=== PATIENT | male | born 1960 | race Two or more races ===

== ENCOUNTER 2020-08-24 01:48 | Inpatient (IN) | payer MEDICAID ==
[~2020-08-24] VITALS: Ht 182.9 cm; Wt 73.6 kg
--- NOTE | 2020-08-24 01:50 | NUR ---
ED Nurse Note: Pt brought in from [facility] for ALOC. Per EMS, pt has recent change in behavior (constant shouting) which is different from pt's normal behavior. Pt poor historian, aao x 1-2, yelling and shouting with slurred speech. Pt has bruising on right foot with bandage from facility. Pt bedbound, restless and agitated. IV line initiated, blood work and urine drawn and sent to lab. awaiting further orders. ERMD at bedside. Will continue to monitor.
[2020-08-24 01:55] VITALS: BP 152/70
--- NOTE | 2020-08-24 02:08 | Emergency Room Report ---
History of Present Illness General Chief Complaint: Altered Level of Consciousness Source: Medical Record, EMS Present Illness HPI This is a 60-year-old male with a history of CVA in June. He also history of diabetes hypertension. He presents with chief complaint of altered mental status. Per fci, he appears be more confused and continues to be yelling. No focal deficit. No fever chills but no cough or congestion. Patient denies any problem but keeps yelling. Appear to be confused. Allergies: Coded Allergies: No Known Allergies (Unverified , 08/24/20) COVID-19 Screening Contact w/high risk pt: No Experienced COVID-19 symptoms?: No COVID-19 Testing performed [employer]: Yes - 07/08/20 COVID-19 Screening: Negative COVID-19 COVID-19 Testing Source: [facility] Patient History Past Medical History: see triage record, old chart reviewed, DM, HTN, CAD, CVA/ TIA Past Surgical History: other Pertinent Family History: none Social History: Denies: smoking Immunizations: other Reviewed Nursing Documentation: PMH: Agreed; PSxH: Agreed Nursing Documentation-PMH Past Medical History: No History, Except For Hx Diabetes: Yes Hx Neurological Problems: Yes - epilepsy Hx Cerebrovascular Accident: Yes Review of Systems Eye: Denies: eye pain, blurred vision ENT: Denies: ear pain, nose congestion, throat swelling Respiratory: Denies: cough, shortness of breath Cardiovascular: Denies: chest pain, palpitations Gastrointestinal: Denies: abdominal pain, diarrhea, nausea, vomiting Musculoskeletal: Denies: back pain, joint pain Skin: Denies: rash Neurological: Denies: headache, numbness Endocrine: Denies: increased thirst, increased urine Hematologic/Lymphatic: Denies: easy bruising All Other Systems: negative except mentioned in HPI Physical Exam Vital Signs Date Time Temp Pulse Resp B/P (MAP) Pulse Ox O2 Delivery O2 Flow Rate FiO2 08/24/20 01:49 98.2 88 18 152/70 (97) 96 Room Air Vitals with high blood pressure Sp02 EP Interpretation: reviewed, normal General Appearance: no apparent distress, alert, Chronically Ill Head: normocephalic, atraumatic Eyes: bilateral eye PERRL, bilateral eye EOMI ENT: hearing grossly normal, normal pharynx Neck: full range of motion, supple, no meningismus Respiratory: chest non-tender, lungs clear, normal breath sounds Cardiovascular #1: regular rate, rhythm, no murmur Gastrointestinal: normal bowel sounds, non tender, no mass, no organomegaly, no bruit, non-distended Musculoskeletal: back normal, normal range of motion, other - Left foot: He has ulceration to first and second toes with erythema to the dorsum of the foot. Psychiatric: other - Agitated Medical Decision Making Diagnostic Impression: Primary Impression: Acute encephalopathy Additional Impressions: Cellulitis of left foot Rhabdomyolysis Qualified Codes: M62.82 - Rhabdomyolysis ER Course Patient presents with altered mental status. No obvious infection except maybe for cellulitis of the left foot. No evidence of any COVID. No TIA or CVA. Antibiotics and sedation given. Will admit for further work-up. I contacted Dr. Childress for admission. EKG Diagnostic Results Rate: normal Rhythm: NSR ST Segments: no acute changes Rhythm Strip Diag. Results EP Interpretation: yes Rate: 65 Rhythm: NSR, no PVC's, no ectopy Other X-Ray Diagnostic Results Other X-Ray Diagnostic Results : X-Ray ordered: Xrays left foot # of Views/Limited Vs Complete: 3 View Indication: Pain EP Interpretation: Yes Interpretation: no dislocation, no soft tissue swelling, no fractures Impression: No acute disease Electronically Signed by: Aniket Leblanc MD CT/MRI/US Diagnostic Results CT/MRI/US Diagnostic Results : Imaging Test Ordered: CT head Impression Negative per radiologist Last Vital Signs Date Time Temp Pulse Resp B/P (MAP) Pulse Ox O2 Delivery O2 Flow Rate FiO2 08/24/20 01:49 98.2 88 18 152/70 (97) 96 Room Air Status: improved Disposition: ADMITTED INPATIENT Condition: Serious Aniket Leblanc MD Aug 24, 2020 02:08
[2020-08-24] MEDS ORDERED: LORazepam Inj 2mg/ml 1ml IV ONE (02:15)
[2020-08-24 02:17] LABS: APPEARANCE,URINE CLEAR; BILIRUBIN, URINE NEGATIVE (NEGATIVE); GLUCOSE, URINE (UA) NEGATIVE (NEGATIVE); KETONES,URINE 2+ (NEGATIVE); LEUKOCYTE ESTERASE ,URINE 1+ (NEGATIVE); NITRITE,URINE NEGATIVE (NEGATIVE); PH,URINE 6 (4.5-8.0); PROTEIN,URINE 1+ (NEGATIVE); UROBILINOGEN,URINE 4 MG/DL (0.0-1.0)
--- NOTE | 2020-08-24 02:19 | NUR ---
ED Nurse Note: Covid swab collected and sent to lab
--- NOTE | 2020-08-24 02:19 | NUR ---
ED Nurse Note: ERMD aware that dental laboratory technician is unable to get an EKG, per ERMD ok to wait until patient is calmer to be able to take EKG.
[2020-08-24 02:27] LABS: BASOPHILS % (AUTO) 2.1 % (0.0-2.0); HEMATOCRIT 38.5 % (42.0-52.0); HEMOGLOBIN 13.9 G/DL (14.2-18.0); LYMPHOCYTES % (AUTO) 11.6 % (20.0-45.0); MEAN CORPUSCULAR VOLUME 84 FL (80-99); MONOCYTES % (AUTO) 9.9 % (1.0-10.0); NEUTROPHILS % (AUTO) 75.5 % (45.0-75.0); PLATELET COUNT 306 K/UL (150-450); RED BLOOD COUNT 4.58 M/UL (4.70-6.10); RED CELL DISTRIBUTION WIDTH 13.2 % (11.6-14.8); WHITE BLOOD COUNT 12.4 K/UL (4.8-10.8)
[2020-08-24 02:29] LABS: ANION GAP 7 mmol/L (5-15); BLOOD UREA NITROGEN 20 mg/dL (7-18); CALCIUM 9.4 MG/DL (8.5-10.1); CARBON DIOXIDE 29 MMOL/L (21-32); CHLORIDE 102 MMOL/L (98-107); CREATININE 0.7 MG/DL (0.55-1.30); POTASSIUM 3.6 MMOL/L (3.5-5.1); SODIUM 138 MMOL/L (136-145)
[2020-08-24 02:29] LABS: COLOR,URINE YELLOW
[2020-08-24 02:43] LABS: ALANINE AMINOTRANSFERASE 297 U/L (12-78); ALBUMIN 3.3 G/DL (3.4-5.0); ALBUMIN/GLOBULIN RATIO 0.9 (1.0-2.7); ALKALINE PHOSPHATASE 89 U/L (46-116); ASPARTATE AMINO TRANSFERASE 250 U/L (15-37); BILIRUBIN,TOTAL 1.4 MG/DL (0.2-1.0); CKMB 12.9 NG/ML (0.0-3.6); CREATINE KINASE 1097 U/L (26-308)
[2020-08-24 02:46] LABS: BILIRUBIN,DIRECT 0.5 MG/DL (0.0-0.3)
[2020-08-24] MEDS ORDERED: INSULIN LI100 UNIT/1 SQ (03:48)
[2020-08-24] MEDS ORDERED: BACTRIM DS TAB1 EAC1 ORAL ×2 (03:48→05:12)
[2020-08-24] MEDS ORDERED: ASPIRIN81 MG ORAL (03:48)
[2020-08-24] MEDS ORDERED: MORPHINE SULFAT10 MG RC (03:48)
[2020-08-24] MEDS ORDERED: KLONOPIN1 MG ORAL (03:48)
[2020-08-24] MEDS ORDERED: DULCOLAX10 MG RC ×2 (03:48→05:12)
[2020-08-24] MEDS ORDERED: DEPAKOTE250 MG PO (03:48)
[2020-08-24] MEDS ORDERED: METFORMIN HCL500 M1 ORAL (03:48)
[2020-08-24] MEDS ORDERED: ATIVAN0.5 MG ORAL (03:48)
[2020-08-24] MEDS ORDERED: DOCUSATE SODIU100 MG ORAL (03:48)
[2020-08-24] MEDS ORDERED: MORPHINE SULFAT20 MG RC (03:48)
[2020-08-24] MEDS ORDERED: LEVSIN-SL0.125 MG SL (03:48)
[2020-08-24] MEDS ORDERED: LIPITOR40 MG ORAL (03:48)
[2020-08-24] MEDS ORDERED: ZOFRAN4 M3 ORAL (03:48)
[2020-08-24] MEDS ORDERED: ATIVAN1 MG ORAL (03:48)
--- NOTE | 2020-08-24 03:56 | Diagnostic Imaging Report ---
EXAM: CT Head Without Intravenous Contrast CLINICAL HISTORY: AMS TECHNIQUE: Axial computed tomography images of the head/brain without intravenous contrast. CTDI is 53.40 mGy and DLP is 1312.00 mGy-cm. One or more of the following dose reduction techniques were used: automated exposure control, adjustment of the mA and/or kV according to patient size, use of iterative reconstruction technique. COMPARISON: No relevant prior studies available. FINDINGS: Brain: There is chronic small vessel ischemic disease. 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 There are old lacunar infarcts in the right centrum semi-ovale. There is age-related cerebral volume loss. No hemorrhage. Ventricles: Unremarkable. No ventriculomegaly. Bones/joints: Unremarkable. No acute fracture. Soft tissues: Unremarkable. Sinuses: Unremarkable as visualized. No acute sinusitis. Mastoid air cells: Unremarkable as visualized. No mastoid effusion. IMPRESSION: 1. 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 2. Old lacunar infarcts in the right centrum semi-ovale. 3. Age-related cerebral volume loss. Chronic small vessel ischemic disease.
--- NOTE | 2020-08-24 04:02 | NUR ---
ED Nurse Note: Report given to KALANI Storm.
[2020-08-24] MEDS ORDERED: cefTRIAXone 1 GM in D5W 55 ML IVPB ONE (04:15)
[2020-08-24] MEDS ORDERED: Haloperidol 5mg/ml Inj IM ONE (04:15)
--- NOTE | 2020-08-24 04:40 | NUR ---
TRANSFER TO FLOOR: Patient transferred to med surg as ordered, per ERMD. Report given to KALANI Storm. Patient transported via gurney in stable condition accompanied by ophthalmic medical technician.
--- NOTE | 2020-08-24 05:00 | NUR ---
NURSE NOTES: Patient arrived on unit from ED at 0440 via gurney. patient is restless, combative and agitated. Noted with multiple scabs and scratch on bilateral upper and lower extremities including buttocks and torso. Noted with eschar on left big toe and dry scaly redness on left malleolus. Patient is very resistive to care and becomes agitated and combative. Noted left sided weakness due to stroke. Yellow gown provided for patient. High fall risk. Bed alarm on, bed in low position. Charge nurse, NURSING HOME AIDE and other RN colleagues made aware of high fall risk status. Will contact Dr. Childress for orders.
[2020-08-24] MEDS ORDERED: ATIVAN1 MG SL (05:12)
[2020-08-24] MEDS ORDERED: ACETAMINOPHEN500 M3 ORAL (05:12)
[2020-08-24] MEDS ORDERED: ACETAMINOPHEN120 MG RECTAL (05:12)
[2020-08-24] MEDS ORDERED: MORPHINE S10 MG/5 ML SL ×2 (05:12)
[2020-08-24 05:30] VITALS: BP 156/99
--- NOTE | 2020-08-24 06:00 | NUR ---
NURSE NOTES: Admission orders received from Dr. Childress. Dr. Childress made aware of patient's behavior. Also made aware of patient's POLST on file that is not signed by MD. Dr. Childress placed patient in full code for now. Charge nurse made aware. Social service will be consulted. Will carry out orders.
[2020-08-24] MEDS ORDERED: LORazepam 1mg tab SL PRN (06:15)
[2020-08-24] MEDS ORDERED: LORazepam 0.5mg tab ORAL PRN (06:15)
[2020-08-24] MEDS ORDERED: Morphine Sulfate 10mg/5ml Oral Soln ud ORAL PRN ×2 (06:15)
[2020-08-24] MEDS ORDERED: Hyoscyamine 0.125mg tab ORAL PRN (06:15)
[2020-08-24] MEDS ORDERED: Acetaminophen 500mg (ES) tab ORAL PRN (06:15)
[2020-08-24] MEDS: NovoLOG Insulin Flexpen SUBQ SCH ×4 (06:27→21:00)
[2020-08-24] MEDS ORDERED: Acetaminophen 650 MG SUPP RECTAL PRN (06:30)
[2020-08-24] MEDS ORDERED: Varibar Nectar 240ml MC PRN (07:15)
[2020-08-24] MEDS ORDERED: Varibar Thin Liquid powder 148gm MC PRN (07:15)
[2020-08-24] MEDS ORDERED: Varibar Honey 250ml MC PRN (07:15)
[2020-08-24] MEDS ORDERED: Varibar Pudding 230ml MC PRN (07:15)
--- NOTE | 2020-08-24 07:36 | NUR ---
NURSE HAND-OFF: Important Events on Shift:[new admit. Dr. Childress in the unit, patient refused to be assessed] Patient Status: [restless in bed] Diet: [Regular nectar thick liquid] Pending Orders: [] Pending Results/Labs:[] Pending MD notification:[] Latest Vital Signs: Temperature 97.2 , Pulse 110 , B/P 156 /99 , Respiratory Rate 22 , O2 SAT 97 , Room Air, O2 Flow Rate . Vital Sign Comment: [] Latest [place] Fall Score: 95 Fall Risk: High Risk Safety Measures: Call light Within Reach, Bed Alarm Zone 2, Side Rails Side Rails x3, Bed position Low and Locked. Fall Precautions: Yellow Socks Yellow Gown Door Sign Patient Fall Education Report given to [Felisha Negrete RN]. Addendum: 08/24/20 at 0737 by MORRIS KRUSE RN RN Endorsed that patient is a very high fall risk; bed alarm on.
--- NOTE | 2020-08-24 07:46 | NUR ---
NURSE NOTES: During shift exchange MD Gruber called and said, ER made a mistake admitting this patient under MD Childress; MD Gruber wants me to call and let MD Childress know and change the admitting for this patient under MD Childress.
--- NOTE | 2020-08-24 07:47 | NUR ---
NURSE NOTES: I called and spoke to MD Childress regarding MD Gruber is gonna be the admitting MD. MD Childress said, change the admiting MD under MD Gruber. Order carried out and called admissions regarding the change. I am gonna fax the order to admission.
--- NOTE | 2020-08-24 07:54 | NUR ---
NURSE NOTES: Patient awake, alert x2, confused, impulsive, non compliant, trying to get out of bed, doesn't allow to be touched and care provided; on room air, no sing of distress, no sing of shortness of breath; no sing of chest pain; IV LAC flushes well; patient had scratches and scars all over the body; side rails up x2, bed at lowest position, breaks engaged, bed alarm on. will keep monitoring. Patient is risk for fall, sign at the door, yellow gawn, yellow sock and risk band. staffs aware that patient risk for fall.
[2020-08-24] MEDS: Haloperidol 5mg/ml Inj IM PRN ×3 (08:05→12:54)
--- NOTE | 2020-08-24 08:18 | NUR ---
NURSE NOTES: I pulled Haldo 5 mg to administer this patient; however patient received 10 mg Haldo at ER around 0423; medication Haldo waist and witnessed by charge nurse, Carter;
--- NOTE | 2020-08-24 08:20 | NUR ---
NURSE NOTES: I called to MD Gruber to get an order for bilateral soft restrain, patient agitated, impulsive, trying to jump of bed, waiting call back from MD Gruber.
--- NOTE | 2020-08-24 08:30 | History and Physical Report ---
DATE OF ADMISSION: 08/24/2020 HISTORY OF PRESENT ILLNESS: Altered mental status. HISTORY OF PRESENT ILLNESS: The patient is a 60-year-old male. He has a prior history of stroke, diabetes, and hypertension, who was transferred with complaints of altered mental status. According to staff, he became more agitated and aggressive. The patient is a poor historian and is confused. He is unable to provide any history. On evaluation in the emergency room, a head CT showed only old infarcts. Labs were significant for elevated AST of 215 and ALT of 297. White count was 12. Urine was clear. The patient was given Haldol in the emergency room and is now admitted for further evaluation for altered mental status. PAST MEDICAL HISTORY: As above. PAST SURGICAL HISTORY: Unknown. CURRENT MEDICATIONS: Reconciled and reviewed. ALLERGIES: None. FAMILY HISTORY: Unknown. SOCIAL HISTORY: There is no known history of tobacco, ethanol, or drugs. REVIEW OF SYSTEMS: From the patient is unobtainable as he is confused. PHYSICAL EXAMINATION: VITAL SIGNS: Temperature 97.2, pulse 110, respirations 22, and blood pressure 156/99. GENERAL: The patient is a chronically ill-appearing thin male, in no apparent distress. He is uncooperative with exam. HEENT: Head is normocephalic and atraumatic. HEART: Regular rate and rhythm. LUNGS: Clear. ABDOMEN: Soft. EXTREMITIES: Without clubbing or cyanosis. The patient has left-sided weakness. He has a dark eschar on his right toe. LABORATORY DATA: White count was 12, hemoglobin 13, platelet count of 306,000. Troponin was negative. CK was 1000. AST 250, ALT was 297. Sodium 138, potassium 3.6, creatinine was 0.7. Urine was clear. ASSESSMENT: This is a 60-year-old male with history of stroke, hypertension, diabetes, admitted with complaints of altered mental status, etiology of which is unclear. PLAN: Check abdominal ultrasound. Monitor liver function tests. Check hepatitis panel. Gentle hydration. Anxiolytics. DVT and stress ulcer prophylaxis. Check vascular studies. Beny Childress M.D. DR: Fatimah JOB#: [id number] CC:
[2020-08-24] MEDS ORDERED: Bactrim-DS 1 tab ORAL SCH (09:00)
[2020-08-24] MEDS: metFORMIN 500mg tab ORAL SCH (09:24)
[2020-08-24] MEDS: Docusate 100mg cap ORAL SCH (09:24)
[2020-08-24] MEDS: Aspirin Baby 81mg ORAL SCH (09:24)
[2020-08-24] MEDS: D5NS 1,000 ML IV SCH ×2 (09:27→21:00)
[2020-08-24] MEDS: Acetaminophen 500mg (ES) tab ORAL SCH ×2 (09:27→17:04)
[2020-08-24] MEDS: Heparin 5000 units/ml inj SUBQ SCH ×2 (09:28→21:14)
[2020-08-24] MEDS ORDERED: DiphenhydrAMINE 50mg/ml Inj IVP PRN (10:45)
--- NOTE | 2020-08-24 10:53 | NUR ---
CONTACT REPRESENTATIVE NOTE SW received a consult to review POLST signed by pt w/o MD signature. PT is from [facility]. The POLST w/ DNR and comfort measure was signed by pt on 07/29/2020. There is no emergency contact/AD per intermediate. SW attempted to meet w/ pt to verify. Pt closed his eyes, twisting and moving his body but did not respond to this SW. Pt does not appear to be alert and oriented at this time. MD will decide to respect pt's previous wish. Bioethics recommended as needed.
--- NOTE | 2020-08-24 11:07 | NUR ---
CASE MANAGEMENT: REVIEW 60 YEAR OLD MALE BIBA FROM [facility] CC: ALOC SI: ACUTE ENCEPHALOPATHY . CELLULITIS LEFT TOE T 98.2 HR 102 RR 18 BP 152/70 SAT 96% ROOM AIR WBC 12.4 H/H 13.9/38.5 TOTAL CREATINE KINASE 1097 IS: NS IVF BOLUS X1 ATIVAN IV X1 ROCEPHIN IV X1 HALDOL IM X1 PATIENT ADMITTED TO MED/SURG UNIT 08/24/2020 DCP: PATIENT IS FROM [facility]
--- NOTE | 2020-08-24 12:23 | Consultation ---
History of Present Illness General Date patient seen: Aug 24, 2020 Reason for Hospitalization: Altered Level of Consciousness Present Illness HPI This is a 60-year-old male multi-medical comorbidities who is a care facility patient after prior CVA who presented with altered level of consciousness was significant were agitated and restless. Abnormal labs identified minute further care management. On admission surgery called to evaluate given patient's skin concerns malnutrition and abnormal labs. Patient seen, patient evaluated, chart reviewed. Limited history from patient and EMR reviewed. No nausea vomiting fever chills. Imaging reviewed. Allergies: Coded Allergies: No Known Allergies (Unverified , 08/24/20) COVID-19 Screening Contact w/high risk pt: No Experienced COVID-19 symptoms?: No Medication History Scheduled Acetaminophen* (Acetaminophen Extra Strength*), 1,000 MG ORAL BID, (Reported) Aspirin* (Aspirin*), 81 MG ORAL DAILY, (Reported) Atorvastatin Calcium* (Lipitor*), 40 MG ORAL BEDTIME, (Reported) Clonazepam* (Klonopin*), 1 MG ORAL BID, (Reported) Divalproex Sodium* (Depakote*), 250 MG PO Q12HR, (Reported) Docusate Sodium* (Docusate Sodium*), 100 MG ORAL DAILY, (Reported) Metformin Hcl* (Metformin Hcl*), 500 MG ORAL DAILY, (Reported) Trimethoprim/Sulfamethoxazole 160/800* (Bactrim Ds Tablet*), 1 TAB ORAL TWICE A DAY, (Reported) Scheduled PRN Acetaminophen* (Tylenol*), 650 MG RECTAL Q4H PRN for Temp >100.5, (Reported) Bisacodyl (Dulcolax), 10 MG RC DAILY PRN for Constipation, (Reported) Hyoscyamine Sulfate* (Levsin-Sl*), 0.125 MG SL FOUR TIMES A DAY PRN for secretions, (Reported) Lorazepam* (Ativan*), 0.5 MG ORAL Q8HR PRN for Restlessness, (Reported) Lorazepam* (Ativan*), 1 MG SL Q8HR PRN for For Anxiety, (Reported) Morphine 10mg/5ml Oral Soln* (Morphine 10mg/5ml Oral Soln*), 10 MG SL Q4HR PRN for Moderate Pain (Pain Scale 4-6), (Reported) Morphine 10mg/5ml Oral Soln* (Morphine 10mg/5ml Oral Soln*), 20 MG SL Q4HR PRN for Severe Pain (Pain Scale 7-10), (Reported) Morphine 10mg/5ml Oral Soln* (Morphine 10mg/5ml Oral Soln*), 5 MG SL for Mild Pain (Pain Scale 1-3), (Reported) Ondansetron* (Zofran*), 4 MG ORAL Q8H PRN for Nausea & Vomiting, (Reported) Miscellaneous Medications Insulin Lispro (Insulin Lispro), 100 UNIT SQ, (Reported) Patient History Limited by: medical condition History Provided By: Medical Record, PMD Healthcare decision maker Resuscitation status Advanced Directive on File Past Medical/Surgical History Past Medical/Surgical History: (1) Cellulitis of left toe (2) Acute encephalopathy (3) Rhabdomyolysis (4) Cellulitis of left foot Review of Systems Review of Symptoms General ROS: no weight loss or fever Psychological ROS: no depression or mood changes, no memory loss Ophthalmic ROS: no visual changes or eye irritation ENT ROS: no nasal congestion, hearing loss, dizziness Allergy and Immunology ROS: no allergic symptoms or urticaria Hematological and Lymphatic ROS: no swollen glands, unusual bleeding or bruising Endocrine ROS: no polyuria, polydipsia, weight changes, temperature intolerance Respiratory ROS: no cough, shortness of breath, or wheezing Cardiovascular ROS: no chest pain or dyspnea on exertion Gastrointestinal ROS: denies abdominal pain, bright red blood in stool. Musculoskeletal ROS: no myalgias or arthralgias Neurological ROS: no TIA or stroke symptoms Dermatological ROS: no new or changing skin lesions, rashes or pruritis limited given medical condition Physical Exam Physical Exam General appearance: alert, agitated, no distress, appears stated age Head: Normocephalic, without obvious abnormality, atraumatic Eyes: conjunctivae/corneas clear. PERRL, EOM's intact. Fundi benign Throat: Lips, mucosa, and tongue normal. Teeth and gums normal Neck: supple, symmetrical, trachea midline, no adenopathy, thyroid: not enlarged, symmetric, no tenderness/mass/nodules, no carotid bruit and no JVD Lungs: clear to auscultation bilaterally Heart: regular rate and rhythm, S1, S2 normal, no murmur, click, rub or gallop Abdomen: soft, non-tender. Bowel sounds normal. No masses, no organomegaly Extremities: extremities normal, atraumatic, see below Pulses: 2+ and symmetric Skin: Skin see below Neurologic: Grossly normal Last 24 Hour Vital Signs Date Time Temp Pulse Resp B/P (MAP) Pulse Ox O2 Delivery O2 Flow Rate FiO2 08/24/20 09:57 97.2 08/24/20 09:00 Room Air 08/24/20 05:30 97.2 110 22 156/99 (118) 97 08/24/20 05:00 Room Air 08/24/20 04:40 98.1 88 17 137/89 99 Room Air 08/24/20 02:43 79 16 142/75 97 08/24/20 02:13 88 18 152/70 96 08/24/20 01:55 88 18 Room Air 08/24/20 01:55 98.2 102 18 152/70 96 Room Air 08/24/20 01:49 98.2 88 18 152/70 (97) 96 Room Air Intake and Output 08/23/20 08/24/20 19:00 07:00 Intake Total 1000 ml Output Total 200 ml Balance 800 ml Intake IV Total 1000 ml Output Urine Total 200 ml Laboratory Tests Test 08/24/20 01:50 08/24/20 02:00 08/24/20 08:50 White Blood Count 12.4 K/UL (4.8-10.8) H Red Blood Count 4.58 M/UL (4.70-6.10) L Hemoglobin 13.9 G/DL (14.2-18.0) L Hematocrit 38.5 % (42.0-52.0) L Mean Corpuscular Volume 84 FL (80-99) Mean Corpuscular Hemoglobin 30.4 PG (27.0-31.0) Mean Corpuscular Hemoglobin Concent 36.2 G/DL (32.0-36.0) H Red Cell Distribution Width 13.2 % (11.6-14.8) Platelet Count 306 K/UL (150-450) Mean Platelet Volume 6.2 FL (6.5-10.1) L Neutrophils (%) (Auto) 75.5 % (45.0-75.0) H Lymphocytes (%) (Auto) 11.6 % (20.0-45.0) L Monocytes (%) (Auto) 9.9 % (1.0-10.0) Eosinophils (%) (Auto) 1.0 % (0.0-3.0) Basophils (%) (Auto) 2.1 % (0.0-2.0) H Sodium Level 138 MMOL/L (136-145) Potassium Level 3.6 MMOL/L (3.5-5.1) Chloride Level 102 MMOL/L (98-107) Carbon Dioxide Level 29 MMOL/L (21-32) Anion Gap 7 mmol/L (5-15) Blood Urea Nitrogen 20 mg/dL (7-18) H Creatinine 0.7 MG/DL (0.55-1.30) Estimat Glomerular Filtration Rate > 60 mL/min (>60) Glucose Level 103 MG/DL (74-106) Lactic Acid Level 1.50 mmol/L (0.4-2.0) Calcium Level 9.4 MG/DL (8.5-10.1) Total Bilirubin 1.4 MG/DL (0.2-1.0) H Direct Bilirubin 0.5 MG/DL (0.0-0.3) H Aspartate Amino Transf (AST/SGOT) 250 U/L (15-37) H Alanine Aminotransferase (ALT/SGPT) 297 U/L (12-78) H Alkaline Phosphatase 89 U/L (46-116) Total Creatine Kinase 1097 U/L (26-308) H Creatine Kinase MB 12.9 NG/ML (0.0-3.6) H Creatine Kinase MB Relative Index 1.1 Troponin I 0.000 ng/mL (0.000-0.056) Total Protein 6.8 G/DL (6.4-8.2) Albumin 3.3 G/DL (3.4-5.0) L Globulin 3.5 g/dL Albumin/Globulin Ratio 0.9 (1.0-2.7) L Urine Color Yellow Urine Appearance Clear Urine pH 6 (4.5-8.0) Urine Specific [place] 1.020 (1.005-1.035) Urine Protein 1+ (NEGATIVE) H Urine Glucose (UA) Negative (NEGATIVE) Urine Ketones 2+ (NEGATIVE) H Urine Blood Negative (NEGATIVE) Urine Nitrite Negative (NEGATIVE) Urine Bilirubin Negative (NEGATIVE) Urine Urobilinogen 4 MG/DL (0.0-1.0) H Urine Leukocyte Esterase 1+ (NEGATIVE) H Urine RBC 0-2 /HPF (0 - 0) H Urine WBC 0-2 /HPF (0 - 0) Urine Squamous Epithelial Cells None /LPF (NONE/OCC) Urine Bacteria None /HPF (NONE) Ammonia 41 umol/L (11-32) H Valproic Acid (Depakene) Level 13 MCG/ML (50-100) L Microbiology Date/Time Source Procedure Growth Status 08/24/20 02:16 Nasopharynx SARS-CoV-2 RdRp Gene Assay - Final Complete Height (Feet): 6 Height (Inches): 0.00 Weight (Pounds): 151 Medications Current Medications Medications (Trade) Dose Ordered Sig/Jesu Route PRN Reason Start Time Stop Time Status Last Admin Dose Admin Acetaminophen (Tylenol) 650 mg Q4H PRN RECTAL Temp >100.5 08/24/20 06:30 09/23/20 06:29 Acetaminophen (Tylenol) 1,000 mg BID ORAL 08/24/20 09:00 09/23/20 08:59 08/24/20 09:27 Aspirin (ASA) 81 mg DAILY ORAL 08/24/20 09:00 10/08/20 08:59 08/24/20 09:24 Atorvastatin Calcium (Lipitor) 40 mg BEDTIME ORAL 08/24/20 21:00 11/22/20 20:59 Barium Sulfate (Varibar Honey) 250 ml NOW PRN MC RAD 08/24/20 07:15 08/27/20 07:03 Barium Sulfate (Varibar Vowinckel) 240 ml NOW PRN MC RAD 08/24/20 07:15 08/27/20 07:03 Barium Sulfate (Varibar Pudding) 230 ml NOW PRN MC RAD 08/24/20 07:15 08/27/20 07:03 Barium Sulfate (Varibar Thin Liquid powder) 148 gm NOW PRN MC RAD 08/24/20 07:15 08/27/20 07:03 Bisacodyl (Dulcolax) 10 mg DAILY PRN RECTAL Constipation 08/24/20 06:15 11/22/20 06:14 Clonazepam (KlonoPIN) 1 mg BID ORAL 08/24/20 09:00 08/31/20 08:59 08/24/20 09:24 Dextrose (Dextrose 50%) 25 ml Q30M PRN IV Hypoglycemia 08/24/20 06:30 11/22/20 06:29 Dextrose (Dextrose 50%) 50 ml Q30M PRN IV Hypoglycemia 08/24/20 06:30 11/22/20 06:29 Dextrose/Sodium Chloride 1,000 ml @ 75 mls/hr [id number] IV 08/24/20 07:00 09/23/20 06:59 08/24/20 09:27 Diphenhydramine HCl (Benadryl) 25 mg BIDPRN PRN IVP Itching 08/24/20 10:45 09/23/20 10:44 Divalproex Sodium (Depakote) 250 mg Q12HR ORAL 08/24/20 09:00 09/23/20 08:59 08/24/20 09:24 Docusate Sodium (Colace) 100 mg DAILY ORAL 08/24/20 09:00 09/23/20 08:59 08/24/20 09:24 Haloperidol Lactate (Haldol) 5 mg Q6H PRN IM Agitation 08/24/20 07:00 10/08/20 06:59 08/24/20 08:05 Heparin Sodium (Porcine) (Heparin 5000 units/ml) 5,000 units EVERY 12 HOURS SUBQ 08/24/20 09:00 10/08/20 08:59 08/24/20 09:28 Hydrocortisone (Hydrocortisone) 1 applic Q12HR TOPIC 08/24/20 21:00 11/22/20 20:59 Hyoscyamine Sulfate (Levsin) 0.125 mg Q4H PRN ORAL secretions 08/24/20 06:15 09/23/20 06:14 Insulin Aspart (NovoLOG) BEFORE MEALS AND HS SUBQ 08/24/20 06:30 11/22/20 06:29 Lorazepam (Ativan) 0.5 mg Q8H PRN ORAL Restlessness 08/24/20 06:15 08/31/20 06:14 Lorazepam (Ativan) 1 mg Q8H PRN SL For Anxiety 08/24/20 06:15 08/31/20 06:14 Metformin HCl (Glucophage) 500 mg DAILY ORAL 08/24/20 09:00 09/23/20 08:59 08/24/20 09:24 Morphine Sulfate (Morphine 10mg/ 5ml Oral Soln) 5 mg Q4H PRN ORAL Mild Pain (Pain Scale 1-3) 08/24/20 06:15 08/31/20 06:14 Morphine Sulfate (Morphine 10mg/ 5ml Oral Soln) 10 mg Q4H PRN ORAL Moderate Pain (Pain Scale 4-6) 08/24/20 06:15 08/31/20 06:14 Morphine Sulfate (Morphine 10mg/ 5ml Oral Soln) 20 mg Q4H PRN ORAL Severe Pain (Pain Scale 7-10) 08/24/20 06:15 08/31/20 06:14 Quetiapine Fumarate (SEROqueL) 50 mg Q12HR ORAL 08/24/20 09:00 10/08/20 08:59 08/24/20 09:24 Vancomycin HCl (Vanco pharmacy to dose) 1 ea DAILY PRN MISC Per rx protocol 08/24/20 10:45 09/23/20 10:44 Vancomycin HCl 750 mg/Sodium Chloride 250 ml @ 166.667 mls/hr Q12HR@0100,1300 IVPB 08/24/20 13:00 08/29/20 12:59 Assessment/Plan Problem List: (1) Rhabdomyolysis ICD Codes: M62.82 - Rhabdomyolysis SNOMED: 541213122 Qualifiers: Qualified Codes: M62.82 - Rhabdomyolysis (2) Cellulitis of left foot ICD Codes: L03.116 - Cellulitis of left lower limb SNOMED: 365145136 (3) Cellulitis of left toe ICD Codes: L03.032 - Cellulitis of left toe SNOMED: 76947530 (4) Acute encephalopathy Assessment & Plan: Brain: There is chronic small vessel ischemic disease. 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 There are old lacunar infarcts in the right centrum semi-ovale. There is age-related cerebral volume loss. No hemorrhage. Ventricles: Unremarkable. No ventriculomegaly. Bones/joints: Unremarkable. No acute fracture. Soft tissues: Unremarkable. Sinuses: Unremarkable as visualized. No acute sinusitis. Mastoid air cells: Unremarkable as visualized. No mastoid effusion. IMPRESSION: 1. 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 2. Old lacunar infarcts in the right centrum semi-ovale. 3. Age-related cerebral volume loss. Chronic small vessel ischemic disease. ICD Codes: G93.40 - Encephalopathy, unspecified SNOMED: 22838474, 093706069 (5) Abnormal LFTs Assessment & Plan: 60-year-old male altered mental status agitated came in for evaluation identified to have a WBC of 12 and abnormal LFTs. Admitted further care and management. Abdominal exam is fairly benign soft nontender nondistended. Pending abdominal ultrasound Trend labs We will follow with recommendations as imaging and labs are available. ICD Codes: R94.5 - Abnormal results of liver function studies SNOMED: 647122266 (6) Leukocytosis Assessment & Plan: Patient with leukocytosis on admission. Abnormal LFTs. Ana ology of leukocytosis unknown. Micro noted. On antibiotics. Imaging ordered. Will follow with recommendations as imaging information is available. No abscess or or visible sign of infection identified. Small eschar on toe and had mild erythema of foot but not very clinically significant. ICD Codes: D72.829 - Elevated white blood cell count, unspecified SNOMED: 131306335, [id number] Clay Gonzalez Aug 24, 2020 12:23
--- NOTE | 2020-08-24 12:27 | Diagnostic Imaging Report ---
Indication: Altered mental status Technique: One view of the chest Comparison: none Findings: The heart is upper limits of normal in size. The lungs and pleural spaces are clear. Impression: No acute process
--- NOTE | 2020-08-24 12:50 | NUR ---
NURSE NOTES:WOUND ASSESSMENT PATIENT ASLEEP IN BED. AROUSABLE BUT RESISTENT TO REPOSITIONING. LEFT LOW LEG -ABRASION 2.0X1.3X0.2CM RIGHT LATERAL LOW LEG-ABRASION 3.2X1.0X0.2CM RECOMMEND-APPLY XEROFORM GAUZE AND COVER WITH OPTIFOAM DRESSING. REPLACE EVERY 3 DAYS AND PRN LEFT GREAT TOE - HARD DRY BLACK ESCHAR. 3.5X3.3X0.2CM LEFT ANTERIOR FOOT-DRY BLACK ESCHAR 0.8X1.0X0.2CM LEFT 2ND TOE-DRY BLACK ESCHAR 1.4X0.4X0.1CM LEFT 2ND DISTAL TOE -DRY BLACK ESCHAR 0.4X0.4X0.1CM LEFT 4TH TOE- DARK BROWN ESCHAR 0.5X0.7X0.1XCM NOTED REDNESS AND SKIN WARM TO TOUCH TRAVELING FROM LEFT TOES TO MID DORSAL FOOT. RECOMMEND-MD WOUND CONSULT.
--- NOTE | 2020-08-24 14:51 | NUR ---
RADIOLOGY DEPT., LEFT FOOT X-RAYS COMPLETED.-PRodolfoDYE
[2020-08-24] MEDS: LORazepam 1mg tab ORAL SCH (15:29)
--- NOTE | 2020-08-24 15:45 | History and Physical Report ---
DATE OF ADMISSION: 08/24/2020 HISTORY OF PRESENT ILLNESS: This is an elderly 60-year-old male who came to the emergency room for having recurrent nonhealing ulcer and cellulitis on the left toe and acute encephalopathy, rhabdomyolysis, and possible rule out osteomyelitis. The patient is in a care home. PAST MEDICAL HISTORY: Significant for depression, diabetes, hypertension, hyperlipidemia. MEDICATIONS: He is taking aspirin, Lipitor, Tylenol, Colace, Depakote, Haldol, insulin sliding scale, metformin, and Seroquel. PHYSICAL EXAMINATION: GENERAL: The patient is currently sleeping, discussed with charge nurse. VITAL SIGNS: Blood pressure 156/99, pulse 110, respirations 22, temperature 97.2. HEENT: Eyes are closed. NECK: Supple. CHEST: Bilaterally clear. CARDIOVASCULAR: Regular rhythm. No tachycardia. ABDOMEN: Soft. Positive bowel sounds. Nontender. EXTREMITIES: Right leg has erythema and cellulitis and ulcer on the right big toe, nonhealing, and possible mild infection. GENITOURINARY: Deferred. LABORATORY DATA: White counts are 13,000, hemoglobin 14, hematocrit 42, platelets are 306. Chemistry panel, BUN 20, creatinine 0.7. Bilirubin is 1.4. LFTs are high, AST 250, ALT 297. CK is 1097. Albumin is 3.3. His urine has 4+ urobilinogen, 1+ leukocyte esterase, and 2+ ketones. Toxicology, valproic acid 13.1. IMAGING: CT of head, old infarct in right posterior and temporoparietal region, old lacunar infarct, cerebral volume loss. ASSESSMENT: 1. Altered mental status. 2. Cellulitis of the right leg. 3. History of the patient deteriorating. The patient was on hospice and family took him off and came to the hospital. The patient is currently nonverbal, sitting in the bed, occasionally agitated. PLAN: We will currently add vancomycin, dose per pharmacy. Consider ID consult as well as consider surgery consult. Continue Bactrim. Continue home medications. Shimon Gruber M.D. DR: Nilda JOB#: [id number] CC:
--- NOTE | 2020-08-24 16:08 | Diagnostic Imaging Report ---
Indication: Foot pain Technique: 3 views left foot Comparison: none Findings: No acute fractures. No dislocations. The joint spaces are preserved. There is a small calcaneal spur Impression: No acute process
--- NOTE | 2020-08-24 16:48 | NUR ---
SPEECH PATHOLOGY NOTE: BEDSIDE SWALLOW EVALUATION RECEIVED FROM . CHART REVIEWED, RN JAVI INTERVIEWED, EVAL COMPLETED. PER CHART REVIEW, PATIENT WAS ON A REGULAR TEXTURE DIET WITH NECTAR THICK LIQUIDS IN THE SNF PRIOR TO ADMISSION. PATIENT WAS RECEIVED SITTING UPRIGHT IN BED, IN SOFT RESTRAINTS. ALL DAY HE HAS BEEN AGITATED, COMBATIVE, CONFUSED AND REFUSING MOST OF P.O. OFFERED. DURING THIS EVALUATION HE WAS AMENABLE TO ST INTERVENTION BUT KEPT HIS EYES CLOSED DURING THE ENTIRE VISIT. DYSPHAGIA RISK FACTORS FOR THIS 60 Y.O. MALE: S/P CVA (JUNE 2020): L/PARIETAL INFARCT AND SMALL ACUTE INFARCTS IN OCCIPITAL AND FRONTAL LOBES, DECREASED MENTATION, CONTINUOUS AGITATION/DISTRACTION WITH INABILITY TO FOCUS ON P.O. TASKS, IMPULSIVITY, DYSARTHRIA. PER POLST: DNR/COMFORT FOCUSED TX ONLY INITIAL IMPRESSION: PATIENT WAS ADMITTED WITH DX OF ENCEPHALOPATHY/CELLULITIS. HE WAS NOT ABLE TO FOLLOW COMMANDS FOR AN ORAL MOTOR EXAM. DENTITION CONSISTED OF TOOTH FRAGMENTS 2/2 METH ABUSE. LINGUAL/LABIAL/MANDIBULAR MUSCULATURE PRESENTED INCOORDINATED/DYSARTHRIC AND LIMITED IN ROM. P.O. TRIALS INCLUDED THIN, NECTAR THICK LIQUIDS, HONEY THICK LIQUIDS, PUREE, AND SOFT SOLIDS PRESENTED IN 5ML AMOUNTS VIA SPOON. THE ORAL PHASE OF THE SWALLOW WAS CHARACTERIZED BY DIFFICULTY SECURING BOLUS FROM SPOON, DECREASED COORDINATION OF ORAL MOTOR MOVEMENTS, POOR MASTICATION, POOR ORAL TRANSIT, SUSPECTED SENSORIMOTOR DEFICITS DUE TO STASIS OF PUREE AND SOFT SOLIDS ON LINGUAL SURFACE AND IN ANTERIOR SULCUS POST SWALLOW, DELAYED INITIATION OF PHARYNGEAL PHASE OF SWALLOW, COUGH RESPONSE TO THIN LIQUIDS. POST SWALLOW OF NECTAR THICK, HONEY THICK, AND PUREE PATIENT PRESENTED WITH CLEAR UPPER AIRWAY SOUNDS. NO OVERT S/S OF ASPIRATION. STASIS OF PUREE ON LINGUAL SURFACE CLEARED WITH LIQUID WASH OF NECTAR THICK LIQUID. IT IS DOUBTFUL THAT THIS PATIENT COULD SUCCESSFULLY PARTICIPATE IN AN INSTRUMENTAL SWALLOW EVALUATION DUE TO MENTATION/AGITATION LIMITATIONS. TO MAXIMIZE SWALLOW SAFETY AND MINIMIZE RISK OF ASPIRATION THE FOLLOWING IS RECOMMENDED: RECOMMENDATIONS: 1. DOWNGRADE CURRENT TEXTURE TO PUREE WITH NECTAR THICK LIQUIDS, NO STRAWS 2. MEALTIME PROTOCOL POSTED AT BEDSIDE 3. CRUSH CRUSHABLE MEDS/PRESENT IN PUREE 4. TOTAL ASSIST WITH MEALS 5. MINIMIZE DISTRACTIONS DURING MEALS 6. ST TO FOLLOW FOR DYSPHAGIA TX/MANAGEMENT 3-5X WK X 2 WKS THANK YOU FOR THIS REFERRAL.
--- NOTE | 2020-08-24 17:34 | Cardiology Report ---
APPROVED REPORT EKG Measurement Heart [id number] ID [id number] <Conclusion> Sinus rhythm with occasional premature ventricular complexes and premature atrial complexes Otherwise normal ECG
--- NOTE | 2020-08-24 19:20 | NUR ---
NURSE NOTES: Received report from Felisha URIARTE. Pt. is in bed, awake, alert with confusion evident. breathing even and unlabored. Denies any pain at this time. With dora. soft wrist restraints, with good circulation and intact skin on site. With siderails up and locked.With bed in it's lowest position, with alarm on and locked. Call light is within reach. Will continue with plan of care.
--- NOTE | 2020-08-24 19:31 | NUR ---
HAND-OFF: Report given to KALANI Rubio. Endorsed to the incoming nurse that pateint is risk for fall; bilateral sort wristrains in place; bed at lowest position, bed alarm on;
[2020-08-24 20:00] VITALS: BP 142/82
[2020-08-24] MEDS: Hydrocortisone 1% Cr TOPIC SCH (21:00)
[2020-08-24] MEDS: Atorvastatin 20mg tab ORAL SCH (21:05)
[2020-08-25] VITALS (7 sets, daily range): BP systolic 96–150; BP diastolic 66–88
--- NOTE | 2020-08-25 01:00 | Consultation ---
DATE OF CONSULTATION: 08/25/2020 CONSULTING PHYSICIAN: Nima Degroot MD. HISTORY OF PRESENT ILLNESS: This is a 60-year-old male with a history of substance use disorder as well as multiple CVAs who has been admitted to the hospital from [facility]. I am familiar with this patient. Patient also has been on hospice. His hospice was discontinued per the family's request. Patient is not eating and has low appetite. He has difficulty with swallowing and has poor insight, poor judgment, not able to be engaged, confused, disoriented, and screaming. PAST PSYCHIATRIC HISTORY: Significant for psychotic disorder, depression. PAST MEDICAL HISTORY: Significant for CVA. ALLERGIES: No known drug allergies. SUBSTANCE ABUSE HISTORY: Significant for methamphetamines per the halfway report. MENTAL STATUS EXAMINATION: Patient is alert, oriented x0. Mood is agitated. Affect is blunted, congruent with mood. Thought process is concrete. Thought content, no suicidal or homicidal ideation. Cognition is impaired. Insight and judgment is impaired. ASSESSMENT: Orestes I Psychotic disorder, not otherwise specified. Orestes II Deferred. Orestes III CVA. Orestes IV Low. Orestes V 20. PLAN: 1. We will start the patient on Seroquel. 2. Ativan. 3. Discontinue all other psychotropic medication. 4. Patient lacks capacity to make decision. Nima Degroot M.D. DR: EDMUNDO JOB#: [id number] CC:
--- NOTE | 2020-08-25 02:42 | NUR ---
NURSE NOTES: All due meds given to pt. Encouraged to increase fluid intake. With continuous dora. soft wrist restraints, pt. kept trying to pull out contraptions and going out of bed, aggressive and combative. provided assistance and redirect at all times. Offered fluids constantly. Slept @ short intervals. With constant screaming and restless at most times. Released restraints on each sides and skin assessed for any skin breakdown. Kept clean and dry at all times. On continues ivatb of Vanco, without adverse reaction noted. Will continue to monitor.
[2020-08-25] MEDS: Haloperidol 5mg/ml Inj IM PRN ×3 (03:00→21:25)
[2020-08-25] MEDS: LORazepam 1mg tab ORAL SCH ×4 (06:00→17:16)
[2020-08-25] MEDS: NovoLOG Insulin Flexpen SUBQ SCH ×4 (06:36→21:00)
[2020-08-25 06:55] LABS: BASOPHILS % (AUTO) 1.5 % (0.0-2.0); EOSINOPHILS % (AUTO) 2.1 % (0.0-3.0); HEMATOCRIT 36.8 % (42.0-52.0); HEMOGLOBIN 12.7 G/DL (14.2-18.0); LYMPHOCYTES % (AUTO) 17.6 % (20.0-45.0); MEAN CORPUSCULAR VOLUME 86 FL (80-99); NEUTROPHILS % (AUTO) 70.8 % (45.0-75.0); PLATELET COUNT 291 K/UL (150-450); RED BLOOD COUNT 4.26 M/UL (4.70-6.10); RED CELL DISTRIBUTION WIDTH 13.5 % (11.6-14.8)
[2020-08-25 07:00] LABS: ALANINE AMINOTRANSFERASE 288 U/L (12-78); ALBUMIN 2.6 G/DL (3.4-5.0); ALBUMIN/GLOBULIN RATIO 0.7 (1.0-2.7); ALKALINE PHOSPHATASE 80 U/L (46-116); ANION GAP 10 mmol/L (5-15); ASPARTATE AMINO TRANSFERASE 218 U/L (15-37); BILIRUBIN,TOTAL 0.8 MG/DL (0.2-1.0); BLOOD UREA NITROGEN 13 mg/dL (7-18); CALCIUM 8.3 MG/DL (8.5-10.1); CARBON DIOXIDE 25 MMOL/L (21-32); CHLORIDE 107 MMOL/L (98-107); CREATININE 0.6 MG/DL (0.55-1.30); POTASSIUM 3.5 MMOL/L (3.5-5.1); SODIUM 142 MMOL/L (136-145)
--- NOTE | 2020-08-25 07:25 | NUR ---
NURSE HAND-OFF: Important Events on Shift:restraints, fluids Patient Status: alert Diet: [Pureed Moist [place] Thick Pending Orders: [] Pending Results/Labs:[]esr,ptt,pt,lipase,c- reactive protein, cbc,cmp,lactic acid Pending MD notification:[] Latest Vital Signs: Temperature 98.6 , Pulse 95 , B/P 124 /69 , Respiratory Rate 20 , O2 SAT 95 , Room Air, O2 Flow Rate . Vital Sign Comment: [] Latest [place] Fall Score: 95 Fall Risk: High Risk Safety Measures: Call light Within Reach, Bed Alarm Zone 2, Side Rails Side Rails x2, Bed position Low and Locked. Fall Precautions: Yellow Socks Yellow Gown Door Sign Patient Fall Education Report given to kenia URIARTE.[].
[2020-08-25 07:35] LABS: INR 1.1 (0.9-1.1)
--- NOTE | 2020-08-25 07:41 | NUR ---
NURSE NOTES: Patient sleepy, on room air, no sing of distress and shortness of breath; no sing of chest pain; IV Left Upper Arm D5NS 75cc running; Bilateral soft wristrain in place, skin assessed, skin warm to touch, good circulation; side rials up x2, breaks engaged, bed alarm on; Left Toe cellulites noted; patient rashes and scaps on upper and lower bodies; will keep monitoring.
--- NOTE | 2020-08-25 08:53 | Diagnostic Imaging Report ---
Indication: Bilateral lower extremity pain Technique: Grayscale and duplex images of the bilateral lower extremity arteries Comparison: none Findings: Bilaterally, grayscale and duplex images demonstrate atherosclerotic plaquing. Bilaterally, triphasic waveforms with sharp systolic peaks are seen from the common femoral to the popliteal artery levels. On the right, dorsalis pedis artery waveforms is borderline triphasic. Proximal posterior and anterior tibial artery waveforms are triphasic, and the distal posterior tibial artery waveform is triphasic. On the left, the posterior tibial artery waveform is monophasic with increased diastolic flow. The peroneal artery waveforms is monophasic with increased diastolic flow. The dorsalis pedis artery waveforms is monophasic with increased diastolic flow. Systolic peaks remain sharp in the tibial vessels. 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 No evidence of suprageniculate stenosis Minimal if any trifurcation disease on the right. No evidence of suprageniculate stenosis
[2020-08-25] MEDS: Aspirin Baby 81mg ORAL SCH (09:23)
[2020-08-25] MEDS: metFORMIN 500mg tab ORAL SCH (09:23)
[2020-08-25] MEDS: D5NS 1,000 ML IV SCH ×2 (09:24→12:00)
[2020-08-25] MEDS: Docusate 100mg cap ORAL SCH (09:24)
[2020-08-25] MEDS: Acetaminophen 500mg (ES) tab ORAL SCH ×2 (09:24→17:16)
[2020-08-25] MEDS: Hydrocortisone 1% Cr TOPIC SCH ×2 (09:24→21:00)
[2020-08-25] MEDS: Heparin 5000 units/ml inj SUBQ SCH ×2 (09:25→21:00)
--- NOTE | 2020-08-25 11:39 | General Progress Note ---
Subjective Date patient seen: Aug 25, 2020 Time patient seen: 11:30 Constitutional: Reports: malaise, weakness Allergies: Coded Allergies: No Known Allergies (Unverified , 08/24/20) Objective Last 24 Hour Vital Signs Date Time Temp Pulse Resp B/P (MAP) Pulse Ox O2 Delivery O2 Flow Rate FiO2 08/25/20 09:54 98.1 08/25/20 08:00 98.1 86 20 150/88 (108) 99 08/25/20 04:00 98.6 95 20 124/69 (87) 95 08/25/20 00:00 98.9 97 21 102/70 (81) 95 08/24/20 21:00 Room Air 08/24/20 20:00 98.3 96 20 142/82 (102) 95 08/24/20 17:34 97.2 Intake and Output 08/24/20 08/25/20 19:00 07:00 Intake Total 933.334 ml 1358.334 ml Output Total 0 ml Balance 933.334 ml 1358.334 ml Intake IV Total 933.334 ml 1008.334 ml Other 350 ml Output Urine Total 0 ml # Voids 3 Laboratory Tests 08/24/20 21:30: POC Whole Blood Glucose 120H 08/25/20 05:40: White Blood Count 9.0, Red Blood Count 4.26L, Hemoglobin 12.7L, Hematocrit 36.8L , Mean Corpuscular Volume 86, Mean Corpuscular Hemoglobin 29.7, Mean Corpuscular Hemoglobin Concent 34.4, Red Cell Distribution Width 13.5, Platelet Count 291, Mean Platelet Volume 5.7L, Neutrophils (%) (Auto) 70.8, Lymphocytes (%) (Auto) 17.6L, Monocytes (%) (Auto) 8.0, Eosinophils (%) (Auto) 2.1, Basophils (%) (Auto) 1.5, Erythrocyte Sedimentation Rate 83H, Prothrombin Time 12.4H, Prothromb Time International Ratio 1.1, Activated Partial Thromboplast Time 34H, Sodium Level 142, Potassium Level 3.5, Chloride Level 107, Carbon Dioxide Level 25, Anion Gap 10, Blood Urea Nitrogen 13, Creatinine 0.6, Estimat Glomerular Filtration Rate > 60, Glucose Level 118H, Lactic Acid Level 1.60, Calcium Level 8.3L, Total Bilirubin 0.8, Aspartate Amino Transf (AST/SGOT) 218H, Alanine Aminotransferase (ALT/SGPT) 288H, Alkaline Phosphatase 80, C-Reactive Protein, Quantitative 15.5H, Total Protein 6.5, Albumin 2.6L, Globulin 3.9, Albu min/Globulin Ratio 0.7L, Lipase 40L 08/25/20 05:55: POC Whole Blood Glucose 145H Height (Feet): 6 Height (Inches): 0.00 Weight (Pounds): 151 General Appearance: cachetic Neck: supple Cardiovascular: normal rate Respiratory/Chest: lungs clear Abdomen: soft Extremities: slow capillary refill, other - wound rt foot with erthema Assessment/Plan Status Narrative 1 cellulitis of rt foot 2 non healing ulcer 3 sever malnutrition 4 weakness cont ivf, iv abx, dietary consult surgery eval wound care Miki Gruber MD Aug 25, 2020 11:39
--- NOTE | 2020-08-25 11:44 | Surgery Progress Note ---
Surgery Progress Note Subjective Additional Comments no acute events labs noted comfortable no n/v/f/c wbc resolved lft improved Objective Last 24 Hour Vital Signs Date Time Temp Pulse Resp B/P (MAP) Pulse Ox O2 Delivery O2 Flow Rate FiO2 08/25/20 09:54 98.1 08/25/20 08:00 98.1 86 20 150/88 (108) 99 08/25/20 04:00 98.6 95 20 124/69 (87) 95 08/25/20 00:00 98.9 97 21 102/70 (81) 95 08/24/20 21:00 Room Air 08/24/20 20:00 98.3 96 20 142/82 (102) 95 08/24/20 17:34 97.2 I&O Intake and Output 08/24/20 08/25/20 18:59 06:59 Intake Total 933.334 ml 1358.334 ml Output Total 0 ml Balance 933.334 ml 1358.334 ml Intake IV Total 933.334 ml 1008.334 ml Other 350 ml Output Urine Total 0 ml # Voids 3 Dressing: other Wound: other Cardiovascular: RSR Respiratory: decreased breath sounds Abdomen: soft, non-tender, present bowel sounds Extremities: no tenderness, no cyanosis Laboratory Tests Test 08/24/20 21:30 08/25/20 05:40 08/25/20 05:55 POC Whole Blood Glucose 120 MG/DL (74-106) H 145 MG/DL (74-106) H White Blood Count 9.0 K/UL (4.8-10.8) Red Blood Count 4.26 M/UL (4.70-6.10) L Hemoglobin 12.7 G/DL (14.2-18.0) L Hematocrit 36.8 % (42.0-52.0) L Mean Corpuscular Volume 86 FL (80-99) Mean Corpuscular Hemoglobin 29.7 PG (27.0-31.0) Mean Corpuscular Hemoglobin Concent 34.4 G/DL (32.0-36.0) Red Cell Distribution Width 13.5 % (11.6-14.8) Platelet Count 291 K/UL (150-450) Mean Platelet Volume 5.7 FL (6.5-10.1) L Neutrophils (%) (Auto) 70.8 % (45.0-75.0) Lymphocytes (%) (Auto) 17.6 % (20.0-45.0) L Monocytes (%) (Auto) 8.0 % (1.0-10.0) Eosinophils (%) (Auto) 2.1 % (0.0-3.0) Basophils (%) (Auto) 1.5 % (0.0-2.0) Erythrocyte Sedimentation Rate 83 MM/HR (0-20) H Prothrombin Time 12.4 SEC (9.30-11.50) H Prothromb Time International Ratio 1.1 (0.9-1.1) Activated Partial Thromboplast Time 34 SEC (23-33) H Sodium Level 142 MMOL/L (136-145) Potassium Level 3.5 MMOL/L (3.5-5.1) Chloride Level 107 MMOL/L (98-107) Carbon Dioxide Level 25 MMOL/L (21-32) Anion Gap 10 mmol/L (5-15) Blood Urea Nitrogen 13 mg/dL (7-18) Creatinine 0.6 MG/DL (0.55-1.30) Estimat Glomerular Filtration Rate > 60 mL/min (>60) Glucose Level 118 MG/DL (74-106) H Lactic Acid Level 1.60 mmol/L (0.4-2.0) Calcium Level 8.3 MG/DL (8.5-10.1) L Total Bilirubin 0.8 MG/DL (0.2-1.0) Aspartate Amino Transf (AST/SGOT) 218 U/L (15-37) H Alanine Aminotransferase (ALT/SGPT) 288 U/L (12-78) H Alkaline Phosphatase 80 U/L (46-116) C-Reactive Protein, Quantitative 15.5 mg/dL (0.00-0.90) H Total Protein 6.5 G/DL (6.4-8.2) Albumin 2.6 G/DL (3.4-5.0) L Globulin 3.9 g/dL Albumin/Globulin Ratio 0.7 (1.0-2.7) L Lipase 40 U/L (73-393) L Plan Problems: (1) Rhabdomyolysis (2) Cellulitis of left foot Assessment & Plan: Bilaterally, grayscale and duplex images demonstrate atherosclerotic plaquing. Bilaterally, triphasic waveforms with sharp systolic peaks are seen from the common femoral to the popliteal artery levels. On the right, dorsalis pedis artery waveforms is borderline triphasic. Proximal posterior and anterior tibial artery waveforms are triphasic, and the distal posterior tibial artery waveform is triphasic. On the left, the posterior tibial artery waveform is monophasic with increased diastolic flow. The peroneal artery waveforms is monophasic with increased diastolic flow. The dorsalis pedis artery waveforms is monophasic with increased diastolic flow. Systolic peaks remain sharp in the tibial vessels. 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 No evidence of suprageniculate stenosis Minimal if any trifurcation disease on the right. No evidence of suprageniculate stenosis (3) Cellulitis of left toe (4) Acute encephalopathy Assessment & Plan: Brain: There is chronic small vessel ischemic disease. 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 There are old lacunar infarcts in the right centrum semi-ovale. There is age-related cerebral volume loss. No hemorrhage. Ventricles: Unremarkable. No ventriculomegaly. Bones/joints: Unremarkable. No acute fracture. Soft tissues: Unremarkable. Sinuses: Unremarkable as visualized. No acute sinusitis. Mastoid air cells: Unremarkable as visualized. No mastoid effusion. IMPRESSION: 1. 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 2. Old lacunar infarcts in the right centrum semi-ovale. 3. Age-related cerebral volume loss. Chronic small vessel ischemic disease. (5) Abnormal LFTs Assessment & Plan: 60-year-old male altered mental status agitated came in for evaluation identified to have a WBC of 12 and abnormal LFTs. Admitted further care and management. Abdominal exam is fairly benign soft nontender nondistended. Pending abdominal ultrasound Trend labs We will follow with recommendations as imaging and labs are available. (6) Leukocytosis Assessment & Plan: Patient with leukocytosis on admission. Abnormal LFTs. Etiology of leukocytosis unknown. Micro noted. On antibiotics. Imaging ordered. Will follow with recommendations as imaging information is available. No abscess or or visible sign of infection identified. Small eschar on toe and had mild erythema of foot but not very clinically significant. Clay Gonzalez Aug 25, 2020 11:44
--- NOTE | 2020-08-25 12:51 | NUR ---
RADIOLOGY DEPT., CHEST AND ABDOMEN X-RAY COMPLETED.-P.DYE
--- NOTE | 2020-08-25 16:02 | Diagnostic Imaging Report ---
Indication: Left foot pain Technique: 3 views left foot Comparison: none Findings: No acute fractures. No dislocations. The joint spaces are preserved. Impression: Negative
--- NOTE | 2020-08-25 16:51 | Diagnostic Imaging Report ---
Indication: Cough Technique: One view of the chest Comparison: 08/24/2020 Findings: Lungs and pleural spaces are clear. The heart size is upper limits of normal with a left ventricular hypertrophy configuration. No significant interim change. Impression: No acute process
--- NOTE | 2020-08-25 17:05 | Diagnostic Imaging Report ---
Indication: Abdominal pain Technique: Supine view of the abdomen Comparison: none Findings: Colon is gas filled, prominent but not frankly dilated. No masses or unusual calcifications. No small bowel distention Impression: No acute process
[2020-08-25] MEDS ORDERED: ACETAMINOPHEN650 MG RECTAL (17:28)
[2020-08-25] MEDS ORDERED: ATIVAN1 MG SL (17:28)
--- NOTE | 2020-08-25 17:38 | NUR ---
NURSE NOTES: Calory count started on this patient staring from Lunch for 72 hours; clinical nursing assistant Henrry is aware, calory count envelop kept at patient's bed side;
--- NOTE | 2020-08-25 18:02 | NUR ---
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 98.4 HR 56 RR 20 B/P 103/61 RA 98% IS: IVF D5NS @ 75ML/HR VANCO IV MED/SURG STATUS
--- NOTE | 2020-08-25 19:35 | NUR ---
HAND-OFF: Report given to KALANI Ogden. Bilateral softrestrain in place; IV fluid running; endorsed to the incoming nurse that patient is risk for fall;
--- NOTE | 2020-08-25 19:36 | NUR ---
NURSE NOTES: Received pt on the bed awake,A&Ox1-2, confused, aggressive, and verbal. Pt has no sob fever, pain and cough at the moment. Iv is intact and asymptomatic. Bilateral soft restrain on. Bed is in the lowest position,locked, and alarm on. call light within reach. We will keep monitoring the pt.
[2020-08-25] MEDS: Atorvastatin 20mg tab ORAL SCH (21:24)
[2020-08-26] MEDS: LORazepam 1mg tab ORAL SCH ×5 (00:12→18:20)
--- NOTE | 2020-08-26 00:27 | Psych Consult Progress Note ---
Psychiatry Progress Note Psychiatry Progress Note Medications Current Medications Medications (Trade) Dose Ordered Sig/Jesu Route PRN Reason Start Time Stop Time Status Last Admin Dose Admin Acetaminophen (Tylenol) 650 mg Q4H PRN RECTAL Temp >100.5 08/24/20 06:30 09/23/20 06:29 Acetaminophen (Tylenol) 1,000 mg BID ORAL 08/24/20 09:00 09/23/20 08:59 08/25/20 17:16 Aspirin (ASA) 81 mg DAILY ORAL 08/24/20 09:00 10/08/20 08:59 08/25/20 09:23 Atorvastatin Calcium (Lipitor) 40 mg BEDTIME ORAL 08/24/20 21:00 11/22/20 20:59 08/25/20 21:24 Barium Sulfate (Varibar Honey) 250 ml NOW PRN MC RAD 08/24/20 07:15 08/27/20 07:03 Barium Sulfate (Varibar Cleghorn) 240 ml NOW PRN MC RAD 08/24/20 07:15 08/27/20 07:03 Barium Sulfate (Varibar Pudding) 230 ml NOW PRN MC RAD 08/24/20 07:15 08/27/20 07:03 Barium Sulfate (Varibar Thin Liquid powder) 148 gm NOW PRN MC RAD 08/24/20 07:15 08/27/20 07:03 Bisacodyl (Dulcolax) 10 mg DAILY PRN RECTAL Constipation 08/24/20 06:15 11/22/20 06:14 Dextrose (Dextrose 50%) 25 ml Q30M PRN IV Hypoglycemia 08/24/20 06:30 11/22/20 06:29 Dextrose (Dextrose 50%) 50 ml Q30M PRN IV Hypoglycemia 08/24/20 06:30 11/22/20 06:29 Dextrose/Sodium Chloride 1,000 ml @ 75 mls/hr [id number] IV 08/24/20 07:00 09/23/20 06:59 08/25/20 12:00 Diphenhydramine HCl (Benadryl) 25 mg BIDPRN PRN ORAL Itching 08/24/20 15:15 09/23/20 15:14 Docusate Sodium (Colace) 100 mg DAILY ORAL 08/24/20 09:00 09/23/20 08:59 08/25/20 09:24 Haloperidol Lactate (Haldol) 5 mg Q6H PRN IM Agitation 08/24/20 07:00 10/08/20 06:59 08/25/20 21:25 Heparin Sodium (Porcine) (Heparin 5000 units/ml) 5,000 units EVERY 12 HOURS SUBQ 08/24/20 09:00 10/08/20 08:59 08/25/20 21:00 Hydrocortisone (Hydrocortisone) 1 applic Q12HR TOPIC 08/24/20 21:00 11/22/20 20:59 08/25/20 21:00 Hyoscyamine Sulfate (Levsin) 0.125 mg Q4H PRN ORAL secretions 08/24/20 06:15 09/23/20 06:14 Insulin Aspart (NovoLOG) BEFORE MEALS AND HS SUBQ 08/24/20 06:30 11/22/20 06:29 08/25/20 12:30 Lorazepam (Ativan) 1 mg Q6HR ORAL 08/24/20 15:20 08/31/20 15:19 08/26/20 00:12 Metformin HCl (Glucophage) 500 mg DAILY ORAL 08/24/20 09:00 09/23/20 08:59 08/25/20 09:23 Morphine Sulfate (Morphine 10mg/ 5ml Oral Soln) 5 mg Q4H PRN ORAL Mild Pain (Pain Scale 1-3) 08/24/20 06:15 08/31/20 06:14 Morphine Sulfate (Morphine 10mg/ 5ml Oral Soln) 10 mg Q4H PRN ORAL Moderate Pain (Pain Scale 4-6) 08/24/20 06:15 08/31/20 06:14 Morphine Sulfate (Morphine 10mg/ 5ml Oral Soln) 20 mg Q4H PRN ORAL Severe Pain (Pain Scale 7-10) 08/24/20 06:15 08/31/20 06:14 Quetiapine Fumarate (SEROqueL) 50 mg EVERY 8 HOURS ORAL 08/24/20 15:15 10/08/20 15:14 08/25/20 21:25 Vancomycin HCl (Vanco pharmacy to dose) 1 ea DAILY PRN MISC Per rx protocol 08/24/20 10:45 09/23/20 10:44 Vancomycin HCl 750 mg/Sodium Chloride 250 ml @ 166.667 mls/hr Q12HR@0100,1300 IVPB 08/24/20 13:00 08/29/20 12:59 08/26/20 00:13 Neurological/Psychiatric: Reports: anxiety, depressed, emotional problems Allergies: Coded Allergies: No Known Allergies (Unverified , 08/24/20) Objective Data Height (Feet): 6 Height (Inches): 0.00 Weight (Pounds): 151 General Appearance: cachetic Additional Comments: alert, oriented x0. Mood is agitated. Affect is blunted, congruent with mood. Thought process is concrete. Thought content, no suicidal or homicidal ideation. Cognition is impaired. Insight and judgment is impaired. Assessment/Plan Assessment/Plan: ASSESSMENT: Edmond I Psychotic disorder, not otherwise specified. Edmond II Deferred. Edmond III CVA. Edmond IV Low. Edmond V 20. PLAN: 1. We will start the patient on Seroquel. 2. Ativan. 3. Discontinue all other psychotropic medication. 4. Patient lacks capacity to make decision. Nima Degroot MD Aug 26, 2020 00:27
[2020-08-26] MEDS: NovoLOG Insulin Flexpen SUBQ SCH ×4 (06:15→20:49)
--- NOTE | 2020-08-26 06:55 | NUR ---
NURSE HAND-OFF: Important Events on Shift: pt is aggressive Patient Status: stable Diet: Pending Orders: Pending Results/Labs: Pending MD notification: Latest Vital Signs: Temperature 98.5 , Pulse 62 , B/P 102 /68 , Respiratory Rate 18 , O2 SAT 96 , Room Air, O2 Flow Rate . Vital Sign Comment: Latest Mayberry Fall Score: 95 Fall Risk: High Risk Safety Measures: Call light Within Reach, Bed Alarm Zone 2, Side Rails Side Rails x2, Bed position Low and Locked. Fall Precautions: Yellow Socks Yellow Gown Door Sign Patient Fall Education
--- NOTE | 2020-08-26 07:16 | NUR ---
HAND-OFF: Report given to ERNESTO/KALANI Schreiber.
--- NOTE | 2020-08-26 07:57 | NUR ---
NURSE NOTES: Received report from KALANI Owens. patient is resting comfortably in bed, sleeping. pupils reactive to light, lungs sound clear bilaterally, abdominal sounds present on all four quadrants. Pedal pulses present. Patient on bilateral hand restraints, skin around restraints is intact. Patient will be monitored for safety.
[2020-08-26 08:00] VITALS: BP 145/82
--- NOTE | 2020-08-26 08:00 | NUR ---
NURSE NOTES: PT IS VERY RESTLESS, TURNING AND MOVING LEGS. BEDSIDE RAILS X3 RAISED BUT PT IS ABLE TO DANGLE LEGS OFF RAILS OR OFF THE BED. BED IN LOWEST POSITION WITH BED ALARM ON. PT UNABLE TO FOLLOW COMMANDS. PT ALERT TO NAME ONLY. PT HAS BILATERAL SOFT WRIST RESTRAINTS FOR SAFETY. BILATERAL RADIAL PULSES PALPABLE, SKIN INTACT. PT HAS LEFT HAND PITTING EDEMA 1+, PRESENT FROM CHANGE OF SHIFT. PT IN HIGH-LOPEZ'S POSITION FOR ASPIRATION PRECAUTIONS. PT HAS VERY GOOD APPETITE WHEN FEEDING BREAKFAST AND TAKE MEDICATIONS CRUSHED WITH APPLESAUCE. IN NO APPARENT DISTRESS AT THIS TIME. WILL CONTINUE TO MONITOR.
[2020-08-26] MEDS: Heparin 5000 units/ml inj SUBQ SCH ×2 (08:24→21:07)
[2020-08-26] MEDS: Aspirin Baby 81mg ORAL SCH (08:26)
[2020-08-26] MEDS: Hydrocortisone 1% Cr TOPIC SCH ×2 (08:26→20:57)
[2020-08-26] MEDS: metFORMIN 500mg tab ORAL SCH (08:26)
[2020-08-26] MEDS: Acetaminophen 500mg (ES) tab ORAL SCH ×2 (08:26→18:20)
[2020-08-26] MEDS: Docusate 100mg cap ORAL SCH (08:27)
--- NOTE | 2020-08-26 09:12 | Surgery Progress Note ---
Surgery Progress Note Subjective Symptoms: improved Objective Last 24 Hour Vital Signs Date Time Temp Pulse Resp B/P (MAP) Pulse Ox O2 Delivery O2 Flow Rate FiO2 08/26/20 06:42 62 18 96 08/26/20 06:12 63 18 102/68 96 08/26/20 00:42 63 18 102/68 96 08/26/20 00:12 63 18 102/68 96 08/25/20 21:00 Room Air 08/25/20 17:46 63 20 118/72 97 08/25/20 17:46 98.5 08/25/20 17:16 63 20 118/72 97 08/25/20 16:00 98.5 63 20 118/72 (87) 97 08/25/20 12:57 56 20 113/69 98 08/25/20 12:27 56 20 113/69 98 08/25/20 12:00 98.4 56 20 113/69 (84) 98 08/25/20 09:54 98.1 I&O Intake and Output 08/25/20 08/26/20 19:00 07:00 Intake Total 2183.334 ml 360 ml Balance 2183.334 ml 360 ml Intake Oral 1100 ml IV Total 1083.334 ml Other 360 ml # Voids 4 2 Dressing: dry Wound: clean Cardiovascular: RSR Respiratory: clear Abdomen: soft, non-tender, present bowel sounds Extremities: pulses, other Laboratory Tests Test 08/26/20 00:30 Vancomycin Level Trough 4.4 ug/mL (5.0-12.0) L Plan Problems: (1) Rhabdomyolysis (2) Cellulitis of left foot Assessment & Plan: Bilaterally, grayscale and duplex images demonstrate atherosclerotic plaquing. Bilaterally, triphasic waveforms with sharp systolic peaks are seen from the common femoral to the popliteal artery levels. On the right, dorsalis pedis artery waveforms is borderline triphasic. Proximal posterior and anterior tibial artery waveforms are triphasic, and the distal posterior tibial artery waveform is triphasic. On the left, the posterior tibial artery waveform is monophasic with increased diastolic flow. The peroneal artery waveforms is monophasic with increased diastolic flow. The dorsalis pedis artery waveforms is monophasic with increased diastolic flow. Systolic peaks remain sharp in the tibial vessels. 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 No evidence of suprageniculate stenosis Minimal if any trifurcation disease on the right. No evidence of suprageniculate stenosis (3) Cellulitis of left toe (4) Acute encephalopathy Assessment & Plan: Brain: There is chronic small vessel ischemic disease. 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 There are old lacunar infarcts in the right centrum semi-ovale. There is age-related cerebral volume loss. No hemorrhage. Ventricles: Unremarkable. No ventriculomegaly. Bones/joints: Unremarkable. No acute fracture. Soft tissues: Unremarkable. Sinuses: Unremarkable as visualized. No acute sinusitis. Mastoid air cells: Unremarkable as visualized. No mastoid effusion. IMPRESSION: 1. 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 2. Old lacunar infarcts in the right centrum semi-ovale. 3. Age-related cerebral volume loss. Chronic small vessel ischemic disease. (5) Abnormal LFTs Assessment & Plan: 60-year-old male altered mental status agitated came in for evaluation identified to have a WBC of 12 and abnormal LFTs. Admitted further care and management. Abdominal exam is fairly benign soft nontender nondistended. Pending abdominal ultrasound Trend labs We will follow with recommendations as imaging and labs are available. (6) Leukocytosis Assessment & Plan: Patient with leukocytosis on admission. Abnormal LFTs. Etiology of leukocytosis unknown. Micro noted. On antibiotics. Imaging ordered. Will follow with recommendations as imaging information is available. No abscess or or visible sign of infection identified. Small eschar on toe and had mild erythema of foot but not very clinically significant. Clay Gonzalez Aug 26, 2020 09:11
--- NOTE | 2020-08-26 10:00 | NUR ---
NURSE NOTES: LEFT GREAT TOE CELLULITIS IS DRY AND SCABBED OVER. NO DRAINAGE AND NO FOUL ODOR NOTED. NO SWELLING. PEDAL PULSE PALPABLE AND STRONG. NORMAL SKIN COLOR. DRY, INTACT AND OPEN TO AIR. WILL CONTINUE TO MONITOR.
[2020-08-26] MEDS: D5NS 1,000 ML IV SCH (11:49)
[2020-08-26 12:00] VITALS: BP 136/73
--- NOTE | 2020-08-26 12:13 | NUR ---
RD ASSESSMENT & RECOMMENDATIONS SEE CARE ACTIVITY FOR COMPLETE ASSESSMENT DAILY ESTIMATED NEEDS: Needs based on DM, cardiac/ 70kg 25-30 kcals/kg [id number] total kcals 1-1.3 g protein/kg 70-91 g total protein 25-30 mL/kg 8635-1899 total fluid mLs NUTRITION DIAGNOSIS: Swallowing difficulty R/T dysphagia, h/o CVA as evidenced by pt on pureed moist texture diet w/ NTL. CURRENT DIET:REGULAR, pureed moist w/ NTL PO DIET RECOMMENDATIONS: LOW NA + CCHO MED/ texture per AIRLINE STEWARDESS ADDITIONAL RECOMMENDATIONS: * Standing wt for accurate CBW or calibrated bedscale wt * F/up w/ calorie count x 72 hrs (08/25-08/28) * Skin integrity: Add MVI x 1 * Rec adding Glucerna x 1 for now, monitor need to increase
--- NOTE | 2020-08-26 13:35 | General Progress Note ---
Subjective Allergies: Coded Allergies: No Known Allergies (Unverified , 08/24/20) Subjective doing ok bed ridden eating better Objective Last 24 Hour Vital Signs Date Time Temp Pulse Resp B/P (MAP) Pulse Ox O2 Delivery O2 Flow Rate FiO2 08/26/20 12:15 Room Air 08/26/20 12:00 96.8 75 16 136/73 (94) 96 08/26/20 09:00 Room Air 08/26/20 08:00 97.5 65 20 145/82 (103) 97 08/26/20 06:42 62 18 96 08/26/20 06:12 63 18 102/68 96 08/26/20 00:42 63 18 102/68 96 08/26/20 00:12 63 18 102/68 96 08/25/20 21:00 Room Air 08/25/20 17:46 63 20 118/72 97 08/25/20 17:46 98.5 08/25/20 17:16 63 20 118/72 97 08/25/20 16:00 98.5 63 20 118/72 (87) 97 Intake and Output 08/25/20 08/26/20 19:00 07:00 Intake Total 2183.334 ml 435 ml Balance 2183.334 ml 435 ml Intake Oral 1100 ml IV Total 1083.334 ml 75 ml Other 360 ml # Voids 4 2 Laboratory Tests 08/26/20 00:30: Vancomycin Level Trough 4.4L 08/26/20 11:28: POC Whole Blood Glucose [Pending] Height (Feet): 6 Height (Inches): 0.00 Weight (Pounds): 151 General Appearance: no apparent distress Cardiovascular: normal rate Respiratory/Chest: normal breath sounds Abdomen: non tender, soft Extremities: other - ulcer rt foot Miki Gruber MD Aug 26, 2020 13:35
[2020-08-26] MEDS ORDERED: BACTRIM DS TAB1 EAC1 ORAL (14:02)
--- NOTE | 2020-08-26 14:04 | NUR ---
NURSE NOTES: RECEIVED DISCHARGE ORDER FROM DR SUAREZ. PER MD, RESUME HOME MEDICATIONS BUT STOP IV VANCO AND START BACTRIM DS 1 TABLET BID X 7 DAYS. RN REVIEWED PT'S MEDICATIONS FROM SNF WITH DR SUAREZ. RN CALLED [facility] 2 TIMED. FIRST TIME, RN WAS PUT ON HOLD FOR 5 MINUTES WITH NO ANSWER. ON SECOND CALL, NO STAFF PICKED UP PHONE. RN CALLED CASE MANAGEMENT, BUT NO ONE PICKED UP PHONE. RN MADE CRN AWARE. RN WILL ATTEMPT TO CALL [facility] AGAIN.
--- NOTE | 2020-08-26 14:12 | NUR ---
NURSE NOTES: RN SPOKE TO RAUDEL RN [employer] I THREADING MACHINE FEEDER AT [facility]. PER RAUDEL, THEY CANNOT ACCEPT PT UNTIL Friday08/28/2020 AND ADVISED TO CALL FRIDAY AT [address] SUAREZ MADE AWARE.
[2020-08-26 16:00] VITALS: BP 128/68
[2020-08-26] MEDS: Haloperidol 5mg/ml Inj IM PRN (18:39)
--- NOTE | 2020-08-26 18:45 | NUR ---
NURSE NOTES: patient gets very restless, agitated, confrontational, trying to get out of bed, kicking with his leg and cursing at staff. Patient was administered 5mg Haldol IM @ 1845. patient unable to follow directions. will be monitored for safety.
--- NOTE | 2020-08-26 19:14 | NUR ---
NURSE HAND-OFF: Important Events on Shift:patient got agitated, received haldol 5mg IM at 1830. supposed go back to SNF but they won't accept him until friday. Patient Status: stable Diet: pureed nectar thick Pending Orders: n/a Pending Results/Labs:n/a Pending MD notification: Latest Vital Signs: Temperature 97.4 , Pulse 75 , B/P 128 /68 , Respiratory Rate 20 , O2 SAT 98 , Room Air, O2 Flow Rate . Vital Sign Comment: stable Latest Mayberry Fall Score: 95 Fall Risk: High Risk Safety Measures: Call light Within Reach, Bed Alarm Zone 2, Side Rails Side Rails x2, Bed position Low and Locked. Fall Precautions: Yellow Socks Yellow Gown Door Sign Patient Fall Education Report given to KALANI Cortes.
--- NOTE | 2020-08-26 19:47 | NUR ---
NURSE NOTES: Pt is in bed, awake and verbal. Pt is talkative, screams and yells outs random names repeatedly. Vitals stable.Room air. Haldol was administered during last shift, PRN medications will be given as ordered.. Pt has bilat soft wrist restraints for safety, pt tries to get out of bed and remove medical devices. Restraints sites asymptomatic. Pt has unsteady gait and left sided weakness. Fall precaution in place, bed alarm on, bed locked low in position, side rails up and call light within reach. Pt will be closely monitored.
[2020-08-26 20:00] VITALS: BP 110/69
[2020-08-26] MEDS: Atorvastatin 20mg tab ORAL SCH (20:57)
[2020-08-26] MEDS: Morphine Sulfate 10mg/5ml Oral Soln ud ORAL PRN (20:58)
[2020-08-27] MEDS: D5NS 1,000 ML IV SCH ×2 (01:00→13:00)
[2020-08-27] MEDS: LORazepam 1mg tab ORAL SCH ×4 (01:00→17:14)
[2020-08-27] MEDS: Haloperidol 5mg/ml Inj IM PRN ×2 (01:38→14:42)
--- NOTE | 2020-08-27 04:00 | NUR ---
NURSE NOTES: Pt is in bed, awake, yelling and shouting. Pt dangles feet outside of the bed. Pt constantly needs to be reoriented. Pt is noncompliant and aggressive. PT is on bilat wrist restraints for safety. Addendum: 08/27/20 at 0528 by EDWARDO MOULTON RN RN Pt eats well. pt refuses vital signs check.
[2020-08-27] MEDS: NovoLOG Insulin Flexpen SUBQ SCH ×4 (06:06→21:00)
--- NOTE | 2020-08-27 07:10 | NUR ---
NURSE HAND-OFF: Important Events on Shift:[Pt is restless, attempting to get out of bed, agitated at times, aggressive at times] Patient Status: [Stable] Diet: [Pt eats well] Pending Orders: [] Pending Results/Labs:[] Pending MD notification:[] Latest Vital Signs: Temperature 97.4 , Pulse 72 , B/P 125 /83 , Respiratory Rate 20 , O2 SAT 97 , Room Air, O2 Flow Rate . Vital Sign Comment: [] Latest Mayberry Fall Score: 95 Fall Risk: High Risk Safety Measures: Call light Within Reach, Bed Alarm Zone 2, Side Rails Side Rails x2, Bed position Low and Locked. Fall Precautions: Yellow Socks Yellow Gown Door Sign Patient Fall Education Report given to [Ian Heranndez RN].Informed that pt is high fall risk.
[2020-08-27 08:00] VITALS: BP 150/97
--- NOTE | 2020-08-27 08:05 | NUR ---
NURSE NOTES: Received report from KALANI Cortes. Patient is AOx1 (self), feeder, weakness on left upper and lower extremities, patient on soft restraints on both wrists for safety and non compliance, condom cath in place, draining light yellow urine, patient lungs sounds clear bilaterally, abdominal sounds present on all four quadrants, pedal pulses present, left hand +2 swollen, pillow under hand. Patient will be monitored for safety.
[2020-08-27] MEDS: Aspirin Baby 81mg ORAL SCH (08:19)
[2020-08-27] MEDS: Acetaminophen 500mg (ES) tab ORAL SCH ×2 (08:20→17:14)
[2020-08-27] MEDS: metFORMIN 500mg tab ORAL SCH (08:20)
[2020-08-27] MEDS: Docusate 100mg cap ORAL SCH (08:21)
[2020-08-27] MEDS: Hydrocortisone 1% Cr TOPIC SCH ×2 (08:21→21:10)
[2020-08-27] MEDS: Heparin 5000 units/ml inj SUBQ SCH ×2 (08:22→21:09)
[2020-08-27 08:33] LABS: BASOPHILS % (AUTO) 1.6 % (0.0-2.0); EOSINOPHILS % (AUTO) 4.7 % (0.0-3.0); HEMATOCRIT 36.5 % (42.0-52.0); HEMOGLOBIN 12.7 G/DL (14.2-18.0); LYMPHOCYTES % (AUTO) 17.3 % (20.0-45.0); MEAN CORPUSCULAR VOLUME 87 FL (80-99); MONOCYTES % (AUTO) 10.1 % (1.0-10.0); NEUTROPHILS % (AUTO) 66.4 % (45.0-75.0); PLATELET COUNT 283 K/UL (150-450); RED BLOOD COUNT 4.22 M/UL (4.70-6.10); RED CELL DISTRIBUTION WIDTH 13.3 % (11.6-14.8); WHITE BLOOD COUNT 9.2 K/UL (4.8-10.8)
[2020-08-27 08:45] LABS: ALKALINE PHOSPHATASE 98 U/L (46-116); ANION GAP 8 mmol/L (5-15); ASPARTATE AMINO TRANSFERASE 248 U/L (15-37); BILIRUBIN,TOTAL 0.9 MG/DL (0.2-1.0); CARBON DIOXIDE 20 MMOL/L (21-32); CHLORIDE 107 MMOL/L (98-107); POTASSIUM 4.2 MMOL/L (3.5-5.1); SODIUM 135 MMOL/L (136-145)
[2020-08-27 08:56] LABS: ALANINE AMINOTRANSFERASE 359 U/L (12-78); ALBUMIN 2.7 G/DL (3.4-5.0); BLOOD UREA NITROGEN 5 mg/dL (7-18); CALCIUM 8.3 MG/DL (8.5-10.1); CREATININE 0.5 MG/DL (0.55-1.30)
[2020-08-27 09:02] LABS: ALBUMIN/GLOBULIN RATIO 0.7 (1.0-2.7)
--- NOTE | 2020-08-27 10:05 | NUR ---
NURSE NOTES: messaged Dr Osuna about patients left hand swollen +2 edema. Md ordered venous duplex of left hand.
--- NOTE | 2020-08-27 11:48 | NUR ---
NURSE NOTES: RN SPOKE TO VASCULAR BILINGUAL LEGAL ASSISTANT. IF VENOUS DUPLEX ORDER IS NOT STAT, WILL BE DONE TOMORROW.
[2020-08-27 12:00] VITALS: BP 129/91
--- NOTE | 2020-08-27 13:20 | NUR ---
NURSE NOTES: PT WAS AWAKE, ALERT TO NAME AND LOCATION. PT WAS YELLING NAMES "MARIBEL! MARIBEL! RISSA! RISSA! COME AND RE-ARRANGE MY ROOM!". PT WAS KICKING OFF BLANKETS AND ASKING STAFF TO PICK THEM UP REPEATEDLY. PT ASKED STAFF TO TAKE OFF RESTRAINTS. PT FELL ASLEEP IN BED. PT IN SEMI-LOPEZ'S POSITION WITH BED IN LOWEST POSITION. BED ALARM ON ZONE 1. BILATERAL SOFT WRIST RESTRAINTS ON BOTH WRISTS. IN NO APPARENT DISTRESS AT THIS TIME. WILL CONTINUE TO MONITOR.
--- NOTE | 2020-08-27 13:45 | General Progress Note ---
Subjective Constitutional: Reports: no symptoms, weakness, other - leg edema Allergies: Coded Allergies: No Known Allergies (Unverified , 08/24/20) Subjective doing ok bed ridden eating better Objective Last 24 Hour Vital Signs Date Time Temp Pulse Resp B/P (MAP) Pulse Ox O2 Delivery O2 Flow Rate FiO2 08/27/20 12:13 74 18 129/91 97 08/27/20 12:00 97.9 18 129/91 (104) 97 08/27/20 11:43 74 18 150/97 99 08/27/20 09:59 Room Air 08/27/20 09:00 Room Air 08/27/20 08:00 97.7 74 18 150/97 (114) 99 08/27/20 06:40 72 20 125/83 97 08/27/20 06:10 72 20 130/82 97 08/27/20 01:30 85 20 125/78 97 08/27/20 01:00 80 20 122/72 96 08/26/20 21:00 Room Air 08/26/20 20:00 97.9 75 20 110/69 (83) 96 08/26/20 18:50 75 20 128/68 98 08/26/20 18:20 75 20 128/68 98 08/26/20 16:00 97.4 20 128/68 (88) 98 Intake and Output 08/26/20 08/27/20 19:00 07:00 Intake Total 1821.668 ml 970.000 ml Balance 1821.668 ml 970.000 ml Intake Oral 480 ml 420 ml IV Total 1341.668 ml 550.000 ml # Voids 2 3 Laboratory Tests 08/26/20 16:17: POC Whole Blood Glucose 159H 08/26/20 20:47: POC Whole Blood Glucose 105 08/27/20 05:54: POC Whole Blood Glucose 97 08/27/20 07:50: White Blood Count 9.2, Red Blood Count 4.22L, Hemoglobin 12.7L, Hematocrit 36.5L , Mean Corpuscular Volume 87, Mean Corpuscular Hemoglobin 30.1, Mean Corpuscular Hemoglobin Concent 34.8, Red Cell Distribution Width 13.3, Platelet Count 283, Mean Platelet Volume 6.0L, Neutrophils (%) (Auto) 66.4, Lymphocytes (%) (Auto) 17.3L, Monocytes (%) (Auto) 10.1H, Eosinophils (%) (Auto) 4.7H, Basophils (%) (Auto) 1.6, Sodium Level 135L, Potassium Level 4.2, Chloride Level 107, Carbon Dioxide Level 20L, Anion Gap 8, Blood Urea Nitrogen 5L, Creatinine 0.5L, Estimat Glomerular Filtration Rate > 60, Glucose Level 121H, Calcium Level 8.3L, Total Bilirubin 0.9, Aspartate Amino Transf (AST/SGOT) 248H, Alanine Aminotransferase (ALT/SGPT) 359H, Alkaline Phosphatase 98, Total Protein 6.4, Albumin 2.7L, Globulin 3.7, Albumin/Globulin Ratio 0.7L, Vancomycin Level Trough 8.3 Height (Feet): 6 Height (Inches): 0.00 Weight (Pounds): 151 General Appearance: alert EENT: PERRL/EOMI Neck: supple Cardiovascular: regular rhythm Respiratory/Chest: normal breath sounds Abdomen: non tender, hepatomegaly, splenomegaly Genitourinary/Rectal: normal rectal exam Extremities: swelling Edema: moderate edema Skin: warm/dry Assessment/Plan Status: stable Assessment/Plan: 1 r/o gi bleed 2 abdo pain with n/v 3 gastritis 4 cirrosis 5 etoh abused 6 leg edema 7 dm egd tomorrow gi on the case cont ppi keep dora les elevated dw with pt agreed to to go to [facility] tomorrow Miki Gruber MD Aug 27, 2020 13:45
--- NOTE | 2020-08-27 15:00 | NUR ---
NURSE NOTES: PT WOKE UP AND STARTED YELLING "LIV! LIV! I'M TIRED!" CONSTANTLY YELLING AND BEING DISRUPTIVE. RN EDUCATED PT ON USING CALL LIGHT INSTEAD OF YELLING. PT VERBALIZED UNDERSTANDING BUT CONTINUES TO YELL, KICK OFF BLANKETS FROM BED AND HANG LEGS OVER THE RAILINGS. OFTEN SAYING HE WANTS TO BE ON THE FLOOR. PRN HALDOL IM INJECTION ADMINISTERED ORDERED. BED IN LOWEST POSITION WITH BEDSIDE RAILS X3 RAISED. BED ALARM ON. WILL CONTINUE TO MONITOR.
[2020-08-27 16:00] VITALS: BP 131/71
--- NOTE | 2020-08-27 16:09 | Surgery Progress Note ---
Surgery Progress Note Subjective Additional Comments was very agitated this AM improved now comfortable Objective Last 24 Hour Vital Signs Date Time Temp Pulse Resp B/P (MAP) Pulse Ox O2 Delivery O2 Flow Rate FiO2 08/27/20 12:13 74 18 129/91 97 08/27/20 12:00 97.9 18 129/91 (104) 97 08/27/20 11:43 74 18 150/97 99 08/27/20 09:59 Room Air 08/27/20 09:00 Room Air 08/27/20 08:00 97.7 74 18 150/97 (114) 99 08/27/20 06:40 72 20 125/83 97 08/27/20 06:10 72 20 130/82 97 08/27/20 01:30 85 20 125/78 97 08/27/20 01:00 80 20 122/72 96 08/26/20 21:00 Room Air 08/26/20 20:00 97.9 75 20 110/69 (83) 96 08/26/20 18:50 75 20 128/68 98 08/26/20 18:20 75 20 128/68 98 I&O Intake and Output 08/26/20 08/27/20 19:00 07:00 Intake Total 1821.668 ml 970.000 ml Balance 1821.668 ml 970.000 ml Intake Oral 480 ml 420 ml IV Total 1341.668 ml 550.000 ml # Voids 2 3 Dressing: dry Cardiovascular: RSR Respiratory: clear Abdomen: soft, non-tender, present bowel sounds Extremities: cyanosis, no edema, no tenderness, other Laboratory Tests Test 08/26/20 16:17 08/26/20 20:47 08/27/20 05:54 08/27/20 07:50 POC Whole Blood Glucose 159 MG/DL (74-106) H 105 MG/DL (74-106) 97 MG/DL (74-106) White Blood Count 9.2 K/UL (4.8-10.8) Red Blood Count 4.22 M/UL (4.70-6.10) L Hemoglobin 12.7 G/DL (14.2-18.0) L Hematocrit 36.5 % (42.0-52.0) L Mean Corpuscular Volume 87 FL (80-99) Mean Corpuscular Hemoglobin 30.1 PG (27.0-31.0) Mean Corpuscular Hemoglobin Concent 34.8 G/DL (32.0-36.0) Red Cell Distribution Width 13.3 % (11.6-14.8) Platelet Count 283 K/UL (150-450) Mean Platelet Volume 6.0 FL (6.5-10.1) L Neutrophils (%) (Auto) 66.4 % (45.0-75.0) Lymphocytes (%) (Auto) 17.3 % (20.0-45.0) L Monocytes (%) (Auto) 10.1 % (1.0-10.0) H Eosinophils (%) (Auto) 4.7 % (0.0-3.0) H Basophils (%) (Auto) 1.6 % (0.0-2.0) Sodium Level 135 MMOL/L (136-145) L Potassium Level 4.2 MMOL/L (3.5-5.1) Chloride Level 107 MMOL/L (98-107) Carbon Dioxide Level 20 MMOL/L (21-32) L Anion Gap 8 mmol/L (5-15) Blood Urea Nitrogen 5 mg/dL (7-18) L Creatinine 0.5 MG/DL (0.55-1.30) L Estimat Glomerular Filtration Rate > 60 mL/min (>60) Glucose Level 121 MG/DL (74-106) H Calcium Level 8.3 MG/DL (8.5-10.1) L Total Bilirubin 0.9 MG/DL (0.2-1.0) Aspartate Amino Transf (AST/SGOT) 248 U/L (15-37) H Alanine Aminotransferase (ALT/SGPT) 359 U/L (12-78) H Alkaline Phosphatase 98 U/L (46-116) Total Protein 6.4 G/DL (6.4-8.2) Albumin 2.7 G/DL (3.4-5.0) L Globulin 3.7 g/dL Albumin/Globulin Ratio 0.7 (1.0-2.7) L Vancomycin Level Trough 8.3 ug/mL (5.0-12.0) Plan Problems: (1) Rhabdomyolysis (2) Cellulitis of left foot Assessment & Plan: Bilaterally, grayscale and duplex images demonstrate atherosclerotic plaquing. Bilaterally, triphasic waveforms with sharp systolic peaks are seen from the common femoral to the popliteal artery levels. On the right, dorsalis pedis artery waveforms is borderline triphasic. Proximal posterior and anterior tibial artery waveforms are triphasic, and the distal posterior tibial artery waveform is triphasic. On the left, the posterior tibial artery waveform is monophasic with increased diastolic flow. The peroneal artery waveforms is monophasic with increased diastolic flow. The dorsalis pedis artery waveforms is monophasic with increased diastolic flow. Systolic peaks remain sharp in the tibial vessels. 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 No evidence of suprageniculate stenosis Minimal if any trifurcation disease on the right. No evidence of suprageniculate stenosis (3) Cellulitis of left toe (4) Acute encephalopathy Assessment & Plan: Brain: There is chronic small vessel ischemic disease. 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 There are old lacunar infarcts in the right centrum semi-ovale. There is age-related cerebral volume loss. No hemorrhage. Ventricles: Unremarkable. No ventriculomegaly. Bones/joints: Unremarkable. No acute fracture. Soft tissues: Unremarkable. Sinuses: Unremarkable as visualized. No acute sinusitis. Mastoid air cells: Unremarkable as visualized. No mastoid effusion. IMPRESSION: 1. 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 2. Old lacunar infarcts in the right centrum semi-ovale. 3. Age-related cerebral volume loss. Chronic small vessel ischemic disease. (5) Abnormal LFTs Assessment & Plan: 60-year-old male altered mental status agitated came in for evaluation identified to have a WBC of 12 and abnormal LFTs. Admitted further care and management. Abdominal exam is fairly benign soft nontender nondistended. Pending abdominal ultrasound Trend labs We will follow with recommendations as imaging and labs are available. (6) Leukocytosis Assessment & Plan: Patient with leukocytosis on admission. Abnormal LFTs. Etiology of leukocytosis unknown. Micro noted. On antibiotics. Imaging ordered. Will follow with recommendations as imaging information is available. No abscess or or visible sign of infection identified. Small eschar on toe and had mild erythema of foot but not very clinically significant. Clay Gonzalez Aug 27, 2020 16:09
--- NOTE | 2020-08-27 18:44 | NUR ---
NURSE HAND-OFF: Important Events on Shift: PENDING DISCHARGE BACK TO [facility] ON FRIDAY. PENDING VENOUS DUPLEX OF LEFT UPPER EXTREMITY ON FRIDAY. Patient Status: STABLE Diet: REGULAR - PUREED MOIST, NECTAR THICK LIQUIDS Pending Orders: DISCHARGE ON FRIDAY Pending Results/Labs:N/A Pending MD notification:N/A Latest Vital Signs: Temperature 97.7 , Pulse 74 , B/P 131 /71 , Respiratory Rate 19 , O2 SAT 97 , Room Air, O2 Flow Rate . Vital Sign Comment: STABLE Latest Mayberry Fall Score: 95 Fall Risk: High Risk Safety Measures: Call light Within Reach, Bed Alarm Zone 2, Side Rails Side Rails x3, Bed position Low and Locked. Fall Precautions: Yellow Socks Yellow Gown Door Sign Patient Fall Education Addendum: 08/27/20 at 1937 by HERON OROZCO RN RN HAND-OFF: Report given to Alessandra JOEL RN.
--- NOTE | 2020-08-27 19:15 | NUR ---
NURSE NOTES: Received pt. from Deacon and KALANI Sosa. Pt. is in bed, awake, alert and restless, trying to get out of bed. With dora. soft wrist restraints. With good circulation noted and no skin breakdown. Left hand is noted swelling. With call light within reach. Bed is in it's lowest position, with alarm on and locked. Will continue to monitor.
[2020-08-27 20:00] VITALS: BP 144/80
[2020-08-27] MEDS: Atorvastatin 20mg tab ORAL SCH (21:08)
--- NOTE | 2020-08-27 23:30 | NUR ---
All due meds given. Given prn Benadryl due to scratching all over his body, verbalized that he is itchy. Pt. is combative and resistive to care. Monitored at all times. Trying to pull out his restraints. Slept at short intervals. Kept warm and comfortable at all times. Will continue with plan of care.
[2020-08-28] VITALS: BP 144/90
[2020-08-28] MEDS: LORazepam 1mg tab ORAL SCH ×5 (00:21→23:30)
[2020-08-28] MEDS: Haloperidol 5mg/ml Inj IM PRN ×3 (02:36→20:11)
[2020-08-28 04:00] VITALS: BP 148/86
[2020-08-28] MEDS: D5NS 1,000 ML IV SCH ×2 (05:13→16:49)
[2020-08-28] MEDS: NovoLOG Insulin Flexpen SUBQ SCH ×4 (06:30→20:17)
--- NOTE | 2020-08-28 07:48 | NUR ---
NURSE NOTES: Received report from KALANI Rubio. Patient is in bed, awake, alert and restless, trying to get out of bed. Patient with bilateral soft with good circulation noted and no skin breakdown. Left hand is noted swelling, patient is due for venous duplex of left UA today. Iv site patent and intact, left hand swelling noted. Patient continuously screams and yells, RN will monitor. Bed is locked and placed in lowest position with bed alarm on. Call light within reach. Will continue to monitor
--- NOTE | 2020-08-28 07:55 | NUR ---
NURSE NOTES: Report given to Shay URIARTE.
[2020-08-28 08:00] VITALS: BP 140/93
[2020-08-28] MEDS: Aspirin Baby 81mg ORAL SCH (08:38)
[2020-08-28] MEDS: Acetaminophen 500mg (ES) tab ORAL SCH ×2 (08:39→18:53)
[2020-08-28] MEDS: Heparin 5000 units/ml inj SUBQ SCH ×2 (08:39→20:12)
[2020-08-28] MEDS: Docusate 100mg cap ORAL SCH (08:39)
[2020-08-28] MEDS: metFORMIN 500mg tab ORAL SCH (08:39)
[2020-08-28] MEDS: Hydrocortisone 1% Cr TOPIC SCH ×2 (08:40→20:27)
--- NOTE | 2020-08-28 08:47 | NUR ---
NURSE NOTES: patient refused all PO morning medication. Rn explained the risk of refusing medication. Patient is AAox2, patient became agitated when nurse offered morning meds
--- NOTE | 2020-08-28 09:19 | General Progress Note ---
Subjective ROS Limited/Unobtainable: No Allergies: Coded Allergies: No Known Allergies (Unverified , 08/24/20) Objective Last 24 Hour Vital Signs Date Time Temp Pulse Resp B/P (MAP) Pulse Ox O2 Delivery O2 Flow Rate FiO2 08/28/20 07:27 73 18 128/75 97 08/28/20 06:57 81 17 139/75 95 08/28/20 04:00 98.9 20 148/86 (106) 95 08/28/20 00:51 78 20 136/87 95 08/28/20 00:21 74 21 144/90 95 08/28/20 00:00 98.3 21 144/90 (108) 95 08/27/20 21:00 Room Air 08/27/20 20:00 98.7 20 144/80 (101) 95 08/27/20 17:44 74 19 131/71 97 08/27/20 17:14 74 19 131/71 97 08/27/20 16:00 97.7 19 131/71 (91) 97 08/27/20 12:13 74 18 129/91 97 08/27/20 12:00 97.9 18 129/91 (104) 97 08/27/20 11:43 74 18 150/97 99 08/27/20 09:59 Room Air Intake and Output 08/27/20 08/28/20 19:00 07:00 Intake Total 1256.667 ml 933.334 ml Output Total 250 ml Balance 1256.667 ml 683.334 ml Intake Oral 240 ml IV Total 1016.667 ml 933.334 ml Output Urine Total 250 ml # Voids 3 4 # Bowel Movements 1 Height (Feet): 6 Height (Inches): 0.00 Weight (Pounds): 151 General Appearance: confused EENT: normal ENT inspection Neck: supple Cardiovascular: normal rate Respiratory/Chest: lungs clear Abdomen: normal bowel sounds, non tender, soft Extremities: non-tender Assessment/Plan Problem List: (1) Leukocytosis ICD Codes: D72.829 - Elevated white blood cell count, unspecified SNOMED: 501816121, 683581319 (2) Abnormal LFTs ICD Codes: R94.5 - Abnormal results of liver function studies SNOMED: 226036461 (3) Acute encephalopathy ICD Codes: G93.40 - Encephalopathy, unspecified SNOMED: 40789339, 858954822 (4) Cellulitis of left toe ICD Codes: L03.032 - Cellulitis of left toe SNOMED: 83712205 (5) Rhabdomyolysis ICD Codes: M62.82 - Rhabdomyolysis SNOMED: 309303543 Qualifiers: Qualified Codes: M62.82 - Rhabdomyolysis (6) Anemia ICD Codes: D64.9 - Anemia, unspecified SNOMED: 359307997 (7) DM (diabetes mellitus) ICD Codes: E11.9 - Type 2 diabetes mellitus without complications SNOMED: 05726432 (8) HTN (hypertension) ICD Codes: I10 - Essential (primary) hypertension SNOMED: 77678537 Status: stable Assessment/Plan: elevated LFTS possibly due to statins abd us hepatitis panel repeat labs will Mohamud Spaulding MD Aug 28, 2020 09:19
--- NOTE | 2020-08-28 09:52 | General Progress Note ---
Subjective Allergies: Coded Allergies: No Known Allergies (Unverified , 08/24/20) Subjective doing ok bed ridden Objective Last 24 Hour Vital Signs Date Time Temp Pulse Resp B/P (MAP) Pulse Ox O2 Delivery O2 Flow Rate FiO2 08/28/20 09:00 Room Air 08/28/20 08:00 98.6 65 20 140/93 (109) 96 08/28/20 07:27 73 18 128/75 97 08/28/20 06:57 81 17 139/75 95 08/28/20 04:00 98.9 20 148/86 (106) 95 08/28/20 00:51 78 20 136/87 95 08/28/20 00:21 74 21 144/90 95 08/28/20 00:00 98.3 21 144/90 (108) 95 08/27/20 21:00 Room Air 08/27/20 20:00 98.7 20 144/80 (101) 95 08/27/20 17:44 74 19 131/71 97 08/27/20 17:14 74 19 131/71 97 08/27/20 16:00 97.7 19 131/71 (91) 97 08/27/20 12:13 74 18 129/91 97 08/27/20 12:00 97.9 18 129/91 (104) 97 08/27/20 11:43 74 18 150/97 99 08/27/20 09:59 Room Air Intake and Output 08/27/20 08/28/20 19:00 07:00 Intake Total 1256.667 ml 933.334 ml Output Total 250 ml Balance 1256.667 ml 683.334 ml Intake Oral 240 ml IV Total 1016.667 ml 933.334 ml Output Urine Total 250 ml # Voids 3 4 # Bowel Movements 1 Height (Feet): 6 Height (Inches): 0.00 Weight (Pounds): 151 General Appearance: confused EENT: PERRL/EOMI Cardiovascular: regular rhythm Respiratory/Chest: normal breath sounds Abdomen: soft Extremities: non-tender Assessment/Plan Status: stable Assessment/Plan: failure of thrive non healing ulcer malmutrition depression dc plan to snf with po abx wound care Miki Gruber MD Aug 28, 2020 09:52
--- NOTE | 2020-08-28 10:36 | NUR ---
*-*DISCHARGE PLANNING*-* PATIENT HAS BEEN REFERRED BACK TO: [facility] P: [phone]
[2020-08-28 12:00] VITALS: BP 145/86
--- NOTE | 2020-08-28 14:30 | Surgery Progress Note ---
Surgery Progress Note Subjective Additional Comments comfortable no complaints no n/v d/cp marcos improved Objective Last 24 Hour Vital Signs Date Time Temp Pulse Resp B/P (MAP) Pulse Ox O2 Delivery O2 Flow Rate FiO2 08/28/20 13:11 72 20 135/77 97 08/28/20 12:41 72 20 135/77 97 08/28/20 12:00 98.8 68 20 145/86 (105) 97 08/28/20 09:00 Room Air 08/28/20 08:00 98.6 65 20 140/93 (109) 96 08/28/20 07:27 73 18 128/75 97 08/28/20 06:57 81 17 139/75 95 08/28/20 04:00 98.9 20 148/86 (106) 95 08/28/20 00:51 78 20 136/87 95 08/28/20 00:21 74 21 144/90 95 08/28/20 00:00 98.3 21 144/90 (108) 95 08/27/20 21:00 Room Air 08/27/20 20:00 98.7 20 144/80 (101) 95 08/27/20 17:44 74 19 131/71 97 08/27/20 17:14 74 19 131/71 97 08/27/20 16:00 97.7 19 131/71 (91) 97 I&O Intake and Output 08/27/20 08/28/20 19:00 07:00 Intake Total 1256.667 ml 933.334 ml Output Total 250 ml Balance 1256.667 ml 683.334 ml Intake Oral 240 ml IV Total 1016.667 ml 933.334 ml Output Urine Total 250 ml # Voids 3 4 # Bowel Movements 1 Dressing: other Wound: other Cardiovascular: RSR Respiratory: decreased breath sounds Abdomen: soft, non-tender, present bowel sounds Extremities: no tenderness, no cyanosis Plan Problems: (1) Rhabdomyolysis (2) Cellulitis of left foot Assessment & Plan: Bilaterally, grayscale and duplex images demonstrate atherosclerotic plaquing. Bilaterally, triphasic waveforms with sharp systolic peaks are seen from the common femoral to the popliteal artery levels. On the right, dorsalis pedis artery waveforms is borderline triphasic. Proximal posterior and anterior tibial artery waveforms are triphasic, and the distal posterior tibial artery waveform is triphasic. On the left, the posterior tibial artery waveform is monophasic with increased diastolic flow. The peroneal artery waveforms is monophasic with increased diastolic flow. The dorsalis pedis artery waveforms is monophasic with increased diastolic flow. Systolic peaks remain sharp in the tibial vessels. 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 No evidence of suprageniculate stenosis Minimal if any trifurcation disease on the right. No evidence of suprageniculate stenosis (3) Cellulitis of left toe (4) Acute encephalopathy Assessment & Plan: Brain: There is chronic small vessel ischemic disease. 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 There are old lacunar infarcts in the right centrum semi-ovale. There is age-related cerebral volume loss. No hemorrhage. Ventricles: Unremarkable. No ventriculomegaly. Bones/joints: Unremarkable. No acute fracture. Soft tissues: Unremarkable. Sinuses: Unremarkable as visualized. No acute sinusitis. Mastoid air cells: Unremarkable as visualized. No mastoid effusion. IMPRESSION: 1. 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 2. Old lacunar infarcts in the right centrum semi-ovale. 3. Age-related cerebral volume loss. Chronic small vessel ischemic disease. (5) Abnormal LFTs Assessment & Plan: 60-year-old male altered mental status agitated came in for evaluation identified to have a WBC of 12 and abnormal LFTs. Admitted further care and management. Abdominal exam is fairly benign soft nontender nondistended. Pending abdominal ultrasound Trend labs We will follow with recommendations as imaging and labs are available. (6) Leukocytosis Assessment & Plan: Patient with leukocytosis on admission. Abnormal LFTs. Etiology of leukocytosis unknown. Micro noted. On antibiotics. Imaging ordered. Will follow with recommendations as imaging information is available. No abscess or or visible sign of infection identified. Small eschar on toe and had mild erythema of foot but not very clinically significant. Clay Gonzalez Aug 28, 2020 14:30
--- NOTE | 2020-08-28 15:58 | NUR ---
CASE MANAGEMENT:REVIEW SI;RHABDOMYOLYSIS. LT TOE CELLULITIS. 98.9 81 21 148/86 95% ON RA IS;VANCOMYCIN IV Q8 HEPARIN SUBQ Q12 IVF D5W @ 75 ML/HR ASA PO QD SEROQUEL PO Q8 MED SURG STATUS DCP;FROM [facility]
[2020-08-28 16:00] VITALS: BP 140/84
--- NOTE | 2020-08-28 16:23 | NUR ---
*-*DISCHARGE PLANNING*-* PATIENT HAS BEEN REFERRED BACK TO: [facility] P: [phone] S/W MARY, WHO STATED UNABLE TO ACCEPT PATIENT, UNABLE TO MEET PATIENTS NEEDS, WILL REACH OUT TO [facility] PATIENT CAME FROM WHICH IS "[facility]"
--- NOTE | 2020-08-28 16:27 | NUR ---
*-*DISCHARGE PLANNING*-* PATIENT HAS BEEN REFERRED BACK TO: [facility] P: [phone]/ [phone] S/W DENIA, WHO STATED WILL FIND PLACEMENT FOR THIS PATIENT.
--- NOTE | 2020-08-28 16:36 | Diagnostic Imaging Report ---
Indication: Abnormal liver function tests, abdominal pain Technique: Garzon-scale and duplex images of the upper abdomen were obtained Comparison: none Findings: Gallbladder demonstrate no stones. There is some wall thickening and pericholecystic edema, however. Sonographic Harrington's sign is negative. Common bile duct measures for mm in diameter. No intrahepatic biliary ductal dilatation. Liver demonstrates diffusely increased echogenicity, consistent with diffuse hepatocellular disease, most likely fatty change. Portal vein and hepatic veins are patent. Pancreas is unremarkable. Spleen is unremarkable. Left kidney measures 11.6 cm in length. Right kidney measures 12.2 cm length. Both kidneys demonstrate normal echogenicity. There is no hydronephrosis. No focal abnormality . Non-aneurysmal abdominal aorta . Impression: Negative for gallstones. However, there is gallbladder wall thickening and pericholecystic edema. Differential considerations include edema due to adjacent hepatocellular disease, edema of hemodynamic causes, acute acalculous cholecystitis. Liver demonstrates diffusely increased echogenicity, consistent with diffuse hepatocellular disease, most likely fatty change.
--- NOTE | 2020-08-28 16:40 | Diagnostic Imaging Report ---
Indication: Left arm pain Technique: Grayscale and duplex images of the left upper extremity Comparison: none Findings: Grayscale and duplex images demonstrate no evidence of intraluminal thrombus. Normal phasic Doppler waveforms. Normal compressibility Impression: Negative for left upper extremity venous thrombosis
--- NOTE | 2020-08-28 19:12 | NUR ---
NURSE HAND-OFF: Important Events on Shift:Patient was combative with nurses Patient Status: stable Diet: regular pureed nectar thick Pending Orders: n/a Pending Results/Labs:n/a Pending MD notification:n/a Latest Vital Signs: Temperature 97.7 , Pulse 68 , B/P 138 /75 , Respiratory Rate 19 , O2 SAT 98 , Room Air, O2 Flow Rate . Vital Sign Comment: stable Latest Mayberry Fall Score: 95 Fall Risk: High Risk Safety Measures: Call light Within Reach, Bed Alarm Zone 2, Side Rails Side Rails x3, Bed position Low and Locked. Fall Precautions: Yellow Socks Yellow Gown Door Sign Patient Fall Education Report given to KALANI Garland.
--- NOTE | 2020-08-28 19:59 | NUR ---
NURSE NOTES: Received patient awake in bed, no s/s of acute distress, mildly agitated. Bilateral soft wrist restraints noted, skin underneath symptomatic, left hand swollen (MD aware), peripheral pulses present. Condom catheter replaced. Needs attended to at this time. IV access patent.
[2020-08-28 20:00] VITALS: BP 144/87
[2020-08-28] MEDS: Atorvastatin 20mg tab ORAL SCH (20:11)
--- NOTE | 2020-08-28 23:16 | Psych Consult Progress Note ---
Psychiatry Progress Note Psychiatry Progress Note Medications Current Medications Medications (Trade) Dose Ordered Sig/Jesu Route PRN Reason Start Time Stop Time Status Last Admin Dose Admin Acetaminophen (Tylenol) 650 mg Q4H PRN RECTAL Temp >100.5 08/24/20 06:30 09/23/20 06:29 Acetaminophen (Tylenol) 1,000 mg BID ORAL 08/24/20 09:00 09/23/20 08:59 08/28/20 18:53 Aspirin (ASA) 81 mg DAILY ORAL 08/24/20 09:00 10/08/20 08:59 08/27/20 08:19 Atorvastatin Calcium (Lipitor) 40 mg BEDTIME ORAL 08/24/20 21:00 11/22/20 20:59 08/28/20 20:11 Bisacodyl (Dulcolax) 10 mg DAILY PRN RECTAL Constipation 08/24/20 06:15 11/22/20 06:14 Dextrose (Dextrose 50%) 25 ml Q30M PRN IV Hypoglycemia 08/24/20 06:30 11/22/20 06:29 Dextrose (Dextrose 50%) 50 ml Q30M PRN IV Hypoglycemia 08/24/20 06:30 11/22/20 06:29 Dextrose/Sodium Chloride 1,000 ml @ 75 mls/hr [id number] IV 08/24/20 07:00 09/23/20 06:59 08/28/20 16:49 Diphenhydramine HCl (Benadryl) 25 mg BIDPRN PRN ORAL Itching 08/24/20 15:15 09/23/20 15:14 08/27/20 21:07 Docusate Sodium (Colace) 100 mg DAILY ORAL 08/24/20 09:00 09/23/20 08:59 08/27/20 08:21 Haloperidol Lactate (Haldol) 5 mg Q6H PRN IM Agitation 08/24/20 07:00 10/08/20 06:59 08/28/20 20:11 Heparin Sodium (Porcine) (Heparin 5000 units/ml) 5,000 units EVERY 12 HOURS SUBQ 08/24/20 09:00 10/08/20 08:59 08/28/20 20:12 Hydrocortisone (Hydrocortisone) 1 applic Q12HR TOPIC 08/24/20 21:00 11/22/20 20:59 08/28/20 20:27 Hyoscyamine Sulfate (Levsin) 0.125 mg Q4H PRN ORAL secretions 08/24/20 06:15 09/23/20 06:14 Insulin Aspart (NovoLOG) BEFORE MEALS AND HS SUBQ 08/24/20 06:30 11/22/20 06:29 08/26/20 16:19 Lorazepam (Ativan) 1 mg Q6HR ORAL 08/24/20 15:20 08/31/20 15:19 08/28/20 18:54 Metformin HCl (Glucophage) 500 mg DAILY ORAL 08/24/20 09:00 09/23/20 08:59 08/27/20 08:20 Morphine Sulfate (Morphine 10mg/ 5ml Oral Soln) 5 mg Q4H PRN ORAL Mild Pain (Pain Scale 1-3) 08/24/20 06:15 08/31/20 06:14 Morphine Sulfate (Morphine 10mg/ 5ml Oral Soln) 10 mg Q4H PRN ORAL Moderate Pain (Pain Scale 4-6) 08/24/20 06:15 08/31/20 06:14 Morphine Sulfate (Morphine 10mg/ 5ml Oral Soln) 20 mg Q4H PRN ORAL Severe Pain (Pain Scale 7-10) 08/24/20 06:15 08/31/20 06:14 08/26/20 20:58 Quetiapine Fumarate (SEROqueL) 50 mg EVERY 8 HOURS ORAL 08/24/20 15:15 10/08/20 15:14 08/28/20 21:24 Vancomycin HCl (Vanco pharmacy to dose) 1 ea DAILY PRN MISC Per rx protocol 08/24/20 10:45 09/23/20 10:44 Vancomycin HCl 750 mg/Sodium Chloride 250 ml @ 166.667 mls/hr Q8HR@0100,0900,1700 IVPB 08/26/20 09:00 08/31/20 08:59 08/28/20 16:38 Neurological/Psychiatric: Reports: anxiety, depressed, emotional problems Allergies: Coded Allergies: No Known Allergies (Unverified , 08/24/20) Objective Data Height (Feet): 6 Height (Inches): 0.00 Weight (Pounds): 151 General Appearance: WD/WN, alert, confused, agitated Additional Comments: alert, oriented x0. Mood is agitated. Affect is blunted, congruent with mood. Thought process is concrete. Thought content, no suicidal or homicidal ideation. Cognition is impaired. Insight and judgment is impaired. Assessment/Plan [place] I: ASSESSMENT: [place] I Psychotic disorder, not otherwise specified. [place] II Deferred. [place] III CVA. [place] IV Low. [place] V 20. PLAN: 1. We will start the patient on Seroquel. 2. Ativan. 3. Discontinue all other psychotropic medication. 4. Patient lacks capacity to make decision. Status: stable Status Narrative ASSESSMENT: [place] I Psychotic disorder, not otherwise specified. [place] II Deferred. [place] III CVA. [place] IV Low. [place] V 20. PLAN: 1. We will start the patient on Seroquel. 2. Ativan. 3. Discontinue all other psychotropic medication. 4. Patient lacks capacity to make decision. Assessment/Plan: ASSESSMENT: [place] I Psychotic disorder, not otherwise specified. [place] II Deferred. [place] III CVA. [place] IV Low. [place] V 20. PLAN: 1. We will start the patient on Seroquel. 2. Ativan. 3. Discontinue all other psychotropic medication. 4. Patient lacks capacity to make decision. Nima Degroot MD Aug 28, 2020 23:16
[2020-08-29] VITALS: BP 141/92
[2020-08-29] MEDS: Haloperidol 5mg/ml Inj IM PRN ×3 (02:51→16:04)
[2020-08-29 04:00] VITALS: BP 138/85
[2020-08-29] MEDS: LORazepam 1mg tab ORAL SCH ×4 (05:14→23:54)
[2020-08-29] MEDS: NovoLOG Insulin Flexpen SUBQ SCH ×4 (05:47→21:00)
[2020-08-29] MEDS: D5NS 1,000 ML IV SCH ×2 (06:33→11:39)
--- NOTE | 2020-08-29 07:20 | NUR ---
HAND-OFF: Report given to KALANI Day.
--- NOTE | 2020-08-29 07:26 | NUR ---
CASE MANAGEMENT:REVIEW SI; RHABDOMYOLYSIS. LT TOE CELLULITIS. 97.0 57 21 144/87 98% ON RA IS;VANCOMYCIN IV Q8 HEPARIN SUBQ Q12 IVF D5W @ 75 ML/HR HALDOL IM PRN MED SURG STATUS DCP;FROM [facility] UNABLE TO ACCEPT PATIENT WILL FOLLOW UP WITH [facility] RE PLACEMENT
--- NOTE | 2020-08-29 07:34 | NUR ---
NURSE NOTES: Received report from KALANI Garland. Patient is in bed, awake, alert and restless, trying to get out of bed. Patient with bilateral soft with good circulation noted and no skin breakdown. Left hand is noted swelling. Patient continuously screams and yells, RN will monitor. Patient continuously take off condom catheter and clothing, RN tried to cover patient up with blanket, but patient refuses. Bed is locked and placed in lowest position with bed alarm on. Call light within reach. Will continue to monitor
[2020-08-29 08:00] VITALS: BP 136/73
[2020-08-29 08:50] LABS: BASOPHILS % (AUTO) 1.7 % (0.0-2.0); EOSINOPHILS % (AUTO) 2.4 % (0.0-3.0); HEMATOCRIT 39.9 % (42.0-52.0); HEMOGLOBIN 13.8 G/DL (14.2-18.0); LYMPHOCYTES % (AUTO) 19.4 % (20.0-45.0); MEAN CORPUSCULAR VOLUME 87 FL (80-99); MONOCYTES % (AUTO) 8.2 % (1.0-10.0); NEUTROPHILS % (AUTO) 68.4 % (45.0-75.0); PLATELET COUNT 311 K/UL (150-450); RED CELL DISTRIBUTION WIDTH 13.5 % (11.6-14.8); WHITE BLOOD COUNT 9.2 K/UL (4.8-10.8)
[2020-08-29] MEDS: Aspirin Baby 81mg ORAL SCH (08:54)
[2020-08-29] MEDS: Docusate 100mg cap ORAL SCH (08:54)
[2020-08-29] MEDS: metFORMIN 500mg tab ORAL SCH (08:54)
[2020-08-29] MEDS: Heparin 5000 units/ml inj SUBQ SCH ×2 (08:55→21:12)
[2020-08-29] MEDS: Acetaminophen 500mg (ES) tab ORAL SCH ×2 (08:55→17:40)
[2020-08-29] MEDS: Hydrocortisone 1% Cr TOPIC SCH ×2 (08:56→21:12)
[2020-08-29 09:11] LABS: AMMONIA 31 umol/L (11-32)
[2020-08-29 09:19] LABS: ALANINE AMINOTRANSFERASE 418 U/L (12-78); ALBUMIN 2.8 G/DL (3.4-5.0); ALBUMIN/GLOBULIN RATIO 0.6 (1.0-2.7); ALKALINE PHOSPHATASE 132 U/L (46-116); ANION GAP 9 mmol/L (5-15); ASPARTATE AMINO TRANSFERASE 231 U/L (15-37); BILIRUBIN,TOTAL 0.9 MG/DL (0.2-1.0); BLOOD UREA NITROGEN 5 mg/dL (7-18); CALCIUM 8.6 MG/DL (8.5-10.1); CARBON DIOXIDE 29 MMOL/L (21-32); CHLORIDE 103 MMOL/L (98-107); CREATININE 0.6 MG/DL (0.55-1.30); POTASSIUM 3.7 MMOL/L (3.5-5.1); SODIUM 141 MMOL/L (136-145)
--- NOTE | 2020-08-29 09:57 | General Progress Note ---
Subjective Date patient seen: Aug 29, 2020 Allergies: Coded Allergies: No Known Allergies (Unverified , 08/24/20) Subjective doing ok bed ridden Objective Last 24 Hour Vital Signs Date Time Temp Pulse Resp B/P (MAP) Pulse Ox O2 Delivery O2 Flow Rate FiO2 08/29/20 09:00 Room Air 08/29/20 08:00 97.3 67 18 136/73 (94) 97 08/29/20 05:46 64 20 138/85 98 08/29/20 05:14 64 20 138/85 98 08/29/20 04:00 97.1 64 20 138/85 (102) 98 08/29/20 00:00 97.0 57 21 141/92 (108) 98 08/29/20 00:00 64 20 144/87 98 08/28/20 23:30 64 20 144/87 98 08/28/20 21:04 Room Air 08/28/20 20:00 97.0 64 20 144/87 (106) 98 08/28/20 19:24 70 19 135/69 98 08/28/20 18:54 68 19 138/75 98 08/28/20 16:00 97.7 62 20 140/84 (102) 98 08/28/20 13:11 72 20 135/77 97 08/28/20 12:41 72 20 135/77 97 08/28/20 12:00 98.8 68 20 145/86 (105) 97 Intake and Output 08/28/20 08/29/20 19:00 07:00 Intake Total 220 ml 450 ml Output Total 200 ml 650 ml Balance 20 ml -200 ml Intake Oral 220 ml 450 ml Output Urine Total 200 ml 650 ml # Voids 2 Laboratory Tests 08/29/20 07:55: White Blood Count 9.2, Red Blood Count 4.60L, Hemoglobin 13.8L, Hematocrit 39.9L , Mean Corpuscular Volume 87, Mean Corpuscular Hemoglobin 29.9, Mean Corpuscular Hemoglobin Concent 34.4, Red Cell Distribution Width 13.5, Platelet Count 311, Mean Platelet Volume 5.3L, Neutrophils (%) (Auto) 68.4, Lymphocytes (%) (Auto) 19.4L, Monocytes (%) (Auto) 8.2, Eosinophils (%) (Auto) 2.4, Basophils (%) (Auto) 1.7, Sodium Level 141, Potassium Level 3.7, Chloride Level 103, Carbon Dioxide Level 29, Anion Gap 9, Blood Urea Nitrogen 5L, Creatinine 0.6, Estimat Glomerular Filtration Rate > 60, Glucose Level 125H, Calcium Level 8.6, Total Bilirubin 0.9, Aspartate Amino Transf (AST/SGOT) 231H, Alanine Aminotransferase (ALT/SGPT) 418H, Alkaline Phosphatase 132H, Ammonia 31, Total Protein 7.3, Albumin 2.8L, Globulin 4.5, Albumin/Globulin Ratio 0.6L, Hepatitis A IgM An tibody [Pending], Hepatitis B Surface Antigen [Pending], Hepatitis B Core IgM Antibody [Pending], Hepatitis C Antibody [Pending] Height (Feet): 6 Height (Inches): 0.00 Weight (Pounds): 151 General Appearance: alert Cardiovascular: regular rhythm Respiratory/Chest: lungs clear Extremities: non-tender Assessment/Plan Status: stable Assessment/Plan: failure of thrive non healing ulcer malmutrition depression dc plan to snf with po abx wound care placement Miki Gruber MD Aug 29, 2020 09:57
--- NOTE | 2020-08-29 10:24 | NUR ---
RD ASSESSMENT & RECOMMENDATIONS SEE CARE ACTIVITY FOR COMPLETE ASSESSMENT DAILY ESTIMATED NEEDS: Needs based on DM, cardiac/ 70kg 25-30 kcals/kg 5656-6313 total kcals 1-1.3 g protein/kg 70-91 g total protein 25-30 mL/kg 9390-1542 total fluid mLs NUTRITION DIAGNOSIS: Swallowing difficulty R/T dysphagia, h/o CVA as evidenced by pt on pureed moist texture diet w/ NTL. CURRENT DIET:REGULAR, pureed moist w/ NTL PO DIET RECOMMENDATIONS: LOW NA + CCHO MED/ texture per [employer] ADDITIONAL RECOMMENDATIONS: * Standing wt for accurate CBW or calibrated bedscale wt * F/up w/ calorie count x 72 hrs (08/25-08/28)- good intake of all meals * Skin integrity: Add MVI x 1 * Glucerna BID * Monitor for continued good po intake
[2020-08-29 12:00] VITALS: BP 127/86
--- NOTE | 2020-08-29 12:34 | General Progress Note ---
Subjective ROS Limited/Unobtainable: Yes Allergies: Coded Allergies: No Known Allergies (Unverified , 08/24/20) Objective Last 24 Hour Vital Signs Date Time Temp Pulse Resp B/P (MAP) Pulse Ox O2 Delivery O2 Flow Rate FiO2 08/29/20 12:00 97.6 62 18 127/86 (100) 97 08/29/20 09:00 Room Air 08/29/20 08:00 97.3 67 18 136/73 (94) 97 08/29/20 05:46 64 20 138/85 98 08/29/20 05:14 64 20 138/85 98 08/29/20 04:00 97.1 64 20 138/85 (102) 98 08/29/20 00:00 97.0 57 21 141/92 (108) 98 08/29/20 00:00 64 20 144/87 98 08/28/20 23:30 64 20 144/87 98 08/28/20 21:04 Room Air 08/28/20 20:00 97.0 64 20 144/87 (106) 98 08/28/20 19:24 70 19 135/69 98 08/28/20 18:54 68 19 138/75 98 08/28/20 16:00 97.7 62 20 140/84 (102) 98 08/28/20 13:11 72 20 135/77 97 08/28/20 12:41 72 20 135/77 97 Intake and Output 08/28/20 08/29/20 19:00 07:00 Intake Total 220 ml 450 ml Output Total 200 ml 650 ml Balance 20 ml -200 ml Intake Oral 220 ml 450 ml Output Urine Total 200 ml 650 ml # Voids 2 Laboratory Tests 08/29/20 07:55: White Blood Count 9.2, Red Blood Count 4.60L, Hemoglobin 13.8L, Hematocrit 39.9L , Mean Corpuscular Volume 87, Mean Corpuscular Hemoglobin 29.9, Mean Corpuscular Hemoglobin Concent 34.4, Red Cell Distribution Width 13.5, Platelet Count 311, Mean Platelet Volume 5.3L, Neutrophils (%) (Auto) 68.4, Lymphocytes (%) (Auto) 19.4L, Monocytes (%) (Auto) 8.2, Eosinophils (%) (Auto) 2.4, Basophils (%) (Auto) 1.7, Sodium Level 141, Potassium Level 3.7, Chloride Level 103, Carbon Dioxide Level 29, Anion Gap 9, Blood Urea Nitrogen 5L, Creatinine 0.6, Estimat Glomerular Filtration Rate > 60, Glucose Level 125H, Calcium Level 8.6, Total Bilirubin 0.9, Aspartate Amino Transf (AST/SGOT) 231H, Alanine Aminotransferase (ALT/SGPT) 418H, Alkaline Phosphatase 132H, Ammonia 31, Total Protein 7.3, Albumin 2.8L, Globulin 4.5, Albumin/Globulin Ratio 0.6L, Hepatitis A IgM Antibody [Pending], Hepatitis B Surface Antigen [Pending], Hepatitis B Core IgM Antibody [Pending], Hepatitis C Antibody [Pending] Height (Feet): 6 Height (Inches): 0.00 Weight (Pounds): 151 General Appearance: no apparent distress EENT: normal ENT inspection Neck: supple Cardiovascular: normal rate Respiratory/Chest: decreased breath sounds Abdomen: normal bowel sounds, non tender, soft Extremities: non-tender Assessment/Plan Problem List: (1) Leukocytosis ICD Codes: D72.829 - Elevated white blood cell count, unspecified SNOMED: 946845384, 725695553 (2) Abnormal LFTs ICD Codes: R94.5 - Abnormal results of liver function studies SNOMED: 467392097 (3) Acute encephalopathy ICD Codes: G93.40 - Encephalopathy, unspecified SNOMED: 59620154, 632558859 (4) Cellulitis of left toe ICD Codes: L03.032 - Cellulitis of left toe SNOMED: 15812565 (5) Rhabdomyolysis ICD Codes: M62.82 - Rhabdomyolysis SNOMED: 542336864 Qualifiers: Qualified Codes: M62.82 - Rhabdomyolysis (6) Anemia ICD Codes: D64.9 - Anemia, unspecified SNOMED: 163883588 (7) DM (diabetes mellitus) ICD Codes: E11.9 - Type 2 diabetes mellitus without complications SNOMED: 80070276 (8) HTN (hypertension) ICD Codes: I10 - Essential (primary) hypertension SNOMED: 43877390 Status: stable Assessment/Plan: elevated LFTS possibly due to statins>>> will dc abd us>>> fatty liver hepatitis panel repeat labs will Mohamud Spaulding MD Aug 29, 2020 12:34
--- NOTE | 2020-08-29 13:51 | NUR ---
SPEECH PATHOLOGY NOTE: S: PATIENT CLEARED FOR ST INTERVENTION BY KALANI SALVADOR. PATIENT WAS SITTING UPRIGHT IN BED AND ALERT/AMENDABLE FOR ST DYSPHAGIA TX. PER RN, PATIENT CONTINUES TO BE PREDOMINANTLY OPPOSITIONAL/ YELLING/AGITATED REQUIRING SOFT RESTRAINTS TO PREVENT FALLING. PER CURRENT CXR:Procedure: XRAY Chest 1v Indication: Cough Technique: One view of the chest Comparison: 08/24/2020 Findings: Lungs and pleural spaces are clear. The heart size is upper limits of normal with a left ventricular hypertrophy configuration. No significant interim change. Impression: No acute process O: DYSPHAGIA TX/MANAGEMENT IN CONTEXT OF NOON MEAL TO EVALUATE TOLERANCE OF CURRENT DIET TEXTURE, REVIEW OF MEALTIME PROTOCOL, PATIENT/CAREGIVER EDUCATION, ONGOING ASSESSMENT A: MEALTIME TRAY INCLUDED PUREE WITH NECTAR THICK LIQUIDS. NO STRAWS WHEN PATIENT WAS ASKED IF HE LIKED THE FOOD HE NODDED YES AND DID NOT COMPLAIN OF THE TEXTURE. HE HAS SUBSTANTIAL MISSING TEETH AND IS UNABLE TO MASTICATE SOLIDS THOROUGHLY. PER CHART REVIEW PATIENTS P.O. INTAKE HAS BEEN AVERAGING 100 PER CENT OF MEALS. POST SWALLOW PUREE SOLIDS, RESIDUE NOTED ON LINGUAL SURFACE WHICH WAS IMMEDIATELY CLEARED WITH A LIQUID WASH OF NECTAR THICK LIQUID VIA STRAW. PATIENT ABLE TO ATTEND TO TASK OF P.O. AND DID NOT REQUIRE ANY REDIRECTS. TODAY, HE PRESENTED WITH MILD OROPHARYNGEAL DYSPHAGIA AND SIGNIFICANTLY IMPROVED MENTATION. HE WAS ORIENTED TO YEAR ONLY: UNAWARE HE WAS IN THE HOSPITAL OR THAT THE MONTH WAS AUGUST. HE STATED THAT HE WAS AT A MEDICAL CLINIC. AT THE END OF THE MEAL, WHEN HE WAS ASKED AGAIN TO STATE YEAR/MONTH/PLACE HE WAS UNABLE TO DO SO EVEN THOUGH WE HAD REVIEWED THIS INFORMATION. HE REQUIRED MAX CUES TO RECALL PLACE, MONTH, SITUATION. PATIENT UNABLE TO VERBALIZE THE NEED FOR HIS RESTRAINTS. COGNITIVE IMPAIRMENT IS SIGNIFICANT, HE CONTINUES TO PRESENT ENCEPHALOPATHIC, REQUIRING FREQUENT RE/ORIENTATION, RESTRAINTS FOR PERSONAL SAFETY. VERBAL EXPRESSION PRESENTS GROSSLY INTACT. HE WAS FULLY COOPERATIVE THROUGHOUT THIS SESSION, WHEN CLINICIAN LEFT HIS ROOM HE RESUMED HIS ACTING OUT BEHAVIORS. P: CURRENT DIET APPEARS TO BE LEAST RESTRICTIVE AND APPROPRIATE GIVEN THE PATIENTS INADEQUATE DENTITION/MENTATION CONTINUE CURRENT DIET WITH TOTAL ASSIST WITH MEALS ST AT NEXT LEVEL OF CARE Addendum: 08/29/20 at 1418 by ASHWINI WILLETT CORRECTION: LIQUID WASH VIA SPOON NOT STRAW
--- NOTE | 2020-08-29 14:30 | Surgery Progress Note ---
Surgery Progress Note Subjective Symptoms: improved, tolerating diet, passing flatus, BM Objective Last 24 Hour Vital Signs Date Time Temp Pulse Resp B/P (MAP) Pulse Ox O2 Delivery O2 Flow Rate FiO2 08/29/20 13:33 73 18 130/75 97 08/29/20 13:03 78 18 136/86 97 08/29/20 12:00 97.6 62 18 127/86 (100) 97 08/29/20 09:00 Room Air 08/29/20 08:00 97.3 67 18 136/73 (94) 97 08/29/20 05:46 64 20 138/85 98 08/29/20 05:14 64 20 138/85 98 08/29/20 04:00 97.1 64 20 138/85 (102) 98 08/29/20 00:00 97.0 57 21 141/92 (108) 98 08/29/20 00:00 64 20 144/87 98 08/28/20 23:30 64 20 144/87 98 08/28/20 21:04 Room Air 08/28/20 20:00 97.0 64 20 144/87 (106) 98 08/28/20 19:24 70 19 135/69 98 08/28/20 18:54 68 19 138/75 98 08/28/20 16:00 97.7 62 20 140/84 (102) 98 I&O Intake and Output 08/28/20 08/29/20 19:00 07:00 Intake Total 220 ml 450 ml Output Total 200 ml 650 ml Balance 20 ml -200 ml Intake Oral 220 ml 450 ml Output Urine Total 200 ml 650 ml # Voids 2 Dressing: dry Wound: clean Cardiovascular: RSR Respiratory: clear Abdomen: soft, non-tender, present bowel sounds Extremities: edema, no tenderness, no cyanosis Laboratory Tests Test 08/29/20 07:55 White Blood Count 9.2 K/UL (4.8-10.8) Red Blood Count 4.60 M/UL (4.70-6.10) L Hemoglobin 13.8 G/DL (14.2-18.0) L Hematocrit 39.9 % (42.0-52.0) L Mean Corpuscular Volume 87 FL (80-99) Mean Corpuscular Hemoglobin 29.9 PG (27.0-31.0) Mean Corpuscular Hemoglobin Concent 34.4 G/DL (32.0-36.0) Red Cell Distribution Width 13.5 % (11.6-14.8) Platelet Count 311 K/UL (150-450) Mean Platelet Volume 5.3 FL (6.5-10.1) L Neutrophils (%) (Auto) 68.4 % (45.0-75.0) Lymphocytes (%) (Auto) 19.4 % (20.0-45.0) L Monocytes (%) (Auto) 8.2 % (1.0-10.0) Eosinophils (%) (Auto) 2.4 % (0.0-3.0) Basophils (%) (Auto) 1.7 % (0.0-2.0) Sodium Level 141 MMOL/L (136-145) Potassium Level 3.7 MMOL/L (3.5-5.1) Chloride Level 103 MMOL/L (98-107) Carbon Dioxide Level 29 MMOL/L (21-32) Anion Gap 9 mmol/L (5-15) Blood Urea Nitrogen 5 mg/dL (7-18) L Creatinine 0.6 MG/DL (0.55-1.30) Estimat Glomerular Filtration Rate > 60 mL/min (>60) Glucose Level 125 MG/DL (74-106) H Calcium Level 8.6 MG/DL (8.5-10.1) Total Bilirubin 0.9 MG/DL (0.2-1.0) Aspartate Amino Transf (AST/SGOT) 231 U/L (15-37) H Alanine Aminotransferase (ALT/SGPT) 418 U/L (12-78) H Alkaline Phosphatase 132 U/L (46-116) H Ammonia 31 umol/L (11-32) Total Protein 7.3 G/DL (6.4-8.2) Albumin 2.8 G/DL (3.4-5.0) L Globulin 4.5 g/dL Albumin/Globulin Ratio 0.6 (1.0-2.7) L Hepatitis A IgM Antibody Pending Hepatitis B Surface Antigen Pending Hepatitis B Core IgM Antibody Pending Hepatitis C Antibody Pending Plan Problems: (1) Rhabdomyolysis (2) Cellulitis of left foot Assessment & Plan: Bilaterally, grayscale and duplex images demonstrate atherosclerotic plaquing. Bilaterally, triphasic waveforms with sharp systolic peaks are seen from the common femoral to the popliteal artery levels. On the right, dorsalis pedis artery waveforms is borderline triphasic. Proximal posterior and anterior tibial artery waveforms are triphasic, and the distal posterior tibial artery waveform is triphasic. On the left, the posterior tibial artery waveform is monophasic with increased diastolic flow. The peroneal artery waveforms is monophasic with increased diastolic flow. The dorsalis pedis artery waveforms is monophasic with increased diastolic flow. Systolic peaks remain sharp in the tibial vessels. 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 No evidence of suprageniculate stenosis Minimal if any trifurcation disease on the right. No evidence of suprageniculate stenosis (3) Cellulitis of left toe (4) Acute encephalopathy Assessment & Plan: Brain: There is chronic small vessel ischemic disease. O ld infarct in the posterior right temporoparietal region. There are old lacunar infarcts in the right centrum semi-ovale. There is age-related cerebral volume loss. No hemorrhage. Ventricles: Unremarkable. No ventriculomegaly. Bones/joints: Unremarkable. No acute fracture. Soft tissues: Unremarkable. Sinuses: Unremarkable as visualized. No acute sinusitis. Mastoid air cells: Unremarkable as visualized. No mastoid effusion. IMPRESSION: 1. 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 2. Old lacunar infarcts in the right centrum semi-ovale. 3. Age-related cerebral volume loss. Chronic small vessel ischemic disease. (5) Abnormal LFTs Assessment & Plan: 60-year-old male altered mental status agitated came in for evaluation identified to have a WBC of 12 and abnormal LFTs. Admitted further care and management. Abdominal exam is fairly benign soft nontender nondistended. Pending abdominal ultrasound Trend labs We will follow with recommendations as imaging and labs are available. (6) Leukocytosis Assessment & Plan: Patient with leukocytosis on admission. Abnormal LFTs. Etiology of leukocytosis unknown. Micro noted. On antibiotics. Imaging ordered. Will follow with recommendations as imaging information is available. No abscess or or visible sign of infection identified. Small eschar on toe and had mild erythema of foot but not very clinically significant. Clay Gonzalez Aug 29, 2020 14:30
[2020-08-29 16:00] VITALS: BP 135/73
--- NOTE | 2020-08-29 19:23 | NUR ---
NURSE HAND-OFF: Important Events on Shift:was screaming and combative the whole day, pending placement Patient Status: stable Diet: regular pureed moist nectar thick Pending Orders: n/a Pending Results/Labs:n/a Pending MD notification:n/a Latest Vital Signs: Temperature 97.8 , Pulse 72 , B/P 129 /73 , Respiratory Rate 19 , O2 SAT 97 , Room Air, O2 Flow Rate . Vital Sign Comment: stable Latest [place] Fall Score: 95 Fall Risk: High Risk Safety Measures: Call light Within Reach, Bed Alarm Zone 2, Side Rails Side Rails x3, Bed position Low and Locked. Fall Precautions: Yellow Socks Yellow Gown Door Sign Patient Fall Education Report given to KALANI Galindo.
--- NOTE | 2020-08-29 19:48 | NUR ---
NURSE NOTES: Received patient awake in bed, no s/s of acute distress, mildly agitated. Bilateral soft wrist restraints noted, skin underneath symptomatic, left hand swollen, venous duplex negative for occlusion, peripheral pulses present. Condom catheter replaced. Needs attended to at this time. IV access patent, running IVF fluid maintenance.
[2020-08-29 20:00] VITALS: BP 137/87
[2020-08-29] MEDS: Morphine Sulfate 10mg/5ml Oral Soln ud ORAL PRN (21:07)
--- NOTE | 2020-08-29 23:30 | Psych Consult Progress Note ---
Psychiatry Progress Note Psychiatry Progress Note Medications Current Medications Medications (Trade) Dose Ordered Sig/Jesu Route PRN Reason Start Time Stop Time Status Last Admin Dose Admin Acetaminophen (Tylenol) 650 mg Q4H PRN RECTAL Temp >100.5 08/24/20 06:30 09/23/20 06:29 Acetaminophen (Tylenol) 1,000 mg BID ORAL 08/24/20 09:00 09/23/20 08:59 08/29/20 17:40 Aspirin (ASA) 81 mg DAILY ORAL 08/24/20 09:00 10/08/20 08:59 08/29/20 08:54 Bisacodyl (Dulcolax) 10 mg DAILY PRN RECTAL Constipation 08/24/20 06:15 11/22/20 06:14 Dextrose (Dextrose 50%) 25 ml Q30M PRN IV Hypoglycemia 08/24/20 06:30 11/22/20 06:29 Dextrose (Dextrose 50%) 50 ml Q30M PRN IV Hypoglycemia 08/24/20 06:30 11/22/20 06:29 Dextrose/Sodium Chloride 1,000 ml @ 75 mls/hr [id number] IV 08/24/20 07:00 09/23/20 06:59 08/29/20 11:39 Diphenhydramine HCl (Benadryl) 25 mg BIDPRN PRN ORAL Itching 08/24/20 15:15 09/23/20 15:14 08/27/20 21:07 Docusate Sodium (Colace) 100 mg DAILY ORAL 08/24/20 09:00 09/23/20 08:59 08/29/20 08:54 Haloperidol Lactate (Haldol) 5 mg Q6H PRN IM Agitation 08/24/20 07:00 10/08/20 06:59 08/29/20 16:04 Heparin Sodium (Porcine) (Heparin 5000 units/ml) 5,000 units EVERY 12 HOURS SUBQ 08/24/20 09:00 10/08/20 08:59 08/29/20 21:12 Hydrocortisone (Hydrocortisone) 1 applic Q12HR TOPIC 08/24/20 21:00 11/22/20 20:59 08/29/20 21:12 Hyoscyamine Sulfate (Levsin) 0.125 mg Q4H PRN ORAL secretions 08/24/20 06:15 09/23/20 06:14 Insulin Aspart (NovoLOG) BEFORE MEALS AND HS SUBQ 08/24/20 06:30 11/22/20 06:29 08/29/20 11:39 Lorazepam (Ativan) 1 mg Q6HR ORAL 08/24/20 15:20 08/31/20 15:19 08/29/20 18:39 Metformin HCl (Glucophage) 500 mg DAILY ORAL 08/24/20 09:00 09/23/20 08:59 08/29/20 08:54 Morphine Sulfate (Morphine 10mg/ 5ml Oral Soln) 5 mg Q4H PRN ORAL Mild Pain (Pain Scale 1-3) 08/24/20 06:15 08/31/20 06:14 Morphine Sulfate (Morphine 10mg/ 5ml Oral Soln) 10 mg Q4H PRN ORAL Moderate Pain (Pain Scale 4-6) 08/24/20 06:15 08/31/20 06:14 Morphine Sulfate (Morphine 10mg/ 5ml Oral Soln) 20 mg Q4H PRN ORAL Severe Pain (Pain Scale 7-10) 08/24/20 06:15 08/31/20 06:14 08/29/20 21:07 Quetiapine Fumarate (SEROqueL) 75 mg EVERY 8 HOURS ORAL 08/29/20 06:00 10/13/20 05:59 08/29/20 21:07 Vancomycin HCl ([facility] pharmacy to dose) 1 ea DAILY PRN MISC Per rx protocol 08/24/20 10:45 09/23/20 10:44 Vancomycin HCl 750 mg/Sodium Chloride 250 ml @ 166.667 mls/hr Q8HR@0100,0900,1700 IVPB 08/26/20 09:00 08/31/20 08:59 08/29/20 16:03 Neurological/Psychiatric: Reports: anxiety, depressed, emotional problems Allergies: Coded Allergies: No Known Allergies (Unverified , 08/24/20) Objective Data Height (Feet): 6 Height (Inches): 0.00 Weight (Pounds): 151 General Appearance: no apparent distress, alert, confused, agitated Additional Comments: alert, oriented x0. Mood is agitated. Affect is blunted, congruent with mood. Thought process is concrete. Thought content, no suicidal or homicidal ideation. Cognition is impaired. Insight and judgment is impaired. Assessment/Plan [place] I: ASSESSMENT: [place] I Psychotic disorder, not otherwise specified. [place] II Deferred. [place] III CVA. [place] IV Low. [place] V 20. PLAN: 1. We will start the patient on Seroquel. 2. Ativan. 3. Discontinue all other psychotropic medication. 4. Patient lacks capacity to make decision. Status: stable Status Narrative ASSESSMENT: [place] I Psychotic disorder, not otherwise specified. [place] II Deferred. [place] III CVA. [place] IV Low. [place] V 20. PLAN: 1. We will start the patient on Seroquel. 2. Ativan. 3. Discontinue all other psychotropic medication. 4. Patient lacks capacity to make decision. Assessment/Plan: ASSESSMENT: [place] I Psychotic disorder, not otherwise specified. [place] II Deferred. [place] III CVA. [place] IV Low. [place] V 20. PLAN: 1. We will start the patient on Seroquel. 2. Ativan. 3. Discontinue all other psychotropic medication. 4. Patient lacks capacity to make decision. Nima Dergoot MD Aug 29, 2020 23:30
[2020-08-30] MEDS: Morphine Sulfate 10mg/5ml Oral Soln ud ORAL PRN (01:47)
[2020-08-30 04:00] VITALS: BP 132/82
[2020-08-30] MEDS: LORazepam 1mg tab ORAL SCH ×4 (05:03→23:30)
[2020-08-30] MEDS: NovoLOG Insulin Flexpen SUBQ SCH ×4 (06:30→20:59)
--- NOTE | 2020-08-30 07:08 | NUR ---
HAND-OFF: Report given to KALANI Sosa and KALANI Sapp. Patient asleep in bed.
[2020-08-30 08:00] VITALS: BP 130/80
[2020-08-30 08:15] LABS: BASOPHILS % (AUTO) 2.1 % (0.0-2.0); HEMATOCRIT 39.5 % (42.0-52.0); HEMOGLOBIN 13.5 G/DL (14.2-18.0); LYMPHOCYTES % (AUTO) 28.1 % (20.0-45.0); MEAN CORPUSCULAR VOLUME 87 FL (80-99); MONOCYTES % (AUTO) 10.8 % (1.0-10.0); NEUTROPHILS % (AUTO) 52.9 % (45.0-75.0); PLATELET COUNT 306 K/UL (150-450); RED BLOOD COUNT 4.54 M/UL (4.70-6.10); RED CELL DISTRIBUTION WIDTH 13.6 % (11.6-14.8); WHITE BLOOD COUNT 8.5 K/UL (4.8-10.8)
[2020-08-30 08:32] LABS: ALANINE AMINOTRANSFERASE 412 U/L (12-78); ALBUMIN 2.8 G/DL (3.4-5.0); ALBUMIN/GLOBULIN RATIO 0.8 (1.0-2.7); ALKALINE PHOSPHATASE 142 U/L (46-116); ANION GAP 7 mmol/L (5-15); BILIRUBIN,TOTAL 0.8 MG/DL (0.2-1.0); BLOOD UREA NITROGEN 5 mg/dL (7-18); CALCIUM 8.7 MG/DL (8.5-10.1); CARBON DIOXIDE 29 MMOL/L (21-32); CHLORIDE 103 MMOL/L (98-107); CREATININE 0.6 MG/DL (0.55-1.30); POTASSIUM 3.4 MMOL/L (3.5-5.1); SODIUM 139 MMOL/L (136-145)
[2020-08-30] MEDS: Docusate 100mg cap ORAL SCH (08:44)
[2020-08-30] MEDS: Acetaminophen 500mg (ES) tab ORAL SCH ×2 (08:44→17:21)
[2020-08-30] MEDS: metFORMIN 500mg tab ORAL SCH (08:44)
[2020-08-30] MEDS: Aspirin Baby 81mg ORAL SCH (08:44)
[2020-08-30] MEDS: Heparin 5000 units/ml inj SUBQ SCH ×2 (08:45→21:00)
[2020-08-30] MEDS: Hydrocortisone 1% Cr TOPIC SCH ×2 (08:46→20:58)
[2020-08-30 08:48] LABS: ASPARTATE AMINO TRANSFERASE 183 U/L (15-37)
--- NOTE | 2020-08-30 09:35 | General Progress Note ---
Subjective ROS Limited/Unobtainable: No Allergies: Coded Allergies: No Known Allergies (Unverified , 08/24/20) Objective Last 24 Hour Vital Signs Date Time Temp Pulse Resp B/P (MAP) Pulse Ox O2 Delivery O2 Flow Rate FiO2 08/30/20 08:00 97.5 71 20 130/80 (97) 98 08/30/20 05:33 67 19 132/82 97 08/30/20 05:03 67 19 132/82 97 08/30/20 04:00 97.3 67 19 132/82 (99) 97 08/30/20 02:17 97.0 08/30/20 00:00 63 19 137/87 97 08/29/20 23:54 63 19 137/87 97 08/29/20 21:51 Room Air 08/29/20 21:37 97.0 08/29/20 20:00 97.0 63 19 137/87 (104) 97 08/29/20 19:09 72 19 129/73 97 08/29/20 18:39 68 19 135/73 97 08/29/20 16:00 97.8 68 19 135/73 (93) 97 08/29/20 13:33 73 18 130/75 97 08/29/20 13:03 78 18 136/86 97 08/29/20 12:00 97.6 62 18 127/86 (100) 97 Intake and Output 08/29/20 08/30/20 19:00 07:00 Intake Total 720 ml 350 ml Output Total 500 ml 1600 ml Balance 220 ml -1250 ml Intake Oral 720 ml 350 ml Output Urine Total 500 ml 1600 ml # Voids 1 Laboratory Tests 08/29/20 14:17: POC Whole Blood Glucose 133H 08/30/20 07:35: White Blood Count 8.5, Red Blood Count 4.54L, Hemoglobin 13.5L, Hematocrit 39.5L , Mean Corpuscular Volume 87, Mean Corpuscular Hemoglobin 29.7, Mean Corpuscular Hemoglobin Concent 34.2, Red Cell Distribution Width 13.6, Platelet Count 306, Mean Platelet Volume 5.5L, Neutrophils (%) (Auto) 52.9, Lymphocytes (%) (Auto) 28.1, Monocytes (%) (Auto) 10.8H, Eosinophils (%) (Auto) 6.0H, Basophils (%) (Auto) 2.1H, Sodium Level 139, Potassium Level 3.4L, Chloride Level 103, Carbon Dioxide Level 29, Anion Gap 7, Blood Urea Nitrogen 5L, Creatinine 0.6, Estimat Glomerular Filtration Rate > 60, Glucose Level 103, Calcium Level 8.7, Total Bilirubin 0.8, Aspartate Amino Transf (AST/SGOT) 183H, Alanine Aminotransferase (ALT/SGPT) 412H, Alkaline Phosphatase 142H, Total Protein 6.3L, Albumin 2.8L, Globulin 3.5, Albumin/Globulin Ratio 0.8L Height (Feet): 6 Height (Inches): 0.00 Weight (Pounds): 151 General Appearance: no apparent distress EENT: normal ENT inspection Neck: supple Cardiovascular: normal rate Respiratory/Chest: decreased breath sounds Abdomen: normal bowel sounds, non tender, soft Extremities: non-tender Assessment/Plan Problem List: (1) Leukocytosis ICD Codes: D72.829 - Elevated white blood cell count, unspecified SNOMED: 824474657, 198859803 (2) Abnormal LFTs ICD Codes: R94.5 - Abnormal results of liver function studies SNOMED: 067766000 (3) Acute encephalopathy ICD Codes: G93.40 - Encephalopathy, unspecified SNOMED: 79258686, 572583851 (4) Cellulitis of left toe ICD Codes: L03.032 - Cellulitis of left toe SNOMED: 69393028 (5) Rhabdomyolysis ICD Codes: M62.82 - Rhabdomyolysis SNOMED: 113925073 Qualifiers: Qualified Codes: M62.82 - Rhabdomyolysis (6) Anemia ICD Codes: D64.9 - Anemia, unspecified SNOMED: 104902127 (7) DM (diabetes mellitus) ICD Codes: E11.9 - Type 2 diabetes mellitus without complications SNOMED: 86386852 (8) HTN (hypertension) ICD Codes: I10 - Essential (primary) hypertension SNOMED: 53585188 Status: stable Assessment/Plan: elevated LFTS possibly due to statins>>> off now>>> improving LFTS>>> will repeat in am abd us>>> fatty liver hepatitis panel>>> neg repeat labs will fu Mohamud Foy MD Aug 30, 2020 09:35
[2020-08-30] MEDS: Haloperidol 5mg/ml Inj IM PRN ×2 (11:08→17:44)
[2020-08-30] MEDS: D5NS 1,000 ML IV SCH ×2 (11:09→23:29)
--- NOTE | 2020-08-30 11:12 | NUR ---
NURSE NOTES: patient yelling obscenities to staff. trying to get out of bed. Haldol 5mg IM administered.
--- NOTE | 2020-08-30 11:34 | NUR ---
NURSE NOTES: PT IS CONSTANTLY REPOSITIONED DUE TO PT SLIDING DOWN ON BED AND PLACING RIGHT LEG OVER RAILING. PT HAS LEFT SIDED HEMIPLEGIA BUT VERY ACTIVE AND RESTLESS. PT IS HIGH FALL RISK AND NEEDS TO BE CONSTANTLY WATCHED. LEFT HAND SWELLING IS PITTING EDEMA 1+. RN ATTEMPTED TO KEEP LEFT HAND ELEVATED ON PILLOW BUT PT KEEPS THROWING PILLOW AND SHEETS OUT OF BED DESPITE BEING ON RESTRAINTS. BILATERAL SOFT WRIST RESTRAINTS ON. BILATERAL RADIAL PULSES PALPABLE, NO SKIN BREAKDOWN NOTED. BEDSIDE RAILS X3 RAISED, BED IN LOWEST POSITION. BED ALARM ON ZONE 1. WILL CONTINUE TO MONITOR.
[2020-08-30 12:00] VITALS: BP 127/79
--- NOTE | 2020-08-30 12:57 | General Progress Note ---
Subjective Allergies: Coded Allergies: No Known Allergies (Unverified , 08/24/20) Subjective doing ok bed ridden screaming Objective Last 24 Hour Vital Signs Date Time Temp Pulse Resp B/P (MAP) Pulse Ox O2 Delivery O2 Flow Rate FiO2 08/30/20 12:36 74 20 127/79 98 08/30/20 12:00 98.0 74 20 127/79 (95) 98 08/30/20 09:14 97.3 08/30/20 09:00 Room Air 08/30/20 08:00 97.5 71 20 130/80 (97) 98 08/30/20 05:33 67 19 132/82 97 08/30/20 05:03 67 19 132/82 97 08/30/20 04:00 97.3 67 19 132/82 (99) 97 08/30/20 02:17 97.0 08/30/20 00:00 63 19 137/87 97 08/29/20 23:54 63 19 137/87 97 08/29/20 21:51 Room Air 08/29/20 21:37 97.0 08/29/20 20:00 97.0 63 19 137/87 (104) 97 08/29/20 19:09 72 19 129/73 97 08/29/20 18:39 68 19 135/73 97 08/29/20 16:00 97.8 68 19 135/73 (93) 97 08/29/20 13:33 73 18 130/75 97 08/29/20 13:03 78 18 136/86 97 Intake and Output 08/29/20 08/30/20 19:00 07:00 Intake Total 720 ml 425 ml Output Total 500 ml 1600 ml Balance 220 ml -1175 ml Intake Oral 720 ml 350 ml IV Total 75 ml Output Urine Total 500 ml 1600 ml # Voids 1 Laboratory Tests 08/29/20 14:17: POC Whole Blood Glucose 133H 08/30/20 07:35: White Blood Count 8.5, Red Blood Count 4.54L, Hemoglobin 13.5L, Hematocrit 39.5L , Mean Corpuscular Volume 87, Mean Corpuscular Hemoglobin 29.7, Mean Corpuscular Hemoglobin Concent 34.2, Red Cell Distribution Width 13.6, Platelet Count 306, Mean Platelet Volume 5.5L, Neutrophils (%) (Auto) 52.9, Lymphocytes (%) (Auto) 28.1, Monocytes (%) (Auto) 10.8H, Eosinophils (%) (Auto) 6.0H, Basophils (%) (Auto) 2.1H, Sodium Level 139, Potassium Level 3.4L, Chloride Level 103, Carbon Dioxide Level 29, Anion Gap 7, Blood Urea Nitrogen 5L, Creatinine 0.6, Estimat Glomerular Filtration Rate > 60, Glucose Level 103, Calcium Level 8.7, Total Bilirubin 0.8, Aspartate Amino Transf (AST/SGOT) 183H, Alanine Aminotransferase (ALT/SGPT) 412H, Alkaline Phosphatase 142H, Total Protein 6.3L, Albumin 2.8L, Globulin 3.5, Albumin/Globulin Ratio 0.8L 08/30/20 11:23: POC Whole Blood Glucose 114H Height (Feet): 6 Height (Inches): 0.00 Weight (Pounds): 151 General Appearance: confused EENT: PERRL/EOMI Neck: supple Cardiovascular: regular rhythm Respiratory/Chest: normal breath sounds Abdomen: non tender, soft Extremities: non-tender Assessment/Plan Status: stable Assessment/Plan: failure of thrive non healing ulcer malmutrition depression dc plan to snf with po abx wound care placement Miki Gruber MD Aug 30, 2020 12:57
--- NOTE | 2020-08-30 14:49 | NUR ---
CASE MANAGEMENT:REVIEW SI;CELLULITIS. FAILURE TO THRIVE. 98.0 74 20 130/80 98% ON RA K+ 3.4 AST 183 ALT 412 ALP 142 ALB 2.8 IS;VANCOMYCIN IV Q8 HEPARIN SUBQ Q12 ASA PO QD TYLENOL PO BID IV D5W @ 75 ML/HR HALDOL IM Q6 PRN MED SURG STATUS DCP;SNF PLACEMENT PREVIOUSLY AT [facility]
--- NOTE | 2020-08-30 15:03 | NUR ---
SUPERVISORY CBP OFFICER NOTE FOLLOW UP CALL MADE TO [facility]. S/W DENIA WHO INFORMED THIS CM THAT ALL [facility] IS ACTIVELY SEEKING SNF PLACEMENT FOR THIS PATIENT.
--- NOTE | 2020-08-30 15:18 | NUR ---
NURSE NOTES: left a message with dr Degroot about getting an order for 10:2:50. patient trying to get out of bed. unable to re-direct. Pushed IV poll and it fell on the floor. Patient found sideways on the bed.
[2020-08-30 16:00] VITALS: BP 134/82
--- NOTE | 2020-08-30 17:38 | Surgery Progress Note ---
Surgery Progress Note Subjective Symptoms: improved, tolerating diet, voiding well, passing flatus Objective Last 24 Hour Vital Signs Date Time Temp Pulse Resp B/P (MAP) Pulse Ox O2 Delivery O2 Flow Rate FiO2 08/30/20 17:22 80 21 134/82 98 08/30/20 16:00 98.3 80 21 134/82 (99) 98 08/30/20 13:06 74 20 127/79 98 08/30/20 12:36 74 20 127/79 98 08/30/20 12:00 98.0 74 20 127/79 (95) 98 08/30/20 09:14 97.3 08/30/20 09:00 Room Air 08/30/20 08:00 97.5 71 20 130/80 (97) 98 08/30/20 05:33 67 19 132/82 97 08/30/20 05:03 67 19 132/82 97 08/30/20 04:00 97.3 67 19 132/82 (99) 97 08/30/20 02:17 97.0 08/30/20 00:00 63 19 137/87 97 08/29/20 23:54 63 19 137/87 97 08/29/20 21:51 Room Air 08/29/20 21:37 97.0 08/29/20 20:00 97.0 63 19 137/87 (104) 97 08/29/20 19:09 72 19 129/73 97 08/29/20 18:39 68 19 135/73 97 I&O Intake and Output 08/29/20 08/30/20 19:00 07:00 Intake Total 720 ml 425 ml Output Total 500 ml 1600 ml Balance 220 ml -1175 ml Intake Oral 720 ml 350 ml IV Total 75 ml Output Urine Total 500 ml 1600 ml # Voids 1 Dressing: dry Wound: clean Cardiovascular: RSR Respiratory: clear Abdomen: soft, non-tender, present bowel sounds Extremities: no edema, no tenderness, no cyanosis, other Laboratory Tests Test 08/30/20 07:35 08/30/20 11:23 08/30/20 16:27 White Blood Count 8.5 K/UL (4.8-10.8) Red Blood Count 4.54 M/UL (4.70-6.10) L Hemoglobin 13.5 G/DL (14.2-18.0) L Hematocrit 39.5 % (42.0-52.0) L Mean Corpuscular Volume 87 FL (80-99) Mean Corpuscular Hemoglobin 29.7 PG (27.0-31.0) Mean Corpuscular Hemoglobin Concent 34.2 G/DL (32.0-36.0) Red Cell Distribution Width 13.6 % (11.6-14.8) Platelet Count 306 K/UL (150-450) Mean Platelet Volume 5.5 FL (6.5-10.1) L Neutrophils (%) (Auto) 52.9 % (45.0-75.0) Lymphocytes (%) (Auto) 28.1 % (20.0-45.0) Monocytes (%) (Auto) 10.8 % (1.0-10.0) H Eosinophils (%) (Auto) 6.0 % (0.0-3.0) H Basophils (%) (Auto) 2.1 % (0.0-2.0) H Sodium Level 139 MMOL/L (136-145) Potassium Level 3.4 MMOL/L (3.5-5.1) L Chloride Level 103 MMOL/L (98-107) Carbon Dioxide Level 29 MMOL/L (21-32) Anion Gap 7 mmol/L (5-15) Blood Urea Nitrogen 5 mg/dL (7-18) L Creatinine 0.6 MG/DL (0.55-1.30) Estimat Glomerular Filtration Rate > 60 mL/min (>60) Glucose Level 103 MG/DL (74-106) Calcium Level 8.7 MG/DL (8.5-10.1) Total Bilirubin 0.8 MG/DL (0.2-1.0) Aspartate Amino Transf (AST/SGOT) 183 U/L (15-37) H Alanine Aminotransferase (ALT/SGPT) 412 U/L (12-78) H Alkaline Phosphatase 142 U/L (46-116) H Total Protein 6.3 G/DL (6.4-8.2) L Albumin 2.8 G/DL (3.4-5.0) L Globulin 3.5 g/dL Albumin/Globulin Ratio 0.8 (1.0-2.7) L POC Whole Blood Glucose 114 MG/DL (74-106) H 118 MG/DL (74-106) H Plan Problems: (1) Rhabdomyolysis (2) Cellulitis of left foot Assessment & Plan: Bilaterally, grayscale and duplex images demonstrate atherosclerotic plaquing. Bilaterally, triphasic waveforms with sharp systolic peaks are seen from the common femoral to the popliteal artery levels. On the right, dorsalis pedis artery waveforms is borderline triphasic. Proximal posterior and anterior tibial artery waveforms are triphasic, and the distal posterior tibial artery waveform is triphasic. On the left, the posterior tibial artery waveform is monophasic with increased diastolic flow. The peroneal artery waveforms is monophasic with increased diastolic flow. The dorsalis pedis artery waveforms is monophasic with increased diastolic flow. Systolic peaks remain sharp in the tibial vessels. 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 No evidence of suprageniculate stenosis Minimal if any trifurcation disease on the right. No evidence of suprageniculate stenosis (3) Cellulitis of left toe (4) Acute encephalopathy Assessment & Plan: Brain: There is chronic small vessel ischemic disease. 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 There are old lacunar infarcts in the right centrum semi-ovale. There is age-related cerebral volume loss. No hemorrhage. Ventricles: Unremarkable. No ventriculomegaly. Bones/joints: Unremarkable. No acute fracture. Soft tissues: Unremarkable. Sinuses: Unremarkable as visualized. No acute sinusitis. Mastoid air cells: Unremarkable as visualized. No mastoid effusion. IMPRESSION: 1. 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 2. Old lacunar infarcts in the right centrum semi-ovale. 3. Age-related cerebral volume loss. Chronic small vessel ischemic disease. (5) Abnormal LFTs Assessment & Plan: 60-year-old male altered mental status agitated came in for evaluation identified to have a WBC of 12 and abnormal LFTs. Admitted further care and management. Abdominal exam is fairly benign soft nontender nondistended. Pending abdominal ultrasound Trend labs We will follow with recommendations as imaging and labs are available. (6) Leukocytosis Assessment & Plan: Patient with leukocytosis on admission. Abnormal LFTs. Etiology of leukocytosis unknown. Micro noted. On antibiotics. Imaging ordered. Will follow with recommendations as imaging information is available. No abscess or or visible sign of infection identified. Small eschar on toe and had mild erythema of foot but not very clinically significant. Clay Gonzalez Aug 30, 2020 17:38
--- NOTE | 2020-08-30 19:31 | NUR ---
NURSE HAND-OFF: Important Events on Shift: PT WITH INCREASED RESTLESSNESS AND AGITATION TODAY. DR CARSON MADE AWARE AND NEW ORDER TO INCREASE SCHEDULED SEROQUEL FROM 75MG TO 100MG. ADDITIONAL ORDER FOR SEROQUEL 100MG PO X1 GIVEN AT 1630HRS. Patient Status: STABLE, BUT HIGH FALL RISK Diet: REGULAR - PUREED MOIST, NECTAR THICK LIQUIDS Pending Orders: DISCHARGE PENDING Pending Results/Labs:N/A Pending MD notification:N/A Latest Vital Signs: Temperature 98.3 , Pulse 80 , B/P 134 /82 , Respiratory Rate 21 , O2 SAT 98 , Room Air, O2 Flow Rate . Vital Sign Comment: STABLE Latest [place] Fall Score: 95 Fall Risk: High Risk Safety Measures: Call light Within Reach, Bed Alarm Zone 2, Side Rails Side Rails x3, Bed position Low and Locked. Fall Precautions: Yellow Socks Yellow Gown Door Sign Patient Fall Education Report given to [place] YOU RN.
[2020-08-30 20:00] VITALS: BP 137/89
--- NOTE | 2020-08-30 21:32 | NUR ---
NURSE NOTES: Received patient awake, very confused, restless, uncooperative, on bilateral soft wrist restraints.
--- NOTE | 2020-08-30 23:25 | Psych Consult Progress Note ---
Psychiatry Progress Note Psychiatry Progress Note Medications Current Medications Medications (Trade) Dose Ordered Sig/Jesu Route PRN Reason Start Time Stop Time Status Last Admin Dose Admin Acetaminophen (Tylenol) 650 mg Q4H PRN RECTAL Temp >100.5 08/24/20 06:30 09/23/20 06:29 Acetaminophen (Tylenol) 1,000 mg BID ORAL 08/24/20 09:00 09/23/20 08:59 08/30/20 17:21 Aspirin (ASA) 81 mg DAILY ORAL 08/24/20 09:00 10/08/20 08:59 08/30/20 08:44 Bisacodyl (Dulcolax) 10 mg DAILY PRN RECTAL Constipation 08/24/20 06:15 11/22/20 06:14 Dextrose (Dextrose 50%) 25 ml Q30M PRN IV Hypoglycemia 08/24/20 06:30 11/22/20 06:29 Dextrose (Dextrose 50%) 50 ml Q30M PRN IV Hypoglycemia 08/24/20 06:30 11/22/20 06:29 Dextrose/Sodium Chloride 1,000 ml @ 75 mls/hr [id number] IV 08/24/20 07:00 09/23/20 06:59 08/30/20 11:09 Diphenhydramine HCl (Benadryl) 25 mg BIDPRN PRN ORAL Itching 08/24/20 15:15 09/23/20 15:14 08/30/20 20:58 Docusate Sodium (Colace) 100 mg DAILY ORAL 08/24/20 09:00 09/23/20 08:59 08/30/20 08:44 Haloperidol Lactate (Haldol) 5 mg Q6H PRN IM Agitation 08/24/20 07:00 10/08/20 06:59 08/30/20 17:44 Heparin Sodium (Porcine) (Heparin 5000 units/ml) 5,000 units EVERY 12 HOURS SUBQ 08/24/20 09:00 10/08/20 08:59 08/30/20 21:00 Hydrocortisone (Hydrocortisone) 1 applic Q12HR TOPIC 08/24/20 21:00 11/22/20 20:59 08/30/20 20:58 Hyoscyamine Sulfate (Levsin) 0.125 mg Q4H PRN ORAL secretions 08/24/20 06:15 09/23/20 06:14 Insulin Aspart (NovoLOG) BEFORE MEALS AND HS SUBQ 08/24/20 06:30 11/22/20 06:29 08/30/20 20:59 Lorazepam (Ativan) 1 mg Q6HR ORAL 08/30/20 12:00 09/06/20 11:59 08/30/20 17:22 Metformin HCl (Glucophage) 500 mg DAILY ORAL 08/24/20 09:00 09/23/20 08:59 08/30/20 08:44 Morphine Sulfate (Morphine 10mg/ 5ml Oral Soln) 5 mg Q4H PRN ORAL Mild Pain (Pain Scale 1-3) 08/24/20 06:15 08/31/20 06:14 Morphine Sulfate (Morphine 10mg/ 5ml Oral Soln) 10 mg Q4H PRN ORAL Moderate Pain (Pain Scale 4-6) 08/24/20 06:15 08/31/20 06:14 Morphine Sulfate (Morphine 10mg/ 5ml Oral Soln) 20 mg Q4H PRN ORAL Severe Pain (Pain Scale 7-10) 08/24/20 06:15 08/31/20 06:14 08/30/20 01:47 Quetiapine Fumarate (SEROqueL) 100 mg EVERY 8 HOURS ORAL 08/30/20 22:00 10/13/20 05:59 08/30/20 21:02 Vancomycin HCl ([facility] pharmacy to dose) 1 ea DAILY PRN MISC Per rx protocol 08/24/20 10:45 09/23/20 10:44 Vancomycin HCl 750 mg/Sodium Chloride 250 ml @ 166.667 mls/hr Q8H IVPB 08/31/20 09:00 09/05/20 08:59 Vancomycin HCl 750 mg/Sodium Chloride 250 ml @ 166.667 mls/hr Q8HR@0100,0900,1700 IVPB 08/26/20 09:00 08/31/20 08:59 08/30/20 16:29 Neurological/Psychiatric: Reports: anxiety, depressed, emotional problems Allergies: Coded Allergies: No Known Allergies (Unverified , 08/24/20) Objective Data Height (Feet): 6 Height (Inches): 0.00 Weight (Pounds): 151 General Appearance: alert, confused, agitated Behavior Mannerisms: poor eye contact Mental Status Exam - Affect: flat Additional Comments: alert, oriented x0. Mood is agitated. Affect is blunted, congruent with mood. Thought process is concrete. Thought content, no suicidal or homicidal ideation. Cognition is impaired. Insight and judgment is impaired. Assessment/Plan [place] I: ASSESSMENT: [place] I Psychotic disorder, not otherwise specified. [place] II Deferred. [place] III CVA. [place] IV Low. [place] V 20. PLAN: 1. We will start the patient on Seroquel. 2. Ativan. 3. Discontinue all other psychotropic medication. 4. Patient lacks capacity to make decision. Status: stable Status Narrative ASSESSMENT: [place] I Psychotic disorder, not otherwise specified. [place] II Deferred. [place] III CVA. [place] IV Low. [place] V 20. PLAN: 1. We will start the patient on Seroquel. 2. Ativan. 3. Discontinue all other psychotropic medication. 4. Patient lacks capacity to make decision. Assessment/Plan: ASSESSMENT: [place] I Psychotic disorder, not otherwise specified. [place] II Deferred. [place] III CVA. [place] IV Low. [place] V 20. PLAN: 1. We will start the patient on Seroquel. 2. Ativan. 3. Discontinue all other psychotropic medication. 4. Patient lacks capacity to make decision. Nima Degroot MD Aug 30, 2020 23:25
[2020-08-31] VITALS (7 sets, daily range): BP systolic 107–144; BP diastolic 56–96
[2020-08-31] MEDS: NovoLOG Insulin Flexpen SUBQ SCH ×4 (05:27→20:47)
[2020-08-31] MEDS: LORazepam 1mg tab ORAL SCH ×3 (05:27→17:28)
[2020-08-31 06:36] LABS: BASOPHILS % (AUTO) 1.3 % (0.0-2.0); EOSINOPHILS % (AUTO) 5.1 % (0.0-3.0); HEMATOCRIT 39.4 % (42.0-52.0); HEMOGLOBIN 13.6 G/DL (14.2-18.0); LYMPHOCYTES % (AUTO) 21.1 % (20.0-45.0); MEAN CORPUSCULAR VOLUME 87 FL (80-99); MONOCYTES % (AUTO) 11.2 % (1.0-10.0); NEUTROPHILS % (AUTO) 61.3 % (45.0-75.0); PLATELET COUNT 346 K/UL (150-450); RED BLOOD COUNT 4.55 M/UL (4.70-6.10); RED CELL DISTRIBUTION WIDTH 13.2 % (11.6-14.8); WHITE BLOOD COUNT 7.9 K/UL (4.8-10.8)
[2020-08-31 06:58] LABS: ALBUMIN 2.8 G/DL (3.4-5.0); ALBUMIN/GLOBULIN RATIO 0.7 (1.0-2.7); ALKALINE PHOSPHATASE 137 U/L (46-116); ANION GAP 10 mmol/L (5-15); ASPARTATE AMINO TRANSFERASE 148 U/L (15-37); BILIRUBIN,TOTAL 0.9 MG/DL (0.2-1.0); BLOOD UREA NITROGEN 5 mg/dL (7-18); CALCIUM 8.5 MG/DL (8.5-10.1); CARBON DIOXIDE 27 MMOL/L (21-32); CHLORIDE 103 MMOL/L (98-107); CREATININE 0.7 MG/DL (0.55-1.30); POTASSIUM 3.5 MMOL/L (3.5-5.1); SODIUM 140 MMOL/L (136-145)
--- NOTE | 2020-08-31 07:17 | NUR ---
HAND-OFF: Report given to Marci Metcalf RN.
--- NOTE | 2020-08-31 07:26 | General Progress Note ---
Subjective Cardiovascular: Denies: no symptoms, chest pain, edema, irregular heart rate, lightheadedness, palpitations, syncope, other Respiratory: Denies: no symptoms, cough, orthopnea, shortness of breath, SOB with excertion, SOB at rest, sputum, stridor, wheezing, other Gastrointestinal/Abdominal: Denies: no symptoms, abdomen distended, abdominal pain, black stools, tarry stools, blood in stool, constipated, diarrhea, difficulty swallowing, nausea, poor appetite, poor fluid intake, rectal bleeding, vomiting, other Neurologic/Psychiatric: Denies: no symptoms, anxiety, depressed, emotional problems, headache, numbness, paresthesia, pre-existing deficit, seizure, tingling, tremors, weakness, other Endocrine: Denies: no symptoms, excessive sweating, flushing, intolerance to cold, intolerance to heat, increased hunger, increased thirst, increased urine, unexplained weight gain, unexplained weight loss, other Hematologic/Lymphatic: Denies: no symptoms, anemia, easy bleeding, easy bruising, other Allergies: Coded Allergies: No Known Allergies (Unverified , 08/24/20) Subjective 08/31 on b/l wrist restraints, psych aware, no bleeding, labs noted Objective Last 24 Hour Vital Signs Date Time Temp Pulse Resp B/P (MAP) Pulse Ox O2 Delivery O2 Flow Rate FiO2 08/31/20 05:57 80 20 144/93 96 08/31/20 05:27 80 20 144/93 96 08/31/20 04:00 97.9 80 20 144/93 (110) 96 08/31/20 00:00 97.6 53 18 127/74 (91) 97 08/30/20 23:30 78 20 137/89 98 08/30/20 20:20 Room Air 08/30/20 20:00 97.9 78 20 137/89 (105) 98 08/30/20 17:52 80 21 134/82 98 08/30/20 17:51 98.3 08/30/20 17:22 80 21 134/82 98 08/30/20 16:00 98.3 80 21 134/82 (99) 98 08/30/20 13:06 74 20 127/79 98 08/30/20 12:36 74 20 127/79 98 08/30/20 12:00 98.0 74 20 127/79 (95) 98 08/30/20 09:14 97.3 08/30/20 09:00 Room Air 08/30/20 09:00 Room Air 08/30/20 08:00 97.5 71 20 130/80 (97) 98 Intake and Output 08/30/20 08/31/20 18:59 06:59 Intake Total 1813.334 ml 1075.000 ml Output Total 1100 ml Balance 1813.334 ml -25.000 ml Intake Oral 480 ml IV Total 1333.334 ml 1075.000 ml Output Urine Total 1100 ml # Voids 1 Laboratory Tests 08/30/20 07:35: White Blood Count 8.5, Red Blood Count 4.54L, Hemoglobin 13.5L, Hematocrit 39.5L , Mean Corpuscular Volume 87, Mean Corpuscular Hemoglobin 29.7, Mean Corpuscular Hemoglobin Concent 34.2, Red Cell Distribution Width 13.6, Platelet Count 306, Mean Platelet Volume 5.5L, Neutrophils (%) (Auto) 52.9, Lymphocytes (%) (Auto) 28.1, Monocytes (%) (Auto) 10.8H, Eosinophils (%) (Auto) 6.0H, Basophils (%) (Auto) 2.1H, Sodium Level 139, Potassium Level 3.4L, Chloride Level 103, Carbon Dioxide Level 29, Anion Gap 7, Blood Urea Nitrogen 5L, Creatinine 0.6, Estimat Glomerular Filtration Rate > 60, Glucose Level 103, Calcium Level 8.7, Total Bilirubin 0.8, Aspartate Amino Transf (AST/SGOT) 183H, Alanine Aminotransferase (ALT/SGPT) 412H, Alkaline Phosphatase 142H, Total Protein 6.3L, Albumin 2.8L, Globulin 3.5, Albumin/Globulin Ratio 0.8L 08/30/20 11:23: POC Whole Blood Glucose 114H 08/30/20 16:27: POC Whole Blood Glucose 118H 08/31/20 05:16: POC Whole Blood Glucose 104 08/31/20 05:45: White Blood Count 7.9, Red Blood Count 4.55L, Hemoglobin 13.6L, Hematocrit 39.4L , Mean Corpuscular Volume 87, Mean Corpuscular Hemoglobin 29.9, Mean Corpuscular Hemoglobin Concent 34.5, Red Cell Distribution Width 13.2, Platelet Count 346, Mean Platelet Volume 5.3L, Neutrophils (%) (Auto) 61.3, Lymphocytes (%) (Auto) 21.1, Monocytes (%) (Auto) 11.2H, Eosinophils (%) (Auto) 5.1H, Basophils (%) (Auto) 1.3, Sodium Level 140, Potassium Level 3.5, Chloride Level 103, Carbon Dioxide Level 27, Anion Gap 10, Blood Urea Nitrogen 5L, Creatinine 0.7, Estimat Glomerular Filtration Rate > 60, Glucose Level 102, Calcium Level 8.5, Total Bilirubin 0.9, Aspartate Amino Transf (AST/SGOT) 148H, Alanine Aminotransferase (ALT/SGPT) [Pending], Alkaline Phosphatase 137H, Total Protein 7.0, Albumin 2.8L , Globulin 4.2, Albumin/Globulin Ratio 0.7L Height (Feet): 6 Height (Inches): 0.00 Weight (Pounds): 151 Objective General Appearance: confused EENT: PERRL/EOMI Neck: supple Cardiovascular: regular rhythm Respiratory/Chest: normal breath sounds Abdomen: non tender, soft Extremities: non-tender Assessment/Plan Status: stable Assessment/Plan: Assessment/Plan Status: stable Assessment/Plan: failure of thrive non healing ulcer malmutrition depression dc plan to snf with po abx wound care placement Ricardo Mills MD Aug 31, 2020 07:26
--- NOTE | 2020-08-31 07:57 | NUR ---
NURSE NOTES: Report received from KALANI Molina. Patient observed to be awake and alert x1. Patient currently lying in bed, on room air no S/SX of SOB/Distress, no c/o any pain or gi/gu discomfort. IV site located on Left Forearm gauge 24, asymptomatic, inplace and intact. On Bilateral soft wrist restraints, pulses palpable, good blood flow, able to move extremities within range of motion. Bed placed on lowest position, call light placed within reach and will continue to monitor for any changes in condition.
--- NOTE | 2020-08-31 08:33 | NUR ---
CASE MANAGEMENT: REVIEW SI: ACUTE ENCEPHALOPATHY . CELLULITIS LEFT TOE T 97.6 HR 53 RR 18 BP 144/93 SAT 96% ROOM AIR H/H 13.6/39.4 BUN 5 AST 148 ALK PHOS 137 IS: VANCOMYCIN IV Q8HR SEROQUEL PO Q8HR ATIVAN PO Q6HR BILATERAL SOFT WRIST RESTRAINTS MED/SURG STATUS DCP: PATIENT IS FROM [facility]
[2020-08-31] MEDS: metFORMIN 500mg tab ORAL SCH (08:51)
[2020-08-31] MEDS: Hydrocortisone 1% Cr TOPIC SCH ×2 (08:52→21:05)
[2020-08-31] MEDS: Aspirin Baby 81mg ORAL SCH (08:52)
[2020-08-31] MEDS: Docusate 100mg cap ORAL SCH (08:52)
[2020-08-31] MEDS: Acetaminophen 500mg (ES) tab ORAL SCH ×2 (08:52→17:29)
[2020-08-31] MEDS: Heparin 5000 units/ml inj SUBQ SCH ×2 (08:53→21:05)
[2020-08-31 08:57] LABS: ALANINE AMINOTRANSFERASE 348 U/L (12-78)
--- NOTE | 2020-08-31 10:07 | NUR ---
*-*DISCHARGE PLANNING*-* S/W DR. SUAREZ, ORDERED TO REFERRED PATIENT TO: [facility]
--- NOTE | 2020-08-31 10:10 | General Progress Note ---
Subjective Date patient seen: Aug 31, 2020 Constitutional: Reports: no symptoms Allergies: Coded Allergies: No Known Allergies (Unverified , 08/24/20) Subjective doing ok bed ridden screaming Objective Last 24 Hour Vital Signs Date Time Temp Pulse Resp B/P (MAP) Pulse Ox O2 Delivery O2 Flow Rate FiO2 08/31/20 08:00 97.5 85 19 121/96 (104) 97 08/31/20 05:57 80 20 144/93 96 08/31/20 05:27 80 20 144/93 96 08/31/20 04:00 97.9 80 20 144/93 (110) 96 08/31/20 00:00 97.6 53 18 127/74 (91) 97 08/30/20 23:30 78 20 137/89 98 08/30/20 20:20 Room Air 08/30/20 20:00 97.9 78 20 137/89 (105) 98 08/30/20 17:52 80 21 134/82 98 08/30/20 17:51 98.3 08/30/20 17:22 80 21 134/82 98 08/30/20 16:00 98.3 80 21 134/82 (99) 98 08/30/20 13:06 74 20 127/79 98 08/30/20 12:36 74 20 127/79 98 08/30/20 12:00 98.0 74 20 127/79 (95) 98 Intake and Output 08/30/20 08/31/20 18:59 06:59 Intake Total 1813.334 ml 1075.000 ml Output Total 1100 ml Balance 1813.334 ml -25.000 ml Intake Oral 480 ml IV Total 1333.334 ml 1075.000 ml Output Urine Total 1100 ml # Voids 1 Laboratory Tests 08/30/20 11:23: POC Whole Blood Glucose 114H 08/30/20 16:27: POC Whole Blood Glucose 118H 08/31/20 05:16: POC Whole Blood Glucose 104 08/31/20 05:45: White Blood Count 7.9, Red Blood Count 4.55L, Hemoglobin 13.6L, Hematocrit 39.4L , Mean Corpuscular Volume 87, Mean Corpuscular Hemoglobin 29.9, Mean Corpuscular Hemoglobin Concent 34.5, Red Cell Distribution Width 13.2, Platelet Count 346, Mean Platelet Volume 5.3L, Neutrophils (%) (Auto) 61.3, Lymphocytes (%) (Auto) 21.1, Monocytes (%) (Auto) 11.2H, Eosinophils (%) (Auto) 5.1H, Basophils (%) (Auto) 1.3, Sodium Level 140, Potassium Level 3.5, Chloride Level 103, Carbon Dioxide Level 27, Anion Gap 10, Blood Urea Nitrogen 5L, Creatinine 0.7, Estimat Glomerular Filtration Rate > 60, Glucose Level 102, Calcium Level 8.5, Total Bilirubin 0.9, Aspartate Amino Transf (AST/SGOT) 148H, Alanine Aminotransferase (ALT/SGPT) 348H, Alkaline Phosphatase 137H, Total Protein 7.0, Albumin 2.8L, Globulin 4.2, Albumin/Globulin Ratio 0.7L Height (Feet): 6 Height (Inches): 0.00 Weight (Pounds): 151 General Appearance: no apparent distress Neck: supple Cardiovascular: normal rate Respiratory/Chest: lungs clear Abdomen: non tender Extremities: non-tender Assessment/Plan Status: stable Assessment/Plan: failure of thrive non healing ulcer malmutrition depression dc plan to snf with po abx wound care placement dw telephonic case manager to dc plan to snf with hospice Miki Gruber MD Aug 31, 2020 10:10
[2020-08-31] MEDS: D5NS 1,000 ML IV SCH (11:26)
--- NOTE | 2020-08-31 11:54 | NUR ---
SPEECH PATHOLOGY NOTE/WEEKLY SUMMARY: S: PATIENT CLEARED FOR ST INTERVENTION BY RN NICOLETTE. PATIENT WAS SITTING UPRIGHT IN BED AND ALERT/AMENDABLE FOR ST DYSPHAGIA TX. WHEN ASKED WHY HE WAS YELLING WHEN THE CLINICIAN CAME INTO HIS ROOM "I GET PANIC ATTACKS. WHY AM I BEING PUNISHED?" O: DYSPHAGIA TX/MANAGEMENT, ANALYZE/ADJUST DIET TEXTURE A: PATIENT PRESENTED WITH 5 BITES OF SOFT SOLID WHICH HE MANAGED WITH SUFFICIENT MASTICATION TO BREAK DOWN THE BITES AND PREPARE EACH BOLUS FOR SWALLOW. MINIMAL RESIDUE ON LINGUAL SURFACE POST SWALLOW WHICH WAS CLEARED PARTIALLY WITH SIP OF NECTAR THICK LIQUID PRESENTED VIA CUP SIP BY CLINICIAN. PATIENT DENIED FEELING ANY STASIS OF SOFT SOLID ON HIS TONGUE, ADDITIONAL SIPS WERE OFFERED TO FULLY CLEAR SOLID RESIDUE. PHARYNGEAL PHASE WAS MILDLY DELAYED AND OVERALL SENSORIMOTOR DEFICITS ARE SUSPECTED RELATIVE TO ORAL AND PHARYNGEAL PHASE OF SWALLOW. DURING THIS PAST WEEK PATIENT HAS TOLERATED IS CURRENT DIET WITH 90-100% INTAKE LEVELS WITH NO OVERT S/S OF ASPIRATION GOALS MET FOR STAFF TRAINING/RETURN DEMONSTRATION WITH MEALTIME PROTOCOL POSTED AT BEDSIDE TO MINIMIZE RISK OF ASPIRATION PATIENT HAD NO MEMORY OF BREAKFAST WHEN STAFF FED HIM 100% OF HIS MEAL. HIS MOD/SEV COGNITIVE IMPAIRMENT PREVENTS HIM FROM BEING ABLE TO USE HIS CALL BUTTON. HE IS ALSO UNABLE TO VISUALLY SCAN OBJECTS IN THE ROOM OR SEE THE CLOCK ON THE WALL EVEN WHEN CLINICIAN IS POINTING TO IT. P: 1. ADVANCE DIET TEXTURE TO MECHANICAL SOFT/CHOPPED WITH NECTAR THICK LIQUIDS 2. REINFORCED TO RN THE NEED TO END MEAL WITH LIQUIDS AND PROVIDE ORAL CARE TO CLEAR PATIENTS MOUTH OF ANY REMAINING MEALTIME RESIDUE 3. PATIENTS WANTS/NEEDS NEED TO BE ANTICIPATED BY STAFF DUE TO HIS INABILITY TO UTILIZE HIS CALL BUTTON 4. ST TO CONTINUE WHILE PATIENT IS IN HOUSE. 5. PATIENT NEEDS DEPUTY HARBORMASTER INTERVENTION AT NEXT LEVEL OF CARE TO ADDRESS DYSPHAGIA AND COGNITIVE DEFICITS. THANK YOU FOR THIS REFERRAL.
--- NOTE | 2020-08-31 12:16 | General Progress Note ---
Subjective ROS Limited/Unobtainable: No Allergies: Coded Allergies: No Known Allergies (Unverified , 08/24/20) Objective Last 24 Hour Vital Signs Date Time Temp Pulse Resp B/P (MAP) Pulse Ox O2 Delivery O2 Flow Rate FiO2 08/31/20 11:36 78 18 128/90 97 08/31/20 11:06 85 19 121/96 97 08/31/20 09:00 Room Air 08/31/20 08:00 97.5 85 19 121/96 (104) 97 08/31/20 05:57 80 20 144/93 96 08/31/20 05:27 80 20 144/93 96 08/31/20 04:00 97.9 80 20 144/93 (110) 96 08/31/20 00:00 97.6 53 18 127/74 (91) 97 08/30/20 23:30 78 20 137/89 98 08/30/20 20:20 Room Air 08/30/20 20:00 97.9 78 20 137/89 (105) 98 08/30/20 17:52 80 21 134/82 98 08/30/20 17:51 98.3 08/30/20 17:22 80 21 134/82 98 08/30/20 16:00 98.3 80 21 134/82 (99) 98 08/30/20 13:06 74 20 127/79 98 08/30/20 12:36 74 20 127/79 98 Intake and Output 08/30/20 08/31/20 19:00 07:00 Intake Total 1813.334 ml 1075.000 ml Output Total 1100 ml Balance 1813.334 ml -25.000 ml Intake Oral 480 ml IV Total 1333.334 ml 1075.000 ml Output Urine Total 1100 ml # Voids 1 Laboratory Tests 08/30/20 16:27: POC Whole Blood Glucose 118H 08/31/20 05:16: POC Whole Blood Glucose 104 08/31/20 05:45: White Blood Count 7.9, Red Blood Count 4.55L, Hemoglobin 13.6L, Hematocrit 39.4L , Mean Corpuscular Volume 87, Mean Corpuscular Hemoglobin 29.9, Mean Corpuscular Hemoglobin Concent 34.5, Red Cell Distribution Width 13.2, Platelet Count 346, Mean Platelet Volume 5.3L, Neutrophils (%) (Auto) 61.3, Lymphocytes (%) (Auto) 21.1, Monocytes (%) (Auto) 11.2H, Eosinophils (%) (Auto) 5.1H, Basophils (%) (Auto) 1.3, Sodium Level 140, Potassium Level 3.5, Chloride Level 103, Carbon Dioxide Level 27, Anion Gap 10, Blood Urea Nitrogen 5L, Creatinine 0.7, Estimat Glomerular Filtration Rate > 60, Glucose Level 102, Calcium Level 8.5, Total Bilirubin 0.9, Aspartate Amino Transf (AST/SGOT) 148H, Alanine Aminotransferase (ALT/SGPT) 348H, Alkaline Phosphatase 137H, Total Protein 7.0, Albumin 2.8L, Globulin 4.2, Albumin/Globulin Ratio 0.7L Height (Feet): 6 Height (Inches): 0.00 Weight (Pounds): 151 General Appearance: no apparent distress EENT: normal ENT inspection Neck: supple Cardiovascular: normal rate Respiratory/Chest: decreased breath sounds Abdomen: normal bowel sounds, non tender, soft Extremities: non-tender Assessment/Plan Problem List: (1) Leukocytosis ICD Codes: D72.829 - Elevated white blood cell count, unspecified SNOMED: 292185920, 610538037 (2) Abnormal LFTs ICD Codes: R94.5 - Abnormal results of liver function studies SNOMED: 837104565 (3) Acute encephalopathy ICD Codes: G93.40 - Encephalopathy, unspecified SNOMED: 74998270, 659169152 (4) Cellulitis of left toe ICD Codes: L03.032 - Cellulitis of left toe SNOMED: 56850631 (5) Rhabdomyolysis ICD Codes: M62.82 - Rhabdomyolysis SNOMED: 011481996 Qualifiers: Qualified Codes: M62.82 - Rhabdomyolysis (6) Anemia ICD Codes: D64.9 - Anemia, unspecified SNOMED: 572898014 (7) DM (diabetes mellitus) ICD Codes: E11.9 - Type 2 diabetes mellitus without complications SNOMED: 59949496 (8) HTN (hypertension) ICD Codes: I10 - Essential (primary) hypertension SNOMED: 13230005 Status: stable Assessment/Plan: elevated LFTS possibly due to statins>>> off now>>> improving LFTS>>> will repeat in am abd us>>> fatty liver hepatitis panel>>> neg repeat labs speech eval appreciated will change diet to mechanical soft will Mohamud Spaulding MD Aug 31, 2020 12:16
--- NOTE | 2020-08-31 14:43 | NUR ---
*-*DISCHARGE PLANNING*-* PATIENT HAS BEEN REFERRED TO: [facility] P: [phone] [facility] P: [phone] [facility] P: [phone]
--- NOTE | 2020-08-31 15:59 | Surgery Progress Note ---
Surgery Progress Note Subjective Symptoms: improved, tolerating diet, passing flatus, BM Objective Last 24 Hour Vital Signs Date Time Temp Pulse Resp B/P (MAP) Pulse Ox O2 Delivery O2 Flow Rate FiO2 08/31/20 12:00 96.8 78 18 128/90 (103) 97 08/31/20 11:36 78 18 128/90 97 08/31/20 11:06 85 19 121/96 97 08/31/20 09:00 Room Air 08/31/20 08:00 97.5 85 19 121/96 (104) 97 08/31/20 05:57 80 20 144/93 96 08/31/20 05:27 80 20 144/93 96 08/31/20 04:00 97.9 80 20 144/93 (110) 96 08/31/20 00:00 97.6 53 18 127/74 (91) 97 08/30/20 23:30 78 20 137/89 98 08/30/20 20:20 Room Air 08/30/20 20:00 97.9 78 20 137/89 (105) 98 08/30/20 17:52 80 21 134/82 98 08/30/20 17:51 98.3 08/30/20 17:22 80 21 134/82 98 08/30/20 16:00 98.3 80 21 134/82 (99) 98 I&O Intake and Output 08/30/20 08/31/20 19:00 07:00 Intake Total 1813.334 ml 1075.000 ml Output Total 1100 ml Balance 1813.334 ml -25.000 ml Intake Oral 480 ml IV Total 1333.334 ml 1075.000 ml Output Urine Total 1100 ml # Voids 1 Dressing: dry Wound: clean Cardiovascular: RSR Respiratory: clear Abdomen: soft, non-tender, present bowel sounds Extremities: no edema, no tenderness, no cyanosis, other Laboratory Tests Test 08/30/20 16:27 08/31/20 05:16 08/31/20 05:45 08/31/20 15:45 POC Whole Blood Glucose 118 MG/DL (74-106) H 104 MG/DL (74-106) White Blood Count 7.9 K/UL (4.8-10.8) Red Blood Count 4.55 M/UL (4.70-6.10) L Hemoglobin 13.6 G/DL (14.2-18.0) L Hematocrit 39.4 % (42.0-52.0) L Mean Corpuscular Volume 87 FL (80-99) Mean Corpuscular Hemoglobin 29.9 PG (27.0-31.0) Mean Corpuscular Hemoglobin Concent 34.5 G/DL (32.0-36.0) Red Cell Distribution Width 13.2 % (11.6-14.8) Platelet Count 346 K/UL (150-450) Mean Platelet Volume 5.3 FL (6.5-10.1) L Neutrophils (%) (Auto) 61.3 % (45.0-75.0) Lymphocytes (%) (Auto) 21.1 % (20.0-45.0) Monocytes (%) (Auto) 11.2 % (1.0-10.0) H Eosinophils (%) (Auto) 5.1 % (0.0-3.0) H Basophils (%) (Auto) 1.3 % (0.0-2.0) Sodium Level 140 MMOL/L (136-145) Potassium Level 3.5 MMOL/L (3.5-5.1) Chloride Level 103 MMOL/L (98-107) Carbon Dioxide Level 27 MMOL/L (21-32) Anion Gap 10 mmol/L (5-15) Blood Urea Nitrogen 5 mg/dL (7-18) L Creatinine 0.7 MG/DL (0.55-1.30) Estimat Glomerular Filtration Rate > 60 mL/min (>60) Glucose Level 102 MG/DL (74-106) Calcium Level 8.5 MG/DL (8.5-10.1) Total Bilirubin 0.9 MG/DL (0.2-1.0) Aspartate Amino Transf (AST/SGOT) 148 U/L (15-37) H Alanine Aminotransferase (ALT/SGPT) 348 U/L (12-78) H Alkaline Phosphatase 137 U/L (46-116) H Total Protein 7.0 G/DL (6.4-8.2) Albumin 2.8 G/DL (3.4-5.0) L Globulin 4.2 g/dL Albumin/Globulin Ratio 0.7 (1.0-2.7) L Vancomycin Level Trough Pending Plan Problems: (1) Rhabdomyolysis (2) Cellulitis of left foot Assessment & Plan: Bilaterally, grayscale and duplex images demonstrate atherosclerotic plaquing. Bilaterally, triphasic waveforms with sharp systolic peaks are seen from the common femoral to the popliteal artery levels. On the right, dorsalis pedis artery waveforms is borderline triphasic. Proximal posterior and anterior tibial artery waveforms are triphasic, and the distal posterior tibial artery waveform is triphasic. On the left, the posterior tibial artery waveform is monophasic with increased diastolic flow. The peroneal artery waveforms is monophasic with increased diastolic flow. The dorsalis pedis artery waveforms is monophasic with increased diastolic flow. Systolic peaks remain sharp in the tibial vessels. 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 No evidence of suprageniculate stenosis Minimal if any trifurcation disease on the right. No evidence of suprageniculate stenosis (3) Cellulitis of left toe (4) Acute encephalopathy Assessment & Plan: Brain: There is chronic small vessel ischemic disease. 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 There are old lacunar infarcts in the right centrum semi-ovale. There is age-related cerebral volume loss. No hemorrhage. Ventricles: Unremarkable. No ventriculomegaly. Bones/joints: Unremarkable. No acute fracture. Soft tissues: Unremarkable. Sinuses: Unremarkable as visualized. No acute sinusitis. Mastoid air cells: Unremarkable as visualized. No mastoid effusion. IMPRESSION: 1. 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 2. Old lacunar infarcts in the right centrum semi-ovale. 3. Age-related cerebral volume loss. Chronic small vessel ischemic disease. (5) Abnormal LFTs Assessment & Plan: 60-year-old male altered mental status agitated came in for evaluation identified to have a WBC of 12 and abnormal LFTs. Admitted further care and management. Abdominal exam is fairly benign soft nontender nondistended. Pending abdominal ultrasound Trend labs We will follow with recommendations as imaging and labs are available. (6) Leukocytosis Assessment & Plan: Patient with leukocytosis on admission. Abnormal LFTs. Etiology of leukocytosis unknown. Micro noted. On antibiotics. Imaging ordered. Will follow with recommendations as imaging information is available. No abscess or or visible sign of infection identified. Small eschar on toe and had mild erythema of foot but not very clinically significant. Clay Gonzalez Aug 31, 2020 15:59
--- NOTE | 2020-08-31 17:22 | NUR ---
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
--- NOTE | 2020-08-31 19:17 | NUR ---
NURSE HAND-OFF: Important Events on Shift: diet change to mechanical soft; ATB TX Patient Status: stable Diet: mechanical soft and nectar thick liquids Pending Orders: n/a Pending Results/Labs:n/a Pending MD notification:n/a Latest Vital Signs: Temperature 97.5 , Pulse 65 , B/P 107 /72 , Respiratory Rate 18 , O2 SAT 96 , Room Air, O2 Flow Rate . Vital Sign Comment: stable Latest [place] Fall Score: 95 Fall Risk: High Risk Safety Measures: Call light Within Reach, Bed Alarm Zone 2, Side Rails Side Rails x3, Bed position Low and Locked. Fall Precautions: Yellow Socks Yellow Gown Door Sign Patient Fall Education Report given to KALANI Molina.
--- NOTE | 2020-08-31 19:32 | NUR ---
NURSE NOTES: Received patient asleep, no SOB noted, on bilateral soft wrist restraints, bed lowered, bed alarm on.
[2020-08-31] MEDS: Haloperidol 5mg/ml Inj IM PRN (21:24)
[2020-09-01] MEDS: D5NS 1,000 ML IV SCH ×2 (00:05→15:21)
[2020-09-01 04:00] VITALS: BP 125/76
[2020-09-01] MEDS: LORazepam 1mg tab ORAL SCH ×4 (05:02→17:25)
[2020-09-01] MEDS: NovoLOG Insulin Flexpen SUBQ SCH ×4 (05:03→21:00)
--- NOTE | 2020-09-01 07:22 | NUR ---
HAND-OFF: Report given to Tacos Nath RN/ Brenna.
[2020-09-01 08:00] VITALS: BP 119/83
--- NOTE | 2020-09-01 08:08 | NUR ---
NURSE NOTES: patient in bed yelling "can I get my F#$% donut" patient ate breakfast, AOx0, delusional, psychotic, threatening to hurt staff, patient is in soft restraints on both hands. unable to transfer back to [facility] as they are not accepting back. Unable to provide a plan of himself
--- NOTE | 2020-09-01 08:30 | General Progress Note ---
Subjective HEENT: Denies: no symptoms, eye pain, blurred vision, tearing, double vision, ear pain, ear discharge, nose pain, nose congestion, throat pain, throat swelling, mouth pain, mouth swelling, other Cardiovascular: Denies: no symptoms, chest pain, edema, irregular heart rate, lightheadedness, palpitations, syncope, other Respiratory: Denies: no symptoms, cough, orthopnea, shortness of breath, SOB with excertion, SOB at rest, sputum, stridor, wheezing, other Gastrointestinal/Abdominal: Denies: no symptoms, abdomen distended, abdominal pain, black stools, tarry stools, blood in stool, constipated, diarrhea, difficulty swallowing, nausea, poor appetite, poor fluid intake, rectal bleeding, vomiting, other Genitourinary: Denies: no symptoms, burning, discharge, frequency, flank pain, hematuria, incontinence, pain, urgency, other Neurologic/Psychiatric: Denies: no symptoms, anxiety, depressed, emotional problems, headache, numbness, paresthesia, pre-existing deficit, seizure, tingling, tremors, weakness, other Endocrine: Denies: no symptoms, excessive sweating, flushing, intolerance to cold, intolerance to heat, increased hunger, increased thirst, increased urine, unexplained weight gain, unexplained weight loss, other Hematologic/Lymphatic: Denies: no symptoms, anemia, easy bleeding, easy bruising, other Allergies: Coded Allergies: No Known Allergies (Unverified , 08/24/20) Subjective 08/31 on b/l wrist restraints, psych aware, no bleeding, labs noted 09/01 yelling profanities in room today, neds reviewed, labs noted Objective Last 24 Hour Vital Signs Date Time Temp Pulse Resp B/P (MAP) Pulse Ox O2 Delivery O2 Flow Rate FiO2 09/01/20 05:39 71 20 125/76 94 09/01/20 05:02 71 20 125/76 94 09/01/20 04:00 98.9 71 20 125/76 (92) 94 09/01/20 00:00 56 20 132/58 94 08/31/20 23:42 98.9 56 20 132/58 (82) 94 08/31/20 20:17 Room Air 08/31/20 19:55 98.8 58 20 129/56 (80) 94 08/31/20 17:58 65 18 107/72 96 10/8/20 17:28 65 18 107/72 96 08/31/20 16:00 97.5 65 18 107/72 (84) 96 08/31/20 12:00 96.8 78 18 128/90 (103) 97 08/31/20 11:36 78 18 128/90 97 08/31/20 11:06 85 19 121/96 97 08/31/20 09:00 Room Air Intake and Output 08/31/20 09/01/20 19:00 07:00 Intake Total 1515 ml 1000.000 ml Output Total 1100 ml 1300 ml Balance 415 ml -300.000 ml Intake Oral 1440 ml IV Total 75 ml 1000.000 ml Output Urine Total 1100 ml 1300 ml # Voids 2 1 Laboratory Tests 08/31/20 15:45: Vancomycin Level Trough 9.5 08/31/20 16:15: POC Whole Blood Glucose 113H Height (Feet): 6 Height (Inches): 0.00 Weight (Pounds): 151 Objective General Appearance: confused EENT: PERRL/EOMI Neck: supple Cardiovascular: regular rhythm Respiratory/Chest: normal breath sounds Abdomen: non tender, soft Extremities: non-tender Assessment/Plan Status: stable Assessment/Plan: Assessment/Plan Status: stable Assessment/Plan: failure of thrive non healing ulcer malnutrition depression dc plan to snf with po abx wound care placement labs reviewed Ricardo Mills MD Sep 01, 2020 08:30
[2020-09-01] MEDS ORDERED: D5NS 1000ml IV ONE (08:51)
[2020-09-01] MEDS: metFORMIN 500mg tab ORAL SCH (09:15)
[2020-09-01] MEDS: Aspirin Baby 81mg ORAL SCH (09:15)
[2020-09-01] MEDS: Docusate 100mg cap ORAL SCH (09:15)
[2020-09-01] MEDS: Acetaminophen 500mg (ES) tab ORAL SCH ×2 (09:16→17:26)
[2020-09-01] MEDS: Haloperidol 5mg/ml Inj IM PRN ×3 (09:16→22:04)
[2020-09-01] MEDS: Heparin 5000 units/ml inj SUBQ SCH ×2 (09:17→21:48)
[2020-09-01] MEDS: Hydrocortisone 1% Cr TOPIC SCH ×2 (09:20→21:47)
--- NOTE | 2020-09-01 10:44 | Surgery Progress Note ---
Surgery Progress Note Subjective Additional Comments afebrile, HD stable improving tolerating diet Objective Last 24 Hour Vital Signs Date Time Temp Pulse Resp B/P (MAP) Pulse Ox O2 Delivery O2 Flow Rate FiO2 09/01/20 09:00 Room Air 09/01/20 08:00 98.4 68 20 119/83 (95) 95 09/01/20 05:39 71 20 125/76 94 09/01/20 05:02 71 20 125/76 94 09/01/20 04:00 98.9 71 20 125/76 (92) 94 09/01/20 00:00 56 20 132/58 94 08/31/20 23:42 98.9 56 20 132/58 (82) 94 08/31/20 20:17 Room Air 08/31/20 19:55 98.8 58 20 129/56 (80) 94 08/31/20 17:58 65 18 107/72 96 08/31/20 17:28 65 18 107/72 96 08/31/20 16:00 97.5 65 18 107/72 (84) 96 08/31/20 12:00 96.8 78 18 128/90 (103) 97 08/31/20 11:36 78 18 128/90 97 08/31/20 11:06 85 19 121/96 97 I&O Intake and Output 08/31/20 09/01/20 19:00 07:00 Intake Total 1515 ml 1000.000 ml Output Total 1100 ml 1300 ml Balance 415 ml -300.000 ml Intake Oral 1440 ml IV Total 75 ml 1000.000 ml Output Urine Total 1100 ml 1300 ml # Voids 2 1 Dressing: dry Wound: clean Cardiovascular: RSR Respiratory: decreased breath sounds Abdomen: soft, non-tender, present bowel sounds, non-distended Extremities: no edema, no tenderness, pulses, other Laboratory Tests Test 08/31/20 15:45 08/31/20 16:15 Vancomycin Level Trough 9.5 ug/mL (5.0-12.0) POC Whole Blood Glucose 113 MG/DL (74-106) H Plan Problems: (1) Rhabdomyolysis (2) Cellulitis of left foot Assessment & Plan: Bilaterally, grayscale and duplex images demonstrate atherosclerotic plaquing. Bilaterally, triphasic waveforms with sharp systolic peaks are seen from the common femoral to the popliteal artery levels. On the right, dorsalis pedis artery waveforms is borderline triphasic. Proximal posterior and anterior tibial artery waveforms are triphasic, and the distal posterior tibial artery waveform is triphasic. On the left, the posterior tibial artery waveform is monophasic with increased diastolic flow. The peroneal artery waveforms is monophasic with increased diastolic flow. The dorsalis pedis artery waveforms is monophasic with increased diastolic flow. Systolic peaks remain sharp in the tibial vessels. 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 No evidence of suprageniculate stenosis Minimal if any trifurcation disease on the right. No evidence of suprageniculate stenosis (3) Cellulitis of left toe (4) Acute encephalopathy Assessment & Plan: Brain: There is chronic small vessel ischemic disease. 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 There are old lacunar infarcts in the right centrum semi-ovale. There is age-related cerebral volume loss. No hemorrhage. Ventricles: Unremarkable. No ventriculomegaly. Bones/joints: Unremarkable. No acute fracture. Soft tissues: Unremarkable. Sinuses: Unremarkable as visualized. No acute sinusitis. Mastoid air cells: Unremarkable as visualized. No mastoid effusion. IMPRESSION: 1. 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 2. Old lacunar infarcts in the right centrum semi-ovale. 3. Age-related cerebral volume loss. Chronic small vessel ischemic disease. (5) Abnormal LFTs Assessment & Plan: 60-year-old male altered mental status agitated came in for evaluation identified to have a WBC of 12 and abnormal LFTs. Admitted further care and management. Abdominal exam is fairly benign soft nontender nondistended. Pending abdominal ultrasound Trend labs We will follow with recommendations as imaging and labs are available. (6) Leukocytosis Assessment & Plan: Patient with leukocytosis on admission. Abnormal LFTs. Etiology of leukocytosis unknown. Micro noted. On antibiotics. Imaging ordered. Will follow with recommendations as imaging information is available. No abscess or or visible sign of infection identified. Small eschar on toe and had mild erythema of foot but not very clinically significant. Clay Gonzalez Sep 01, 2020 10:44
--- NOTE | 2020-09-01 10:55 | General Progress Note ---
Subjective ROS Limited/Unobtainable: Yes Allergies: Coded Allergies: No Known Allergies (Unverified , 08/24/20) Objective Last 24 Hour Vital Signs Date Time Temp Pulse Resp B/P (MAP) Pulse Ox O2 Delivery O2 Flow Rate FiO2 09/01/20 09:00 Room Air 09/01/20 08:00 98.4 68 20 119/83 (95) 95 09/01/20 05:39 71 20 125/76 94 09/01/20 05:02 71 20 125/76 94 09/01/20 04:00 98.9 71 20 125/76 (92) 94 09/01/20 00:00 56 20 132/58 94 08/31/20 23:42 98.9 56 20 132/58 (82) 94 08/31/20 20:17 Room Air 08/31/20 19:55 98.8 58 20 129/56 (80) 94 08/31/20 17:58 65 18 107/72 96 08/31/20 17:28 65 18 107/72 96 08/31/20 16:00 97.5 65 18 107/72 (84) 96 08/31/20 12:00 96.8 78 18 128/90 (103) 97 08/31/20 11:36 78 18 128/90 97 08/31/20 11:06 85 19 121/96 97 Intake and Output 08/31/20 09/01/20 19:00 07:00 Intake Total 1515 ml 1000.000 ml Output Total 1100 ml 1300 ml Balance 415 ml -300.000 ml Intake Oral 1440 ml IV Total 75 ml 1000.000 ml Output Urine Total 1100 ml 1300 ml # Voids 2 1 Laboratory Tests 08/31/20 15:45: Vancomycin Level Trough 9.5 08/31/20 16:15: POC Whole Blood Glucose 113H Height (Feet): 6 Height (Inches): 0.00 Weight (Pounds): 151 General Appearance: no apparent distress EENT: normal ENT inspection Neck: non-tender Cardiovascular: normal rate Respiratory/Chest: lungs clear Abdomen: hypoactive bowel sounds Extremities: non-tender Assessment/Plan Problem List: (1) Leukocytosis ICD Codes: D72.829 - Elevated white blood cell count, unspecified SNOMED: 766027027, 616600017 (2) Abnormal LFTs ICD Codes: R94.5 - Abnormal results of liver function studies SNOMED: 956875975 (3) Acute encephalopathy ICD Codes: G93.40 - Encephalopathy, unspecified SNOMED: 19275629, 232151915 (4) Cellulitis of left toe ICD Codes: L03.032 - Cellulitis of left toe SNOMED: 04794025 (5) Rhabdomyolysis ICD Codes: M62.82 - Rhabdomyolysis SNOMED: 887611306 Qualifiers: Qualified Codes: M62.82 - Rhabdomyolysis (6) Anemia ICD Codes: D64.9 - Anemia, unspecified SNOMED: 531729065 (7) DM (diabetes mellitus) ICD Codes: E11.9 - Type 2 diabetes mellitus without complications SNOMED: 76753327 (8) HTN (hypertension) ICD Codes: I10 - Essential (primary) hypertension SNOMED: 48141524 Status: stable Assessment/Plan: elevated LFTS possibly due to statins>>> off now>>> improving LFTS>>> will repeat in am abd us>>> fatty liver hepatitis panel>>> neg repeat labs speech eval appreciated will change diet to mechanical soft will Mohamud Spaulding MD Sep 01, 2020 10:55
[2020-09-01 12:00] VITALS: BP 116/78
--- NOTE | 2020-09-01 14:46 | NUR ---
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
--- NOTE | 2020-09-01 15:55 | NUR ---
CHARGE NURSE NOTE: has been notified about podiatry consult. 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 will notify him.
[2020-09-01 16:00] VITALS: BP 121/82
--- NOTE | 2020-09-01 19:40 | NUR ---
NURSE HAND-OFF: Important Events on Shift:restraint. haldol IM 5ml. Patient Status: stable. agressive. agitated Diet: regular. mech soft chopped. Pending Orders: n/a Pending Results/Labs:n/a Pending MD notification:n/a Latest Vital Signs: Temperature 98.8 , Pulse 75 , B/P 121 /82 , Respiratory Rate 20 , O2 SAT 95 , Room Air, O2 Flow Rate . Vital Sign Comment: stable Latest Mayberry Fall Score: 95 Fall Risk: High Risk Safety Measures: Call light Within Reach, Bed Alarm Zone 2, Side Rails Side Rails x3, Bed position Low and Locked. Fall Precautions: Yellow Socks Yellow Gown Door Sign Patient Fall Education Report given to KALANI Teixeira.
--- NOTE | 2020-09-01 19:43 | NUR ---
NURSE NOTES: Received patient in no apparent distress. A&OX1, confused. IV site patent and intact. Condom cath on, yellow urine noted. Restraint noted on bilateral wrist, radial pulse present, skin intact. Bed in lowest position. Call light within reach. Will continue to monitor.
[2020-09-01 20:00] VITALS: BP 141/87
[2020-09-02] VITALS: BP 138/97
[2020-09-02] MEDS: LORazepam 1mg tab ORAL SCH ×4 (00:32→17:06)
[2020-09-02 04:00] VITALS: BP 131/90
[2020-09-02] MEDS: D5NS 1,000 ML IV SCH ×2 (05:38→16:41)
[2020-09-02] MEDS: NovoLOG Insulin Flexpen SUBQ SCH ×4 (06:03→20:53)
[2020-09-02 07:28] LABS: BASOPHILS % (AUTO) 1.2 % (0.0-2.0); EOSINOPHILS % (AUTO) 4.4 % (0.0-3.0); MEAN CORPUSCULAR VOLUME 88 FL (80-99); MONOCYTES % (AUTO) 8.7 % (1.0-10.0); NEUTROPHILS % (AUTO) 65.8 % (45.0-75.0); PLATELET COUNT 301 K/UL (150-450); RED BLOOD COUNT 4.32 M/UL (4.70-6.10); RED CELL DISTRIBUTION WIDTH 13.6 % (11.6-14.8); WHITE BLOOD COUNT 7.6 K/UL (4.8-10.8)
--- NOTE | 2020-09-02 07:33 | NUR ---
NURSE HAND-OFF: Important Events on Shift: Patient Status: Diet: Regular Pending Orders: Pending Results/Labs: Pending MD notification: Latest Vital Signs: Temperature 97.9 , Pulse 67 , B/P 141 /87 , Respiratory Rate 18 , O2 SAT 96 , Room Air, O2 Flow Rate . Vital Sign Comment: Latest Mayberry Fall Score: 95 Fall Risk: High Risk Safety Measures: Call light Within Reach, Bed Alarm Zone 2, Side Rails Side Rails x3, Bed position Low and Locked. Fall Precautions: Yellow Socks Yellow Gown Door Sign Patient Fall Education Report given to Yamilka URIARTE.
--- NOTE | 2020-09-02 07:37 | NUR ---
NURSE NOTES: Report received from KALANI Teixeira. Patient in bed, awake, alert and oriented x 1 and confused, verbal and able to make needs known, no SOB, bed in lowest position with alarm on and breaks engaged, on room air, denies any pain or discomfort at this time, IV present on left forearm, will continue to monitor and proceed with plan of care, call light within reach.
[2020-09-02 07:43] LABS: ALANINE AMINOTRANSFERASE 233 U/L (12-78); ALBUMIN 2.6 G/DL (3.4-5.0); ALBUMIN/GLOBULIN RATIO 0.7 (1.0-2.7); ALKALINE PHOSPHATASE 130 U/L (46-116); ANION GAP 7 mmol/L (5-15); ASPARTATE AMINO TRANSFERASE 96 U/L (15-37); BILIRUBIN,TOTAL 0.7 MG/DL (0.2-1.0); BLOOD UREA NITROGEN 6 mg/dL (7-18); CALCIUM 8.6 MG/DL (8.5-10.1); CARBON DIOXIDE 28 MMOL/L (21-32); CHLORIDE 106 MMOL/L (98-107); CREATININE 0.8 MG/DL (0.55-1.30); POTASSIUM 3.3 MMOL/L (3.5-5.1); SODIUM 141 MMOL/L (136-145)
[2020-09-02 08:00] VITALS: BP 129/66
[2020-09-02] MEDS: metFORMIN 500mg tab ORAL SCH (09:15)
[2020-09-02] MEDS: Acetaminophen 500mg (ES) tab ORAL SCH ×2 (09:15→17:06)
[2020-09-02] MEDS: Docusate 100mg cap ORAL SCH (09:15)
[2020-09-02] MEDS: Aspirin Baby 81mg ORAL SCH (09:15)
[2020-09-02] MEDS: Heparin 5000 units/ml inj SUBQ SCH ×2 (09:17→21:00)
[2020-09-02] MEDS: Hydrocortisone 1% Cr TOPIC SCH ×2 (09:19→21:13)
[2020-09-02 12:00] VITALS: BP 132/77
--- NOTE | 2020-09-02 12:19 | Surgery Progress Note ---
Surgery Progress Note Subjective Symptoms: improved, tolerating diet, passing flatus Additional Comments lfts trending down no n/v/fc comfortable no complaints Objective Last 24 Hour Vital Signs Date Time Temp Pulse Resp B/P (MAP) Pulse Ox O2 Delivery O2 Flow Rate FiO2 09/02/20 12:00 96.4 70 20 132/77 (95) 95 09/02/20 09:45 98.8 09/02/20 09:00 Room Air 09/02/20 08:00 98.8 60 20 129/66 (87) 95 09/02/20 06:07 67 18 141/87 96 09/02/20 05:37 67 18 141/87 96 09/02/20 04:00 97.9 81 20 131/90 (104) 96 09/02/20 01:02 67 18 141/87 96 09/02/20 00:32 67 18 141/87 96 09/02/20 00:00 97.5 73 20 138/97 (111) 93 09/01/20 21:00 Room Air 09/01/20 20:00 97.4 67 18 141/87 (105) 96 09/01/20 17:55 75 20 121/82 95 09/01/20 17:26 98.8 09/01/20 17:25 75 20 121/82 95 09/01/20 16:00 98.8 75 20 121/82 (95) 95 I&O Intake and Output 09/01/20 09/02/20 19:00 07:00 Intake Total 1950.001 ml 2125.000 ml Output Total 3000 ml 1400 ml Balance -1049.999 ml 725.000 ml Intake Oral 700 ml IV Total 1250.001 ml 925.000 ml Other 1200 ml Output Urine Total 3000 ml 1400 ml Dressing: dry Wound: clean Cardiovascular: RSR Respiratory: clear Abdomen: soft, non-tender, present bowel sounds Extremities: no edema, no tenderness, no cyanosis Laboratory Tests Test 09/01/20 16:32 09/02/20 06:30 POC Whole Blood Glucose 94 MG/DL (74-106) White Blood Count 7.6 K/UL (4.8-10.8) Red Blood Count 4.32 M/UL (4.70-6.10) L Hemoglobin 13.0 G/DL (14.2-18.0) L Hematocrit 38.0 % (42.0-52.0) L Mean Corpuscular Volume 88 FL (80-99) Mean Corpuscular Hemoglobin 30.2 PG (27.0-31.0) Mean Corpuscular Hemoglobin Concent 34.3 G/DL (32.0-36.0) Red Cell Distribution Width 13.6 % (11.6-14.8) Platelet Count 301 K/UL (150-450) Mean Platelet Volume 5.6 FL (6.5-10.1) L Neutrophils (%) (Auto) 65.8 % (45.0-75.0) Lymphocytes (%) (Auto) 20.0 % (20.0-45.0) Monocytes (%) (Auto) 8.7 % (1.0-10.0) Eosinophils (%) (Auto) 4.4 % (0.0-3.0) H Basophils (%) (Auto) 1.2 % (0.0-2.0) Sodium Level 141 MMOL/L (136-145) Potassium Level 3.3 MMOL/L (3.5-5.1) L Chloride Level 106 MMOL/L (98-107) Carbon Dioxide Level 28 MMOL/L (21-32) Anion Gap 7 mmol/L (5-15) Blood Urea Nitrogen 6 mg/dL (7-18) L Creatinine 0.8 MG/DL (0.55-1.30) Estimat Glomerular Filtration Rate > 60 mL/min (>60) Glucose Level 152 MG/DL (74-106) H Calcium Level 8.6 MG/DL (8.5-10.1) Total Bilirubin 0.7 MG/DL (0.2-1.0) Aspartate Amino Transf (AST/SGOT) 96 U/L (15-37) H Alanine Aminotransferase (ALT/SGPT) 233 U/L (12-78) H Alkaline Phosphatase 130 U/L (46-116) H Total Protein 6.2 G/DL (6.4-8.2) L Albumin 2.6 G/DL (3.4-5.0) L Globulin 3.6 g/dL Albumin/Globulin Ratio 0.7 (1.0-2.7) L Plan Problems: (1) Rhabdomyolysis (2) Cellulitis of left foot Assessment & Plan: Bilaterally, grayscale and duplex images demonstrate atherosclerotic plaquing. Bilaterally, triphasic waveforms with sharp systolic peaks are seen from the common femoral to the popliteal artery levels. On the right, dorsalis pedis artery waveforms is borderline triphasic. Proximal posterior and anterior tibial artery waveforms are triphasic, and the distal posterior tibial artery waveform is triphasic. On the left, the posterior tibial artery waveform is monophasic with increased diastolic flow. The peroneal artery waveforms is monophasic with increased diastolic flow. The dorsalis pedis artery waveforms is monophasic with increased diastolic flow. Systolic peaks remain sharp in the tibial vessels. 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 No evidence of suprageniculate stenosis Minimal if any trifurcation disease on the right. No evidence of suprageniculate stenosis (3) Cellulitis of left toe (4) Acute encephalopathy Assessment & Plan: Brain: There is chronic small vessel ischemic disease. 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 There are old lacunar infarcts in the right centrum semi-ovale. There is age-related cerebral volume loss. No hemorrhage. Ventricles: Unremarkable. No ventriculomegaly. Bones/joints: Unremarkable. No acute fracture. Soft tissues: Unremarkable. Sinuses: Unremarkable as visualized. No acute sinusitis. Mastoid air cells: Unremarkable as visualized. No mastoid effusion. IMPRESSION: 1. 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 2. Old lacunar infarcts in the right centrum semi-ovale. 3. Age-related cerebral volume loss. Chronic small vessel ischemic disease. (5) Abnormal LFTs Assessment & Plan: 60-year-old male altered mental status agitated came in for evaluation identified to have a WBC of 12 and abnormal LFTs. Admitted further care and management. Abdominal exam is fairly benign soft nontender nondistended. Pending abdominal ultrasound Trend labs We will follow with recommendations as imaging and labs are available. (6) Leukocytosis Assessment & Plan: Patient with leukocytosis on admission. Abnormal LFTs. Etiology of leukocytosis unknown. Micro noted. On antibiotics. Imaging ordered. Will follow with recommendations as imaging information is available. No abscess or or visible sign of infection identified. Small eschar on toe and had mild erythema of foot but not very clinically significant. Clay Gonzalez Sep 02, 2020 12:19
[2020-09-02] MEDS: Haloperidol 5mg/ml Inj IM PRN (14:04)
[2020-09-02 16:00] VITALS: BP 139/87
--- NOTE | 2020-09-02 18:55 | NUR ---
NURSE HAND-OFF: Important Events on Shift:[new consult with Dr. Ramirez, K level 3.3, KCL 20 meq given once, pain mgt] Patient Status: [stable] Diet: [Regular MS chopped with nectar thick liquids] Pending Orders: [] Pending Results/Labs:[] Pending MD notification:[] Latest Vital Signs: Temperature 97.9 , Pulse 83 , B/P 139 /87 , Respiratory Rate 20 , O2 SAT 96 , Room Air, O2 Flow Rate . Vital Sign Comment: [] Latest Mayberry Fall Score: 95 Fall Risk: High Risk Safety Measures: Call light Within Reach, Bed Alarm Zone 2, Side Rails Side Rails x3, Bed position Low and Locked. Fall Precautions: Yellow Socks Yellow Gown Door Sign Patient Fall Education Addendum: 09/02/20 at 1927 by Yamilka Nino RN Report given to KALANI Gallardo.
--- NOTE | 2020-09-02 19:27 | NUR ---
NURSE NOTES: Received report from navarro laird. patient is on bed, awake and verbally responsive. on room air, no sob. DNR. with condom catheter; noted with bilateral soft wrist restraints. no injury noted. with left forearm running D5NS at 75 ml/hr. per sisi " patient was restless on her shift; he screams and moves a lot on his bed". reiterated to call and ask for assistance. ensured safety.call light and light button within easy reach. bed alarm on. bed locked and in lowest position. will continue plan of care.
[2020-09-02 20:00] VITALS: BP 134/82
--- NOTE | 2020-09-02 20:00 | NUR ---
NURSE NOTES: Patient is asleep. with bilateral soft wrist restraints. no redness. no swelling. no injury noted. with + pulses. bed locked and in lowest position. call light and light button within easy reach. bed alarm on. will continue plan of care
--- NOTE | 2020-09-02 22:00 | NUR ---
NURSE NOTES: Patient is awake." joshua, give me breakfast". confused. reality orientation rendered. with bilateral soft wrist restraints. no redness. no swelling. no injury noted. with + pulses. facilitated active range of motion.denies any pain or discomfort. bed locked and in lowest position. call light and light button within easy reach. bed alarm on. will continue plan of care
--- NOTE | 2020-09-02 22:30 | Psych Consult Progress Note ---
Psychiatry Progress Note Psychiatry Progress Note Subjective the pt is more manageable and less agitated Medications Current Medications Medications (Trade) Dose Ordered Sig/Jesu Route PRN Reason Start Time Stop Time Status Last Admin Dose Admin Acetaminophen (Tylenol) 650 mg Q4H PRN RECTAL Temp >100.5 08/24/20 06:30 09/23/20 06:29 Acetaminophen (Tylenol) 1,000 mg BID ORAL 08/24/20 09:00 09/23/20 08:59 09/02/20 17:06 Aspirin (ASA) 81 mg DAILY ORAL 08/24/20 09:00 10/08/20 08:59 09/02/20 09:15 Bisacodyl (Dulcolax) 10 mg DAILY PRN RECTAL Constipation 08/24/20 06:15 11/22/20 06:14 Dextrose (Dextrose 50%) 25 ml Q30M PRN IV Hypoglycemia 08/24/20 06:30 11/22/20 06:29 Dextrose (Dextrose 50%) 50 ml Q30M PRN IV Hypoglycemia 08/24/20 06:30 11/22/20 06:29 Dextrose/Sodium Chloride 1,000 ml @ 75 mls/hr [id number] IV 08/24/20 07:00 09/23/20 06:59 09/02/20 16:41 Diphenhydramine HCl (Benadryl) 25 mg BIDPRN PRN ORAL Itching 08/24/20 15:15 09/23/20 15:14 09/01/20 11:31 Docusate Sodium (Colace) 100 mg DAILY ORAL 08/24/20 09:00 09/23/20 08:59 09/02/20 09:15 Haloperidol Lactate (Haldol) 5 mg Q6H PRN IM Agitation 08/24/20 07:00 10/08/20 06:59 09/02/20 14:04 Heparin Sodium (Porcine) (Heparin 5000 units/ml) 5,000 units EVERY 12 HOURS SUBQ 08/24/20 09:00 10/08/20 08:59 09/02/20 09:17 Hydrocortisone (Hydrocortisone) 1 applic Q12HR TOPIC 08/24/20 21:00 11/22/20 20:59 09/02/20 21:13 Hyoscyamine Sulfate (Levsin) 0.125 mg Q4H PRN ORAL secretions 08/24/20 06:15 09/23/20 06:14 Insulin Aspart (NovoLOG) BEFORE MEALS AND HS SUBQ 08/24/20 06:30 11/22/20 06:29 09/01/20 05:03 Lorazepam (Ativan) 1 mg Q6HR ORAL 08/30/20 12:00 09/06/20 11:59 09/02/20 17:06 Metformin HCl (Glucophage) 500 mg DAILY ORAL 08/24/20 09:00 09/23/20 08:59 09/02/20 09:15 Quetiapine Fumarate (SEROqueL) 100 mg EVERY 8 HOURS ORAL 08/30/20 22:00 10/13/20 05:59 09/02/20 21:45 Vancomycin HCl (Vanco pharmacy to dose) 1 ea DAILY PRN MISC Per rx protocol 08/24/20 10:45 09/23/20 10:44 Vancomycin HCl 750 mg/Sodium Chloride 250 ml @ 166.667 mls/hr Q8H IVPB 08/31/20 09:00 09/05/20 08:59 09/02/20 16:12 Neurological/Psychiatric: Reports: anxiety, depressed, emotional problems Allergies: Coded Allergies: No Known Allergies (Unverified , 08/24/20) Objective Data Height (Feet): 6 Height (Inches): 0.00 Weight (Pounds): 151 General Appearance: alert, confused, agitated Behavior Mannerisms: poor eye contact Mental Status Exam - Affect: flat Additional Comments: alert, oriented x0. Mood is agitated. Affect is blunted, congruent with mood. Thought process is concrete. Thought content, no suicidal or homicidal ideation. Cognition is impaired. Insight and judgment is impaired. Assessment/Plan Hebron I: ASSESSMENT: Hebron I Psychotic disorder, not otherwise specified. Hebron II Deferred. Hebron III CVA. Hebron IV Low. Hebron V 20. PLAN: 1. We will start the patient on Seroquel. 2. Ativan. 3. Discontinue all other psychotropic medication. 4. Patient lacks capacity to make decision. Status: stable Status Narrative ASSESSMENT: Hebron I Psychotic disorder, not otherwise specified. Hebron II Deferred. Hebron III CVA. Hebron IV Low. Hebron V 20. PLAN: 1. We will start the patient on Seroquel. 2. Ativan. 3. Discontinue all other psychotropic medication. 4. Patient lacks capacity to make decision. Assessment/Plan: ASSESSMENT: Hebron I Psychotic disorder, not otherwise specified. Hebron II Deferred. Hebron III CVA. Hebron IV Low. Hebron V 20. PLAN: 1. We will start the patient on Seroquel. 2. Ativan. 3. Discontinue all other psychotropic medication. 4. Patient lacks capacity to make decision. Nima Degroot MD Sep 02, 2020 22:30
[2020-09-03] VITALS: BP 130/79
--- NOTE | 2020-09-03 | NUR ---
NURSE NOTES: Patient is asleep. with bilateral soft wrist restraints. no redness. no swelling. no injury noted. with + pulses. denies any pain or discomfort. bed locked and in lowest position. call light and light button within easy reach. bed alarm on. will continue plan of care
--- NOTE | 2020-09-03 02:00 | NUR ---
NURSE NOTES: Patient is awake." i'm hungry give me crackers and juice; i'm gonna go to [employer]". confused. reality orientation rendered. with bilateral soft wrist restraints. no redness. no swelling. no injury noted. with + pulses. facilitated active range of motion.denies any pain or discomfort. bed locked and in lowest position. call light and light button within easy reach. bed alarm on. will continue plan of care
[2020-09-03 04:00] VITALS: BP 128/68
--- NOTE | 2020-09-03 04:00 | NUR ---
NURSE HAND-OFF: Important Events on Shift: EPISODES OF RESTLESSNESS; RESTRAINTS CARE, Patient Status: STABLE Diet: REGULAR MECH SOFT CHOPPED, NECTAR THICK Pending Orders: Pending Results/Labs: Pending MD notification: Latest Vital Signs: Temperature 98.1 , Pulse 65 , B/P 130 /67 , Respiratory Rate 20 , O2 SAT 98 , Room Air, O2 Flow Rate . Vital Sign Comment: Latest Mayberry Fall Score: 95 Fall Risk: High Risk Safety Measures: Call light Within Reach, Bed Alarm Zone 2, Side Rails Side Rails x3, Bed position Low and Locked. Fall Precautions: Yellow Socks Yellow Gown Door Sign Patient Fall Education Addendum: 09/03/20 at 0615 by Wanda Ramon RN wrong entry
[2020-09-03] MEDS: LORazepam 1mg tab ORAL SCH ×3 (05:38→21:14)
[2020-09-03] MEDS: NovoLOG Insulin Flexpen SUBQ SCH ×4 (05:53→21:00)
[2020-09-03] MEDS: D5NS 1,000 ML IV SCH ×2 (05:54→21:12)
--- NOTE | 2020-09-03 06:00 | NUR ---
NURSE NOTES: Patient is awake. patient is confused. "i want dinner, i'm hungry". reality orientation rendered. with bilateral soft wrist restraints. no redness. no swelling. no injury noted. with + pulses. facilitated active range of motion.denies any pain or discomfort. bed locked and in lowest position. call light and light button within easy reach. bed alarm on. kept patient clean and dry. provided rest and comfort.will continue plan of care
--- NOTE | 2020-09-03 06:16 | NUR ---
NURSE HAND-OFF: Important Events on Shift: EPISODES OF RESTLESSNESS; RESTRAINTS CARE, Patient Status: STABLE Diet: REGULAR MECH SOFT CHOPPED, NECTAR THICK Pending Orders: Pending Results/Labs: Pending MD notification: Latest Vital Signs: Temperature 98.1 , Pulse 65 , B/P 130 /67 , Respiratory Rate 20 , O2 SAT 98 , Room Air, O2 Flow Rate . Vital Sign Comment: Latest Mayberry Fall Score: 95 Fall Risk: High Risk Safety Measures: Call light Within Reach, Bed Alarm Zone 2, Side Rails Side Rails x3, Bed position Low and Locked. Fall Precautions: Yellow Socks Yellow Gown Door Sign Patient Fall Education Addendum: 09/03/20 at 0715 by Wnada Ramon RN HAND-OFF: Report given to navarro last.
--- NOTE | 2020-09-03 07:00 | NUR ---
NURSE NOTES: received patient in bed asleep no sign of distress ,With on going IVF patent, with bilateral soft wrist restraints. no redness. no swelling. no injury noted. with + pulses. facilitated active range of motion.denies any pain or discomfort. bed locked and in lowest position. call light and light button within easy reach. bed alarm on. kept patient clean and dry. provided rest and comfort.will continue plan of care navarro talley
--- NOTE | 2020-09-03 07:13 | General Progress Note ---
Subjective HEENT: Denies: no symptoms, eye pain, blurred vision, tearing, double vision, ear pain, ear discharge, nose pain, nose congestion, throat pain, throat swelling, mouth pain, mouth swelling, other Cardiovascular: Denies: no symptoms, chest pain, edema, irregular heart rate, lightheadedness, palpitations, syncope, other Respiratory: Denies: no symptoms, cough, orthopnea, shortness of breath, SOB with excertion, SOB at rest, sputum, stridor, wheezing, other Gastrointestinal/Abdominal: Denies: no symptoms, abdomen distended, abdominal pain, black stools, tarry stools, blood in stool, constipated, diarrhea, difficulty swallowing, nausea, poor appetite, poor fluid intake, rectal bleeding, vomiting, other Genitourinary: Denies: no symptoms, burning, discharge, frequency, flank pain, hematuria, incontinence, pain, urgency, other Neurologic/Psychiatric: Denies: no symptoms, anxiety, depressed, emotional problems, headache, numbness, paresthesia, pre-existing deficit, seizure, tingling, tremors, weakness, other Endocrine: Denies: no symptoms, excessive sweating, flushing, intolerance to cold, intolerance to heat, increased hunger, increased thirst, increased urine, unexplained weight gain, unexplained weight loss, other Hematologic/Lymphatic: Denies: no symptoms, anemia, easy bleeding, easy bruising, other Allergies: Coded Allergies: No Known Allergies (Unverified , 08/24/20) Subjective 08/31 on b/l wrist restraints, psych aware, no bleeding, labs noted 09/01 yelling profanities in room today, neds reviewed, labs noted 09/02 labs reviewed, no bleeding, meds noted 09/03 yelling i want food this am, no bleeding, continue on vanc, heparin sq Objective Last 24 Hour Vital Signs Date Time Temp Pulse Resp B/P (MAP) Pulse Ox O2 Delivery O2 Flow Rate FiO2 09/03/20 06:08 65 20 130/67 98 09/03/20 05:38 62 20 125/65 96 09/03/20 04:00 98.1 60 20 128/68 (88) 96 09/03/20 00:00 98.1 70 20 130/79 (96) 96 09/02/20 21:00 Room Air 09/02/20 20:00 97.9 69 18 134/82 (99) 95 09/02/20 17:36 83 20 139/87 96 09/02/20 17:36 97.9 09/02/20 17:06 83 20 139/87 96 09/02/20 16:00 97.9 83 20 139/87 (104) 96 09/02/20 12:58 70 20 132/77 95 09/02/20 12:28 70 20 132/77 95 09/02/20 12:00 96.4 70 20 132/77 (95) 95 09/02/20 09:45 98.8 09/02/20 09:00 Room Air 09/02/20 08:00 98.8 60 20 129/66 (87) 95 Intake and Output 09/02/20 09/03/20 19:00 07:00 Intake Total 600 ml 1000 ml Output Total 600 ml 1300 ml Balance 0 ml -300 ml Intake Oral 600 ml 1000 ml Output Urine Total 600 ml 1300 ml Height (Feet): 6 Height (Inches): 0.00 Weight (Pounds): 151 Objective General Appearance: confused EENT: PERRL/EOMI Neck: supple Cardiovascular: regular rhythm Respiratory/Chest: normal breath sounds Abdomen: non tender, soft Extremities: non-tender Assessment/Plan Status: stable Assessment/Plan: Assessment/Plan Status: stable Assessment/Plan: failure of thrive non healing ulcer==>abx malnutrition depression dc plan to snf with po abx wound care placement labs reviewed heparin sq ppx Ricardo Mills MD Sep 03, 2020 07:13
[2020-09-03 08:00] VITALS: BP 131/89
[2020-09-03] MEDS: metFORMIN 500mg tab ORAL SCH (08:18)
[2020-09-03] MEDS: Aspirin Baby 81mg ORAL SCH (08:18)
[2020-09-03] MEDS: Docusate 100mg cap ORAL SCH (08:18)
--- NOTE | 2020-09-03 08:18 | NUR ---
nurse notes patient is yelling and shouting stating he is itching all over his body benadryl given as ordered with relief navarro talley
[2020-09-03] MEDS: Acetaminophen 500mg (ES) tab ORAL SCH ×2 (08:19→17:13)
[2020-09-03] MEDS: Heparin 5000 units/ml inj SUBQ SCH ×2 (08:27→21:13)
[2020-09-03] MEDS: Hydrocortisone 1% Cr TOPIC SCH ×2 (09:59→21:19)
--- NOTE | 2020-09-03 10:22 | NUR ---
nurse notes patient very agitated, pulling his condom trying to get out of bed haldol IM given as ordered with relief patient calm and quiet after a few mins navarro talley
[2020-09-03] MEDS: Haloperidol 5mg/ml Inj IM PRN ×2 (10:23→17:19)
[2020-09-03 11:46] VITALS: BP 127/83
[2020-09-03 16:02] VITALS: BP 132/79
[2020-09-03] MEDS: Vancomycin 1gm/D5W 275ml IVPB SCH ×2 (17:13)
--- NOTE | 2020-09-03 17:22 | NUR ---
nurse notes patient very agitated again , yelling, shouting getting out of bed haldol IM given as ordered navarro talley
--- NOTE | 2020-09-03 17:54 | Surgery Progress Note ---
Surgery Progress Note Subjective Additional Comments labs improved exam stable comfortable no complaints Objective Last 24 Hour Vital Signs Date Time Temp Pulse Resp B/P (MAP) Pulse Ox O2 Delivery O2 Flow Rate FiO2 09/03/20 16:02 97.9 78 19 132/79 (96) 96 09/03/20 11:46 98.0 83 18 127/83 (98) 96 09/03/20 08:20 Room Air 09/03/20 08:00 97.9 86 19 131/89 (103) 96 09/03/20 06:08 65 20 130/67 98 09/03/20 05:38 62 20 125/65 96 09/03/20 04:00 98.1 60 20 128/68 (88) 96 09/03/20 00:00 98.1 70 20 130/79 (96) 96 09/02/20 21:00 Room Air 09/02/20 20:00 97.9 69 18 134/82 (99) 95 I&O Intake and Output 09/02/20 09/03/20 19:00 07:00 Intake Total 600 ml 1075 ml Output Total 600 ml 1300 ml Balance 0 ml -225 ml Intake Oral 600 ml 1000 ml IV Total 75 ml Output Urine Total 600 ml 1300 ml Dressing: dry Wound: clean Cardiovascular: RSR Respiratory: clear Abdomen: soft, non-tender, present bowel sounds Extremities: no edema, no tenderness, no cyanosis Laboratory Tests Test 09/03/20 11:20 09/03/20 15:20 POC Whole Blood Glucose 87 MG/DL (74-106) Vancomycin Level Trough 9.7 ug/mL (5.0-12.0) Plan Problems: (1) Rhabdomyolysis (2) Cellulitis of left foot Assessment & Plan: Bilaterally, grayscale and duplex images demonstrate atherosclerotic plaquing. Bilaterally, triphasic waveforms with sharp systolic peaks are seen from the common femoral to the popliteal artery levels. On the right, dorsalis pedis artery waveforms is borderline triphasic. Proximal posterior and anterior tibial artery waveforms are triphasic, and the distal posterior tibial artery waveform is triphasic. On the left, the posterior tibial artery waveform is monophasic with increased diastolic flow. The peroneal artery waveforms is monophasic with increased diastolic flow. The dorsalis pedis artery waveforms is monophasic with increased diastolic flow. Systolic peaks remain sharp in the tibial vessels. 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 No evidence of suprageniculate stenosis Minimal if any trifurcation disease on the right. No evidence of suprageniculate stenosis (3) Cellulitis of left toe (4) Acute encephalopathy Assessment & Plan: Brain: There is chronic small vessel ischemic disease. 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 There are old lacunar infarcts in the right centrum semi-ovale. There is age-related cerebral volume loss. No hemorrhage. Ventricles: Unremarkable. No ventriculomegaly. Bones/joints: Unremarkable. No acute fracture. Soft tissues: Unremarkable. Sinuses: Unremarkable as visualized. No acute sinusitis. Mastoid air cells: Unremarkable as visualized. No mastoid effusion. IMPRESSION: 1. 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 2. Old lacunar infarcts in the right centrum semi-ovale. 3. Age-related cerebral volume loss. Chronic small vessel ischemic disease. (5) Abnormal LFTs Assessment & Plan: 60-year-old male altered mental status agitated came in for evaluation identified to have a WBC of 12 and abnormal LFTs. Admitted further care and management. Abdominal exam is fairly benign soft nontender nondistended. Pending abdominal ultrasound Trend labs We will follow with recommendations as imaging and labs are available. (6) Leukocytosis Assessment & Plan: Patient with leukocytosis on admission. Abnormal LFTs. Etiology of leukocytosis unknown. Micro noted. On antibiotics. Imaging ordered. Will follow with recommendations as imaging information is available. No abscess or or visible sign of infection identified. Small eschar on toe and had mild erythema of foot but not very clinically significant. Clay Gonzalez Sep 03, 2020 17:54
--- NOTE | 2020-09-03 18:21 | NUR ---
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 Vital Sign Comment: [stable] Latest Mayberry Fall Score: 95 Fall Risk: High Risk Safety Measures: Call light Within Reach, Bed Alarm Zone 2, Side Rails Side Rails x3, Bed position Low and Locked. Fall Precautions: Yellow Socks Yellow Gown Door Sign Patient Fall Education Report given to [ONEIL talley rn]. 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 Vital Sign Comment: [stable] Latest Mayberry Fall Score: 95 Fall Risk: High Risk Safety Measures: Call light Within Reach, Bed Alarm Zone 2, Side Rails Side Rails x3, Bed position Low and Locked. Fall Precautions: Yellow Socks Yellow Gown Door Sign Patient Fall Education Report given to [Ms AUTUMN URIARTE NOC shift) navarro talley].
--- NOTE | 2020-09-03 19:00 | NUR ---
NURSE NOTES: Received report from KALANI Lopez. AAO x 2, on room air. Pt has anxiety, restless, screaming, and yelling. Anders. soft writ restraints in place, no skin issue noted. Condom cath intact. IV site intact and running IVF. Pt moving a lot, fall risk precaution maintained. Bed locked, lowest, alarm on, side rails up, side rails padded, call light within reach. Will continue to monitor.
[2020-09-03 20:00] VITALS: BP 130/94
[2020-09-04] VITALS: BP 120/83
[2020-09-04] MEDS: Vancomycin 1gm/D5W 275ml IVPB SCH ×6 (00:34→17:00)
[2020-09-04] MEDS: Haloperidol 5mg/ml Inj IM PRN (00:53)
[2020-09-04 04:00] VITALS: BP 123/75
[2020-09-04] MEDS: LORazepam 1mg tab ORAL SCH ×3 (05:42→21:24)
[2020-09-04] MEDS: NovoLOG Insulin Flexpen SUBQ SCH ×4 (05:43→21:00)
--- NOTE | 2020-09-04 06:35 | NUR ---
NURSE HAND-OFF: Important Events on Shift:combative, restless, yelling, kick nursing staffs Patient Status: stable Diet: reg mech soft chopped Pending Orders: Pending Results/Labs: Pending MD notification: Latest Vital Signs: Temperature 98.0 , Pulse 75 , B/P 130 /75 , Respiratory Rate 19 , O2 SAT 96 , Room Air, O2 Flow Rate . Vital Sign Comment: Latest Mayberry Fall Score: 95 Fall Risk: High Risk Safety Measures: Call light Within Reach, Bed Alarm Zone 2, Side Rails Side Rails x3, Bed position Low and Locked. Fall Precautions: Yellow Socks Yellow Gown Door Sign Patient Fall Education Addendum: 09/04/20 at 0722 by JOAQUÍN LEYVA RN RN HAND-OFF: Report given to Marci.
--- NOTE | 2020-09-04 07:00 | NUR ---
NURSE NOTES: Received report from KALANI Gu. Patient observed to be asleep with HOB elevated. Currently on room air, no s/sx of SOB/Distress, no c/o any pain or gi/gu discomfort. IV site located on Left forearm gauge 24 asymptomatic, inplace and intact. Patient with bilateral soft wrist restraints. Pulses palpable, good blood flow, and patient able to move extremities within certain range of motion. Bed placed on lowest and locked, call light placed within reach and will continue to monitor for any changes in condition.
--- NOTE | 2020-09-04 07:02 | General Progress Note ---
Subjective Constitutional: Denies: no symptoms, chills, diaphoresis, fever, malaise, weakness, other HEENT: Denies: no symptoms, eye pain, blurred vision, tearing, double vision, ear pain, ear discharge, nose pain, nose congestion, throat pain, throat swelling, mouth pain, mouth swelling, other Cardiovascular: Denies: no symptoms, chest pain, edema, irregular heart rate, lightheadedness, palpitations, syncope, other Respiratory: Denies: no symptoms, cough, orthopnea, shortness of breath, SOB with excertion, SOB at rest, sputum, stridor, wheezing, other Gastrointestinal/Abdominal: Denies: no symptoms, abdomen distended, abdominal pain, black stools, tarry stools, blood in stool, constipated, diarrhea, difficulty swallowing, nausea, poor appetite, poor fluid intake, rectal bleeding, vomiting, other Neurologic/Psychiatric: Denies: no symptoms, anxiety, depressed, emotional problems, headache, numbness, paresthesia, pre-existing deficit, seizure, tingling, tremors, weakness, other Endocrine: Denies: no symptoms, excessive sweating, flushing, intolerance to cold, intolerance to heat, increased hunger, increased thirst, increased urine, unexplained weight gain, unexplained weight loss, other Allergies: Coded Allergies: No Known Allergies (Unverified , 08/24/20) Subjective 08/31 on b/l wrist restraints, psych aware, no bleeding, labs noted 09/01 yelling profanities in room today, neds reviewed, labs noted 09/02 labs reviewed, no bleeding, meds noted 09/03 yelling i want food this am, no bleeding, continue on vanc, heparin sq 09/04 ansious, restless is screaming overnight, cbc labs reordered Objective Last 24 Hour Vital Signs Date Time Temp Pulse Resp B/P (MAP) Pulse Ox O2 Delivery O2 Flow Rate FiO2 09/04/20 06:12 75 19 130/75 96 09/04/20 05:42 75 19 130/75 96 09/04/20 04:00 98.0 71 19 123/75 (91) 96 09/04/20 00:00 98.2 68 17 120/83 (95) 94 09/03/20 21:44 60 18 124/89 97 09/03/20 21:14 73 19 135/94 98 09/03/20 21:00 Room Air 09/03/20 20:00 97.7 73 19 130/94 (106) 98 09/03/20 16:02 97.9 78 19 132/79 (96) 96 09/03/20 11:46 98.0 83 18 127/83 (98) 96 09/03/20 08:20 Room Air 09/03/20 08:00 97.9 86 19 131/89 (103) 96 Intake and Output 09/03/20 09/04/20 19:00 07:00 Intake Total 1542.0003 ml 1530 ml Output Total 1500 ml 1300 ml Balance 42.0003 ml 230 ml Intake Oral 780 ml IV Total 1042.0003 ml 750 ml Other 500 ml Output Urine Total 1500 ml 1300 ml # Voids 1 Laboratory Tests 09/03/20 11:20: POC Whole Blood Glucose 87 09/03/20 15:20: Vancomycin Level Trough 9.7 Height (Feet): 6 Height (Inches): 0.00 Weight (Pounds): 151 Objective General Appearance: confused EENT: PERRL/EOMI Neck: supple Cardiovascular: regular rhythm Respiratory/Chest: normal breath sounds Abdomen: non tender, soft Extremities: non-tender Assessment/Plan Status: stable Assessment/Plan: Assessment/Plan Status: stable Assessment/Plan: failure of thrive non healing ulcer==>abx malnutrition depression dc plan to snf with po abx wound care placement labs reviewed heparin sq ppx Ricardo Mills MD Sep 04, 2020 07:02
[2020-09-04 08:00] VITALS: BP 148/92
[2020-09-04] MEDS: D5NS 1,000 ML IV SCH ×2 (09:04→21:29)
[2020-09-04] MEDS: Acetaminophen 500mg (ES) tab ORAL SCH ×2 (09:05→17:00)
[2020-09-04] MEDS: Docusate 100mg cap ORAL SCH (09:05)
[2020-09-04] MEDS: metFORMIN 500mg tab ORAL SCH (09:05)
[2020-09-04] MEDS: Aspirin Baby 81mg ORAL SCH (09:05)
[2020-09-04] MEDS: Hydrocortisone 1% Cr TOPIC SCH ×2 (09:06→21:32)
[2020-09-04] MEDS: Heparin 5000 units/ml inj SUBQ SCH ×2 (09:06→21:25)
--- NOTE | 2020-09-04 09:21 | NUR ---
*-*DISCHARGE PLANNING*-* PATIENT HAS BEEN REFERRED BACK TO: [facility] P: [phone]/ [phone] S/W DENIA, WHO STATED WILL FIND PLACEMENT FOR THIS PATIENT.
--- NOTE | 2020-09-04 09:52 | General Progress Note ---
Subjective ROS Limited/Unobtainable: No Allergies: Coded Allergies: No Known Allergies (Unverified , 08/24/20) Objective Last 24 Hour Vital Signs Date Time Temp Pulse Resp B/P (MAP) Pulse Ox O2 Delivery O2 Flow Rate FiO2 09/04/20 06:12 75 19 130/75 96 09/04/20 05:42 75 19 130/75 96 09/04/20 04:00 98.0 71 19 123/75 (91) 96 09/04/20 00:00 98.2 68 17 120/83 (95) 94 09/03/20 21:44 60 18 124/89 97 09/03/20 21:14 73 19 135/94 98 09/03/20 21:00 Room Air 09/03/20 20:00 97.7 73 19 130/94 (106) 98 09/03/20 16:02 97.9 78 19 132/79 (96) 96 09/03/20 11:46 98.0 83 18 127/83 (98) 96 Intake and Output 09/03/20 09/04/20 19:00 07:00 Intake Total 1542.0003 ml 1530 ml Output Total 1500 ml 1300 ml Balance 42.0003 ml 230 ml Intake Oral 780 ml IV Total 1042.0003 ml 750 ml Other 500 ml Output Urine Total 1500 ml 1300 ml # Voids 1 Laboratory Tests 09/03/20 11:20: POC Whole Blood Glucose 87 09/03/20 15:20: Vancomycin Level Trough 9.7 Height (Feet): 6 Height (Inches): 0.00 Weight (Pounds): 151 General Appearance: no apparent distress EENT: normal ENT inspection Neck: supple Cardiovascular: normal rate Respiratory/Chest: decreased breath sounds Abdomen: normal bowel sounds, non tender, soft Extremities: non-tender Assessment/Plan Problem List: (1) Leukocytosis ICD Codes: D72.829 - Elevated white blood cell count, unspecified SNOMED: 141189800, 298177333 (2) Abnormal LFTs ICD Codes: R94.5 - Abnormal results of liver function studies SNOMED: 827328906 (3) Acute encephalopathy ICD Codes: G93.40 - Encephalopathy, unspecified SNOMED: 98634814, 599938715 (4) Cellulitis of left toe ICD Codes: L03.032 - Cellulitis of left toe SNOMED: 98746533 (5) Rhabdomyolysis ICD Codes: M62.82 - Rhabdomyolysis SNOMED: 815251356 Qualifiers: Qualified Codes: M62.82 - Rhabdomyolysis (6) Anemia ICD Codes: D64.9 - Anemia, unspecified SNOMED: 775519120 (7) DM (diabetes mellitus) ICD Codes: E11.9 - Type 2 diabetes mellitus without complications SNOMED: 50990844 (8) HTN (hypertension) ICD Codes: I10 - Essential (primary) hypertension SNOMED: 60217167 Status: stable Assessment/Plan: elevated LFTS possibly due to statins>>> off now>>> improving LFTS>>> will repeat in am abd us>>> fatty liver hepatitis panel>>> neg repeat labs speech eval appreciated will change diet to mechanical soft will Mohamud Spaulding MD Sep 04, 2020 09:52
--- NOTE | 2020-09-04 11:51 | NUR ---
RD ASSESSMENT & RECOMMENDATIONS SEE CARE ACTIVITY FOR COMPLETE ASSESSMENT DAILY ESTIMATED NEEDS: Needs based on DM, cardiac/ 70kg 25-30 kcals/kg 7069-7996 total kcals 1-1.3 g protein/kg 70-91 g total protein 25-30 mL/kg 6620-4096 total fluid mLs NUTRITION DIAGNOSIS: Swallowing difficulty R/T dysphagia, h/o CVA as evidenced by pt on pureed moist texture diet w/ NTL-> now advanced to mech soft chopped w/ NTL. CURRENT DIET:REGULAR, mech soft chopped w/ NTL PO DIET RECOMMENDATIONS: LOW NA + CCHO MED/ texture per [employer] MECH[employer] APPRENTICE ADDITIONAL RECOMMENDATIONS: * Standing wt for accurate CBW or calibrated bedscale wt * F/up w/ calorie count x 72 hrs (08/25-08/28)- good intake of all meals * Skin integrity: Add MVI x 1 * Glucerna BID * Monitor for continued good po intake
[2020-09-04 12:00] VITALS: BP 132/70
--- NOTE | 2020-09-04 13:36 | Surgery Progress Note ---
Surgery Progress Note Subjective Additional Comments no acute events comfortable stable tolerating diet no n/v Objective Last 24 Hour Vital Signs Date Time Temp Pulse Resp B/P (MAP) Pulse Ox O2 Delivery O2 Flow Rate FiO2 09/04/20 09:00 Room Air 09/04/20 08:00 97.7 19 148/92 (110) 99 09/04/20 06:12 75 19 130/75 96 09/04/20 05:42 75 19 130/75 96 09/04/20 04:00 98.0 71 19 123/75 (91) 96 09/04/20 00:00 98.2 68 17 120/83 (95) 94 09/03/20 21:44 60 18 124/89 97 09/03/20 21:14 73 19 135/94 98 09/03/20 21:00 Room Air 09/03/20 20:00 97.7 73 19 130/94 (106) 98 09/03/20 16:02 97.9 78 19 132/79 (96) 96 I&O Intake and Output 09/03/20 09/04/20 19:00 07:00 Intake Total 1542.0003 ml 1530 ml Output Total 1500 ml 1300 ml Balance 42.0003 ml 230 ml Intake Oral 780 ml IV Total 1042.0003 ml 750 ml Other 500 ml Output Urine Total 1500 ml 1300 ml # Voids 1 Dressing: dry Wound: clean Cardiovascular: RSR Respiratory: clear Abdomen: soft, non-tender, present bowel sounds Extremities: no edema, no tenderness, no cyanosis Laboratory Tests Test 09/03/20 15:20 Vancomycin Level Trough 9.7 ug/mL (5.0-12.0) Plan Problems: (1) Rhabdomyolysis (2) Cellulitis of left foot Assessment & Plan: Bilaterally, grayscale and duplex images demonstrate atherosclerotic plaquing. Bilaterally, triphasic waveforms with sharp systolic peaks are seen from the common femoral to the popliteal artery levels. On the right, dorsalis pedis artery waveforms is borderline triphasic. Proximal posterior and anterior tibial artery waveforms are triphasic, and the distal posterior tibial artery waveform is triphasic. On the left, the posterior tibial artery waveform is monophasic with increased diastolic flow. The peroneal artery waveforms is monophasic with increased diastolic flow. The dorsalis pedis artery waveforms is monophasic with increased diastolic flow. Systolic peaks remain sharp in the tibial vessels. 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 No evidence of suprageniculate stenosis Minimal if any trifurcation disease on the right. No evidence of suprageniculate stenosis (3) Cellulitis of left toe (4) Acute encephalopathy Assessment & Plan: Brain: There is chronic small vessel ischemic disease. 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 There are old lacunar infarcts in the right centrum semi-ovale. There is age-related cerebral volume loss. No hemorrhage. Ventricles: Unremarkable. No ventriculomegaly. Bones/joints: Unremarkable. No acute fracture. Soft tissues: Unremarkable. Sinuses: Unremarkable as visualized. No acute sinusitis. Mastoid air cells: Unremarkable as visualized. No mastoid effusion. IMPRESSION: 1. 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 2. Old lacunar infarcts in the right centrum semi-ovale. 3. Age-related cerebral volume loss. Chronic small vessel ischemic disease. (5) Abnormal LFTs Assessment & Plan: 60-year-old male altered mental status agitated came in for evaluation identified to have a WBC of 12 and abnormal LFTs. Admitted further care and management. Abdominal exam is fairly benign soft nontender nondistended. Pending abdominal ultrasound Trend labs We will follow with recommendations as imaging and labs are available. (6) Leukocytosis Assessment & Plan: Patient with leukocytosis on admission. Abnormal LFTs. Etiology of leukocytosis unknown. Micro noted. On antibiotics. Imaging ordered. Will follow with recommendations as imaging information is available. No abscess or or visible sign of infection identified. Small eschar on toe and had mild erythema of foot but not very clinically significant. Clay Gonzalez Sep 04, 2020 13:36
[2020-09-04 16:00] VITALS: BP 114/71
--- NOTE | 2020-09-04 16:22 | NUR ---
CASE MANAGEMENT:REVIEW SI;RHABDOMYOLYSIS. LT FOOT CELLULITIS. AC ENCEPHALOPATHY. 98.2 75 19 148/92 96% ON RA IS;VANCOMYCIN IV Q8 ATIVAN PO Q8 ASA PO QD HEPARIN SUBQ Q12 HALDOL IM Q6 PRN IVF D5NS @ 75 ML/HR MED SURG STATUS DCP;FROM [facility] UNABLE TO READMIT PATIENT PATIENT [facility] ACTIVELY SEEKING SNF PLACEMENT
--- NOTE | 2020-09-04 17:45 | NUR ---
CHARGE NURSE NOTE: Spoke with . He asked to call (vascular) - to remind him to see the patient. was called, message left. notified.
--- NOTE | 2020-09-04 19:19 | NUR ---
NURSE HAND-OFF: Important Events on Shift:ATB TX Patient Status: stable Diet: mechanical soft, nectar thick Pending Orders: n/a Pending Results/Labs:n/a Pending MD notification:n/a Latest Vital Signs: Temperature 97.5 , Pulse 68 , B/P 114 /71 , Respiratory Rate 20 , O2 SAT 98 , Room Air, O2 Flow Rate . Vital Sign Comment: stable Latest Mayberry Fall Score: 95 Fall Risk: High Risk Safety Measures: Call light Within Reach, Bed Alarm Zone 2, Side Rails Side Rails x3, Bed position Low and Locked. Fall Precautions: Yellow Socks Yellow Gown Door Sign Patient Fall Education Report given to KALANI Gu.
--- NOTE | 2020-09-04 19:30 | Consultation ---
DATE OF CONSULTATION: 09/02/2020 CONSULTING PHYSICIAN: Carter Noel DPM REFERRING PHYSICIAN: Beny Childress MD. REASON FOR CONSULTATION: Necrotic tissue ulceration to the left hallux. Patient was seen by bedside in no apparent distress. Patient is confused. Unable to recall history. Patient was admitted for general weakness and acute encephalopathy. PAST MEDICAL HISTORY: Per Dr. Childress, diabetes, hypertension, anemia, diabetic foot ulcer, peripheral vascular disease, and cellulitis of the left foot. PODIATRY EXAMINATION: VASCULAR: Dorsalis pedis and posterior tibial artery are nonpalpable. Capillary filling time is greater than seconds. Ischemic changes noted to skin to the left foot dorsum aspect of toes 2, 3, 4. No edema or erythema is identified. NEUROLOGICAL EXAMINATION: Cannot be assessed due to patient's condition. MUSCULOSKELETAL EXAMINATION: Cannot fully be examined due to patient's bed-bound condition. Patient does move his feet, but cannot recall or follow commands for range of motion and muscle strength. DERMATOLOGICAL EXAMINATION: Attention was directed to the left foot. The black eschar necrotic tissue was identified to medial aspect of the left hallux, dry. No drainage, discharge, or purulent matter. No pus was identified. No erythema. No opening or probing or undermining was identified. Pretty much dry consistent with ischemic skin changes. There are multiple dorsal lesions of the second, third, and fourth toes and proximal aspect of of the metatarsophalangeal joints consistent with ischemic skin changes. ASSESSMENT AND PLAN: Diabetic patient with an ulceration to the left foot, probably secondary to ischemia. Order was written for application of Betadine to the area and also order was given for vascular consultation. Patient will be followed. Carter Noel D.P.M DR: MARIA E JOB#: [id number] CC:
--- NOTE | 2020-09-04 19:33 | NUR ---
NURSE NOTES: Received report from KALANI Covarrubias. AAO x 2, on room air. Pt has anxiety, restless, screaming, and yelling. Anders. soft writ restraints in place, L hand swollen noted. Condom cath intact. IV site intact and running IVF. Pt moving a lot, fall risk & SZ precaution maintained. Bed locked, lowest, alarm on, side rails up, side rails padded, call light within reach. Will continue to monitor.
[2020-09-04 20:00] VITALS: BP 141/81
[2020-09-04] MEDS: Vancomycin 750mg/NS 275ml IVPB SCH ×2 (21:29)
[2020-09-05] VITALS: BP 141/76
--- NOTE | 2020-09-05 00:20 | Psych Consult Progress Note ---
Psychiatry Progress Note Psychiatry Progress Note Subjective 09/03/20 the pt is more manageable and less agitated received a cocktail Medications Current Medications Medications (Trade) Dose Ordered Sig/Jesu Route PRN Reason Start Time Stop Time Status Last Admin Dose Admin Acetaminophen (Tylenol) 650 mg Q4H PRN RECTAL Temp >100.5 08/24/20 06:30 09/23/20 06:29 Acetaminophen (Tylenol) 1,000 mg BID ORAL 08/24/20 09:00 09/23/20 08:59 09/04/20 17:00 Aspirin (ASA) 81 mg DAILY ORAL 08/24/20 09:00 10/08/20 08:59 09/04/20 09:05 Bisacodyl (Dulcolax) 10 mg DAILY PRN RECTAL Constipation 08/24/20 06:15 11/22/20 06:14 Dextrose (Dextrose 50%) 25 ml Q30M PRN IV Hypoglycemia 08/24/20 06:30 11/22/20 06:29 Dextrose (Dextrose 50%) 50 ml Q30M PRN IV Hypoglycemia 08/24/20 06:30 11/22/20 06:29 Dextrose/Sodium Chloride 1,000 ml @ 75 mls/hr [id number] IV 08/24/20 07:00 09/23/20 06:59 09/04/20 21:29 Diphenhydramine HCl (Benadryl) 25 mg BIDPRN PRN ORAL Itching 08/24/20 15:15 09/23/20 15:14 09/04/20 21:57 Docusate Sodium (Colace) 100 mg DAILY ORAL 08/24/20 09:00 09/23/20 08:59 09/04/20 09:05 Haloperidol Lactate (Haldol) 5 mg Q6H PRN IM Agitation 08/24/20 07:00 10/08/20 06:59 09/04/20 00:53 Heparin Sodium (Porcine) (Heparin 5000 units/ml) 5,000 units EVERY 12 HOURS SUBQ 08/24/20 09:00 10/08/20 08:59 09/04/20 21:25 Hydrocortisone (Hydrocortisone) 1 applic Q12HR TOPIC 08/24/20 21:00 11/22/20 20:59 09/04/20 21:32 Hyoscyamine Sulfate (Levsin) 0.125 mg Q4H PRN ORAL secretions 08/24/20 06:15 09/23/20 06:14 Insulin Aspart (NovoLOG) BEFORE MEALS AND HS SUBQ 08/24/20 06:30 11/22/20 06:29 09/01/20 05:03 Lorazepam (Ativan) 1 mg EVERY 8 HOURS ORAL 09/03/20 06:00 09/10/20 05:59 09/04/20 21:24 Metformin HCl (Glucophage) 500 mg DAILY ORAL 08/24/20 09:00 09/23/20 08:59 09/04/20 09:05 Quetiapine Fumarate (SEROqueL) 100 mg EVERY 8 HOURS ORAL 08/30/20 22:00 10/13/20 05:59 09/04/20 21:22 Vancomycin HCl (Vanco pharmacy to dose) 1 ea DAILY PRN MISC Per rx protocol 08/24/20 10:45 09/23/20 10:44 Vancomycin HCl 750 mg/Sodium Chloride 275 ml @ 183.333 mls/hr Q8HR IVPB 09/04/20 22:00 09/09/20 21:59 09/04/20 21:29 Neurological/Psychiatric: Denies: no symptoms, anxiety, depressed, emotional problems, headache, numbness, paresthesia, pre-existing deficit, seizure, tingling, tremors, weakness, other Allergies: Coded Allergies: No Known Allergies (Unverified , 08/24/20) Objective Data Height (Feet): 6 Height (Inches): 0.00 Weight (Pounds): 151 General Appearance: no apparent distress Behavior Mannerisms: poor eye contact Mental Status Exam - Affect: flat Additional Comments: alert, oriented x0. Mood is agitated. Affect is blunted, congruent with mood. Thought process is concrete. Thought content, no suicidal or homicidal ideation. Cognition is impaired. Insight and judgment is impaired. Assessment/Plan [place] I: ASSESSMENT: [place] I Psychotic disorder, not otherwise specified. [place] II Deferred. [place] III CVA. [place] IV Low. [place] V 20. PLAN: 1. We will start the patient on Seroquel. 2. Ativan. 3. Discontinue all other psychotropic medication. 4. Patient lacks capacity to make decision. Status: stable Status Narrative ASSESSMENT: [place] I Psychotic disorder, not otherwise specified. [place] II Deferred. [place] III CVA. [place] IV Low. [place] V 20. PLAN: 1. We will start the patient on Seroquel. 2. Ativan. 3. Discontinue all other psychotropic medication. 4. Patient lacks capacity to make decision. Assessment/Plan: ASSESSMENT: [place] I Psychotic disorder, not otherwise specified. [place] II Deferred. [place] III CVA. [place] IV Low. [place] V 20. PLAN: 1. We will start the patient on Seroquel. 2. Ativan. 3. Discontinue all other psychotropic medication. 4. Patient lacks capacity to make decision. Nima Degroot MD Sep 05, 2020 00:20
--- NOTE | 2020-09-05 00:21 | Psych Consult Progress Note ---
Psychiatry Progress Note Psychiatry Progress Note Subjective 09/04 the pt was calmer still on bilat SR has agitation Medications Current Medications Medications (Trade) Dose Ordered Sig/Jesu Route PRN Reason Start Time Stop Time Status Last Admin Dose Admin Acetaminophen (Tylenol) 650 mg Q4H PRN RECTAL Temp >100.5 08/24/20 06:30 09/23/20 06:29 Acetaminophen (Tylenol) 1,000 mg BID ORAL 08/24/20 09:00 09/23/20 08:59 09/04/20 17:00 Aspirin (ASA) 81 mg DAILY ORAL 08/24/20 09:00 10/08/20 08:59 09/04/20 09:05 Bisacodyl (Dulcolax) 10 mg DAILY PRN RECTAL Constipation 08/24/20 06:15 11/22/20 06:14 Dextrose (Dextrose 50%) 25 ml Q30M PRN IV Hypoglycemia 08/24/20 06:30 11/22/20 06:29 Dextrose (Dextrose 50%) 50 ml Q30M PRN IV Hypoglycemia 08/24/20 06:30 11/22/20 06:29 Dextrose/Sodium Chloride 1,000 ml @ 75 mls/hr [id number] IV 08/24/20 07:00 09/23/20 06:59 09/04/20 21:29 Diphenhydramine HCl (Benadryl) 25 mg BIDPRN PRN ORAL Itching 08/24/20 15:15 09/23/20 15:14 09/04/20 21:57 Docusate Sodium (Colace) 100 mg DAILY ORAL 08/24/20 09:00 09/23/20 08:59 09/04/20 09:05 Haloperidol Lactate (Haldol) 5 mg Q6H PRN IM Agitation 08/24/20 07:00 10/08/20 06:59 09/04/20 00:53 Heparin Sodium (Porcine) (Heparin 5000 units/ml) 5,000 units EVERY 12 HOURS SUBQ 08/24/20 09:00 10/08/20 08:59 09/04/20 21:25 Hydrocortisone (Hydrocortisone) 1 applic Q12HR TOPIC 08/24/20 21:00 11/22/20 20:59 09/04/20 21:32 Hyoscyamine Sulfate (Levsin) 0.125 mg Q4H PRN ORAL secretions 08/24/20 06:15 09/23/20 06:14 Insulin Aspart (NovoLOG) BEFORE MEALS AND HS SUBQ 08/24/20 06:30 11/22/20 06:29 09/01/20 05:03 Lorazepam (Ativan) 1 mg EVERY 8 HOURS ORAL 09/03/20 06:00 09/10/20 05:59 09/04/20 21:24 Metformin HCl (Glucophage) 500 mg DAILY ORAL 08/24/20 09:00 09/23/20 08:59 09/04/20 09:05 Quetiapine Fumarate (SEROqueL) 100 mg EVERY 8 HOURS ORAL 08/30/20 22:00 10/13/20 05:59 09/04/20 21:22 Vancomycin HCl (Vanco pharmacy to dose) 1 ea DAILY PRN MISC Per rx protocol 08/24/20 10:45 09/23/20 10:44 Vancomycin HCl 750 mg/Sodium Chloride 275 ml @ 183.333 mls/hr Q8HR IVPB 09/04/20 22:00 09/09/20 21:59 09/04/20 21:29 Neurological/Psychiatric: Denies: no symptoms, anxiety, depressed, emotional problems, headache, numbness, paresthesia, pre-existing deficit, seizure, tingling, tremors, weakness, other Allergies: Coded Allergies: No Known Allergies (Unverified , 08/24/20) Objective Data Height (Feet): 6 Height (Inches): 0.00 Weight (Pounds): 151 General Appearance: no apparent distress Behavior Mannerisms: poor eye contact Mental Status Exam - Affect: flat Additional Comments: alert, oriented x0. Mood is agitated. Affect is blunted, congruent with mood. Thought process is concrete. Thought content, no suicidal or homicidal ideation. Cognition is impaired. Insight and judgment is impaired. Assessment/Plan [place] I: ASSESSMENT: [place] I Psychotic disorder, not otherwise specified. [place] II Deferred. [place] III CVA. [place] IV Low. [place] V 20. PLAN: 1. We will start the patient on Seroquel. 2. Ativan. 3. Discontinue all other psychotropic medication. 4. Patient lacks capacity to make decision. Status: stable Status Narrative ASSESSMENT: [place] I Psychotic disorder, not otherwise specified. [place] II Deferred. [place] III CVA. [place] IV Low. [place] V 20. PLAN: 1. We will start the patient on Seroquel. 2. Ativan. 3. Discontinue all other psychotropic medication. 4. Patient lacks capacity to make decision. Assessment/Plan: ASSESSMENT: [place] I Psychotic disorder, not otherwise specified. [place] II Deferred. [place] III CVA. [place] IV Low. [place] V 20. PLAN: 1. We will start the patient on Seroquel. 2. Ativan. 3. Discontinue all other psychotropic medication. 4. Patient lacks capacity to make decision. Nima Degroot MD Sep 05, 2020 00:21
[2020-09-05] MEDS: Haloperidol 5mg/ml Inj IM PRN (00:33)
[2020-09-05 04:32] VITALS: BP 134/86
[2020-09-05] MEDS: LORazepam 1mg tab ORAL SCH ×3 (05:09→21:28)
[2020-09-05] MEDS: Vancomycin 750mg/NS 275ml IVPB SCH ×6 (05:09→22:52)
[2020-09-05] MEDS: NovoLOG Insulin Flexpen SUBQ SCH ×4 (05:38→21:00)
--- NOTE | 2020-09-05 05:40 | NUR ---
NURSE NOTES: Refused AM labs and education given. Unable to understanding. Refused x 3
--- NOTE | 2020-09-05 06:45 | General Progress Note ---
Subjective ROS Limited/Unobtainable: No Allergies: Coded Allergies: No Known Allergies (Unverified , 08/24/20) Objective Last 24 Hour Vital Signs Date Time Temp Pulse Resp B/P (MAP) Pulse Ox O2 Delivery O2 Flow Rate FiO2 09/05/20 05:39 60 18 135/85 95 09/05/20 05:09 65 18 140/90 95 09/05/20 04:32 98.1 58 18 134/86 (102) 96 09/05/20 00:00 97.8 68 20 141/76 (97) 97 09/04/20 21:54 75 20 138/75 97 09/04/20 21:24 66 17 139/81 97 09/04/20 21:00 Room Air 09/04/20 20:00 97.4 70 20 141/81 (101) 97 09/04/20 16:00 97.5 68 20 114/71 (85) 98 09/04/20 14:19 69 19 132/70 98 09/04/20 13:49 69 19 132/70 98 09/04/20 12:00 98.2 69 19 132/70 (90) 98 09/04/20 09:00 Room Air 09/04/20 08:00 97.7 19 148/92 (110) 99 Intake and Output 09/04/20 09/05/20 19:00 07:00 Intake Total 840 ml 1400 ml Output Total 2200 ml 1000 ml Balance -1360 ml 400 ml Intake Oral 840 ml 1400 ml Output Urine Total 2200 ml 1000 ml # Voids 1 # Bowel Movements 1 Laboratory Tests 09/04/20 16:10: Vancomycin Level Trough 17.4H Height (Feet): 6 Height (Inches): 0.00 Weight (Pounds): 151 General Appearance: no apparent distress EENT: normal ENT inspection Neck: supple Cardiovascular: normal rate Respiratory/Chest: decreased breath sounds Abdomen: normal bowel sounds, non tender, soft Extremities: non-tender Assessment/Plan Problem List: (1) Leukocytosis ICD Codes: D72.829 - Elevated white blood cell count, unspecified SNOMED: 400802071, 519008240 (2) Abnormal LFTs ICD Codes: R94.5 - Abnormal results of liver function studies SNOMED: 697867355 (3) Acute encephalopathy ICD Codes: G93.40 - Encephalopathy, unspecified SNOMED: 24038860, 300532858 (4) Cellulitis of left toe ICD Codes: L03.032 - Cellulitis of left toe SNOMED: 10729651 (5) Rhabdomyolysis ICD Codes: M62.82 - Rhabdomyolysis SNOMED: 454619016 Qualifiers: Qualified Codes: M62.82 - Rhabdomyolysis (6) Anemia ICD Codes: D64.9 - Anemia, unspecified SNOMED: 372242508 (7) DM (diabetes mellitus) ICD Codes: E11.9 - Type 2 diabetes mellitus without complications SNOMED: 17877448 (8) HTN (hypertension) ICD Codes: I10 - Essential (primary) hypertension SNOMED: 66816176 Status: stable Assessment/Plan: elevated LFTS possibly due to statins>>> off now>>> improving LFTS>>> will repeat in am abd us>>> fatty liver hepatitis panel>>> neg repeat labs speech eval appreciated will change diet to mechanical soft patient is combative and refuses care fu psych recs will fu Mohamud Foy MD Sep 05, 2020 06:45
--- NOTE | 2020-09-05 06:52 | NUR ---
NURSE HAND-OFF: Important Events on Shift:combative, restless, yelling, restraints care, refused am labs Patient Status: Diet: reg. mech soft chopped Pending Orders: N Pending Results/Labs:N Pending MD notification:N Latest Vital Signs: Temperature 98.1 , Pulse 60 , B/P 135 /85 , Respiratory Rate 18 , O2 SAT 95 , Room Air, O2 Flow Rate . Vital Sign Comment: [] Latest [place] Fall Score: 95 Fall Risk: High Risk Safety Measures: Call light Within Reach, Bed Alarm Zone 2, Side Rails Side Rails x3, Bed position Low and Locked. Fall Precautions: Yellow Socks Yellow Gown Door Sign Patient Fall Education Addendum: 09/05/20 at 0725 by JOAQUÍN LEYVA RN RN HAND-OFF: Report given to Marci.
--- NOTE | 2020-09-05 06:54 | General Progress Note ---
Subjective Gastrointestinal/Abdominal: Denies: no symptoms, abdomen distended, abdominal pain, black stools, tarry stools, blood in stool, constipated, diarrhea, difficulty swallowing, nausea, poor appetite, poor fluid intake, rectal bleeding, vomiting, other Genitourinary: Denies: no symptoms, burning, discharge, frequency, flank pain, hematuria, incontinence, pain, urgency, other Neurologic/Psychiatric: Denies: no symptoms, anxiety, depressed, emotional problems, headache, numbness, paresthesia, pre-existing deficit, seizure, tingling, tremors, weakness, other Endocrine: Denies: no symptoms, excessive sweating, flushing, intolerance to cold, intolerance to heat, increased hunger, increased thirst, increased urine, unexplained weight gain, unexplained weight loss, other Hematologic/Lymphatic: Denies: no symptoms, anemia, easy bleeding, easy bruising, other Allergies: Coded Allergies: No Known Allergies (Unverified , 08/24/20) Subjective 08/31 on b/l wrist restraints, psych aware, no bleeding, labs noted 09/01 yelling profanities in room today, neds reviewed, labs noted 09/02 labs reviewed, no bleeding, meds noted 09/03 yelling i want food this am, no bleeding, continue on vanc, heparin sq 09/04 ansious, restless is screaming overnight, cbc labs reordered 09/05 continues to refuse care, agitated this am Objective Last 24 Hour Vital Signs Date Time Temp Pulse Resp B/P (MAP) Pulse Ox O2 Delivery O2 Flow Rate FiO2 09/05/20 05:39 60 18 135/85 95 09/05/20 05:09 65 18 140/90 95 09/05/20 04:32 98.1 58 18 134/86 (102) 96 09/05/20 00:00 97.8 68 20 141/76 (97) 97 09/04/20 21:54 75 20 138/75 97 09/04/20 21:24 66 17 139/81 97 09/04/20 21:00 Room Air 09/04/20 20:00 97.4 70 20 141/81 (101) 97 09/04/20 16:00 97.5 68 20 114/71 (85) 98 09/04/20 14:19 69 19 132/70 98 09/04/20 13:49 69 19 132/70 98 10/12/20 12:00 98.2 69 19 132/70 (90) 98 09/04/20 09:00 Room Air 09/04/20 08:00 97.7 19 148/92 (110) 99 Intake and Output 09/04/20 09/05/20 19:00 07:00 Intake Total 840 ml 1400 ml Output Total 2200 ml 1000 ml Balance -1360 ml 400 ml Intake Oral 840 ml 1400 ml Output Urine Total 2200 ml 1000 ml # Voids 1 # Bowel Movements 1 Laboratory Tests 09/04/20 16:10: Vancomycin Level Trough 17.4H Height (Feet): 6 Height (Inches): 0.00 Weight (Pounds): 151 Objective General Appearance: confused EENT: PERRL/EOMI Neck: supple Cardiovascular: regular rhythm Respiratory/Chest: normal breath sounds Abdomen: non tender, soft Extremities: non-tender Assessment/Plan Status: stable Assessment/Plan: Status: stable Assessment/Plan: failure of thrive non healing ulcer==>abx (vanc) malnutrition depression dc plan to snf with po abx wound care placement labs reviewed heparin sq ppx for cta ordered, patient unable to sign consent and has no next of kin, needs procedure urgently Ricardo Mills MD Sep 05, 2020 06:54
--- NOTE | 2020-09-05 07:32 | NUR ---
NURSE NOTES: Received report from KALANI Gu. Patient observed to be sleeping, currently on room air. No s/sx of SOB/Distress or discomfort. Patient IV site located on left forearm gauge 24 running D5NS @75 asymptomatic, inplace and intact. Patient with bilateral soft wrist restraints, pulses palpable, good blood flow and able to move extremities within certain range odf Addendum: 09/05/20 at 0738 by Marci Victoria RN Received report from KALANI Gu. Patient observed to be sleeping, currently on room air. No s/sx of SOB/Distress or discomfort. Patient IV site located on left forearm gauge 24 running D5NS @75 asymptomatic, inplace and intact. Patient with bilateral soft wrist restraints, pulses palpable, good blood flow and able to move extremities within certain range of motion. Bed placed on lowest and locked, call light placed within reach and will continue to monitor accordingly.
[2020-09-05 08:00] VITALS: BP 145/76
[2020-09-05] MEDS: metFORMIN 500mg tab ORAL SCH (08:35)
[2020-09-05] MEDS: Hydrocortisone 1% Cr TOPIC SCH ×2 (08:35→21:00)
[2020-09-05] MEDS: Aspirin Baby 81mg ORAL SCH (08:35)
[2020-09-05] MEDS: Docusate 100mg cap ORAL SCH (08:35)
[2020-09-05] MEDS: Acetaminophen 500mg (ES) tab ORAL SCH ×2 (08:36→17:25)
[2020-09-05] MEDS: Heparin 5000 units/ml inj SUBQ SCH ×2 (08:37→21:30)
[2020-09-05 09:02] LABS: EOSINOPHILS % (AUTO) 3.4 % (0.0-3.0); HEMATOCRIT 36.2 % (42.0-52.0); HEMOGLOBIN 12.6 G/DL (14.2-18.0); LYMPHOCYTES % (AUTO) 19.7 % (20.0-45.0); MEAN CORPUSCULAR VOLUME 88 FL (80-99); MONOCYTES % (AUTO) 7.5 % (1.0-10.0); NEUTROPHILS % (AUTO) 66.5 % (45.0-75.0); PLATELET COUNT 299 K/UL (150-450); RED BLOOD COUNT 4.13 M/UL (4.70-6.10); RED CELL DISTRIBUTION WIDTH 13.8 % (11.6-14.8); WHITE BLOOD COUNT 9.4 K/UL (4.8-10.8)
--- NOTE | 2020-09-05 09:25 | General Progress Note ---
Progress Note Progress Note Patient seen and examined earlier Psychosis++--screaming foul language at staff Poor historian Hx of CVA left hemiparesis Left foot toe wound necrosis + femorals with absent pop pedal pulses Feet wam Duplex noted Ischemic left foot toe necrosis with severe multilevel occlusive PAD with absent foot pulses Rec Psych and medical optimization in progress Patient will need left leg angiogram for revascularization once cleared and consented Podiatry foot wound care f/u Antiplatelet and statin DVT and decub precautions Amish Rollins MD Sep 05, 2020 09:25
[2020-09-05 09:30] LABS: ALANINE AMINOTRANSFERASE 135 U/L (12-78); ALBUMIN 2.6 G/DL (3.4-5.0); ALBUMIN/GLOBULIN RATIO 0.8 (1.0-2.7); ALKALINE PHOSPHATASE 118 U/L (46-116); ANION GAP 8 mmol/L (5-15); ASPARTATE AMINO TRANSFERASE 48 U/L (15-37); BILIRUBIN,TOTAL 0.4 MG/DL (0.2-1.0); BLOOD UREA NITROGEN 8 mg/dL (7-18); CALCIUM 8.5 MG/DL (8.5-10.1); CARBON DIOXIDE 28 MMOL/L (21-32); CHLORIDE 106 MMOL/L (98-107); CREATININE 0.8 MG/DL (0.55-1.30); POTASSIUM 3.8 MMOL/L (3.5-5.1); SODIUM 141 MMOL/L (136-145)
[2020-09-05] MEDS ORDERED: LORazepam Inj 2mg/ml 1ml IV ONE (09:45)
--- NOTE | 2020-09-05 10:10 | NUR ---
CHARGE NURSE NOTE: ordered CTA abd with contrast. Pt does not capacity to sign a consent for contrast. Pt does not have a family. notified, that he should put a note regarding the necessity of procedure.
--- NOTE | 2020-09-05 10:54 | Surgery Progress Note ---
Surgery Progress Note Subjective Additional Comments vascular input appreciated no nv comfortable tolerating diet no complaints Objective Last 24 Hour Vital Signs Date Time Temp Pulse Resp B/P (MAP) Pulse Ox O2 Delivery O2 Flow Rate FiO2 09/05/20 09:00 Room Air 09/05/20 08:00 97.9 68 19 145/76 (99) 98 09/05/20 05:39 60 18 135/85 95 09/05/20 05:09 65 18 140/90 95 09/05/20 04:32 98.1 58 18 134/86 (102) 96 09/05/20 00:00 97.8 68 20 141/76 (97) 97 09/04/20 21:54 75 20 138/75 97 09/04/20 21:24 66 17 139/81 97 09/04/20 21:00 Room Air 09/04/20 20:00 97.4 70 20 141/81 (101) 97 09/04/20 16:00 97.5 68 20 114/71 (85) 98 09/04/20 14:19 69 19 132/70 98 09/04/20 13:49 69 19 132/70 98 09/04/20 12:00 98.2 69 19 132/70 (90) 98 I&O Intake and Output 09/04/20 09/05/20 19:00 07:00 Intake Total 840 ml 1400 ml Output Total 2200 ml 1000 ml Balance -1360 ml 400 ml Intake Oral 840 ml 1400 ml Output Urine Total 2200 ml 1000 ml # Voids 1 # Bowel Movements 1 Dressing: dry Wound: clean Cardiovascular: RSR Respiratory: clear Abdomen: soft, non-tender, present bowel sounds Extremities: cyanosis, no edema, no tenderness Laboratory Tests Test 09/04/20 16:10 09/05/20 08:20 Vancomycin Level Trough 17.4 ug/mL (5.0-12.0) H White Blood Count 9.4 K/UL (4.8-10.8) Red Blood Count 4.13 M/UL (4.70-6.10) L Hemoglobin 12.6 G/DL (14.2-18.0) L Hematocrit 36.2 % (42.0-52.0) L Mean Corpuscular Volume 88 FL (80-99) Mean Corpuscular Hemoglobin 30.4 PG (27.0-31.0) Mean Corpuscular Hemoglobin Concent 34.7 G/DL (32.0-36.0) Red Cell Distribution Width 13.8 % (11.6-14.8) Platelet Count 299 K/UL (150-450) Mean Platelet Volume 5.9 FL (6.5-10.1) L Neutrophils (%) (Auto) 66.5 % (45.0-75.0) Lymphocytes (%) (Auto) 19.7 % (20.0-45.0) L Monocytes (%) (Auto) 7.5 % (1.0-10.0) Eosinophils (%) (Auto) 3.4 % (0.0-3.0) H Basophils (%) (Auto) 3.0 % (0.0-2.0) H Sodium Level 141 MMOL/L (136-145) Potassium Level 3.8 MMOL/L (3.5-5.1) Chloride Level 106 MMOL/L (98-107) Carbon Dioxide Level 28 MMOL/L (21-32) Anion Gap 8 mmol/L (5-15) Blood Urea Nitrogen 8 mg/dL (7-18) Creatinine 0.8 MG/DL (0.55-1.30) Estimat Glomerular Filtration Rate > 60 mL/min (>60) Glucose Level 129 MG/DL (74-106) H Calcium Level 8.5 MG/DL (8.5-10.1) Total Bilirubin 0.4 MG/DL (0.2-1.0) Aspartate Amino Transf (AST/SGOT) 48 U/L (15-37) H Alanine Aminotransferase (ALT/SGPT) 135 U/L (12-78) H Alkaline Phosphatase 118 U/L (46-116) H Total Protein 6.0 G/DL (6.4-8.2) L Albumin 2.6 G/DL (3.4-5.0) L Globulin 3.4 g/dL Albumin/Globulin Ratio 0.8 (1.0-2.7) L Plan Problems: (1) Rhabdomyolysis (2) Cellulitis of left foot Assessment & Plan: Bilaterally, grayscale and duplex images demonstrate atherosclerotic plaquing. Bilaterally, triphasic waveforms with sharp systolic peaks are seen from the common femoral to the popliteal artery levels. On the right, dorsalis pedis artery waveforms is borderline triphasic. Proximal posterior and anterior tibial artery waveforms are triphasic, and the distal posterior tibial artery waveform is triphasic. On the left, the posterior tibial artery waveform is monophasic with increased diastolic flow. The peroneal artery waveforms is monophasic with increased diastolic flow. The dorsalis pedis artery waveforms is monophasic with increased diastolic flow. Systolic peaks remain sharp in the tibial vessels. 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 No evidence of suprageniculate stenosis Minimal if any trifurcation disease on the right. No evidence of suprageniculate stenosis as per vascular Psych and medical optimization in progress Patient will need left leg angiogram for revascularization once cleared and consented Podiatry foot wound care f/u Antiplatelet and statin DVT and decub precautions (3) Cellulitis of left toe (4) Acute encephalopathy Assessment & Plan: Brain: There is chronic small vessel ischemic disease. 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 There are old lacunar infarcts in the right centrum semi-ovale. There is age-related cerebral volume loss. No hemorrhage. Ventricles: Unremarkable. No ventriculomegaly. Bones/joints: Unremarkable. No acute fracture. Soft tissues: Unremarkable. Sinuses: Unremarkable as visualized. No acute sinusitis. Mastoid air cells: Unremarkable as visualized. No mastoid effusion. IMPRESSION: 1. 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 2. Old lacunar infarcts in the right centrum semi-ovale. 3. Age-related cerebral volume loss. Chronic small vessel ischemic disease. (5) Abnormal LFTs Assessment & Plan: 60-year-old male altered mental status agitated came in for evaluation identified to have a WBC of 12 and abnormal LFTs. Admitted further care and management. Abdominal exam is fairly benign soft nontender nondistended. Pending abdominal ultrasound Trend labs We will follow with recommendations as imaging and labs are available. (6) Leukocytosis Assessment & Plan: Patient with leukocytosis on admission. Abnormal LFTs. Etiology of leukocytosis unknown. Micro noted. On antibiotics. Imaging ordered. Will follow with recommendations as imaging information is available. No abscess or or visible sign of infection identified. Small eschar on toe and had mild erythema of foot but not very clinically significant. (7) Anemia (8) HTN (hypertension) (9) DM (diabetes mellitus) (10) Wound of foot Clay Gonzalez Sep 05, 2020 10:54
--- NOTE | 2020-09-05 11:10 | NUR ---
NURSE NOTES: Dr. Ramirez ordered for CTA of Abdomen with IV contrast. Patient unable to sign for self, no next of kin to sign for patient. Dr. Ramirez aware and mentioned he would put a note to continue procedure even with no consent. Notified Dr. Gruber and was informed that Dr. Mills is covering for him today. Contacted Dr. Mills regarding the situation and said he would also put a note in.
[2020-09-05 12:00] VITALS: BP 140/95
[2020-09-05] MEDS: D5NS 1,000 ML IV SCH (13:26)
--- NOTE | 2020-09-05 13:47 | NUR ---
CASE MANAGEMENT:REVIEW SI;LT TOE CELLULITIS W/NECROSIS. ACUTE ENCEPHALOPATHY. RHABDOMYOLYSIS. 97.4 58 19 145/76 95% ON RA AST 48 ALT 135 ALP 118 ALB 2.6 IS;VANCOMYCIN IV Q8 ATIVAN PO Q8 SEROQUEL PO Q8 ASA PO QD HEPARIN SUBQ Q12 IVF D5NS SUBQ Q12 HALDOL IM Q6 PRN MED SURG STATUS DCP;FROM [facility] REFUSES TO ACCEPT PATIENT FOR READMISSION PATIENT UNDER HOSPICE SERVICES WITH [facility] ACTIVELY SEEKING PLACEMENT DC [facility] ACTIVELY SEEKING PLACEMENT
[2020-09-05 16:00] VITALS: BP 133/83
--- NOTE | 2020-09-05 19:10 | NUR ---
NURSE NOTES: Received report from Marci RN, pt. is in bed, awake, alert and verbally responsive. With breathing even and unlabored. Denies any pain at this time. With dora. soft wrist restraints, with good circulation noted. Skin intact on site. With bed in it's lowest position, with alarm on and locked. Will continue with plan of care.
--- NOTE | 2020-09-05 19:18 | NUR ---
NURSE HAND-OFF: Important Events on Shift:s/p CTA ABD with IV contrast Patient Status: stable Diet: mech soft nectar thick Pending Orders: n/a Pending Results/Labs:n/a Pending MD notification:n/a Latest Vital Signs: Temperature 97.7 , Pulse 79 , B/P 133 /83 , Respiratory Rate 18 , O2 SAT 97 , Room Air, O2 Flow Rate . Vital Sign Comment: stable Latest [place] Fall Score: 95 Fall Risk: High Risk Safety Measures: Call light Within Reach, Bed Alarm Zone 2, Side Rails Side Rails x3, Bed position Low and Locked. Fall Precautions: Yellow Socks Yellow Gown Door Sign Patient Fall Education Report given to KALANI Garibay.
[2020-09-05 20:00] VITALS: BP 126/72
[2020-09-06] VITALS: BP 138/78
--- NOTE | 2020-09-06 00:23 | Psych Consult Progress Note ---
Psychiatry Progress Note Psychiatry Progress Note Subjective 09/04 the pt was calmer still on bilat SR has agitation Medications Current Medications Medications (Trade) Dose Ordered Sig/Jesu Route PRN Reason Start Time Stop Time Status Last Admin Dose Admin Acetaminophen (Tylenol) 650 mg Q4H PRN RECTAL Temp >100.5 08/24/20 06:30 09/23/20 06:29 Acetaminophen (Tylenol) 1,000 mg BID ORAL 08/24/20 09:00 09/23/20 08:59 09/05/20 17:25 Aspirin (ASA) 81 mg DAILY ORAL 08/24/20 09:00 10/08/20 08:59 09/05/20 08:35 Bisacodyl (Dulcolax) 10 mg DAILY PRN RECTAL Constipation 08/24/20 06:15 11/22/20 06:14 Dextrose (Dextrose 50%) 25 ml Q30M PRN IV Hypoglycemia 08/24/20 06:30 11/22/20 06:29 Dextrose (Dextrose 50%) 50 ml Q30M PRN IV Hypoglycemia 08/24/20 06:30 11/22/20 06:29 Dextrose/Sodium Chloride 1,000 ml @ 75 mls/hr [id number] IV 08/24/20 07:00 09/23/20 06:59 09/05/20 13:26 Diphenhydramine HCl (Benadryl) 25 mg BIDPRN PRN ORAL Itching 08/24/20 15:15 09/23/20 15:14 09/05/20 13:26 Docusate Sodium (Colace) 100 mg DAILY ORAL 08/24/20 09:00 09/23/20 08:59 09/05/20 08:35 Haloperidol Lactate (Haldol) 5 mg Q6H PRN IM Agitation 08/24/20 07:00 10/08/20 06:59 09/05/20 00:33 Heparin Sodium (Porcine) (Heparin 5000 units/ml) 5,000 units EVERY 12 HOURS SUBQ 08/24/20 09:00 10/08/20 08:59 09/05/20 21:30 Hydrocortisone (Hydrocortisone) 1 applic Q12HR TOPIC 08/24/20 21:00 11/22/20 20:59 09/05/20 21:00 Hyoscyamine Sulfate (Levsin) 0.125 mg Q4H PRN ORAL secretions 08/24/20 06:15 09/23/20 06:14 Insulin Aspart (NovoLOG) BEFORE MEALS AND HS SUBQ 08/24/20 06:30 11/22/20 06:29 09/01/20 05:03 Lorazepam (Ativan) 1 mg EVERY 8 HOURS ORAL 09/03/20 06:00 09/10/20 05:59 09/05/20 21:28 Metformin HCl (Glucophage) 500 mg DAILY ORAL 08/24/20 09:00 09/23/20 08:59 09/05/20 08:35 Quetiapine Fumarate (SEROqueL) 100 mg EVERY 8 HOURS ORAL 08/30/20 22:00 10/13/20 05:59 09/05/20 21:27 Vancomycin HCl (Vanco pharmacy to dose) 1 ea DAILY PRN MISC Per rx protocol 08/24/20 10:45 09/23/20 10:44 Vancomycin HCl 750 mg/Sodium Chloride 275 ml @ 183.333 mls/hr Q8HR IVPB 09/04/20 22:00 09/09/20 21:59 09/05/20 22:52 Neurological/Psychiatric: Reports: anxiety, depressed, emotional problems; Denies: no symptoms, headache, numbness, paresthesia, pre-existing deficit, seizure, tingling, tremors, weakness, other Allergies: Coded Allergies: No Known Allergies (Unverified , 08/24/20) Objective Data Height (Feet): 6 Height (Inches): 0.00 Weight (Pounds): 151 General Appearance: no apparent distress Behavior Mannerisms: poor eye contact Mental Status Exam - Affect: flat Additional Comments: alert, oriented x0. Mood is agitated. Affect is blunted, congruent with mood. Thought process is concrete. Thought content, no suicidal or homicidal ideation. Cognition is impaired. Insight and judgment is impaired. Assessment/Plan [place] I: ASSESSMENT: [place] I Psychotic disorder, not otherwise specified. [place] II Deferred. [place] III CVA. [place] IV Low. [place] V 20. PLAN: 1. We will start the patient on Seroquel. 2. Ativan. 3. Discontinue all other psychotropic medication. 4. Patient lacks capacity to make decision. Status: stable Status Narrative ASSESSMENT: [place] I Psychotic disorder, not otherwise specified. [place] II Deferred. [place] III CVA. [place] IV Low. [place] V 20. PLAN: 1. We will start the patient on Seroquel. 2. Ativan. 3. Discontinue all other psychotropic medication. 4. Patient lacks capacity to make decision. Assessment/Plan: ASSESSMENT: [place] I Psychotic disorder, not otherwise specified. [place] II Deferred. [place] III CVA. [place] IV Low. [place] V 20. PLAN: 1. We will start the patient on Seroquel. 2. Ativan. 3. Discontinue all other psychotropic medication. 4. Patient lacks capacity to make decision. Nima Degroot MD Sep 06, 2020 00:23
--- NOTE | 2020-09-06 02:43 | NUR ---
All due meds given. Slept at short intervals. Noted with aggressive behavior at times, able to pull out condom cath. Kept clean and dry at all times. Wound dressing on left big toe done, kept dry and intact but pt. is able to take it out by rubbing his other foot on the dressing, reinforced. Able to turned and repositioned. On continued ivatb of Vancomycin, without a/r noted. Voiding freely. Monitored frequently. Anders. soft wrist restraints remained in place and release for circulation.Will continue with plan of care.
[2020-09-06] MEDS: Haloperidol 5mg/ml Inj IM PRN (03:39)
[2020-09-06 04:00] VITALS: BP 129/75
[2020-09-06] MEDS: Vancomycin 750mg/NS 275ml IVPB SCH ×6 (05:24→21:20)
[2020-09-06] MEDS: D5NS 1,000 ML IV SCH ×2 (05:25→16:05)
[2020-09-06 06:20] LABS: BASOPHILS % (AUTO) 1.7 % (0.0-2.0); EOSINOPHILS % (AUTO) 4.3 % (0.0-3.0); HEMATOCRIT 38.3 % (42.0-52.0); HEMOGLOBIN 13.1 G/DL (14.2-18.0); LYMPHOCYTES % (AUTO) 23.1 % (20.0-45.0); MEAN CORPUSCULAR VOLUME 88 FL (80-99); MONOCYTES % (AUTO) 6.1 % (1.0-10.0); NEUTROPHILS % (AUTO) 64.8 % (45.0-75.0); PLATELET COUNT 295 K/UL (150-450); RED BLOOD COUNT 4.35 M/UL (4.70-6.10); WHITE BLOOD COUNT 7.5 K/UL (4.8-10.8)
[2020-09-06] MEDS: NovoLOG Insulin Flexpen SUBQ SCH ×4 (06:30→21:00)
--- NOTE | 2020-09-06 06:45 | NUR ---
NURSE NOTES: Pt. was picked up for surgery via jenn[facility]. Reports given. Addendum: 09/06/20 at 0744 by Diaz Rubio RN wrong entry
[2020-09-06] MEDS: LORazepam 1mg tab ORAL SCH ×3 (06:48→21:21)
--- NOTE | 2020-09-06 07:41 | NUR ---
NURSE HAND-OFF: Important Events on Shift:ivatb, restraints Patient Status: stable Diet: Pending Orders: Pending Results/Labs: Pending MD notification: Latest Vital Signs: Temperature 97.3 , Pulse 75 , B/P 122 /89 , Respiratory Rate 17 , O2 SAT 98 , Room Air, O2 Flow Rate . Vital Sign Comment: Latest [place] Fall Score: 95 Fall Risk: High Risk Safety Measures: Call light Within Reach, Bed Alarm Zone 2, Side Rails Side Rails x3, Bed position Low and Locked. Fall Precautions: Yellow Socks Yellow Gown Door Sign Patient Fall Education Report given Amairani URIARTE.
--- NOTE | 2020-09-06 07:44 | NUR ---
NURSE HAND-OFF: Important Events on Shift: Patient Status: Diet: Pending Orders: Pending Results/Labs: Pending MD notification: Latest Vital Signs: Temperature 97.3 , Pulse 75 , B/P 122 /89 , Respiratory Rate 17 , O2 SAT 98 , Room Air, O2 Flow Rate . Vital Sign Comment: Latest [place] Fall Score: 95 Fall Risk: High Risk Safety Measures: Call light Within Reach, Bed Alarm Zone 2, Side Rails Side Rails x3, Bed position Low and Locked. Fall Precautions: Yellow Socks Yellow Gown Door Sign Patient Fall Education Report given to Tacos URIARTE.
--- NOTE | 2020-09-06 07:49 | NUR ---
NURSE NOTES: received report from KALANI Garibay. patient in bed. sleeping. breathing even and unlabored. lung sound clear.no facial grimacing noted. IV LFA 24 and RFA 20 running D5 NS@75/hr. soft restraints on both wrist in place. renewed on 09/04 @0202. skin intact. condom cath draining. active bowel sound. bed in the lowest position and locked. call light within reach, alarm on. will continue to provide plan of care.
[2020-09-06 08:00] VITALS: BP 150/79
[2020-09-06] MEDS: metFORMIN 500mg tab ORAL SCH (08:58)
[2020-09-06] MEDS: Aspirin Baby 81mg ORAL SCH (08:58)
[2020-09-06] MEDS: Acetaminophen 500mg (ES) tab ORAL SCH ×2 (08:59→17:14)
[2020-09-06] MEDS: Docusate 100mg cap ORAL SCH (09:00)
[2020-09-06] MEDS: Heparin 5000 units/ml inj SUBQ SCH ×2 (09:01→21:30)
[2020-09-06] MEDS: Hydrocortisone 1% Cr TOPIC SCH ×2 (09:01→21:00)
--- NOTE | 2020-09-06 10:17 | General Progress Note ---
Subjective ROS Limited/Unobtainable: No Allergies: Coded Allergies: No Known Allergies (Unverified , 08/24/20) Objective Last 24 Hour Vital Signs Date Time Temp Pulse Resp B/P (MAP) Pulse Ox O2 Delivery O2 Flow Rate FiO2 09/06/20 08:00 97.2 79 18 150/79 (102) 98 09/06/20 07:18 75 17 122/89 98 09/06/20 06:48 75 23 133/86 98 09/06/20 04:00 97.3 76 17 129/75 (93) 97 09/06/20 00:00 98.7 80 20 138/78 (98) 95 09/05/20 21:58 73 18 135/70 97 09/05/20 21:28 75 21 132/75 97 09/05/20 21:00 Room Air 09/05/20 20:00 98.2 77 18 126/72 (90) 97 09/05/20 16:00 97.7 79 18 133/83 (100) 97 09/05/20 13:56 70 18 138/90 98 09/05/20 13:26 75 19 140/95 97 09/05/20 12:00 97.5 75 19 140/95 (110) 97 Intake and Output 09/05/20 09/06/20 19:00 07:00 Intake Total 240 ml Output Total 2950 ml 1200 ml Balance -2710 ml -1200 ml Intake Oral 240 ml Output Urine Total 2950 ml 1200 ml # Voids 4 3 Laboratory Tests 09/05/20 11:24: POC Whole Blood Glucose 123H 09/05/20 21:15: Vancomycin Level Trough 13.5H 09/06/20 05:40: White Blood Count 7.5, Red Blood Count 4.35L, Hemoglobin 13.1L, Hematocrit 38.3L , Mean Corpuscular Volume 88, Mean Corpuscular Hemoglobin 30.2, Mean Corpuscular Hemoglobin Concent 34.3, Red Cell Distribution Width 14.0, Platelet Count 295, Mean Platelet Volume 6.4L, Neutrophils (%) (Auto) 64.8, Lymphocytes (%) (Auto) 23.1, Monocytes (%) (Auto) 6.1, Eosinophils (%) (Auto) 4.3H, Basophils (%) (Auto) 1.7 Height (Feet): 6 Height (Inches): 0.00 Weight (Pounds): 151 General Appearance: no apparent distress EENT: normal ENT inspection Neck: supple Cardiovascular: normal rate Respiratory/Chest: decreased breath sounds Abdomen: normal bowel sounds, non tender, soft Extremities: non-tender Assessment/Plan Problem List: (1) Leukocytosis ICD Codes: D72.829 - Elevated white blood cell count, unspecified SNOMED: 942342215, 018369916 (2) Abnormal LFTs ICD Codes: R94.5 - Abnormal results of liver function studies SNOMED: 871417934 (3) Acute encephalopathy ICD Codes: G93.40 - Encephalopathy, unspecified SNOMED: 99524879, 838554585 (4) Cellulitis of left toe ICD Codes: L03.032 - Cellulitis of left toe SNOMED: 91756882 (5) Rhabdomyolysis ICD Codes: M62.82 - Rhabdomyolysis SNOMED: 333962867 Qualifiers: Qualified Codes: M62.82 - Rhabdomyolysis (6) Anemia ICD Codes: D64.9 - Anemia, unspecified SNOMED: 606129330 (7) DM (diabetes mellitus) ICD Codes: E11.9 - Type 2 diabetes mellitus without complications SNOMED: 31014603 (8) HTN (hypertension) ICD Codes: I10 - Essential (primary) hypertension SNOMED: 56264733 Status: stable Assessment/Plan: elevated LFTS possibly due to statins>>> off now>>> improving LFTS>>> will repeat in am abd us>>> fatty liver hepatitis panel>>> neg repeat labs speech eval appreciated on mechanical soft patient is combative and refuses care fu psych recs will Mohamud Spaulding MD Sep 06, 2020 10:17
[2020-09-06 12:00] VITALS: BP 123/81
--- NOTE | 2020-09-06 13:05 | Diagnostic Imaging Report ---
INDICATION: Left foot toe wound necrosis, absent popliteal pulses TECHNIQUE: IV administration nonionic contrast. Arterial phase spiral acquisitions obtained through the abdomen, pelvis, and bilateral lower extremities. Multiplanar and 3-D reconstructions were generated. Total dose length product 578 mGycm. CTDIvol(s) 2, 37, 3, 2 mGy. Radiation dose was minimized using automated exposure control COMPARISON: none FINDINGS Abdominal aorta: There is moderate narrowing of the celiac origin. Normal caliber superior mesenteric artery. Dual bilateral renal arteries. There is a moderate stenosis of the left vein renal artery origin. Mild to moderate stenosis of otherwise patent inferior mesenteric artery is noted at the origin. There is some mural plaquing of the abdominal aorta, but no significant stenosis is demonstrated. No aneurysm or dissection demonstrated. Right lower extremity: There is atherosclerotic plaquing of the no significant stenosis of the right common iliac, external iliac, and proximal internal iliac arteries. There is atherosclerotic plaquing of the common femoral artery, but no significant stenosis demonstrated. Patent nonstenotic profunda femoral artery and proximal branches. The superficial femoral artery demonstrates mild nonsignificant stenosis at the other 2 hiatus, no significant narrowing demonstrated. There is a mild nonsignificant stenosis of the proximal popliteal artery. No significant stenosis is demonstrated. Evaluation of the tibial vessels is very limited. The arterial phase acquisition stops at the level of the proximal lower legs. The delayed acquisition of the lower legs demonstrates heavy venous contamination, as well and is considerable image degradation due to motion artifact. Given these limitations, the anterior tibial artery appears to be patent although likely with multiple stenoses of uncertain significance. The tibioperoneal trunk demonstrates atherosclerotic plaquing, and possibly a moderate stenosis just above its bifurcation. The posterior tibial artery is very poorly visualized, heavily calcified, which precludes accurate estimation of degree of stenosis. It grossly appears to be patent to the foot although this is difficult to state for certain. It is likewise poorly visualized. Suspect patent to the ankle but heavily diseased. Left lower extremity: Patent nonstenotic common iliac, external iliac, internal iliac arteries. Atherosclerotic plaquing of the no significant stenosis of the common femoral artery. Patent nonstenotic profunda femoral artery and proximal branches. Patent nonstenotic superficial femoral artery. There is mild disease of the proximal popliteal artery. Imaging of the popliteal artery is somewhat degraded due to motion artifact. There are similar limitations to evaluation of the tibial vessels as on the right side. Imaging of the tibial vessels was performed in venous phase and there is significant motion artifact, venous contamination, as well as calcification. The proximal anterior tibial artery appears to be patent. Due to motion artifact, the midportion is not all well visualized. It does appear to be patent above and at the ankle and forms a dorsalis pedis artery. The tibioperoneal trunk demonstrates heavy atherosclerotic plaquing which limits evaluation of the lumen. The midportion of the posterior tibial artery is completely obscured due to motion. The distal posterior tibial artery appears to be patent but heavily calcified and reaches the ankle. The peroneal artery is likewise obscured. Likely but not definitively patent to the ankle. Nonvascular: The gallbladder wall appears somewhat edematous. No gallstones are demonstrated. No biliary ductal dilatation. The liver, pancreas, spleen are unremarkable. The adrenals are somewhat bulky but no discrete mass is demonstrated. The kidneys are unremarkable. No retroperitoneal or mesenteric mass or adenopathy. No pelvic mass or adenopathy. The prostate is enlarged, measuring 6 cm transverse. The rectum is mildly distended by feces, measures up to 6.8 cm in diameter. Considerable stool seen within the distal sigmoid and proximal colon. No evidence of diverticulosis or diverticulitis. The appendix is not identified visualize, but no findings to suggest acute appendicitis are evident. No small bowel distention. No free or loculated intraperitoneal gas or fluid is evident. The lung bases demonstrate posterior dependent atelectatic changes. The bones demonstrate mild degenerative spondylosis changes. IMPRESSION: No evidence of suprageniculate stenosis bilaterally Very limited, essentially nondiagnostic, evaluation of the bilateral tibial vessels due to motion artifact, late phase imaging resulting in venous contamination, as well as heavy calcification precluding accurate evaluation of the luminal diameter. Suspect that the tibial vessels are patent but diseased bilaterally, but this cannot be stated with any certainty. Recommend arterial duplex scanning to evaluate quality of distal perfusion. Alternatively, MR angiography may be useful to better evaluate Edematous gallbladder wall, without evidence of gallstones. Gallbladder wall edema could be related to adjacent liver disease, hemodynamic disturbances, or could be idiopathic. However, the possibility of acute cholecystitis, either acalculous or due to CT-occult calculi also be considered. Possible mild rectal fecal impaction Prostatomegaly Incidental findings of posterior dependent pulmonary atelectatic changes, degenerative spondylosis changes The CT scanner at [facility] is accredited by the [employer] and the scans are performed using protocols designed to limit radiation exposure to as low as reasonably achievable to attain images of sufficient resolution adequate for diagnostic evaluation.
--- NOTE | 2020-09-06 13:29 | Diagnostic Imaging Report ---
Indication: Altered mental status Technique: Grayscale and duplex images of the bilateral extracranial carotid and vertebral arteries Comparison: none Findings: Bilaterally, grayscale and duplex images demonstrate atherosclerotic plaquing resulting in less than 50% diameter narrowing. Normal Doppler flow velocities and waveforms. Patent bilateral vertebral arteries, antegrade flow. Impression: Less than 50% stenosis bilaterally All stenosis was measured based on the NASCET criteria. Velocity criteria are extrapolated from diameter data as defined by the Society of radiologists in ultrasound consensus conference. Radiology 2003:229; 340-346
--- NOTE | 2020-09-06 13:44 | General Progress Note ---
Subjective Constitutional: Denies: no symptoms, chills, diaphoresis, fever, malaise, weakness, other HEENT: Denies: no symptoms, eye pain, blurred vision, tearing, double vision, ear pain, ear discharge, nose pain, nose congestion, throat pain, throat swelling, mouth pain, mouth swelling, other Cardiovascular: Denies: no symptoms, chest pain, edema, irregular heart rate, lightheadedness, palpitations, syncope, other Respiratory: Denies: no symptoms, cough, orthopnea, shortness of breath, SOB with excertion, SOB at rest, sputum, stridor, wheezing, other Gastrointestinal/Abdominal: Denies: no symptoms, abdomen distended, abdominal pain, black stools, tarry stools, blood in stool, constipated, diarrhea, difficulty swallowing, nausea, poor appetite, poor fluid intake, rectal bleeding, vomiting, other Neurologic/Psychiatric: Denies: no symptoms, anxiety, depressed, emotional problems, headache, numbness, paresthesia, pre-existing deficit, seizure, tingling, tremors, weakness, other Hematologic/Lymphatic: Denies: no symptoms, anemia, easy bleeding, easy bruising, other Allergies: Coded Allergies: No Known Allergies (Unverified , 08/24/20) Subjective 08/31 on b/l wrist restraints, psych aware, no bleeding, labs noted 09/01 yelling profanities in room today, neds reviewed, labs noted 09/02 labs reviewed, no bleeding, meds noted 09/03 yelling i want food this am, no bleeding, continue on vanc, heparin sq 09/04 ansious, restless is screaming overnight, cbc labs reordered 09/05 continues to refuse care, agitated this am 09/06 continue to refuse care, seen by vascular and surg Objective Last 24 Hour Vital Signs Date Time Temp Pulse Resp B/P (MAP) Pulse Ox O2 Delivery O2 Flow Rate FiO2 09/06/20 09:00 Room Air 09/06/20 08:00 97.2 79 18 150/79 (102) 98 09/06/20 07:18 75 17 122/89 98 09/06/20 06:48 75 23 133/86 98 09/06/20 04:00 97.3 76 17 129/75 (93) 97 09/06/20 00:00 98.7 80 20 138/78 (98) 95 09/05/20 21:58 73 18 135/70 97 09/05/20 21:28 75 21 132/75 97 09/05/20 21:00 Room Air 09/05/20 20:00 98.2 77 18 126/72 (90) 97 09/05/20 16:00 97.7 79 18 133/83 (100) 97 09/05/20 13:56 70 18 138/90 98 Intake and Output 09/05/20 09/06/20 19:00 07:00 Intake Total 240 ml Output Total 2950 ml 1200 ml Balance -2710 ml -1200 ml Intake Oral 240 ml Output Urine Total 2950 ml 1200 ml # Voids 4 3 Laboratory Tests 09/05/20 21:15: Vancomycin Level Trough 13.5H 09/06/20 05:40: White Blood Count 7.5, Red Blood Count 4.35L, Hemoglobin 13.1L, Hematocrit 38.3L , Mean Corpuscular Volume 88, Mean Corpuscular Hemoglobin 30.2, Mean Corpuscular Hemoglobin Concent 34.3, Red Cell Distribution Width 14.0, Platelet Count 295, Mean Platelet Volume 6.4L, Neutrophils (%) (Auto) 64.8, Lymphocytes (%) (Auto) 23.1, Monocytes (%) (Auto) 6.1, Eosinophils (%) (Auto) 4.3H, Basophils (%) (Auto) 1.7 Height (Feet): 6 Height (Inches): 0.00 Weight (Pounds): 151 Objective General Appearance: confused EENT: PERRL/EOMI Neck: supple Cardiovascular: regular rhythm Respiratory/Chest: normal breath sounds Abdomen: non tender, soft Extremities: non-tender Assessment/Plan Status: stable Assessment/Plan: failure of thrive non healing ulcer==>abx (vanc) malnutrition depression dc plan to snf with po abx wound care placement labs reviewed heparin sq ppx for cta orderedlower leg for toe ischemia, patient unable to sign consent and has no next of kin, needs procedure urgently further recommendations by vascular Ricardo Mills MD Sep 06, 2020 13:44
--- NOTE | 2020-09-06 15:46 | NUR ---
CASE MANAGEMENT:REVIEW SI;LT FOOT CELLULITIS. AC ENCEPHALOPATHY. 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
[2020-09-06 16:00] VITALS: BP 134/77
--- NOTE | 2020-09-06 17:08 | Surgery Progress Note ---
Surgery Progress Note Subjective Additional Comments ct noted not being very complaints psych input appreciated no n/v Objective Last 24 Hour Vital Signs Date Time Temp Pulse Resp B/P (MAP) Pulse Ox O2 Delivery O2 Flow Rate FiO2 09/06/20 16:00 97.0 78 19 134/77 (96) 98 09/06/20 14:45 64 18 123/81 99 09/06/20 14:15 64 18 123/81 99 09/06/20 12:00 97.5 64 18 123/81 (95) 99 09/06/20 09:00 Room Air 09/06/20 08:00 97.2 79 18 150/79 (102) 98 09/06/20 07:18 75 17 122/89 98 09/06/20 06:48 75 23 133/86 98 09/06/20 04:00 97.3 76 17 129/75 (93) 97 09/06/20 00:00 98.7 80 20 138/78 (98) 95 09/05/20 21:58 73 18 135/70 97 09/05/20 21:28 75 21 132/75 97 09/05/20 21:00 Room Air 09/05/20 20:00 98.2 77 18 126/72 (90) 97 I&O Intake and Output 09/05/20 09/06/20 19:00 07:00 Intake Total 240 ml Output Total 2950 ml 1200 ml Balance -2710 ml -1200 ml Intake Oral 240 ml Output Urine Total 2950 ml 1200 ml # Voids 4 3 Dressing: dry Wound: clean Cardiovascular: RSR Respiratory: clear Abdomen: soft, non-tender, present bowel sounds Extremities: other Laboratory Tests Test 09/05/20 21:15 09/06/20 05:40 Vancomycin Level Trough 13.5 ug/mL (5.0-12.0) H White Blood Count 7.5 K/UL (4.8-10.8) Red Blood Count 4.35 M/UL (4.70-6.10) L Hemoglobin 13.1 G/DL (14.2-18.0) L Hematocrit 38.3 % (42.0-52.0) L Mean Corpuscular Volume 88 FL (80-99) Mean Corpuscular Hemoglobin 30.2 PG (27.0-31.0) Mean Corpuscular Hemoglobin Concent 34.3 G/DL (32.0-36.0) Red Cell Distribution Width 14.0 % (11.6-14.8) Platelet Count 295 K/UL (150-450) Mean Platelet Volume 6.4 FL (6.5-10.1) L Neutrophils (%) (Auto) 64.8 % (45.0-75.0) Lymphocytes (%) (Auto) 23.1 % (20.0-45.0) Monocytes (%) (Auto) 6.1 % (1.0-10.0) Eosinophils (%) (Auto) 4.3 % (0.0-3.0) H Basophils (%) (Auto) 1.7 % (0.0-2.0) Plan Problems: (1) Rhabdomyolysis (2) Cellulitis of left foot Assessment & Plan: Bilaterally, grayscale and duplex images demonstrate atherosclerotic plaquing. Bilaterally, triphasic waveforms with sharp systolic peaks are seen from the common femoral to the popliteal artery levels. On the right, dorsalis pedis artery waveforms is borderline triphasic. Proximal posterior and anterior tibial artery waveforms are triphasic, and the distal posterior tibial artery waveform is triphasic. On the left, the posterior tibial artery waveform is monophasic with increased diastolic flow. The peroneal artery waveforms is monophasic with increased diastolic flow. The dorsalis pedis artery waveforms is monophasic with increased diastolic flow. Systolic peaks remain sharp in the tibial vessels. 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 No evidence of suprageniculate stenosis Minimal if any trifurcation disease on the right. No evidence of suprageniculate stenosis as per vascular Psych and medical optimization in progress Patient will need left leg angiogram for revascularization once cleared and consented Podiatry foot wound care f/u Antiplatelet and statin DVT and decub precautions Abdominal aorta: There is moderate narrowing of the celiac origin. Normal caliber superior mesenteric artery. Dual bilateral renal arteries. There is a moderate stenosis of the left vein renal artery origin. Mild to moderate stenosis of otherwise patent inferior mesenteric artery is noted at the origin. There is some mural plaquing of the abdominal aorta, but no significant stenosis is demonstrated. No aneurysm or dissection demonstrated. Right lower extremity: There is atherosclerotic plaquing of the no significant stenosis of the right common iliac, external iliac, and proximal internal iliac arteries. There is atherosclerotic plaquing of the common femoral artery, but no significant stenosis demonstrated. Patent nonstenotic profunda femoral artery and proximal branches. The superficial femoral artery demonstrates mild nonsignificant stenosis at the other 2 hiatus, no significant narrowing demonstrated. There is a mild nonsignificant stenosis of the proximal popliteal artery. No significant stenosis is demonstrated. Evaluation of the tibial vessels is very limited. The arterial phase acquisition stops at the level of the proximal lower legs. The delayed acquisition of the l ower legs demonstrates heavy venous contamination, as well and is considerable image degradation due to motion artifact. Given these limitations, the anterior tibial artery appears to be patent although likely with multiple stenoses of uncertain significance. The tibioperoneal trunk demonstrates atherosclerotic plaquing, and possibly a moderate stenosis just above its bifurcation. The posterior tibial artery is very poorly visualized, heavily calcified, which precludes accurate estimation of degree of stenosis. It grossly appears to be patent to the foot although this is difficult to state for certain. It is likewise poorly visualized. Suspect patent to the ankle but heavily diseased. Left lower extremity: Patent nonstenotic common iliac, external iliac, internal iliac arteries. Atherosclerotic plaquing of the no significant stenosis of the common femoral artery. Patent nonstenotic profunda femoral artery and proximal branches. Patent nonstenotic superficial femoral artery. There is mild disease of the prox imal popliteal artery. Imaging of the popliteal artery is somewhat degraded due to motion artifact. There are similar limitations to evaluation of the tibial vessels as on the right side. Imaging of the tibial vessels was performed in venous phase and there is significant motion artifact, venous contamination, as well as calcification. The proximal anterior tibial artery appears to be patent. Due to motion artifact, the midportion is not all well visualized. It does appear to be patent above and at the ankle and forms a dorsalis pedis artery. The tibioperoneal trunk demonstrates heavy atherosclerotic plaquing which limits evaluation of the lumen. The midportion of the posterior tibial artery is completely obscured due to motion. The distal posterior tibial artery appears to be patent but heavily calcified and reaches the ankle. The peroneal artery is likewise obscured. Likely but not definitively patent to the ankle. Nonvascular: The gallbladder wall appears somewhat edematous. No gallstones are demonstrated. No biliary ductal dilatation. The liver, pancreas, spleen are unremarkable. The adrenals are somewhat bulky but no discrete mass is demonstrated. The kidneys are unremarkable. No retroperitoneal or mesenteric mass or adenopathy. No pelvic mass or adenopathy. The prostate is enlarged, measuring 6 cm transverse. The rectum is mildly distended by feces, measures up to 6.8 cm in diameter. Considerable stool seen within the distal sigmoid and proximal colon. No evidence of diverticulosis or diverticulitis. The appendix is not identified visualize, but no findings to suggest acute appendicitis are evident. No small bowel distention. No free or loculated intraperitoneal gas or fluid is evident. The lung bases demonstrate posterior dependent atelectatic changes. The bones demonstrate mild degenerative spondylosis changes. IMPRESSION: No evidence of suprageniculate stenosis bilaterally Very limited, essentially nondiagnostic, evaluation of the bilateral tibial vessels due to motion artifact, late phase imaging resulting in venous contamination, as well as heavy calcification precluding accurate evaluation of the luminal diameter. Suspect that the tibial vessels are patent but diseased bilaterally, but this cannot be stated with any certainty. Recommend arterial duplex scanning to evaluate quality of distal perfusion. Alternatively, MR angiography may be useful to better evaluate Edematous gallbladder wall, without evidence of gallstones. Gallbladder wall edema could be related to adjacent liver disease, hemodynamic disturbances, or could be idiopathic. However, the possibility of acute cholecystitis, either acalculous or due to CT-occult calculi also be considered. Possible mild rectal fecal impaction Prostatomegaly Incidental findings of posterior dependent pulmonary atelectatic changes, degenerative spondylosis changes (3) Cellulitis of left toe (4) Acute encephalopathy Assessment & Plan: Brain: There is chronic small vessel ischemic disease. 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 There are old lacunar infarcts in the right centrum semi-ovale. There is age-related cerebral volume loss. No hemorrhage. Ventricles: Unremarkable. No ventriculomegaly. Bones/joints: Unremarkable. No acute fracture. Soft tissues: Unremarkable. Sinuses: Unremarkable as visualized. No acute sinusitis. Mastoid air cells: Unremarkable as visualized. No mastoid effusion. IMPRESSION: 1. 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 2. Old lacunar infarcts in the right centrum semi-ovale. 3. Age-related cerebral volume loss. Chronic small vessel ischemic disease. (5) Abnormal LFTs Assessment & Plan: 60-year-old male altered mental status agitated came in for evaluation identified to have a WBC of 12 and abnormal LFTs. Admitted further care and management. Abdominal exam is fairly benign soft nontender nondistended. Pending abdominal ultrasound Trend labs We will follow with recommendations as imaging and labs are available. (6) Leukocytosis Assessment & Plan: Patient with leukocytosis on admission. Abnormal LFTs. Etiology of leukocytosis unknown. Micro noted. On antibiotics. Imaging ordered. Will follow with recommendations as imaging information is available. No abscess or or visible sign of infection identified. Small eschar on toe and had mild erythema of foot but not very clinically significant. (7) Anemia (8) HTN (hypertension) (9) DM (diabetes mellitus) (10) Wound of foot Clay Gonzalez Sep 06, 2020 17:08
--- NOTE | 2020-09-06 19:20 | NUR ---
NURSE HAND-OFF: Important Events on Shift: IV hydration. restraint renew tonight. Patient Status: stable Diet: mech soft chopped Pending Orders: n/a Pending Results/Labs:n/a Pending MD notification:n/a Latest Vital Signs: Temperature 97.0 , Pulse 78 , B/P 134 /77 , Respiratory Rate 19 , O2 SAT 98 , Room Air, O2 Flow Rate . Vital Sign Comment: stable Latest [place] Fall Score: 95 Fall Risk: High Risk Safety Measures: Call light Within Reach, Bed Alarm Zone 2, Side Rails Side Rails x3, Bed position Low and Locked. Fall Precautions: Yellow Socks Yellow Gown Door Sign Patient Fall Education Report given to KALANI Dove.
--- NOTE | 2020-09-06 19:22 | NUR ---
NURSE NOTES: Received pt asleep. No sob, pain , and fever at the moment. Iv is intact and asymptomatic. Pt is on soft bilateral restraints. Bed is in the lowest position,locked, and alarm on. Call light within reach. We will keep monitoring the pt.
[2020-09-06 20:00] VITALS: BP 108/76
--- NOTE | 2020-09-06 23:10 | Psych Consult Progress Note ---
Psychiatry Progress Note Psychiatry Progress Note Subjective 09/04 the pt was calmer still on bilat SR has agitation Medications Current Medications Medications (Trade) Dose Ordered Sig/Jesu Route PRN Reason Start Time Stop Time Status Last Admin Dose Admin Acetaminophen (Tylenol) 650 mg Q4H PRN RECTAL Temp >100.5 08/24/20 06:30 09/23/20 06:29 Acetaminophen (Tylenol) 1,000 mg BID ORAL 08/24/20 09:00 09/23/20 08:59 09/06/20 17:14 Aspirin (ASA) 81 mg DAILY ORAL 08/24/20 09:00 10/08/20 08:59 09/06/20 08:58 Bisacodyl (Dulcolax) 10 mg DAILY PRN RECTAL Constipation 08/24/20 06:15 11/22/20 06:14 Dextrose (Dextrose 50%) 25 ml Q30M PRN IV Hypoglycemia 08/24/20 06:30 11/22/20 06:29 Dextrose (Dextrose 50%) 50 ml Q30M PRN IV Hypoglycemia 08/24/20 06:30 11/22/20 06:29 Dextrose/Sodium Chloride 1,000 ml @ 75 mls/hr [id number] IV 08/24/20 07:00 09/23/20 06:59 09/06/20 16:05 Diphenhydramine HCl (Benadryl) 25 mg BIDPRN PRN ORAL Itching 08/24/20 15:15 09/23/20 15:14 09/05/20 13:26 Docusate Sodium (Colace) 100 mg DAILY ORAL 08/24/20 09:00 09/23/20 08:59 09/06/20 09:00 Haloperidol Lactate (Haldol) 5 mg Q6H PRN IM Agitation 08/24/20 07:00 10/08/20 06:59 09/06/20 03:39 Heparin Sodium (Porcine) (Heparin 5000 units/ml) 5,000 units EVERY 12 HOURS SUBQ 08/24/20 09:00 10/08/20 08:59 09/06/20 21:30 Hydrocortisone (Hydrocortisone) 1 applic Q12HR TOPIC 08/24/20 21:00 11/22/20 20:59 09/06/20 09:01 Hyoscyamine Sulfate (Levsin) 0.125 mg Q4H PRN ORAL secretions 08/24/20 06:15 09/23/20 06:14 Insulin Aspart (NovoLOG) BEFORE MEALS AND HS SUBQ 08/24/20 06:30 11/22/20 06:29 09/01/20 05:03 Lorazepam (Ativan) 1 mg EVERY 8 HOURS ORAL 09/03/20 06:00 09/10/20 05:59 09/06/20 21:21 Metformin HCl (Glucophage) 500 mg DAILY ORAL 08/24/20 09:00 09/23/20 08:59 09/06/20 08:58 Quetiapine Fumarate (SEROqueL) 100 mg EVERY 8 HOURS ORAL 08/30/20 22:00 10/13/20 05:59 09/06/20 21:21 Vancomycin HCl (Vanco pharmacy to dose) 1 ea DAILY PRN MISC Per rx protocol 08/24/20 10:45 09/23/20 10:44 Vancomycin HCl 750 mg/Sodium Chloride 275 ml @ 183.333 mls/hr Q8HR IVPB 09/04/20 22:00 09/09/20 21:59 09/06/20 21:20 Neurological/Psychiatric: Denies: no symptoms, anxiety, depressed, emotional problems, headache, numbness, paresthesia, pre-existing deficit, seizure, tingling, tremors, weakness, other Allergies: Coded Allergies: No Known Allergies (Unverified , 08/24/20) Objective Data Height (Feet): 6 Height (Inches): 0.00 Weight (Pounds): 151 General Appearance: no apparent distress Behavior Mannerisms: poor eye contact Mental Status Exam - Affect: flat Additional Comments: alert, oriented x0. Mood is agitated. Affect is blunted, congruent with mood. Thought process is concrete. Thought content, no suicidal or homicidal ideation. Cognition is impaired. Insight and judgment is impaired. Assessment/Plan [place] I: ASSESSMENT: [place] I Psychotic disorder, not otherwise specified. [place] II Deferred. [place] III CVA. [place] IV Low. [place] V 20. PLAN: 1. We will start the patient on Seroquel. 2. Ativan. 3. Discontinue all other psychotropic medication. 4. Patient lacks capacity to make decision. Status: stable Status Narrative ASSESSMENT: [place] I Psychotic disorder, not otherwise specified. [place] II Deferred. [place] III CVA. [place] IV Low. [place] V 20. PLAN: 1. We will start the patient on Seroquel. 2. Ativan. 3. Discontinue all other psychotropic medication. 4. Patient lacks capacity to make decision. Assessment/Plan: ASSESSMENT: [place] I Psychotic disorder, not otherwise specified. [place] II Deferred. [place] III CVA. [place] IV Low. [place] V 20. PLAN: 1. We will start the patient on Seroquel. 2. Ativan. 3. Discontinue all other psychotropic medication. 4. Patient lacks capacity to make decision. Nima Degroot MD Sep 06, 2020 23:10
[2020-09-07 04:00] VITALS: BP 143/93
[2020-09-07] MEDS: D5NS 1,000 ML IV SCH ×2 (04:24→17:08)
[2020-09-07] MEDS: LORazepam 1mg tab ORAL SCH ×3 (05:52→21:14)
[2020-09-07] MEDS: Vancomycin 750mg/NS 275ml IVPB SCH ×6 (05:52→21:13)
[2020-09-07] MEDS: NovoLOG Insulin Flexpen SUBQ SCH ×4 (05:58→21:00)
--- NOTE | 2020-09-07 06:44 | NUR ---
NURSE HAND-OFF: Important Events on Shift:na Patient Status: stable Diet: reg mech soft Pending Orders: Pending Results/Labs:cmp Pending MD notification: Latest Vital Signs: Temperature 97.8 , Pulse 70 , B/P 138 /89 , Respiratory Rate 20 , O2 SAT 97 , Room Air, O2 Flow Rate . Vital Sign Comment: Latest [place] Fall Score: 95 Fall Risk: High Risk Safety Measures: Call light Within Reach, Bed Alarm Zone 2, Side Rails Side Rails x3, Bed position Low and Locked. Fall Precautions: Yellow Socks Yellow Gown Door Sign Patient Fall Education.
--- NOTE | 2020-09-07 07:10 | NUR ---
NURSE NOTES: Received patient in bed asleep. No sign of distress, on soft bilateral restraints.IVF on going, Bed is in the lowest position,locked, and alarm on. Call light within reach. will continue to monitor patient condition navarro talley.
--- NOTE | 2020-09-07 07:20 | NUR ---
HAND-OFF: Report given to KALANI allen.
[2020-09-07 07:21] LABS: BASOPHILS % (AUTO) 1.6 % (0.0-2.0); EOSINOPHILS % (AUTO) 5.1 % (0.0-3.0); HEMATOCRIT 35.3 % (42.0-52.0); HEMOGLOBIN 12.3 G/DL (14.2-18.0); LYMPHOCYTES % (AUTO) 24.6 % (20.0-45.0); MEAN CORPUSCULAR VOLUME 88 FL (80-99); MONOCYTES % (AUTO) 8.9 % (1.0-10.0); NEUTROPHILS % (AUTO) 59.8 % (45.0-75.0); PLATELET COUNT 290 K/UL (150-450); WHITE BLOOD COUNT 6.1 K/UL (4.8-10.8)
[2020-09-07 07:41] LABS: ALANINE AMINOTRANSFERASE 98 U/L (12-78); ALBUMIN 2.4 G/DL (3.4-5.0); ALBUMIN/GLOBULIN RATIO 0.8 (1.0-2.7); ALKALINE PHOSPHATASE 103 U/L (46-116); ASPARTATE AMINO TRANSFERASE 36 U/L (15-37); BILIRUBIN,TOTAL 0.5 MG/DL (0.2-1.0); BLOOD UREA NITROGEN 10 mg/dL (7-18); CALCIUM 8.1 MG/DL (8.5-10.1); CHLORIDE 108 MMOL/L (98-107); CREATININE 0.8 MG/DL (0.55-1.30); POTASSIUM 3.9 MMOL/L (3.5-5.1); SODIUM 142 MMOL/L (136-145)
[2020-09-07 07:49] LABS: CARBON DIOXIDE 28 MMOL/L (21-32)
[2020-09-07 07:56] VITALS: BP 137/80
[2020-09-07] MEDS: metFORMIN 500mg tab ORAL SCH (08:46)
[2020-09-07] MEDS: Acetaminophen 500mg (ES) tab ORAL SCH ×2 (08:46→17:07)
[2020-09-07] MEDS: Aspirin Baby 81mg ORAL SCH (08:46)
[2020-09-07] MEDS: Heparin 5000 units/ml inj SUBQ SCH ×2 (08:47→21:15)
[2020-09-07] MEDS: Hydrocortisone 1% Cr TOPIC SCH ×2 (08:48→21:13)
[2020-09-07] MEDS: Docusate 100mg cap ORAL SCH (08:48)
--- NOTE | 2020-09-07 11:51 | Surgery Progress Note ---
Surgery Progress Note Subjective Additional Comments afebrile HD stable states he is well and no complaints no n/v/f/c Objective Last 24 Hour Vital Signs Date Time Temp Pulse Resp B/P (MAP) Pulse Ox O2 Delivery O2 Flow Rate FiO2 09/07/20 08:39 Room Air 09/07/20 07:56 97.6 81 20 137/80 (99) 99 09/07/20 06:22 70 20 138/89 97 09/07/20 05:52 76 20 143/93 98 09/07/20 04:00 97.8 76 20 143/93 (110) 98 09/06/20 21:51 91 20 110/69 97 09/06/20 21:21 94 20 112/75 98 09/06/20 20:18 Room Air 09/06/20 20:00 96.8 96 20 108/76 (87) 98 09/06/20 16:00 97.0 78 19 134/77 (96) 98 09/06/20 14:45 64 18 123/81 99 09/06/20 14:15 64 18 123/81 99 09/06/20 12:00 97.5 64 18 123/81 (95) 99 I&O Intake and Output 09/06/20 09/07/20 19:00 07:00 Intake Total 1841.666 ml 1775 ml Output Total 1200 ml 600 ml Balance 641.666 ml 1175 ml Intake Oral 800 ml IV Total 1041.666 ml 975 ml Other 800 ml Output Urine Total 1200 ml 600 ml # Bowel Movements 1 1 Dressing: dry Cardiovascular: RSR Respiratory: decreased breath sounds Abdomen: soft, non-tender, present bowel sounds, non-distended Extremities: cyanosis, no edema, no tenderness, other Laboratory Tests Test 09/07/20 06:30 White Blood Count 6.1 K/UL (4.8-10.8) Red Blood Count 4.00 M/UL (4.70-6.10) L Hemoglobin 12.3 G/DL (14.2-18.0) L Hematocrit 35.3 % (42.0-52.0) L Mean Corpuscular Volume 88 FL (80-99) Mean Corpuscular Hemoglobin 30.7 PG (27.0-31.0) Mean Corpuscular Hemoglobin Concent 34.8 G/DL (32.0-36.0) Red Cell Distribution Width 14.0 % (11.6-14.8) Platelet Count 290 K/UL (150-450) Mean Platelet Volume 5.8 FL (6.5-10.1) L Neutrophils (%) (Auto) 59.8 % (45.0-75.0) Lymphocytes (%) (Auto) 24.6 % (20.0-45.0) Monocytes (%) (Auto) 8.9 % (1.0-10.0) Eosinophils (%) (Auto) 5.1 % (0.0-3.0) H Basophils (%) (Auto) 1.6 % (0.0-2.0) Sodium Level 142 MMOL/L (136-145) Potassium Level 3.9 MMOL/L (3.5-5.1) Chloride Level 108 MMOL/L (98-107) H Carbon Dioxide Level 28 MMOL/L (21-32) Blood Urea Nitrogen 10 mg/dL (7-18) Creatinine 0.8 MG/DL (0.55-1.30) Estimat Glomerular Filtration Rate > 60 mL/min (>60) Glucose Level 134 MG/DL (74-106) H Calcium Level 8.1 MG/DL (8.5-10.1) L Total Bilirubin 0.5 MG/DL (0.2-1.0) Aspartate Amino Transf (AST/SGOT) 36 U/L (15-37) Alanine Aminotransferase (ALT/SGPT) 98 U/L (12-78) H Alkaline Phosphatase 103 U/L (46-116) Total Protein 5.6 G/DL (6.4-8.2) L Albumin 2.4 G/DL (3.4-5.0) L Globulin 3.2 g/dL Albumin/Globulin Ratio 0.8 (1.0-2.7) L Plan Problems: (1) Rhabdomyolysis (2) Cellulitis of left foot Assessment & Plan: Bilaterally, grayscale and duplex images demonstrate atherosclerotic plaquing. Bilaterally, triphasic waveforms with sharp systolic peaks are seen from the common femoral to the popliteal artery levels. On the right, dorsalis pedis artery waveforms is borderline triphasic. Proximal posterior and anterior tibial artery waveforms are triphasic, and the distal posterior tibial artery waveform is triphasic. On the left, the posterior tibial artery waveform is monophasic with increased diastolic flow. The peroneal artery waveforms is monophasic with increased diastolic flow. The dorsalis pedis artery waveforms is monophasic with increased diastolic flow. Systolic peaks remain sharp in the tibial vessels. 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 No evidence of suprageniculate stenosis Minimal if any trifurcation disease on the right. No evidence of suprageniculate stenosis as per vascular Psych and medical optimization in progress Patient will need left leg angiogram for revascularization once cleared and consented Podiatry foot wound care f/u Antiplatelet and statin DVT and decub precautions Abdominal aorta: There is moderate narrowing of the celiac origin. Normal caliber superior mesenteric artery. Dual bilateral renal arteries. There is a moderate stenosis of the left vein renal artery origin. Mild to moderate stenosis of otherwise patent inferior mesenteric artery is noted at the origin. There is some mural plaquing of the abdominal aorta, but no significant stenosis is demonstrated. No aneurysm or dissection demonstrated. Right lower extremity: There is atherosclerotic plaquing of the no significant stenosis of the right common iliac, external iliac, and proximal internal iliac arteries. There is atherosclerotic plaquing of the common femoral artery, but no significant stenosis demonstrated. Patent nonstenotic profunda femoral artery and proximal branches. The superficial femoral artery demonstrates mild nonsignificant stenosis at the other 2 hiatus, no significant narrowing demonstrated. There is a mild nonsignificant stenosis of the proximal popliteal artery. No significant stenosis is demonstrated. Evaluation of the tibial vessels is very limited. The arterial phase acquisition stops at the level of the proximal lower legs. The delayed acquisition of the lower legs demonstrates heavy venous contamination, as well and is considerable image degradation due to motion artifact. Given these limitations, the anterior tibial artery appears to be patent although likely with multiple stenoses of uncertain significance. The tibioperoneal trunk demonstrates atherosclerotic plaquing, and possibly a moderate stenosis just above its bifurcation. The posterior tibial artery is very poorly visualized, heavily calcified, which precludes accurate estimation of degree of stenosis. It grossly appears to be patent to the foot although this is difficult to state for certain. It is likewise poorly visualized. Suspect patent to the ankle but heavily diseased. Left lower extremity: Patent nonstenotic common iliac, external iliac, internal iliac arteries. Atherosclerotic plaquing of the no significant stenosis of the common femoral artery. Patent nonstenotic profunda femoral artery and proximal branches. Patent nonstenotic superficial femoral artery. There is mild disease of the proximal popliteal artery. Imaging of the popliteal artery is somewhat degraded due to motion artifact. There are similar limitations to evaluation of the tibial vessels as on the right side. Imaging of the tibial vessels was performed in venous phase and there is significant motion artifact, venous contamination, as well as calcification. The proximal anterior tibial artery appears to be patent. Due to motion artifact, the midportion is not all well visualized. It does appear to be patent above and at the ankle and forms a dorsalis pedis artery. The tibioperoneal trunk demonstrates heavy atherosclerotic plaquing which limits evaluation of the lumen. The midportion of the posterior tibial artery is completely obscured due to motion. The distal posteri or tibial artery appears to be patent but heavily calcified and reaches the ankle. The peroneal artery is likewise obscured. Likely but not definitively patent to the ankle. Nonvascular: The gallbladder wall appears somewhat edematous. No gallstones are demonstrated. No biliary ductal dilatation. The liver, pancreas, spleen are unremarkable. The adrenals are somewhat bulky but no discrete mass is demonstrated. The kidneys are unremarkable. No retroperitoneal or mesenteric mass or adenopathy. No pelvic mass or adenopathy. The prostate is enlarged, measuring 6 cm transverse. The rectum is mildly distended by feces, measures up to 6.8 cm in diameter. Considerable stool seen within the distal sigmoid and proximal colon. No evidence of diverticulosis or diverticulitis. The appendix is not identified visualize, but no findings to suggest acute appendicitis are evident. No small bowel distention. No free or loculated intraperitoneal gas or fluid is evident. The lung bases demonstrate posterior dependent atelectatic changes. The bones demonstrate mild degenerative spondylosis changes. IMPRESSION: No evidence of suprageniculate stenosis bilaterally Very limited, essentially nondiagnostic, evaluation of the bilateral tibial vessels due to motion artifact, late phase imaging resulting in venous contamination, as well as heavy calcification precluding accurate evaluation of the luminal diameter. Suspect that the tibial vessels are patent but diseased bilaterally, but this cannot be stated with any certainty. Recommend arterial duplex scanning to evaluate quality of distal perfusion. Alternatively, MR angiography may be useful to better e valuate Edematous gallbladder wall, without evidence of gallstones. Gallbladder wall edema could be related to adjacent liver disease, hemodynamic disturbances, or could be idiopathic. However, the possibility of acute cholecystitis, either acalculous or due to CT-occult calculi also be considered. Possible mild rectal fecal impaction Prostatomegaly Incidental findings of posterior dependent pulmonary atelectatic changes, degenerative spondylosis changes (3) Cellulitis of left toe (4) Acute encephalopathy Assessment & Plan: Brain: There is chronic small vessel ischemic disease. 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 There are old lacunar infarcts in the right centrum semi-ovale. There is age-related cerebral volume loss. No hemorrhage. Ventricles: Unremarkable. No ventriculomegaly. Bones/joints: Unremarkable. No acute fracture. Soft tissues: Unremarkable. Sinuses: Unremarkable as visualized. No acute sinusitis. Mastoid air cells: Unremarkable as visualized. No mastoid effusion. IMPRESSION: 1. 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 2. Old lacunar infarcts in the right centrum semi-ovale. 3. Age-related cerebral volume loss. Chronic small vessel ischemic disease. (5) Abnormal LFTs Assessment & Plan: 60-year-old male altered mental status agitated came in for evaluation identified to have a WBC of 12 and abnormal LFTs. Admitted further care and management. Abdominal exam is fairly benign soft nontender nondistended. Pending abdominal ultrasound Trend labs We will follow with recommendations as imaging and labs are available. (6) Leukocytosis Assessment & Plan: Patient with leukocytosis on admission. Abnormal LFTs. Etiology of leukocytosis unknown. Micro noted. On antibiotics. Imaging ordered. Will follow with recommendations as imaging information is available. No abscess or or visible sign of infection identified. Small eschar on toe and had mild erythema of foot but not very clinically significant. (7) Anemia (8) HTN (hypertension) (9) DM (diabetes mellitus) (10) Wound of foot Clay Gonzalez Sep 07, 2020 11:51
[2020-09-07 12:00] VITALS: BP 132/77
--- NOTE | 2020-09-07 12:27 | General Progress Note ---
Subjective ROS Limited/Unobtainable: No Allergies: Coded Allergies: No Known Allergies (Unverified , 08/24/20) Objective Last 24 Hour Vital Signs Date Time Temp Pulse Resp B/P (MAP) Pulse Ox O2 Delivery O2 Flow Rate FiO2 09/07/20 12:00 97.8 86 19 132/77 (95) 99 09/07/20 08:39 Room Air 09/07/20 07:56 97.6 81 20 137/80 (99) 99 09/07/20 06:22 70 20 138/89 97 09/07/20 05:52 76 20 143/93 98 09/07/20 04:00 97.8 76 20 143/93 (110) 98 09/06/20 21:51 91 20 110/69 97 09/06/20 21:21 94 20 112/75 98 09/06/20 20:18 Room Air 09/06/20 20:00 96.8 96 20 108/76 (87) 98 09/06/20 16:00 97.0 78 19 134/77 (96) 98 09/06/20 14:45 64 18 123/81 99 09/06/20 14:15 64 18 123/81 99 Intake and Output 09/06/20 09/07/20 19:00 07:00 Intake Total 1841.666 ml 1775 ml Output Total 1200 ml 600 ml Balance 641.666 ml 1175 ml Intake Oral 800 ml IV Total 1041.666 ml 975 ml Other 800 ml Output Urine Total 1200 ml 600 ml # Bowel Movements 1 1 Laboratory Tests 09/07/20 06:30: White Blood Count 6.1, Red Blood Count 4.00L, Hemoglobin 12.3L, Hematocrit 35.3L , Mean Corpuscular Volume 88, Mean Corpuscular Hemoglobin 30.7, Mean Corpuscular Hemoglobin Concent 34.8, Red Cell Distribution Width 14.0, Platelet Count 290, Mean Platelet Volume 5.8L, Neutrophils (%) (Auto) 59.8, Lymphocytes (%) (Auto) 24.6, Monocytes (%) (Auto) 8.9, Eosinophils (%) (Auto) 5.1H, Basophils (%) (Auto) 1.6, Sodium Level 142, Potassium Level 3.9, Chloride Level 108H, Carbon Dioxide Level 28, Blood Urea Nitrogen 10, Creatinine 0.8, Estimat Glomerular Filtration Rate > 60, Glucose Level 134H, Calcium Level 8.1L, Total Bilirubin 0.5, Aspartate Amino Transf (AST/SGOT) 36, Alanine Aminotransferase (ALT/SGPT) 98H, Alkaline Phosphatase 103, Total Protein 5.6L, Albumin 2.4L, Globulin 3.2, Albumin/Globulin Ratio 0.8L Height (Feet): 6 Height (Inches): 0.00 Weight (Pounds): 151 General Appearance: no apparent distress EENT: normal ENT inspection Neck: supple Cardiovascular: normal rate Respiratory/Chest: decreased breath sounds Abdomen: normal bowel sounds, non tender, soft Extremities: non-tender Assessment/Plan Problem List: (1) Leukocytosis ICD Codes: D72.829 - Elevated white blood cell count, unspecified SNOMED: 726635097, 369917045 (2) Abnormal LFTs ICD Codes: R94.5 - Abnormal results of liver function studies SNOMED: 128513306 (3) Acute encephalopathy ICD Codes: G93.40 - Encephalopathy, unspecified SNOMED: 22124067, 622914616 (4) Cellulitis of left toe ICD Codes: L03.032 - Cellulitis of left toe SNOMED: 30098341 (5) Rhabdomyolysis ICD Codes: M62.82 - Rhabdomyolysis SNOMED: 725760000 Qualifiers: Qualified Codes: M62.82 - Rhabdomyolysis (6) Anemia ICD Codes: D64.9 - Anemia, unspecified SNOMED: 848296660 (7) DM (diabetes mellitus) ICD Codes: E11.9 - Type 2 diabetes mellitus without complications SNOMED: 56195266 (8) HTN (hypertension) ICD Codes: I10 - Essential (primary) hypertension SNOMED: 85773418 Status: stable Assessment/Plan: elevated LFTS possibly due to statins>>> off now>>> improving LFTS>>> will repeat in am abd us>>> fatty liver hepatitis panel>>> neg repeat labs speech eval appreciated on mechanical soft patient is combative and refuses care fu psych recs will fu Mohamud Foy MD Sep 07, 2020 12:27
--- NOTE | 2020-09-07 12:32 | Hematology/Onc Progress Note ---
Assessment/Plan Assessment/Plan failure of thrive non healing ulcer==>abx (vanc) malnutrition depression dc plan to snf with po abx wound care placement labs reviewed heparin sq ppx for cta orderedlower leg for toe ischemia, patient unable to sign consent and has no next of kin, needs procedure urgently further recommendations by vascular Subjective Constitutional: Denies: no symptoms, chills, fever, malaise, weakness, other Cardiovascular: Denies: no symptoms, chest pain, edema, irregular heart rate, lightheadedness, palpitations, syncope, other Respiratory: Denies: no symptoms, cough, shortness of breath, SOB with excertion, SOB at rest, sputum, wheezing, other Gastrointestinal/Abdominal: Denies: no symptoms, abdomen distended, abdominal pain, black stools, tarry stools, blood in stool, constipated, diarrhea, difficulty swallowing, nausea, poor appetite, poor fluid intake, rectal bleeding, vomiting, other Genitourinary: Denies: no symptoms, burning, discharge, frequency, flank pain, hematuria, incontinence, pain, urgency, other Neurologic/Psychiatric: Denies: no symptoms, anxiety, depressed, emotional problems, headache, numbness, paresthesia, pre-existing deficit, seizure, tingling, tremors, weakness, other Endocrine: Denies: no symptoms, excessive sweating, flushing, intolerance to cold, intolerance to heat, increased hunger, increased thirst, increased urine, unexplained weight gain, unexplained weight loss, other Allergies: Coded Allergies: No Known Allergies (Unverified , 08/24/20) Subjective 08/31 on b/l wrist restraints, psych aware, no bleeding, labs noted 09/01 yelling profanities in room today, neds reviewed, labs noted 09/02 labs reviewed, no bleeding, meds noted 09/03 yelling i want food this am, no bleeding, continue on vanc, heparin sq 09/04 ansious, restless is screaming overnight, cbc labs reordered 09/05 continues to refuse care, agitated this am 09/06 continue to refuse care, seen by vascular and surg 09/07 meds are noted, no bleeding, labs reviewed, hgb 12 Objective Objective Current Medications Medications (Trade) Dose Ordered Sig/Jesu Route PRN Reason Start Time Stop Time Status Last Admin Dose Admin Acetaminophen (Tylenol) 650 mg Q4H PRN RECTAL Temp >100.5 08/24/20 06:30 09/23/20 06:29 Acetaminophen (Tylenol) 1,000 mg BID ORAL 08/24/20 09:00 09/23/20 08:59 09/07/20 08:46 Aspirin (ASA) 81 mg DAILY ORAL 08/24/20 09:00 10/08/20 08:59 09/07/20 08:46 Bisacodyl (Dulcolax) 10 mg DAILY PRN RECTAL Constipation 08/24/20 06:15 11/22/20 06:14 Dextrose (Dextrose 50%) 25 ml Q30M PRN IV Hypoglycemia 08/24/20 06:30 11/22/20 06:29 Dextrose (Dextrose 50%) 50 ml Q30M PRN IV Hypoglycemia 08/24/20 06:30 11/22/20 06:29 Dextrose/Sodium Chloride 1,000 ml @ 75 mls/hr [id number] IV 08/24/20 07:00 09/23/20 06:59 09/07/20 04:24 Diphenhydramine HCl (Benadryl) 25 mg BIDPRN PRN ORAL Itching 08/24/20 15:15 09/23/20 15:14 09/07/20 04:24 Docusate Sodium (Colace) 100 mg DAILY ORAL 08/24/20 09:00 09/23/20 08:59 09/07/20 08:48 Haloperidol Lactate (Haldol) 5 mg Q6H PRN IM Agitation 08/24/20 07:00 10/08/20 06:59 09/06/20 03:39 Heparin Sodium (Porcine) (Heparin 5000 units/ml) 5,000 units EVERY 12 HOURS SUBQ 08/24/20 09:00 10/08/20 08:59 09/06/20 21:30 Hydrocortisone (Hydrocortisone) 1 applic Q12HR TOPIC 08/24/20 21:00 11/22/20 20:59 09/07/20 08:48 Hyoscyamine Sulfate (Levsin) 0.125 mg Q4H PRN ORAL secretions 08/24/20 06:15 09/23/20 06:14 Insulin Aspart (NovoLOG) BEFORE MEALS AND HS SUBQ 08/24/20 06:30 11/22/20 06:29 09/07/20 05:58 Lorazepam (Ativan) 1 mg EVERY 8 HOURS ORAL 09/03/20 06:00 09/10/20 05:59 09/07/20 05:52 Metformin HCl (Glucophage) 500 mg DAILY ORAL 08/24/20 09:00 09/23/20 08:59 09/07/20 08:46 Quetiapine Fumarate (SEROqueL) 100 mg EVERY 8 HOURS ORAL 08/30/20 22:00 10/13/20 05:59 09/07/20 05:52 Vancomycin HCl (Vanco pharmacy to dose) 1 ea DAILY PRN MISC Per rx protocol 08/24/20 10:45 09/23/20 10:44 Vancomycin HCl 750 mg/Sodium Chloride 275 ml @ 183.333 mls/hr Q8HR IVPB 09/04/20 22:00 09/09/20 21:59 09/07/20 05:52 Last 24 Hour Vital Signs Date Time Temp Pulse Resp B/P (MAP) Pulse Ox O2 Delivery O2 Flow Rate FiO2 09/07/20 12:00 97.8 86 19 132/77 (95) 99 09/07/20 08:39 Room Air 09/07/20 07:56 97.6 81 20 137/80 (99) 99 09/07/20 06:22 70 20 138/89 97 09/07/20 05:52 76 20 143/93 98 09/07/20 04:00 97.8 76 20 143/93 (110) 98 09/06/20 21:51 91 20 110/69 97 09/06/20 21:21 94 20 112/75 98 09/06/20 20:18 Room Air 09/06/20 20:00 96.8 96 20 108/76 (87) 98 09/06/20 16:00 97.0 78 19 134/77 (96) 98 09/06/20 14:45 64 18 123/81 99 09/06/20 14:15 64 18 123/81 99 09/06/20 12:00 97.5 64 18 123/81 (95) 99 09/06/20 09:00 Room Air 09/06/20 08:00 97.2 79 18 150/79 (102) 98 09/06/20 07:18 75 17 122/89 98 09/06/20 06:48 75 23 133/86 98 09/06/20 04:00 97.3 76 17 129/75 (93) 97 09/06/20 00:00 98.7 80 20 138/78 (98) 95 09/05/20 21:58 73 18 135/70 97 09/05/20 21:28 75 21 132/75 97 09/05/20 21:00 Room Air 09/05/20 20:00 98.2 77 18 126/72 (90) 97 09/05/20 16:00 97.7 79 18 133/83 (100) 97 09/05/20 13:56 70 18 138/90 98 09/05/20 13:26 75 19 140/95 97 Intake and Output 09/06/20 09/07/20 19:00 07:00 Intake Total 1841.666 ml 1775 ml Output Total 1200 ml 600 ml Balance 641.666 ml 1175 ml Intake Oral 800 ml IV Total 1041.666 ml 975 ml Other 800 ml Output Urine Total 1200 ml 600 ml # Bowel Movements 1 1 Labs Test 09/04/20 16:10 09/05/20 08:20 09/05/20 11:24 09/05/20 21:15 Vancomycin Level Trough 17.4 ug/mL (5.0-12.0) 13.5 ug/mL (5.0-12.0) White Blood Count 9.4 K/UL (4.8-10.8) Red Blood Count 4.13 M/UL (4.70-6.10) Hemoglobin 12.6 G/DL (14.2-18.0) Hematocrit 36.2 % (42.0-52.0) Mean Corpuscular Volume 88 FL (80-99) Mean Corpuscular Hemoglobin 30.4 PG (27.0-31.0) Mean Corpuscular Hemoglobin Concent 34.7 G/DL (32.0-36.0) Red Cell Distribution Width 13.8 % (11.6-14.8) Platelet Count 299 K/UL (150-450) Mean Platelet Volume 5.9 FL (6.5-10.1) Neutrophils (%) (Auto) 66.5 % (45.0-75.0) Lymphocytes (%) (Auto) 19.7 % (20.0-45.0) Monocytes (%) (Auto) 7.5 % (1.0-10.0) Eosinophils (%) (Auto) 3.4 % (0.0-3.0) Basophils (%) (Auto) 3.0 % (0.0-2.0) Sodium Level 141 MMOL/L (136-145) Potassium Level 3.8 MMOL/L (3.5-5.1) Chloride Level 106 MMOL/L (98-107) Carbon Dioxide Level 28 MMOL/L (21-32) Anion Gap 8 mmol/L (5-15) Blood Urea Nitrogen 8 mg/dL (7-18) Creatinine 0.8 MG/DL (0.55-1.30) Estimat Glomerular Filtration Rate > 60 mL/min (>60) Glucose Level 129 MG/DL (74-106) Calcium Level 8.5 MG/DL (8.5-10.1) Total Bilirubin 0.4 MG/DL (0.2-1.0) Aspartate Amino Transf (AST/SGOT) 48 U/L (15-37) Alanine Aminotransferase (ALT/SGPT) 135 U/L (12-78) Alkaline Phosphatase 118 U/L (46-116) Total Protein 6.0 G/DL (6.4-8.2) Albumin 2.6 G/DL (3.4-5.0) Globulin 3.4 g/dL Albumin/Globulin Ratio 0.8 (1.0-2.7) POC Whole Blood Glucose 123 MG/DL (74-106) Test 09/06/20 05:40 09/07/20 06:30 White Blood Count 7.5 K/UL (4.8-10.8) 6.1 K/UL (4.8-10.8) Red Blood Count 4.35 M/UL (4.70-6.10) 4.00 M/UL (4.70-6.10) Hemoglobin 13.1 G/DL (14.2-18.0) 12.3 G/DL (14.2-18.0) Hematocrit 38.3 % (42.0-52.0) 35.3 % (42.0-52.0) Mean Corpuscular Volume 88 FL (80-99) 88 FL (80-99) Mean Corpuscular Hemoglobin 30.2 PG (27.0-31.0) 30.7 PG (27.0-31.0) Mean Corpuscular Hemoglobin Concent 34.3 G/DL (32.0-36.0) 34.8 G/DL (32.0-36.0) Red Cell Distribution Width 14.0 % (11.6-14.8) 14.0 % (11.6-14.8) Platelet Count 295 K/UL (150-450) 290 K/UL (150-450) Mean Platelet Volume 6.4 FL (6.5-10.1) 5.8 FL (6.5-10.1) Neutrophils (%) (Auto) 64.8 % (45.0-75.0) 59.8 % (45.0-75.0) Lymphocytes (%) (Auto) 23.1 % (20.0-45.0) 24.6 % (20.0-45.0) Monocytes (%) (Auto) 6.1 % (1.0-10.0) 8.9 % (1.0-10.0) Eosinophils (%) (Auto) 4.3 % (0.0-3.0) 5.1 % (0.0-3.0) Basophils (%) (Auto) 1.7 % (0.0-2.0) 1.6 % (0.0-2.0) Sodium Level 142 MMOL/L (136-145) Potassium Level 3.9 MMOL/L (3.5-5.1) Chloride Level 108 MMOL/L (98-107) Carbon Dioxide Level 28 MMOL/L (21-32) Blood Urea Nitrogen 10 mg/dL (7-18) Creatinine 0.8 MG/DL (0.55-1.30) Estimat Glomerular Filtration Rate > 60 mL/min (>60) Glucose Level 134 MG/DL (74-106) Calcium Level 8.1 MG/DL (8.5-10.1) Total Bilirubin 0.5 MG/DL (0.2-1.0) Aspartate Amino Transf (AST/SGOT) 36 U/L (15-37) Alanine Aminotransferase (ALT/SGPT) 98 U/L (12-78) Alkaline Phosphatase 103 U/L (46-116) Total Protein 5.6 G/DL (6.4-8.2) Albumin 2.4 G/DL (3.4-5.0) Globulin 3.2 g/dL Albumin/Globulin Ratio 0.8 (1.0-2.7) Height (Feet): 6 Height (Inches): 0.00 Weight (Pounds): 151 Objective General Appearance: confused EENT: PERRL/EOMI Neck: supple Cardiovascular: regular rhythm Respiratory/Chest: normal breath sounds Abdomen: non tender, soft Extremities: non-tender Ricardo Mills MD Sep 07, 2020 12:32
--- NOTE | 2020-09-07 15:05 | NUR ---
CASE MANAGEMENT:REVIEW SI;CELLULITIS 97.8 86 20 143/93 97% ON RA ALT 98 IS;VANCOMYCIN IV Q8 ATIVAN PO Q8 HEPARIN SUBQ Q12 ASA PO QD IVF D5NS@ 75 ML/HR MED SURG STATUS DCP;FROM [facility] PATIENT IS A CLIENT OF [facility] ACTIVELY SEEKING PLACEMENT PLACEMENT BARRIERS: BEHAVIORAL CONCERNS SCREAMER HIGH ACUITY
[2020-09-07 16:00] VITALS: BP 130/80
--- NOTE | 2020-09-07 17:04 | NUR ---
nurse noted patient yelling and stated he feel itching all over the body benadryl given as ordered mayank briceño
[2020-09-07] MEDS: Haloperidol 5mg/ml Inj IM PRN (18:07)
--- NOTE | 2020-09-07 18:09 | NUR ---
nurse notes patient very agitated Haldol IM given as ordered will continue to monitor patient condition navarro talley
--- NOTE | 2020-09-07 18:32 | General Progress Note ---
Subjective Allergies: Coded Allergies: No Known Allergies (Unverified , 08/24/20) Subjective doing ok bed ridden screaming Objective Last 24 Hour Vital Signs Date Time Temp Pulse Resp B/P (MAP) Pulse Ox O2 Delivery O2 Flow Rate FiO2 09/07/20 16:00 98.0 92 20 130/80 (97) 99 09/07/20 13:15 86 19 132/77 99 09/07/20 12:00 97.8 86 19 132/77 (95) 99 09/07/20 08:39 Room Air 09/07/20 07:56 97.6 81 20 137/80 (99) 99 09/07/20 06:22 70 20 138/89 97 09/07/20 05:52 76 20 143/93 98 09/07/20 04:00 97.8 76 20 143/93 (110) 98 09/06/20 21:51 91 20 110/69 97 09/06/20 21:21 94 20 112/75 98 09/06/20 20:18 Room Air 09/06/20 20:00 96.8 96 20 108/76 (87) 98 Intake and Output 09/06/20 09/07/20 19:00 07:00 Intake Total 1841.666 ml 1775 ml Output Total 1200 ml 600 ml Balance 641.666 ml 1175 ml Intake Oral 800 ml IV Total 1041.666 ml 975 ml Other 800 ml Output Urine Total 1200 ml 600 ml # Bowel Movements 1 1 Laboratory Tests 09/07/20 06:30: White Blood Count 6.1, Red Blood Count 4.00L, Hemoglobin 12.3L, Hematocrit 35.3L , Mean Corpuscular Volume 88, Mean Corpuscular Hemoglobin 30.7, Mean Corpuscular Hemoglobin Concent 34.8, Red Cell Distribution Width 14.0, Platelet Count 290, Mean Platelet Volume 5.8L, Neutrophils (%) (Auto) 59.8, Lymphocytes (%) (Auto) 24.6, Monocytes (%) (Auto) 8.9, Eosinophils (%) (Auto) 5.1H, Basophils (%) (Auto) 1.6, Sodium Level 142, Potassium Level 3.9, Chloride Level 108H, Carbon Dioxide Level 28, Blood Urea Nitrogen 10, Creatinine 0.8, Estimat Glomerular Filtration Rate > 60, Glucose Level 134H, Calcium Level 8.1L, Total Bilirubin 0.5, Aspartate Amino Transf (AST/SGOT) 36, Alanine Aminotransferase (ALT/SGPT) 98H, Alkaline Phosphatase 103, Total Protein 5.6L, Albumin 2.4L, Globulin 3.2, Albumin/Globulin Ratio 0.8L Height (Feet): 6 Height (Inches): 0.00 Weight (Pounds): 151 General Appearance: alert Cardiovascular: normal rate Respiratory/Chest: normal breath sounds Abdomen: non tender, soft Skin: warm/dry Assessment/Plan Status: stable Assessment/Plan: failure of thrive non healing ulcer malmutrition depression dc plan to snf with po abx wound care placement dw case consultant to dc plan to snf with hospice Miki Gruber MD Sep 07, 2020 18:32
--- NOTE | 2020-09-07 18:56 | NUR ---
SPEECH PATHOLOGY NOTE/WEEKLY SUMMARY: S: PATIENT CLEARED FOR ST INTERVENTION BY KALANI CALDWELL. PATIENT WAS SITTING UPRIGHT IN BED AND ALERT/AMENDABLE FOR ST DYSPHAGIA TX. PER RN, PATIENTS BEHAVIOR HAS BEEN MORE SUBDUED, BUT HE WAS YELLING WHEN THE CLINICIAN ENTERED HIS ROOM O: DYSPHAGIA TX/MANAGEMENT, ANALYZE/ADJUST DIET TEXTURE PROGRESS NOTE Patient: ALEJANDRO ONEILL [facility] Rec #: [id number] Patient No.: [id number] Date of Admission: 08/24/20 Progress Note date and time: 09/07/201831 Subjective Allergies: Coded Allergies: No Known Allergies (Unverified , 08/24/20) Subjective doing ok bed ridden screaming Objective Last 24 Hour Vital Signs Date Time TempPulseRespB/P (MAP)Pulse OxO2 DeliveryO2 Flow RateFiO2 09/07/20 16:0098.83613441/80 (97)99 09/07/20 13:678145241/7799 09/07/20 12:0097.97785009/77 (95)99 09/07/20 08:39Room Air 09/07/20 07:5697.60928844/80 (99)99 09/07/20 06:660232105/8997 09/07/20 05:124234761/9398 09/07/20 04:0097.56875409/93 (110)98 09/06/20 21:653955734/6997 09/06/20 21:647962367/7598 09/06/20 20:18Room Air 09/06/20 20:0096.88040906/76 (87)98 Intake and Output 09/06/2010/15/20 19:0007:00 Intake Wijqp0010.666 it1960 ml Output Lmacs3519 ml600 ml Syesafy695.666 el9097 ml Intake Gusq881 ml IV Jgqik3630.666 ml975 ml Msulq465 ml Output Urine Afhzq4160 ml600 ml # Bowel Norhvwukb34 Laboratory Tests 09/07/20 06:30: White Blood Count 6.1, Red Blood Count 4.00L, Hemoglobin 12.3L, Hematocrit 35.3L, Mean Corpuscular Volume 88, Mean Corpuscular Hemoglobin 30.7, Mean Corpuscular Hemoglobin Concent 34.8, Red Cell Distribution Width 14.0, Platelet Count 290, Mean Platelet Volume 5.8L, Neutrophils (%) (Auto) 59.8, Lymphocytes (%) (Auto) 24.6, Monocytes (%) (Auto) 8.9, Eosinophils (%) (Auto) 5.1H, Basophils (%) (Auto) 1.6, Sodium Level 142, Potassium Level 3.9, Chloride Level 108H, Carbon Dioxide Level 28, Blood Urea Nitrogen 10, Creatinine 0.8, Estimat Glomerular Filtration Rate > 60, Glucose Level 134H, Calcium Level 8.1L, Total Bilirubin 0.5, Aspartate Amino Transf (AST/SGOT) 36, Alanine Aminotransferase (ALT/SGPT) 98H, Alkaline Phosphatase 103, Total Protein 5.6L, Albumin 2.4L, Globulin 3.2, Albumin/Globulin Ratio 0.8L Height (Feet): 6 Height (Inches): 0.00 Weight (Pounds): 151 General Appearance: alert Cardiovascular: normal rate Respiratory/Chest: normal breath sounds Abdomen: non tender, soft Skin: warm/dry Assessment/Plan Status: stable Assessment/Plan: failure of thrive non healing ulcer malmutrition depression dc plan to snf with po abx wound care placement dw case supervisor to dc plan to snf with hospice PO Intake Comment 75-100% ---- 06/01 menu tickets available for eval, 72 hr Kcal count: All meals po intake is 100% of main protein item, with 75-100% intake of side dishes. Good po intake. Diagnosis Swallowing difficulty R/T dysphagia, h/o CVA as evidenced by pt on pureed moist texture diet w/ NTL-> now advanced to [facility] soft chopped w/ NTL. Diet LOW NA + CCHO MED/ texture per PASTRY COOK APPRENTICE Recommendation #1 * Standing wt for accurate CBW or calibrated bedscale wt Recommendation #2 * F/up w/ calorie count x 72 hrs (08/25-08/28)- good intake of all meals Recommendation #3 * Skin integrity: Add MVI x 1 Recommendation #4 * Glucerna BID Recommendation #5 * Monitor for continued good po intake Education Comment asleep, confused and aggressive per notes Nutrition Monitoring & Evaluation Wt stable/gain/loss PO intake adequacy Tolerate intake/delivery Blood Glucose Control Na/Fluid status Phos,Magnesium,K+ Nutrition Risk Moderate Reassessment Due 09/09/20 A: PATIENT PRESENTED WITH SOFT SOLID (CRACKER) WHICH HE MANAGED WITH SUFFICIENT MASTICATION TO BREAK DOWN THE BITES AND PREPARE EACH BOLUS FOR SWALLOW. WITH INTAKE OF THIN LIQUID PRESENTED BY STRAW, PATIENT ABLE TO SIP/SWALLOW MULTIPLE TRIALS WITH NO OVERT S/S OF ASPIRATION HIS LIQUIDS CAN BE UPGRADED FROM NECTAR THICK TO THIN HIS MOD/SEV COGNITIVE IMPAIRMENT INCLUDES ABSENCE OF SELF/REGULATION AND HIS MEMORY DEFICITS CAUSE HIM TO FORGET ALL MEALS AND COMPLAIN "I HAVENT HAD ANYTHING TO EAT SINCE YESTERDAY" P: 1. ADVANCE DIET TEXTURE TO MECHANICAL SOFT/CHOPPED WITH THIN THICK LIQUIDS 2. REINFORCED TO RN THE NEED TO END MEAL WITH LIQUIDS AND PROVIDE ORAL CARE TO CLEAR PATIENTS MOUTH OF ANY REMAINING RESIDUE OF SOLIDS 3. PATIENTS WANTS/NEEDS NEED TO BE ANTICIPATED BY STAFF DUE TO HIS INABILITY TO UTILIZE HIS CALL BUTTON 4. ST TO CONTINUE WHILE PATIENT IS IN HOUSE. 5. PATIENT NEEDS PASTRY COOK APPRENTICE INTERVENTION AT NEXT LEVEL OF CARE TO ADDRESS DYSPHAGIA AND COGNITIVE DEFICITS. DISCUSSED FINDINGS/RECOMMENDATIONS WITH KALANI CALDWELL. THANK YOU FOR THIS REFERRAL.
--- NOTE | 2020-09-07 19:09 | NUR ---
NURSE HAND-OFF: Important Events on Shift:[NO CHANGES STILL YELLING , SHOUTING EASILY AGITATED , PRN MEDS GIVEN] Patient Status: [STABLE] Diet: [REGULAR DIET] Pending Orders: [NONE] Pending Results/Labs:[NONE] Pending MD notification:[NONE] Latest Vital Signs: Temperature 98.0 , Pulse 92 , B/P 130 /80 , Respiratory Rate 20 , O2 SAT 99 , Room Air, O2 Flow Rate . Vital Sign Comment: [STABLE] Latest Mayberry Fall Score: 95 Fall Risk: High Risk Safety Measures: Call light Within Reach, Bed Alarm Zone 2, Side Rails Side Rails x3, Bed position Low and Locked. Fall Precautions: Yellow Socks Yellow Gown Door Sign Patient Fall Education Report given to [JUAN URIARTE].
--- NOTE | 2020-09-07 19:15 | NUR ---
NURSE NOTES: Received pt awake,verbal and A&Ox2-3. No sob, pain , and fever at the moment. Iv is intact and asymptomatic. Pt is on soft bilateral restraints. Bed is in the lowest position,locked, and alarm on. Call light within reach. We will keep monitoring the pt.
[2020-09-07 20:00] VITALS: BP 130/75
--- NOTE | 2020-09-07 22:30 | Psych Consult Progress Note ---
Psychiatry Progress Note Psychiatry Progress Note Subjective the pt was calmer nad Medications Current Medications Medications (Trade) Dose Ordered Sig/Jesu Route PRN Reason Start Time Stop Time Status Last Admin Dose Admin Acetaminophen (Tylenol) 650 mg Q4H PRN RECTAL Temp >100.5 08/24/20 06:30 09/23/20 06:29 Acetaminophen (Tylenol) 1,000 mg BID ORAL 08/24/20 09:00 09/23/20 08:59 09/07/20 17:07 Aspirin (ASA) 81 mg DAILY ORAL 08/24/20 09:00 10/08/20 08:59 09/07/20 08:46 Bisacodyl (Dulcolax) 10 mg DAILY PRN RECTAL Constipation 08/24/20 06:15 11/22/20 06:14 Dextrose (Dextrose 50%) 25 ml Q30M PRN IV Hypoglycemia 08/24/20 06:30 11/22/20 06:29 Dextrose (Dextrose 50%) 50 ml Q30M PRN IV Hypoglycemia 08/24/20 06:30 11/22/20 06:29 Dextrose/Sodium Chloride 1,000 ml @ 75 mls/hr [id number] IV 08/24/20 07:00 09/23/20 06:59 09/07/20 17:08 Diphenhydramine HCl (Benadryl) 25 mg BIDPRN PRN ORAL Itching 08/24/20 15:15 09/23/20 15:14 09/07/20 17:04 Docusate Sodium (Colace) 100 mg DAILY ORAL 08/24/20 09:00 09/23/20 08:59 09/07/20 08:48 Haloperidol Lactate (Haldol) 5 mg Q6H PRN IM Agitation 08/24/20 07:00 10/08/20 06:59 09/07/20 18:07 Heparin Sodium (Porcine) (Heparin 5000 units/ml) 5,000 units EVERY 12 HOURS SUBQ 08/24/20 09:00 10/08/20 08:59 09/07/20 21:15 Hydrocortisone (Hydrocortisone) 1 applic Q12HR TOPIC 08/24/20 21:00 11/22/20 20:59 09/07/20 21:13 Hyoscyamine Sulfate (Levsin) 0.125 mg Q4H PRN ORAL secretions 08/24/20 06:15 09/23/20 06:14 Insulin Aspart (NovoLOG) BEFORE MEALS AND HS SUBQ 08/24/20 06:30 11/22/20 06:29 09/07/20 05:58 Lorazepam (Ativan) 1 mg EVERY 8 HOURS ORAL 09/03/20 06:00 09/10/20 05:59 09/07/20 21:14 Metformin HCl (Glucophage) 500 mg DAILY ORAL 08/24/20 09:00 09/23/20 08:59 09/07/20 08:46 Quetiapine Fumarate (SEROqueL) 100 mg EVERY 8 HOURS ORAL 08/30/20 22:00 10/13/20 05:59 09/07/20 21:14 Vancomycin HCl (Vanco pharmacy to dose) 1 ea DAILY PRN MISC Per rx protocol 08/24/20 10:45 09/23/20 10:44 Vancomycin HCl 750 mg/Sodium Chloride 275 ml @ 183.333 mls/hr Q8HR IVPB 09/04/20 22:00 09/09/20 21:59 09/07/20 21:13 Neurological/Psychiatric: Denies: no symptoms, anxiety, depressed, emotional problems, headache, numbness, paresthesia, pre-existing deficit, seizure, tingling, tremors, weakness, other Allergies: Coded Allergies: No Known Allergies (Unverified , 08/24/20) Objective Data Height (Feet): 6 Height (Inches): 0.00 Weight (Pounds): 151 General Appearance: alert Behavior Mannerisms: poor eye contact Mental Status Exam - Affect: flat Additional Comments: alert, oriented x0. Mood is agitated. Affect is blunted, congruent with mood. Thought process is concrete. Thought content, no suicidal or homicidal ideation. Cognition is impaired. Insight and judgment is impaired. Assessment/Plan Robinson I: ASSESSMENT: Robinson I Psychotic disorder, not otherwise specified. Robinson II Deferred. Robinson III CVA. Robinson IV Low. Robinson V 20. PLAN: 1. We will start the patient on Seroquel. 2. Ativan. 3. Discontinue all other psychotropic medication. 4. Patient lacks capacity to make decision. Status: stable Status Narrative ASSESSMENT: Robinson I Psychotic disorder, not otherwise specified. Robinson II Deferred. Robinson III CVA. Robinson IV Low. Robinson V 20. PLAN: 1. We will start the patient on Seroquel. 2. Ativan. 3. Discontinue all other psychotropic medication. 4. Patient lacks capacity to make decision. Assessment/Plan: ASSESSMENT: Robinson I Psychotic disorder, not otherwise specified. Robinson II Deferred. Robinson III CVA. Robinson IV Low. Robinson V 20. PLAN: 1. We will start the patient on Seroquel. 2. Ativan. 3. Discontinue all other psychotropic medication. 4. Patient lacks capacity to make decision. Nima Degroot MD Sep 07, 2020 22:30
[2020-09-08] VITALS: BP 125/72
[2020-09-08 04:00] VITALS: BP 128/76
[2020-09-08] MEDS: D5NS 1,000 ML IV SCH (05:55)
[2020-09-08] MEDS: LORazepam 1mg tab ORAL SCH ×2 (06:24→14:33)
[2020-09-08] MEDS: Vancomycin 750mg/NS 275ml IVPB SCH ×4 (06:25→14:32)
[2020-09-08] MEDS: NovoLOG Insulin Flexpen SUBQ SCH ×2 (06:30→11:30)
--- NOTE | 2020-09-08 06:41 | NUR ---
NURSE HAND-OFF: Important Events on Shift:na Patient Status: stable Diet: reg mec soft Pending Orders: Pending Results/Labs:cmp Pending MD notification: Latest Vital Signs: Temperature 97.6 , Pulse 86 , B/P 128 /76 , Respiratory Rate 18 , O2 SAT 97 , Room Air, O2 Flow Rate . Vital Sign Comment: Latest Mayberry Fall Score: 95 Fall Risk: High Risk Safety Measures: Call light Within Reach, Bed Alarm Zone 2, Side Rails Side Rails x3, Bed position Low and Locked. Fall Precautions: Yellow Socks Yellow Gown Door Sign Patient Fall Education.
--- NOTE | 2020-09-08 07:29 | NUR ---
HAND-OFF: Report given to oRxie Ceja.
[2020-09-08 08:00] VITALS: BP 135/87
--- NOTE | 2020-09-08 08:07 | NUR ---
NURSE NOTES: Received patient in bed. He is sleeping, no signs of respiratory distress, he has bilateral hand restraints, keeps taking the condom catheter off. The plan for today is to remove restraints. he will be monitored for safety as he has history of CVA and left sided weakness and is a fall risk. Call light within reach, be at the lowest position.
[2020-09-08] MEDS: Heparin 5000 units/ml inj SUBQ SCH (08:44)
[2020-09-08] MEDS: Acetaminophen 500mg (ES) tab ORAL SCH (08:45)
[2020-09-08] MEDS: metFORMIN 500mg tab ORAL SCH (08:45)
[2020-09-08] MEDS: Aspirin Baby 81mg ORAL SCH (08:45)
[2020-09-08] MEDS: Hydrocortisone 1% Cr TOPIC SCH (08:45)
[2020-09-08] MEDS: Docusate 100mg cap ORAL SCH (08:45)
[2020-09-08] MEDS: Haloperidol 5mg/ml Inj IM PRN (09:39)
--- NOTE | 2020-09-08 10:10 | General Progress Note ---
Subjective ROS Limited/Unobtainable: No Allergies: Coded Allergies: No Known Allergies (Unverified , 08/24/20) Objective Last 24 Hour Vital Signs Date Time Temp Pulse Resp B/P (MAP) Pulse Ox O2 Delivery O2 Flow Rate FiO2 09/08/20 08:00 98.2 76 18 135/87 (103) 100 09/08/20 06:57 78 18 124/75 97 09/08/20 06:24 86 18 128/76 97 09/08/20 04:00 97.6 86 18 128/76 (93) 97 09/08/20 00:00 97.3 84 20 125/72 (89) 96 09/07/20 21:53 Room Air 09/07/20 21:44 72 20 125/76 96 09/07/20 21:14 70 20 130/75 95 09/07/20 20:00 97.9 70 20 130/75 (93) 95 09/07/20 16:00 98.0 92 20 130/80 (97) 99 09/07/20 13:15 86 19 132/77 99 09/07/20 12:00 97.8 86 19 132/77 (95) 99 Intake and Output 09/07/20 09/08/20 19:00 07:00 Intake Total 1858.333 ml 800 ml Balance 1858.333 ml 800 ml Intake Oral 1000 ml IV Total 858.333 ml Other 800 ml # Voids 8 4 # Bowel Movements 2 1 Height (Feet): 6 Height (Inches): 0.00 Weight (Pounds): 151 General Appearance: alert EENT: normal ENT inspection Neck: supple Cardiovascular: normal peripheral pulses Respiratory/Chest: decreased breath sounds Abdomen: normal bowel sounds, non tender, soft Extremities: non-tender Assessment/Plan Problem List: (1) Leukocytosis ICD Codes: D72.829 - Elevated white blood cell count, unspecified SNOMED: 510553604, 574816028 (2) Abnormal LFTs ICD Codes: R94.5 - Abnormal results of liver function studies SNOMED: 694308419 (3) Acute encephalopathy ICD Codes: G93.40 - Encephalopathy, unspecified SNOMED: 80426578, 014157608 (4) Cellulitis of left toe ICD Codes: L03.032 - Cellulitis of left toe SNOMED: 99639423 (5) Rhabdomyolysis ICD Codes: M62.82 - Rhabdomyolysis SNOMED: 095297579 Qualifiers: Qualified Codes: M62.82 - Rhabdomyolysis (6) Anemia ICD Codes: D64.9 - Anemia, unspecified SNOMED: 754972374 (7) DM (diabetes mellitus) ICD Codes: E11.9 - Type 2 diabetes mellitus without complications SNOMED: 19496449 (8) HTN (hypertension) ICD Codes: I10 - Essential (primary) hypertension SNOMED: 83456489 Status: stable Assessment/Plan: elevated LFTS possibly due to statins>>> off now>>> improving LFTS abd us>>> fatty liver hepatitis panel>>> neg repeat labs speech eval appreciated on mechanical soft patient is combative and refuses care fu psych recs will Mohamud Spaulding MD Sep 08, 2020 10:10
--- NOTE | 2020-09-08 10:20 | General Progress Note ---
Subjective Allergies: Coded Allergies: No Known Allergies (Unverified , 08/24/20) Subjective doing ok bed ridden screaming Objective Last 24 Hour Vital Signs Date Time Temp Pulse Resp B/P (MAP) Pulse Ox O2 Delivery O2 Flow Rate FiO2 09/08/20 09:15 98.2 09/08/20 09:00 Room Air 09/08/20 08:00 98.2 76 18 135/87 (103) 100 09/08/20 06:57 78 18 124/75 97 09/08/20 06:24 86 18 128/76 97 09/08/20 04:00 97.6 86 18 128/76 (93) 97 09/08/20 00:00 97.3 84 20 125/72 (89) 96 09/07/20 21:53 Room Air 09/07/20 21:44 72 20 125/76 96 09/07/20 21:14 70 20 130/75 95 09/07/20 20:00 97.9 70 20 130/75 (93) 95 09/07/20 16:00 98.0 92 20 130/80 (97) 99 09/07/20 13:15 86 19 132/77 99 09/07/20 12:00 97.8 86 19 132/77 (95) 99 Intake and Output 09/07/20 09/08/20 19:00 07:00 Intake Total 1858.333 ml 800 ml Balance 1858.333 ml 800 ml Intake Oral 1000 ml IV Total 858.333 ml Other 800 ml # Voids 8 4 # Bowel Movements 2 1 Height (Feet): 6 Height (Inches): 0.00 Weight (Pounds): 151 General Appearance: alert Cardiovascular: regular rhythm Respiratory/Chest: normal breath sounds Abdomen: soft Assessment/Plan Status: stable Assessment/Plan: failure of thrive non healing ulcer malmutrition depression dc plan to snf with po abx wound care placement dw pillowcase cutter to dc plan to snf with hospice Miki Gruber MD Sep 08, 2020 10:20
--- NOTE | 2020-09-08 10:55 | NUR ---
discharge disposition: please read PATIENT TO BE DISCHARGED TO [facility] [address] [facility] [address] T:[phone]> CALL FOR REPORT NO FAMILY TO NOTIFY [employer] [id number]
--- NOTE | 2020-09-08 11:48 | Hematology/Onc Progress Note ---
Assessment/Plan Assessment/Plan failure of thrive Anemia of chronic disease, labs noted non healing ulcer==>abx (vanc) malnutrition depression dc plan to snf with po abx wound care placement labs reviewed heparin sq ppx for cta orderedlower leg for toe ischemia, patient unable to sign consent and has no next of kin, needs procedure urgently further recommendations by vascular Subjective Constitutional: Denies: no symptoms, chills, fever, malaise, weakness, other HEENT: Denies: no symptoms, eye pain, blurred vision, tearing, double vision, ear pain, ear discharge, nose pain, nose congestion, throat pain, throat swelling, mouth pain, mouth swelling, other Cardiovascular: Denies: no symptoms, chest pain, edema, irregular heart rate, lightheadedness, palpitations, syncope, other Respiratory: Denies: no symptoms, cough, shortness of breath, SOB with excertion, SOB at rest, sputum, wheezing, other Gastrointestinal/Abdominal: Denies: no symptoms, abdomen distended, abdominal pain, black stools, tarry stools, blood in stool, constipated, diarrhea, difficulty swallowing, nausea, poor appetite, poor fluid intake, rectal bleeding, vomiting, other Genitourinary: Denies: no symptoms, burning, discharge, frequency, flank pain, hematuria, incontinence, pain, urgency, other Neurologic/Psychiatric: Denies: no symptoms, anxiety, depressed, emotional problems, headache, numbness, paresthesia, pre-existing deficit, seizure, tingling, tremors, weakness, other Endocrine: Denies: no symptoms, excessive sweating, flushing, intolerance to cold, intolerance to heat, increased hunger, increased thirst, increased urine, unexplained weight gain, unexplained weight loss, other Allergies: Coded Allergies: No Known Allergies (Unverified , 08/24/20) Subjective 08/31 on b/l wrist restraints, psych aware, no bleeding, labs noted 09/01 yelling profanities in room today, neds reviewed, labs noted 09/02 labs reviewed, no bleeding, meds noted 09/03 yelling i want food this am, no bleeding, continue on vanc, heparin sq 09/04 ansious, restless is screaming overnight, cbc labs reordered 09/05 continues to refuse care, agitated this am 09/06 continue to refuse care, seen by vascular and surg 09/07 meds are noted, no bleeding, labs reviewed, hgb 12 09/08 potential dc to WC, no bleeding, labs noted, dw rn Objective Objective Current Medications Medications (Trade) Dose Ordered Sig/Jesu Route PRN Reason Start Time Stop Time Status Last Admin Dose Admin Acetaminophen (Tylenol) 650 mg Q4H PRN RECTAL Temp >100.5 08/24/20 06:30 09/23/20 06:29 Acetaminophen (Tylenol) 1,000 mg BID ORAL 08/24/20 09:00 09/23/20 08:59 09/08/20 08:45 Aspirin (ASA) 81 mg DAILY ORAL 08/24/20 09:00 10/08/20 08:59 09/08/20 08:45 Bisacodyl (Dulcolax) 10 mg DAILY PRN RECTAL Constipation 08/24/20 06:15 11/22/20 06:14 Dextrose (Dextrose 50%) 25 ml Q30M PRN IV Hypoglycemia 08/24/20 06:30 11/22/20 06:29 Dextrose (Dextrose 50%) 50 ml Q30M PRN IV Hypoglycemia 08/24/20 06:30 11/22/20 06:29 Dextrose/Sodium Chloride 1,000 ml @ 75 mls/hr [id number] IV 08/24/20 07:00 09/23/20 06:59 09/08/20 05:55 Diphenhydramine HCl (Benadryl) 25 mg BIDPRN PRN ORAL Itching 08/24/20 15:15 09/23/20 15:14 09/08/20 09:39 Docusate Sodium (Colace) 100 mg DAILY ORAL 08/24/20 09:00 09/23/20 08:59 09/08/20 08:45 Haloperidol Lactate (Haldol) 5 mg Q6H PRN IM Agitation 08/24/20 07:00 10/08/20 06:59 09/08/20 09:39 Heparin Sodium (Porcine) (Heparin 5000 units/ml) 5,000 units EVERY 12 HOURS SUBQ 08/24/20 09:00 10/08/20 08:59 09/08/20 08:44 Hydrocortisone (Hydrocortisone) 1 applic Q12HR TOPIC 08/24/20 21:00 11/22/20 20:59 09/08/20 08:45 Hyoscyamine Sulfate (Levsin) 0.125 mg Q4H PRN ORAL secretions 08/24/20 06:15 09/23/20 06:14 Insulin Aspart (NovoLOG) BEFORE MEALS AND HS SUBQ 08/24/20 06:30 11/22/20 06:29 09/07/20 05:58 Lorazepam (Ativan) 1 mg EVERY 8 HOURS ORAL 09/03/20 06:00 09/10/20 05:59 09/08/20 06:24 Metformin HCl (Glucophage) 500 mg DAILY ORAL 08/24/20 09:00 09/23/20 08:59 09/08/20 08:45 Quetiapine Fumarate (SEROqueL) 100 mg EVERY 8 HOURS ORAL 08/30/20 22:00 10/13/20 05:59 09/08/20 06:24 Vancomycin HCl (Vanco pharmacy to dose) 1 ea DAILY PRN MISC Per rx protocol 08/24/20 10:45 09/23/20 10:44 Vancomycin HCl 750 mg/Sodium Chloride 275 ml @ 183.333 mls/hr Q8HR IVPB 09/04/20 22:00 09/09/20 21:59 09/08/20 06:25 Last 24 Hour Vital Signs Date Time Temp Pulse Resp B/P (MAP) Pulse Ox O2 Delivery O2 Flow Rate FiO2 09/08/20 09:15 98.2 09/08/20 09:00 Room Air 09/08/20 08:00 98.2 76 18 135/87 (103) 100 09/08/20 06:57 78 18 124/75 97 09/08/20 06:24 86 18 128/76 97 09/08/20 04:00 97.6 86 18 128/76 (93) 97 09/08/20 00:00 97.3 84 20 125/72 (89) 96 09/07/20 21:53 Room Air 09/07/20 21:44 72 20 125/76 96 09/07/20 21:14 70 20 130/75 95 09/07/20 20:00 97.9 70 20 130/75 (93) 95 09/07/20 16:00 98.0 92 20 130/80 (97) 99 09/07/20 13:15 86 19 132/77 99 10/15/20 12:00 97.8 86 19 132/77 (95) 99 09/07/20 08:39 Room Air 09/07/20 07:56 97.6 81 20 137/80 (99) 99 09/07/20 06:22 70 20 138/89 97 09/07/20 05:52 76 20 143/93 98 09/07/20 04:00 97.8 76 20 143/93 (110) 98 09/06/20 21:51 91 20 110/69 97 09/06/20 21:21 94 20 112/75 98 09/06/20 20:18 Room Air 09/06/20 20:00 96.8 96 20 108/76 (87) 98 09/06/20 16:00 97.0 78 19 134/77 (96) 98 09/06/20 14:45 64 18 123/81 99 09/06/20 14:15 64 18 123/81 99 09/06/20 12:00 97.5 64 18 123/81 (95) 99 Intake and Output 09/07/20 09/08/20 19:00 07:00 Intake Total 1858.333 ml 800 ml Balance 1858.333 ml 800 ml Intake Oral 1000 ml IV Total 858.333 ml Other 800 ml # Voids 8 4 # Bowel Movements 2 1 Labs Test 09/05/20 21:15 09/06/20 05:40 09/07/20 06:30 Vancomycin Level Trough 13.5 ug/mL (5.0-12.0) White Blood Count 7.5 K/UL (4.8-10.8) 6.1 K/UL (4.8-10.8) Red Blood Count 4.35 M/UL (4.70-6.10) 4.00 M/UL (4.70-6.10) Hemoglobin 13.1 G/DL (14.2-18.0) 12.3 G/DL (14.2-18.0) Hematocrit 38.3 % (42.0-52.0) 35.3 % (42.0-52.0) Mean Corpuscular Volume 88 FL (80-99) 88 FL (80-99) Mean Corpuscular Hemoglobin 30.2 PG (27.0-31.0) 30.7 PG (27.0-31.0) Mean Corpuscular Hemoglobin Concent 34.3 G/DL (32.0-36.0) 34.8 G/DL (32.0-36.0) Red Cell Distribution Width 14.0 % (11.6-14.8) 14.0 % (11.6-14.8) Platelet Count 295 K/UL (150-450) 290 K/UL (150-450) Mean Platelet Volume 6.4 FL (6.5-10.1) 5.8 FL (6.5-10.1) Neutrophils (%) (Auto) 64.8 % (45.0-75.0) 59.8 % (45.0-75.0) Lymphocytes (%) (Auto) 23.1 % (20.0-45.0) 24.6 % (20.0-45.0) Monocytes (%) (Auto) 6.1 % (1.0-10.0) 8.9 % (1.0-10.0) Eosinophils (%) (Auto) 4.3 % (0.0-3.0) 5.1 % (0.0-3.0) Basophils (%) (Auto) 1.7 % (0.0-2.0) 1.6 % (0.0-2.0) Sodium Level 142 MMOL/L (136-145) Potassium Level 3.9 MMOL/L (3.5-5.1) Chloride Level 108 MMOL/L (98-107) Carbon Dioxide Level 28 MMOL/L (21-32) Blood Urea Nitrogen 10 mg/dL (7-18) Creatinine 0.8 MG/DL (0.55-1.30) Estimat Glomerular Filtration Rate > 60 mL/min (>60) Glucose Level 134 MG/DL (74-106) Calcium Level 8.1 MG/DL (8.5-10.1) Total Bilirubin 0.5 MG/DL (0.2-1.0) Aspartate Amino Transf (AST/SGOT) 36 U/L (15-37) Alanine Aminotransferase (ALT/SGPT) 98 U/L (12-78) Alkaline Phosphatase 103 U/L (46-116) Total Protein 5.6 G/DL (6.4-8.2) Albumin 2.4 G/DL (3.4-5.0) Globulin 3.2 g/dL Albumin/Globulin Ratio 0.8 (1.0-2.7) Height (Feet): 6 Height (Inches): 0.00 Weight (Pounds): 151 Objective General Appearance: confused EENT: PERRL/EOMI Neck: supple Cardiovascular: regular rhythm Respiratory/Chest: normal breath sounds Abdomen: non tender, soft Extremities: non-tender Ricardo Mills MD Sep 08, 2020 11:48
[2020-09-08 12:00] VITALS: BP 129/76
--- NOTE | 2020-09-08 13:50 | Surgery Progress Note ---
Surgery Progress Note Subjective Additional Comments no acute events pending placement no n/v Objective Last 24 Hour Vital Signs Date Time Temp Pulse Resp B/P (MAP) Pulse Ox O2 Delivery O2 Flow Rate FiO2 09/08/20 12:00 98.5 72 18 129/76 (93) 100 09/08/20 09:15 98.2 09/08/20 09:00 Room Air 09/08/20 08:00 98.2 76 18 135/87 (103) 100 09/08/20 06:57 78 18 124/75 97 09/08/20 06:24 86 18 128/76 97 09/08/20 04:00 97.6 86 18 128/76 (93) 97 09/08/20 00:00 97.3 84 20 125/72 (89) 96 09/07/20 21:53 Room Air 09/07/20 21:44 72 20 125/76 96 09/07/20 21:14 70 20 130/75 95 09/07/20 20:00 97.9 70 20 130/75 (93) 95 09/07/20 16:00 98.0 92 20 130/80 (97) 99 I&O Intake and Output 09/07/20 09/08/20 19:00 07:00 Intake Total 1858.333 ml 800 ml Balance 1858.333 ml 800 ml Intake Oral 1000 ml IV Total 858.333 ml Other 800 ml # Voids 8 4 # Bowel Movements 2 1 Dressing: dry Cardiovascular: RSR Respiratory: clear Abdomen: soft, non-tender, present bowel sounds Extremities: no tenderness, no cyanosis, other Plan Problems: (1) Rhabdomyolysis (2) Cellulitis of left foot Assessment & Plan: Bilaterally, grayscale and duplex images demonstrate atherosclerotic plaquing. Bilaterally, triphasic waveforms with sharp systolic peaks are seen from the common femoral to the popliteal artery levels. On the right, dorsalis pedis artery waveforms is borderline triphasic. Proximal posterior and anterior tibial artery waveforms are triphasic, and the distal posterior tibial artery waveform is triphasic. On the left, the posterior tibial artery waveform is monophasic with increased diastolic flow. The peroneal artery waveforms is monophasic with increased diastolic flow. The dorsalis pedis artery waveforms is monophasic with increased diastolic flow. Systolic peaks remain sharp in the tibial vessels. 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 No evidence of suprageniculate stenosis Minimal if any trifurcation disease on the right. No evidence of suprageniculate stenosis as per vascular Psych and medical optimization in progress Patient will need left leg angiogram for revascularization once cleared and co nsented Podiatry foot wound care f/u Antiplatelet and statin DVT and decub precautions Abdominal aorta: There is moderate narrowing of the celiac origin. Normal caliber superior mesenteric artery. Dual bilateral renal arteries. There is a moderate stenosis of the left vein renal artery origin. Mild to moderate stenosis of otherwise patent inferior mesenteric artery is noted at the origin. There is some mural plaquing of the abdominal aorta, but no significant stenosis is demonstrated. No aneurysm or dissection demonstrated. Right lower extremity: There is atherosclerotic plaquing of the no significant stenosis of the right common iliac, external iliac, and proximal internal iliac arteries. There is atherosclerotic plaquing of the common femoral artery, but no significant stenosis demonstrated. Patent nonstenotic profunda femoral artery and proximal branches. The superficial femoral artery demonstrates mild nonsignificant stenosis at the other 2 hiatus, no significant narrowing demonstrated. There is a mild nonsignificant stenosis of the proximal popliteal artery. No significant stenosis is demonstrated. Evaluation of the tibial vessels is very limited. The arterial phase acquisition stops at the level of the proximal lower legs. The delayed acquisition of the lower legs demonstrates heavy venous contamination, as well and is considerable image degradation due to motion artifact. Given these limitations, the anterior tibial artery appears to be patent although likely with multiple stenoses of uncertain significance. The tibioperoneal trunk demonstrates atherosclerotic plaquing, and possibly a moderate stenosis just above its bifurcation. The posterior tibial artery is very poorly visualized, heavily calcified, which precludes accurate estimation of degree of stenosis. It grossly appears to be patent to the foot although this is difficult to state for certain. It is likewise poorly visualized. Suspect patent to the ankle but heavily diseased. Left lower extremity: Patent nonstenotic common iliac, external iliac, internal iliac arteries. Atherosclerotic plaquing of the no significant stenosis of the common femoral artery. Patent nonstenotic profunda femoral artery and proximal branches. Patent nonstenotic superficial femoral artery. There is mild disease of the proximal popliteal artery. Imaging of the popliteal artery is somewhat degraded due to motion artifact. There are similar limitations to evaluation of the tibial vessels as on the right side. Imaging of the tibial vessels was performed in venous phase and there is significant motion artifact, venous contamination, as well as calcification. The proximal anterior tibial artery appears to be patent. Due to motion artifact, the midportion is not all well visualized. It does appear to be patent above and at the ankle and forms a dorsalis pedis artery. The tibioperoneal trunk demonstrates heavy atherosclerotic plaquing which limits evaluation of the lumen. The midportion of the posterior tibial artery is completely obscured due to motion. The distal posterior tibial artery appears to be patent but heavily calcified and reaches the ankle. The peroneal artery is likewise obscured. Likely but not definitively patent to the ankle. Nonvascular: The gallbladder wall appears somewhat edematous. No gallstones are demonstrated. No biliary ductal dilatation. The liver, pancreas, spleen are unremarkable. The adrenals are somewhat bulky but no discrete mass is demonstrated. The kidneys are unremarkable. No retroperitoneal or mesenteric mass or adenopathy. No pelvic mass or adenopathy. The prostate is enlarged, measuring 6 cm transverse. The rectum is mildly distended by feces, measures up to 6.8 cm in diameter. Considerable stool seen within the distal sigmoid and proximal colon. No evidence of diverticulosis or diverticulitis. The appendix is not identified visualize, but no findings to suggest acute appendicitis are evident. No small bowel distention. No free or loculated intraperitoneal gas or fluid is evident. The lung bases demonstrate posterior dependent atelectatic changes. The bones demonstrate mild degenerative spondylosis changes. IMPRESSION: No evidence of suprageniculate stenosis bilaterally Very limited, essentially nondiagnostic, evaluation of the bilateral tibial vessels due to motion artifact, late phase imaging resulting in venous contamination, as well as heavy calcification precluding accurate evaluation of the luminal diameter. Suspect that the tibial vessels are patent but diseased bilaterally, but this cannot be stated with any certainty. Recommend arterial duplex scanning to evaluate quality of distal perfusion. Alternatively, MR angiography may be useful to better eval uate Edematous gallbladder wall, without evidence of gallstones. Gallbladder wall edema could be related to adjacent liver disease, hemodynamic disturbances, or could be idiopathic. However, the possibility of acute cholecystitis, either acalculous or due to CT-occult calculi also be considered. Possible mild rectal fecal impaction Prostatomegaly Incidental findings of posterior dependent pulmonary atelectatic changes, degenerative spondylosis changes (3) Cellulitis of left toe (4) Acute encephalopathy Assessment & Plan: Brain: There is chronic small vessel ischemic disease. 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 There are old lacunar infarcts in the right centrum semi-ovale. There is age-related cerebral volume loss. No hemorrhage. Ventricles: Unremarkable. No ventriculomegaly. Bones/joints: Unremarkable. No acute fracture. Soft tissues: Unremarkable. Sinuses: Unremarkable as visualized. No acute sinusitis. Mastoid air cells: Unremarkable as visualized. No mastoid effusion. IMPRESSION: 1. 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 2. Old lacunar infarcts in the right centrum semi-ovale. 3. Age-related cerebral volume loss. Chronic small vessel ischemic disease. (5) Abnormal LFTs Assessment & Plan: 60-year-old male altered mental status agitated came in for evaluation identified to have a WBC of 12 and abnormal LFTs. Admitted further care and management. Abdominal exam is fairly benign soft nontender nondistended. Pending abdominal ultrasound Trend labs We will follow with recommendations as imaging and labs are available. (6) Leukocytosis Assessment & Plan: Patient with leukocytosis on admission. Abnormal LFTs. Etiology of leukocytosis unknown. Micro noted. On antibiotics. Imaging ordered. Will follow with recommendations as imaging information is available. No abscess or or visible sign of infection identified. Small eschar on toe and had mild erythema of foot but not very clinically significant. (7) Anemia (8) HTN (hypertension) (9) DM (diabetes mellitus) (10) Wound of foot Clay Gonzalez Sep 08, 2020 13:50
--- NOTE | 2020-09-08 14:03 | NUR ---
Speech Note Chart reviewed, discharge order to SNF noted, corrections caseworker notes for the DCP, name and address noted. I will sign off from speech service at this time. Henri Treadwell
[2020-09-08 15:03] VITALS: BP 129/76
--- NOTE | 2020-09-08 15:40 | NUR ---
NURSE NOTES: Patient was discharged to [facility] at 1600, he was transported via ambulance and escorted by 2 gimp tacker. Patient is AOx2, IV removed, no signs of bleeding or respiratory distress. Patient was discharged with all belongings, no medication on admission. Discharged packet given to EMT and report given to Joanie at SNF.
--- NOTE | 2020-09-08 23:42 | Psych Consult Progress Note ---
Psychiatry Progress Note Psychiatry Progress Note Subjective the pt was calmer nad Neurological/Psychiatric: Reports: anxiety, depressed, emotional problems; Denies: no symptoms, headache, numbness, paresthesia, pre-existing deficit, seizure, tingling, tremors, weakness, other Allergies: Coded Allergies: No Known Allergies (Unverified , 08/24/20) Objective Data Height (Feet): 6 Height (Inches): 0.00 Weight (Pounds): 151 General Appearance: alert Behavior Mannerisms: poor eye contact Mental Status Exam - Affect: flat Additional Comments: alert, oriented x0. Mood is agitated. Affect is blunted, congruent with mood. Thought process is concrete. Thought content, no suicidal or homicidal ideation. Cognition is impaired. Insight and judgment is impaired. Assessment/Plan Lodi I: ASSESSMENT: Lodi I Psychotic disorder, not otherwise specified. Lodi II Deferred. Lodi III CVA. Lodi IV Low. Lodi V 20. PLAN: 1. We will start the patient on Seroquel. 2. Ativan. 3. Discontinue all other psychotropic medication. 4. Patient lacks capacity to make decision. Status: stable Status Narrative ASSESSMENT: Lodi I Psychotic disorder, not otherwise specified. Lodi II Deferred. Lodi III CVA. Lodi IV Low. Lodi V 20. PLAN: 1. We will start the patient on Seroquel. 2. Ativan. 3. Discontinue all other psychotropic medication. 4. Patient lacks capacity to make decision. Assessment/Plan: ASSESSMENT: Lodi I Psychotic disorder, not otherwise specified. Lodi II Deferred. Lodi III CVA. Lodi IV Low. Lodi V 20. PLAN: 1. We will start the patient on Seroquel. 2. Ativan. 3. Discontinue all other psychotropic medication. 4. Patient lacks capacity to make decision. Nima Degroot MD Sep 08, 2020 23:42
--- NOTE | 2020-09-10 16:11 | Discharge Summary ---
Discharge Summary Discharge Summary _ DATE OF ADMISSION: 08/24/2020 DATE OF DISCHARGE: 09/08/2020 DISCHARGED BY: Dr. Shimon Gruber CONSULTANTS: Dr. Nima Mills BRIEF HOSPITAL COURSE: Patient is an elderly 60-year-old male who came to the emergency room due to recurrent nonhealing ulcer and cellulitis of the right toe and acute encephalopathy. Patient was on hospice and family took him off and brought him to the hospital. He has medical history of depression, diabetes, hypertension and hyperlipidemia. Upon evaluation at ED, patient was confused and yelling. Blood work did not show any leukocytosis. Electrolytes were normal. LFTs were elevated. Urinalysis showed +1 leukocyte esterase, 0-2 urine WBC, 0-2 urine RBC. He had a prior history of CVA in June. Head CT was negative. X-ray of the bilateral foot did not show any dislocation, soft tissue swelling or fractures. He was then admitted for evaluation of altered mental status. Patient was admitted to medical floor. He was given IV vancomycin and Bactrim. Cysts blood glucose was monitored. He was continued on Metformin. He was placed on DVT prophylaxis. Patient was started on Seroquel. All psychotropic medications were discontinued. Patient was assessed to lack capacity to make medical decisions. LFTs were elevated. Abdominal ultrasound showed fatty liver. Hepatitis panel were negative. Elevated LFTs possibly secondary to statins. Economic Development Manager was consulted. Dorsalis pedis and posterior tibial arteries are nonpalpable. There was a black eschar necrotic tissue on the medial aspect of the left hallux, which is dry. No drainage, discharge, or purulent matter. No pus was identified. No erythema. No opening or probing or undermining. Lesion is consistent with ischemic skin changes. He was given local wound care. Vascular surgeon was consulted. Patient was recommended left leg angiogram for revascularization. Recommended antiplatelet therapy and statin with DVT and decubitus precautions. Venous duplex of the left arm was negative for DVT. Carotid duplex scan showed less than 50% stenosis bilaterally. Patient was eventually transferred to [facility]. 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 DISCHARGE MEDICATIONS: Refer to Discharge Medication List. I have been assigned to complete a discharge summary on this account, I was not involved with the patient's management.--ANTON Melgoza Jacqueline Robles NP Sep 10, 2020 16:11
--- NOTE | 2020-09-11 08:45 | Consultation ---
DATE OF CONSULTATION: 09/04/2020 CONSULTING PHYSICIAN: Amish Rollins MD REFERRING PHYSICIAN: Shimon Gruber MD REASON FOR CONSULTATION: Left foot toe gangrene necrosis. HISTORY OF PRESENT ILLNESS: This is a 60-year-old male who has severe psychosis and screaming. Patient is a very poor historian. He has a history of stroke with left-sided hemiparesis. He was found to have left fifth toe necrosis and ulceration. Vascular surgery consultation requested for further evaluation. PAST MEDICAL HISTORY: As above. Psychosis, stroke, left-sided hemiparesis, history of occlusive disease. MEDICATIONS: See attached MAR. SOCIAL HISTORY: Unobtainable. FAMILY HISTORY: Unobtainable. REVIEW OF SYSTEMS: Unobtainable due to altered mental status and combative psychotic behavior. PHYSICAL EXAMINATION: VITAL SIGNS: Patient is afebrile at 97, heart rate 80, blood pressure 142/60. Patient is restrained, is very combative, screaming. Exam is limited. LUNGS: Clear. HEART: Regular rate and rhythm. ABDOMEN: Soft. EXTREMITIES: Palpable femoral pulses. Absent popliteal and pedal pulses bilaterally. Left foot toe necrosis and ulceration. IMPRESSION: 1. Patient has ischemic left foot toe necrosis with severe multilevel occlusive arterial occlusive disease with absent foot pulses. 2. History of psychosis, stroke, left-sided hemiparesis. PLAN AND RECOMMENDATIONS: 1. Psychiatry evaluation. 2. Podiatry for foot wound care. 3. Antiplatelet and statin therapy. 4. Continue DVT and decubitus precautions. 5. He will need selective left leg angiogram and revascularization once consented and cleared The above was discussed at length with the nurse at the bedside. Amish Rollins M.D. DR: DANDRE JOB#: [id number] CC: LUANNE
== END 2020-09-08 16:05 | DRG 383 ==
LOC: EDBD 01:48 → EMR 02:14 → 4E 02:47 → EDBEDREQ 03:49 → 4E 04:27
DX: L03.116 Cellulitis of left lower limb (principal); G93.40 Encephalopathy, unspecified; I67.82 Cerebral ischemia; E43 Unspecified severe protein-calorie malnutrition; M62.82 Rhabdomyolysis; I10 Essential (primary) hypertension; L97.529 Non-pressure chronic ulcer of other part of left foot with unspecified severity; K74.60 Unspecified cirrhosis of liver; K29.70 Gastritis, unspecified, without bleeding; F10.10 Alcohol abuse, uncomplicated; I69.354 Hemiplegia and hemiparesis following cerebral infarction affecting left non-dominant side; Z79.84 Long term (current) use of oral hypoglycemic drugs; Z79.82 Long term (current) use of aspirin; I70.268 Atherosclerosis of native arteries of extremities with gangrene, other extremity; L98.499 Non-pressure chronic ulcer of skin of other sites with unspecified severity; R94.5 Abnormal results of liver function studies; E46 Unspecified protein-calorie malnutrition; F32.9 Major depressive disorder, single episode, unspecified; R62.7 Adult failure to thrive; F29 Unspecified psychosis not due to a substance or known physiological condition; L97.523 Non-pressure chronic ulcer of other part of left foot with necrosis of muscle; E78.5 Hyperlipidemia, unspecified; E11.621 Type 2 diabetes mellitus with foot ulcer
CPT/HCPCS: 36415; 70450; 71045; 74018; 75635; 76700; 80053; 80164; 80202; 81003; 82140; 82248; 82550; 82553; 82962; 83605; 83690; 84484; 85025; 85610; 85651; 85730; 86140; 86705; 86709; 86803; 87040; 87081; 87340; 93005; 93880; 93925; 93971; 96361; 96374; 99285; J1815; J7030; J8499; U0002